=== PATIENT | female | born 1940 | race African-American/Black ===

== ENCOUNTER 2020-03-01 11:18 | Emergency (ER) | payer MEDICARE, BC, SELFPAY ==
[2020-03-01 11:20] VITALS: BP 148/87; PULSE 70; RESP 16; TEMP 36.3; O2SAT 100
--- NOTE | 2020-03-01 11:36 | ED.GENADULT ---
HPI - General Adult General Chief complaint: Back Pain/Injury Stated complaint: back pain Time Seen by Provider: 03/01/20 11:36 Source: patient and RN notes reviewed Mode of arrival: ambulatory Limitations: no limitations History of Present Illness HPI narrative: 79-year-old -[place] female presents with complaints of mid-right back pain for the past 2 weeks. Symptoms increased throughout the past 48 hours. Mima believes that she slept wrong otherwise unknown injuries. Ibuprofen 800mg last this morning at 09:30 without relief. Denies new injuries or falls. Denies radiating pain, numbness, or tingling. Denies fever or chills. No upper or lower extremity pain or weakness. Exacerbating factors consist of reaching outward or backwards with right hand. Denies chest pain. Denies nausea, vomiting, or abdominal pain. Denies problems with urinating or having a bowel movement, LBM this morning per patient and normal. No flank pain or hematuria or dysuria. LMP postmenopausal. Remains active. The patient reports she have not been diagnosed with COVID-19. The patient reports she is not waiting for the results of a COVID-19 lab test. Mima reports her last COVID-19 test in December 2019 was NEGATIVE. The patient reports she do not have weakness or fatigue. The patient reports she do not have a new or worsening cough or shortness of breath. The patient reports she do not have any rhinorrhea, congestion, sore throat, loss of taste, or diarrhea. Tolerating po intake well. Denies recent traveling. Denies concerns for COVID-19 or exposures been home with limited outdoor exposure except for essential household needs, work, and return home. At this time, patient is not suspected of having COVID-19. Some parts of this dictation were generated by voice recognition software and may contain typographical and/or grammatical inaccuracies. Related Data Home Medications Medication Instructions Recorded Confirmed ergocalciferol (vitamin D2) 50,000 unit PO WEEKLY 03/01/20 03/01/20 levothyroxine 125 mcg PO DAILY 03/01/20 03/01/20 nifedipine 60 mg PO DAILY 03/01/20 03/01/20 rosuvastatin 10 mg PO DAILY 03/01/20 03/01/20 Allergies Allergy/AdvReac Type Severity Reaction Status Date / Time codeine AdvReac Unknown HEADACHE Verified 03/01/20 13:39 Review of Systems Review of Systems: Narrative: CONSTITUTIONAL: Denies fever, chills, sweats. EYES: Denies visual changes, redness, discharge. ENT: Denies rhinorrhea, congestion, sore throat, otalgia. CARDIOVASCULAR: Denies chest pain, palpitations, edema. RESPIRATORY: Denies dyspnea, wheezing, cough. GASTROINTESTINAL: Denies abdominal pain, nausea, vomiting, diarrhea. GENITOURINARY: Denies dysuria, hematuria, abnormal discharge. SKIN: Denies rash or itching. MUSCULOSKELETAL: Complains of mid-right back pain. Denies joint pain or myalgia. NEUROLOGIC: Denies numbness or focal weakness. PSYCHIATRIC: Denies anxiety or depression. All systems reviewed & are unremarkable except as noted in HPI and below PMFSH Past Medical History Medical History (Updated 03/02/20 @ 00:00 by [facility]) Carpal tunnel syndrome Femur fracture, left surgery with lashay insertion at age 18 Hypercholesteremia Hypertension Postmenopausal Surgical History Surgical History (Updated 03/01/20 @ 15:16 by AYDEE Still) H/O partial thyroidectomy History of carpal tunnel surgery Bilateral History of shoulder surgery bilateral rotator cuff repair Hx of appendectomy Family History Family History (Updated 03/01/20 @ 11:49 by AYDEE Still) Father Cancer Mother , at age 81 Parkinson's disease Social History Social History (Updated 03/01/20 @ 11:49 by AYDEE Still) Smoking status: Never smoker Tobacco type: cigarettes Second hand tobacco smoke exposure: No Alcohol intake: current Alcohol use details: Beer once or twice a week
== END 2020-03-01 12:20 | disposition home or self-care (01) ==
PROVIDERS: Emergency Provider Nurse Practitioner Family
DX: M54.6 Pain in thoracic spine (principal); E78.00 Pure hypercholesterolemia, unspecified; I10 Essential (primary) hypertension
CPT/HCPCS: 99203; G0463

== ENCOUNTER 2020-03-20 11:07 | Emergency (ER) | payer MEDICARE, BC, SELFPAY ==
--- NOTE | ~2020-03-20 | XR_ITS ---
XR knee LT min 4V 03/20/2020 12:14 INDICATION: Left knee pain for 3 days PROCEDURE: 4 views left knee COMPARISON: No prior studies for comparison. FINDINGS: Fracture, dislocation or subluxation is not identified. Small joint effusion. Distal aspect of intramedullary lashay in the femur noted. The mild osteoarthritis of the knee. The soft tissues appe ar within normal limits. No foreign bodies are identified. IMPRESSION: 1: NO ACUTE BONE OR JOINT ABNORMALITY IDENTIFIED. Reviewed, dictated and finalized at location A. MAKER APPRENTICE
--- NOTE | ~2020-03-20 | XR_ITS ---
XR hip LT min 2V 03/20/2020 12:13 Indication: Left hip pain Procedure: 3 views left hip Comparison: No prior studies for comparison. Findings: There is an intramedullary lashay transfixing the femur. There is a healed midshaft fracture o f the femur. No acute fracture or traumatic malalignment. There is osteoarthritis of the left hip. No significant soft tissue abnormality. No foreign bodies. Impression: 1: No acute fracture. Reviewed, dictated and finalized at location A. ARD OPERATOR Impression: 1: No acute fracture.
[2020-03-20 11:12] VITALS: BP 177/84; PULSE 68; RESP 12; TEMP 36.3; O2SAT 100
--- NOTE | 2020-03-20 11:25 | ED.GENADULT ---
HPI - General Adult General Chief complaint: Back Pain/Injury Stated complaint: L THIGH/CALF PAIN Time Seen by Provider: 03/20/20 11:25 Source: patient Mode of arrival: ambulatory Limitations: no limitations History of Present Illness HPI narrative: 79-year-old female patient presents to the [facility] with complaints of left leg pain that started about a week ago. Patient states she was seen here couple weeks ago for some lower back pain and was given some muscle relaxants which she said did improve her back pain. Patient states she is now having some pain to the left hip and the left knee. Patient states she does have a lashay into the left femur. Patient denies any history of arthritis that she is aware of. Patient states that the pain is worse when she first wakes up in the morning and does get better as the day progresses. Patient states she has been taking some ibuprofen, using heat and ice yesterday as well as some muscle rub. Patient denies any numbness or tingling down the leg. Denies any recent injuries or falls to that left side that she is aware of. Patient states she did call her primary doctor and they did refill her muscle relaxants for about 1 week but states she has only taken 1 since the pain has started. Related Data Home Medications Medication Instructions Recorded Confirmed ergocalciferol (vitamin D2) 50,000 unit PO WEEKLY 03/01/20 03/20/20 levothyroxine 125 mcg PO DAILY 03/01/20 03/20/20 nifedipine 60 mg PO DAILY 03/01/20 03/20/20 rosuvastatin 10 mg PO DAILY 03/01/20 03/20/20 ascorbic acid (vitamin C) 500 mg PO DAILY 03/20/20 03/20/20 aspirin [Adult Aspirin EC Low 81 mg PO DAILY 03/20/20 03/20/20 Strength] cholecalciferol (vitamin D3) 25 mcg PO DAILY 03/20/20 03/20/20 [Vitamin D3] Allergies Allergy/AdvReac Type Severity Reaction Status Date / Time codeine AdvReac Unknown HEADACHE Verified 03/20/20 11:12 Review of Systems Review of Systems: Narrative: CONSTITUTIONAL: Denies fever, chills, or sweats. EYES: Denies visual changes, redness, or discharge. ENT: Denies rhinorrhea, congestion, sore throat, or otalgia. CARDIOVASCULAR: Denies chest pain, palpitations, or edema. RESPIRATORY: Denies cough or dyspnea. GASTROINTESTINAL: Denies abdominal pain, nausea, vomiting, or diarrhea. GENITOURINARY: Denies dysuria or hematuria. SKIN: Denies rash or itching. MUSCULOSKELETAL: Denies back pain, joint pain, or myalgia. NEUROLOGIC: Denies headache, numbness, or weakness. PSYCHIATRIC: Denies anxiety or depression. [facility] Past Medical History Medical History (Updated 03/20/20 @ 12:34 by AYDEE Fang) Carpal tunnel syndrome Femur fracture, left surgery with lashay insertion at age 18 Hypercholesteremia Hypertension Postmenopausal Surgical History Surgical History (Updated 03/01/20 @ 15:16 by AYDEE Still) H/O partial thyroidectomy History of carpal tunnel surgery Bilateral History of shoulder surgery bilateral rotator cuff repair Hx of appendectomy Family History Family History (Updated 03/01/20 @ 11:49 by AYDEE Still) Father Cancer Mother , at age 81 Parkinson's disease Social History Social History (Updated 03/01/20 @ 11:49 by AYDEE Still) Smoking status: Never smoker Tobacco type: cigarettes Second hand tobacco smoke exposure: No Alcohol intake: current Substance use: never Gender identity (if verbalized by the patient): Female Exam Narrative: Exam Narrative: GENERAL: Well-appearing, well-nourished, and in no acute distress. HEAD: Normocephalic, atraumatic. EYES: PERRLA and EOMI. ENT: Nares clear, no rhinorrhea or epistaxis. Mucous membranes moist. NECK: Supple. No lymphadenopathy CHEST: Clear to auscultation. No respiratory distress. HEART: Regular rate and rhythm. No murmur heard. Normal peripheral pulses. ABDOMEN: Soft, nontender, nondistended, normal active bowel sounds. EXTREMITIES: Suly
== END 2020-03-20 12:45 | disposition home or self-care (01) ==
PROVIDERS: Emergency Provider Nurse Practitioner Family
DX: M25.462 Effusion, left knee (principal); M16.12 Unilateral primary osteoarthritis, left hip; M17.12 Unilateral primary osteoarthritis, left knee; E78.00 Pure hypercholesterolemia, unspecified; I10 Essential (primary) hypertension; Z79.82 Long term (current) use of aspirin; Z90.89 Acquired absence of other organs
CPT/HCPCS: 73502; 73564; 99214; G0463

== ENCOUNTER 2020-05-11 13:00 | Outpatient (RCR) | payer MEDICARE, BC, SELFPAY ==
--- NOTE | 2020-04-13 15:02 | PTOPEVAL ---
PHYSICAL THERAPY EVALUATION AND PLAN OF CARE 04-13-2020 Thank you for referring Mima Omer to [facility].? She is scheduled to be seen for therapy? 2x/week for 4 weeks. Please review, sign, date and return this plan of care ANNIE. I agree with and certify that the following plan of care is medically necessary. Referring Physician Date Attending Provider: Santiago Garduno MD *PT Outpatient Evaluation Document 04/13/20 14:10 ANGEL (Rec: 04/13/20 15:02 ANGEL [id number]) Therapy Assessment Status Assessment Status Assessment Status Evaluation Outpatient Past Medical History Past Medical History Source of Past Medical History Patient Neurological History Hx Neurological Disorders No Significant History Cardiovascular History Hx Hypercholesterolemia Yes: meds Hx Hypertension Yes: meds Respiratory History Hx Respiratory Disorders No Significant History Gastrointestinal History Hx Appendectomy Yes Genitourinary History Hx Genitourinary Disorders No Significant History Musculoskeletal History Hx Fractures Yes: Lt femur lashay at 18 yrs old Hx Orthopedic Surgery Yes: Bilateral rotator cuff repair Hx Other Musculoskeletal Disorders Yes: bilateral carpal tunnel repair Hematological History Hx Hematological Disorders No Significant History Endocrine History Hx Endocrine Surgery Yes: Partial thyroidectomy Hx Hypothyroidism Yes: meds HEENT History Hx HEENT Disorders No Significant History Integumentary History Hx Skin Disorders No Significant History Reproductive History Hx Post Menopausal Yes Psychosocial History Hx Psychiatric Disorders No Significant History Pain History History of Any Previous or Ongoing No Significant History Instance of Pain Anesthesia History Hx Anesthesia Reactions No Significant History Evaluation Information Problem Diagnosis L knee OA Onset Feb 15, 2020 Subjective Information went to urgent care for back Query Text:As Reported By Patient/ pain, then started having more Family L knee pain; no trauma or injury to back or L knee; had injection in knee and pain did not change; saw back dr- going to have MRI next week; had one round of steroids/prednisone and did not help pain in back; Diagnostic Tests X-Rays For This Problem Yes: mild OA per report MRI For This Problem to have MRI of back next week Previous Treatments Pr
--- NOTE | 2020-05-06 11:33 | PCPTNOTE ---
pt called and canceled today's appt;
--- NOTE | 2020-05-11 13:39 | PTOPEVAL ---
PHYSICAL THERAPY DISCHARGE 05-11-2020 Refer to the clinical summary below for her status. The goals were partially achieved. Thank you for referring Mima Omer to [facility].? Please review, sign, date and return this discharge ANNIE. I agree with and certify that the following plan of care is medically necessary. Referring Physician Date Attending Provider: Santiago Garduno MD Document 05/11/20 13:05 ANGEL (Rec: 05/11/20 13:38 ANGEL [id number]) Assessment Status Discharge Subjective Information Mima reports: limping more Query Text:As Reported By Patient/ when walking, back hurting Family more, using cane sometimes, doing leg exercises at home, feels like leg is stronger; Pain Assessment Timing of Pain Assessment Timing of Pain Assessment Assessment Pain Scale Pain Scale Used Numeric (1 - 10) Self Report Pain Assessment Left Knee(s) Reported Pain Level 7 Pain Description Burning,Tightness Radicular Pain Location warm feeling going down leg; Pain Frequency Chronic,Continuous Other Pain Description back pain more- cold and damp weather Pain Score Pain Score 7: Self Report Interventions Used Interventions Used By Clinicians Exercise Other Alleviating Interventions kinesiotape over L knee medial and lateral patella- pt instruct on applicat Lower Extremity Range of Motion General Lower Extremity Range of Motion Gross Lower Extremity Range of Motion L LE: supine knee extension (- Comments 5') and sitting knee flexion 95', both with increase pain; hip IR 0', with hip and knee at 90', increase pain; supine hamstring stretch with SLR 40' Lower Extremity Muscle Strength Testing General Lower Extremity Strength Gross Lower Extremity Strength L LE: supine SLR x 20 reps; side lying hip abduction 10 reps-- increase pain in back and hip; Posture Posture Standing Position Additional Posture Comments decreased weight bearing on L LE/ weight shift to R; Palpation Assessment Palpation Palpation tenderness with light touch over L lateral hip, ITB and L knee medial joint line; visible edema over L knee, compared to R knee; Gait Assessment Gait Assessment Ambulation Assistive Devices None Ambulation Distance 300 Query Text:(Feet)
== END 2020-05-12 08:15 | disposition home or self-care (01) ==
LOC: ANHPT 13:00
PROVIDERS: Visit Provider Orthopaedic Surgery
DX: M17.12 Unilateral primary osteoarthritis, left knee (principal)
CPT/HCPCS: 97014; 97110; 97116; 97140; 97161; G0283

== ENCOUNTER 2022-05-28 10:35 | Emergency (ER) | payer MEDICARE, BC, SELFPAY ==
--- NOTE | ~2022-05-28 | XR_ITS ---
XR knee RT 3V DATE: 05/28/2022 11:16 INDICATION: Posterior right knee pain after climbing into a shoe the TECHNIQUE: 3 views COMPARISON: None FINDINGS: Very prominent enthesopathy of the patella at the quadriceps and particularly the patellar tendon insertions as well as prominent enthesopathy of the anterior tibial tuberosity at the patellar tendon insertion. Periarticular spurring of the patellofemoral and lateral compartments and moderate loss of height of medial compartment joint space, consistent with tricompartment osteoarthritis. Small suprapatellar knee joint effusion is suggested. No recent fracture, dislocation, periosteal reaction or bone destruction is detected. No radiopaque i ntra-articular loose body or chondrocalcinosis. IMPRESSION: Prominent enthesopathy at the quadriceps and patellar tendon insertion sites Mild knee joint effusion Tricompartment osteoarthritis Reviewed, dictated and finalized at location A. ACCOUNTING ANALYST IMPRESSION: Prominent enthesopathy at the quadriceps and patellar tendon insert ion sites Mild knee joint effusion Tricompartment osteoarthritis
--- NOTE | 2022-05-28 10:39 | ED.URI ---
HPI - URI/Sore Throat General Stated Complaint: rt knee pain Time Seen by Provider: 05/28/22 10:40 Source: patient and RN notes reviewed Related Data Home Medications Medication Instructions Recorded Confirmed levothyroxine 125 mcg tablet 125 mcg PO DAILY 03/01/20 07/27/21 nifedipine 60 mg tablet,extended 60 mg PO DAILY 03/01/20 07/27/21 release rosuvastatin 10 mg tablet 10 mg PO DAILY 03/01/20 07/27/21 ascorbic acid (vitamin C) 500 mg 500 mg PO DAILY 03/20/20 07/27/21 tablet aspirin 81 mg tablet,delayed 81 mg PO DAILY 03/20/20 07/27/21 release cholecalciferol (vitamin D3) 25 25 mcg PO DAILY 03/20/20 07/27/21 mcg (1,000 unit) tablet (Vitamin D3) Allergies Allergy/AdvReac Type Severity Reaction Status Date / Time codeine AdvReac Unknown HEADACHE Verified 07/27/21 13:28 Review of Systems Review of Systems: CONSTITUTIONAL: Denies fever, chills, or sweats. EYES: Denies visual changes, redness, or discharge. ENT: Denies rhinorrhea, congestion, sore throat, or otalgia. CARDIOVASCULAR: Denies chest pain, palpitations, or edema. RESPIRATORY: Denies cough or dyspnea. GASTROINTESTINAL: Denies abdominal pain, nausea, vomiting, or diarrhea. GENITOURINARY: Denies dysuria or hematuria. SKIN: Denies rash or itching. MUSCULOSKELETAL: Denies back pain, joint pain, or myalgia. NEUROLOGIC: Denies headache, numbness, or weakness. PSYCHIATRIC: Denies anxiety or depression. All other systems reviewed are negative, except as documented in HPI. [facility] Past Medical History Medical History Arthritis of left knee BMI 37.0-37.9, adult Carpal tunnel syndrome Hypercholesteremia Hypertension Postmenopausal Surgical History Surgical History Femur fracture, left surgery with lashay insertion at age 18 H/O hand surgery H/O partial thyroidectomy History of carpal tunnel surgery Bilateral History of shoulder surgery bilateral rotator cuff repair Hx of appendectomy Family History Family History Father Cancer Mother , at age 81 Parkinson's disease Social History Social History Smoking status: Never smoker Second hand tobacco smoke exposure: No Alcohol intake: current Alcohol use details: occasional Substance use: never Living arrangements: with family Occupation/Education: retired Gender identity (if verbalized by the patient): Female Comments At the time of my signature, I reviewed and agree with the nursing past medical, surgical, social, and family history. There is no relevant family history pertinent to the patient complaint. Exam Narrative: GENERAL: This is a well-nourished, well-developed patient, in no apparent distress. HEAD: normocephalic, atraumatic. EYES: PERRL. Sclera clear/white. Vision is grossly intact. EARS: External ears normal, auditory canals clear and without drainage, TMs normal without perforation. Hearing grossly intact. NOSE: External nose normal with no obvious nasal discharge, nares without redness, no rhinorrhea. THROAT: Mucous membranes moist, posterior pharynx clear. NECK: Neck supple, non-tender without lymphadenopathy, masses or thyromegaly. CARDIOVASCULAR: Regular rate and rhythm without murmurs, gallops, or rubs. RESPIRATORY: Clear to auscultation. Breath sounds equal bilaterally. No wheezes, rales, or rhonchi. GASTROINTESTINAL: Abdomen soft, non-tender, nondistended. Bowel sounds are active. No hepato-splenomegaly, or palpable masses. No guarding. SKIN: warm, intact with no suspicious lesions or rash, good texture and turgor. NEURO: awake, alert, and oriented to person, place and time. There were no obvious focal neurologic abnormalities. EXTREMITIES: No clubbing, cyanosis, or edema. No joint tenderness, effusion, or edema noted. No c
--- NOTE | 2022-05-28 10:41 | ED.LOWEXIN ---
HPI - Extremity Injury (Lower) General Chief Complaint: Extremity Injury, Lower Stated Complaint: rt knee pain Time Seen by Provider: 05/28/22 10:40 Source: patient and RN notes reviewed History of Present Illness HPI Narrative: Patient is an 81-year-old female who presents to urgent care with complaints of right knee pain. Patient states that she has chronic low back and left knee pain and which she sees a chiropractor and a spine doctor for. Patient states that she has been getting adjustments which have helping with the chronic back and left knee discomfort. States that she was climbing up in a truck last night to go to dinner and believes that she compensated and placed all of her weight on the right knee. Patient states that since then she has been having excruciating posterior knee pain on the right side that radiates down her calf. Patient did take a muscle relaxer without much relief. States that pain is increased with adduction and weight-bearing. No other acute complaints. Denies any fall or known injury. No acute distress noted. Patient aware of plan of care. Some parts of this dictation were generated by voice recognition software and may contain typographical and/or grammatical inaccuracies. Related Data Home Medications Medication Instructions Recorded Confirmed levothyroxine 125 mcg tablet 125 mcg PO DAILY 03/01/20 05/28/22 nifedipine 60 mg tablet,extended 60 mg PO DAILY 03/01/20 05/28/22 release rosuvastatin 10 mg tablet 10 mg PO DAILY 03/01/20 05/28/22 ascorbic acid (vitamin C) 500 mg 500 mg PO DAILY 03/20/20 05/28/22 tablet aspirin 81 mg tablet,delayed 81 mg PO DAILY 03/20/20 05/28/22 release cholecalciferol (vitamin D3) 25 25 mcg PO DAILY 03/20/20 05/28/22 mcg (1,000 unit) tablet (Vitamin D3) Allergies Allergy/AdvReac Type Severity Reaction Status Date / Time codeine AdvReac Unknown HEADACHE Verified 05/28/22 10:54 Review of Systems Review of Systems: CONSTITUTIONAL: Denies fever, chills, or sweats. EYES: Denies visual changes, redness, or discharge. ENT: Denies rhinorrhea, congestion, sore throat, or otalgia. CARDIOVASCULAR: Denies chest pain, palpitations, or edema. RESPIRATORY: Denies cough or dyspnea. GASTROINTESTINAL: Denies abdominal pain, nausea, vomiting, or diarrhea. GENITOURINARY: Denies dysuria or hematuria. SKIN: Denies rash or itching. MUSCULOSKELETAL: Reports of posterior right knee pain and swelling NEUROLOGIC: Denies headache, numbness, or weakness. All other systems reviewed are negative, except as documented in HPI. [facility] Past Medical History Medical History Arthritis of left knee BMI 37.0-37.9, adult Carpal tunnel syndrome Hypercholesteremia Hypertension Postmenopausal Surgical History Surgical History Femur fracture, left surgery with lashay insertion at age 18 H/O hand surgery H/O partial thyroidectomy History of carpal tunnel surgery Bilateral History of shoulder surgery bilateral rotator cuff repair Hx of appendectomy Family History Family History Father Cancer Mother , at age 81 Parkinson's disease Social History Social History Smoking status: Never smoker Second hand tobacco smoke exposure: No Alcohol intake: current Alcohol use details: occasional Substance use: never Living arrangements: with family Occupation/Education: retired Gender identity (if verbalized by the patient): Female Comments At the time of my signature, I reviewed and agree with the nursing past medical, surgical, social, and family history. There is no relevant family history pertinent to the patient complaint. Exam Narrative: GENERAL: This is a well-nourished, well-developed patient, in no apparent distress.
[2022-05-28 11:19] VITALS: BP 134/79; PULSE 99; RESP 16; TEMP 36.8; O2SAT 99
== END 2022-05-28 11:42 | disposition home or self-care (01) ==
PROVIDERS: Emergency Provider Nurse Practitioner Family
DX: M17.11 Unilateral primary osteoarthritis, right knee (principal); M25.461 Effusion, right knee; I10 Essential (primary) hypertension; Z79.82 Long term (current) use of aspirin
CPT/HCPCS: 73562; 99213; G0463

== ENCOUNTER 2024-07-07 11:42 | Inpatient (IN) | payer MEDICARE, BC, SELFPAY ==
[2024-07-07] VITALS (13 sets, daily range): BP systolic 98–165; BP diastolic 58–120; PULSE 62–137; RESP 16–20; TEMP 36.4–36.7; O2SAT 96–100; BMI 31.8; BMI 31.9
--- NOTE | ~2024-07-07 | MR_ITS ---
EXAMINATION: MR thoracic spine wo con, MR lumbar spine wo con DATE: 07/09/2024 12:30 INDICATION: Acute onset lower extremity weakness TECHNIQUE: 1. Magnetic resonance imaging (MRI) of the thoracic spine was performed without intravenous contrast. Sagittal localizer T1-weighted FSE of the cervicothoracic spine was obtained. Thoracic spine sequenc es included sagittal T2-weighted FSE, sagittal T1-weighted SE, Sagittal T2-weighted FS FSE, and axial T2-weighted FSE. 2. MRI of the lumbar spine was performed without intravenous contrast. Sequences included sagittal T2 -weighted FSE, sagittal T2-weighted FS FSE, sagittal T1-weighted FSE, and axial T2-weighted FSE. COMPARISON: Chest CT dated 07/07/2024 FINDINGS: THORACIC SPINE MRI: Minimal upper thoracic dextrocurvature. 2 mm anterolisthesis C7 on T1. Mild upper thoracic kyphosis. Vertebral body heights are normal. Mild fibrovascular degenerative endplate change anteriorly at the superior endplate of T12. Otherwise normal bone marrow signal throughout. There are bridging osteophy may at multiple levels consistent with diffuse idiopathic skeletal hyperostosis (DISH). Mild disc hei ght loss at T7-T8 and T11-T12. Disc bulge resulting in mild central canal stenosis at T11-T12. There is minimal disc bulging or very small disc protrusions at multiple additional levels on the more ceph alad thoracic spine with only minimal associated central canal stenosis. There is normal spinal cord signal throughout. The conus terminates at L1. There is multilevel thoracic facet osteoarthritis, sev ere at several of the upper thoracic spine, moderate at a few levels in the lower thoracic spine and otherwise mild. This contributes to neural foraminal stenosis most prominent on the left at T11-T12 t here is moderate severity, mild bilaterally at T2-T3, T3-T4, T9-T10 and on the right at T4-T5 and min imal to mild at a few additional levels. Paravertebral soft tissues are unremarkable. LUMBAR SPINE MRI: 1-2 mm anterolisthesis L3 on L4, 5 mm anterolisthesis L4 on L5. Vertebral body heights are normal. No rmal bone marrow signal throughout. Moderate disc height loss and annular fissure at L4-L5. Mild disc height loss at L3-L4 and L5-S1. Paravertebral soft tissues are unremarkable. The following disc leve ls are specifically discussed: T12-L1: Disc is minimally bulging. There is severe bilateral facet joint osteoarthritis. There is min imal left neural foraminal stenosis. There is no central canal stenosis. L1-L2: Disc is minimally bulging. There is severe bilateral facet joint osteoarthritis. There is bila teral neural foraminal stenosis. There is no central canal stenosis. L2-L3: Disc is mildly bulging. There is hypertrophy of the ligamentum flavum. There is severe bilater al facet joint osteoarthritis. There is mild bilateral neural foraminal stenosis. There is mild centr al canal stenosis. L3-L4: Disc is bulging. There is hypertrophy of the ligamentum flavum. There is severe bilateral face t joint osteoarthritis. There is bilateral neural foraminal stenosis. There is moderate central canal stenosis including narrowing of the left and right lateral recesses.. L4-L5: Disc is bulging with annular fissure and superimposed central disc extrusion with disc materia l extending up to 5 mm cephalad to the level of the inferior endplate of L4. There is hypertrophy of the ligamentum flavum. There is severe bilateral facet joint osteoarthritis. There is moderate bilate ral neural foraminal stenosis. There is severe central canal stenosis. L5-S1: Disc is mildly bulging, eccentric to the right. There is severe bilateral facet joint osteoart hritis. There is moderate bilateral neural foraminal stenosis. There is no central canal stenosis. IMPRESSION: 1. Mild thoracic spondylosis with no central canal stenosis and normal cord signal. 2. Moderate lumbar spondylosis with multilevel severe facet osteoarthritis and associated ligamentum flavum hypertrophy contributing to severe central canal stenosis at L4-L5. Reviewed, dictated and finalized at location B. IMPRESSION: 1. Mild thoracic spondylosis with no central canal stenosis and normal cord sig nal. 2. Moderate lumbar spondylosis with multilevel severe facet osteoarthritis and associated ligamentum flavum hypertrophy contributing to severe central canal s tenosis at L4-L5.
--- NOTE | ~2024-07-07 | XR_ITS ---
EXAMINATION: XR tibia fibula LT 2V DATE: 07/12/2024 12:32 INDICATION: Left lower leg pain and swelling. TECHNIQUE: 2 views of left tibia and fibula on 3 radiographs were obtained. COMPARISON: None. FINDINGS: Bone alignment is normal. No fracture. There is an intramedullary lashay in the femur. Left kn ee demonstrates moderate osteoarthritis of the lateral and patellofemoral compartments and mild osteo arthritis of medial compartment. There is mild ankle joint osteoarthritis. No knee joint effusion. IMPRESSION: 1. Polyarticular osteoarthritis. Reviewed, dictated and finalized at location A.
--- NOTE | ~2024-07-07 | MR_ITS ---
EXAMINATION: MR brain/brain stem wo con DATE: 07/09/2024 12:05 INDICATION: Acute lower extremity weakness. TECHNIQUE: Magnetic resonance imaging (MRI) of the brain and brainstem was performed without intraven ous contrast. COMPARISON: None. FINDINGS: There are scattered areas of nonspecific increased T2-weighted signal intensity in the cere bral white matter and latoya, which is within normal limits for the patient's age. There is no intracra nial hemorrhage, acute infarction, or abnormal intracranial mass lesion. The ventricles are normal in size. There are likely changes of ocular lens replacement surgeries. The paranasal sinuses are clear . The mastoid air cells are normal. At T1, there is inflammatory pseudopannus around the dens with se lior central canal stenosis and ventral and dorsal indentation of the spinal cord. There is increased T2-weighted signal intensity in the spinal cord on the left at C1, consistent with myelomalacia. IMPRESSION: 1. Normal aging brain. 2. 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 Reviewed, dictated and finalized at location A.
--- NOTE | ~2024-07-07 | XR_ITS ---
EXAMINATION: XR clavicle RT DATE: 07/12/2024 12:32 INDICATION: Right shoulder pain. TECHNIQUE: 2 views of right clavicle were obtained. COMPARISON: None. FINDINGS: Alignment is normal. No fracture. There is mild osteoarthritis of acromioclavicular joint a nd glenohumeral joint. IMPRESSION: 1. Mild polyarticular osteoarthritis. Reviewed, dictated and finalized at location A.
--- NOTE | ~2024-07-07 | CT_ITS ---
CTA chest PE protocol Ordering provider: Ruslan Coronado III DO History: 83 years Female with . sob . Comparison: None. Technique: CT angiogram chest was performed following timed intravenous injection of contrast. Thin s lice axial images and reformatted coronal images were obtained. Three dimensional reformatted images of the chest were also obtained using a [employer] workstation. . Automated exposure control and iterati ve reconstruction technique were employed. The dose-length product was 599.61 mGy-cm. 100 mL Omnipaqu e 350 was given IV. Findings: PULMONARY ARTERIES: No pulmonary embolus. VISUALIZED THORACIC INLET: Nodule in the right lower thyroid is noted. MEDIASTINUM: Aorta/coronary arteries: Mild atheromatous disease. Heart/other: The heart is not enlarged. Trace of pericardial effusion. Lymph nodes: No mediastinal or hilar adenopathy. Precarinal lymph node measuring 1.8 cm is noted. LUNGS: Minimal right pleural effusion with adjacent atelectasis. Dependent atelectasis seen in the left lung base. No pulmonary nodules or masses. No pneumothorax. VISUALIZED UPPER ABDOMEN: Sliding hiatus hernia. Otherwise, the visualized upper abdomen is normal. MUSCULOSKELETAL: Soft tissues: The superficial soft tissues are normal. Bones: Age appropriate degenerative changes of the spine. IMPRESSION: 1. No pulmonary embolism. 2. Nodule in the right lobe of the thyroid. Ultrasound evaluation advised. 3. Minimal right pleural effusion with adjacent atelectasis. 4. Trace of pericardial effusion. 5. Small sliding hiatus hernia Reviewed, dictated and finalized at location A.
--- NOTE | ~2024-07-07 | US_ITS ---
EXAMINATION: US thyroid DATE: 07/07/2024 18:28 INDICATION: Thyroid nodule TECHNIQUE: Multiple ultrasound images of the thyroid were obtained. COMPARISON: CTPA, same date. FINDINGS: The right thyroid lobe measures 4.9 x 2.8 x 2.8 cm. The left thyroid lobe is surgically absent. The isthmus measures 0.4 cm. There is normal echotexture and echogenicity throughout the remaining thyroi d gland. 3.3 cm solid, hypoechoic, smoothly marginated, taller than wide nodule with a single focal m acrocalcification (in prior CT) in the right thyroid lobe (TI-RADS 5). 1.5 cm solid, hypoechoic, wide r than tall isthmus nodule, with a subtle lobulation along its inferior margin and no calcification ( TI-RADS 4). Normal vascular flow is present. IMPRESSION: Highly suspicious 3.3 cm right thyroid nodule, recommend FNA. Moderately suspicious 1.5 cm thyroid isthmus nodule, recommend FNA. Reviewed, dictated and finalized at location K.
--- NOTE | ~2024-07-07 | XR_ITS ---
XR chest 2V Ordering provider: Yue Pagan History: 83 years Female with . rapid heart rate . Comparison: June 25, 2008 FINDINGS: MEDIASTINUM: The cardiac silhouette is not enlarged. LUNGS: No infiltrates, effusions or pneumothorax. OTHER: No free air under the diaphragm. Degenerative changes of the spine. IMPRESSION: No acute cardiopulmonary pathology. Reviewed, dictated and finalized at location A.
--- NOTE | ~2024-07-07 | XR_ITS ---
EXAMINATION: XR hip BI 2V w AP pelvis DATE: 07/12/2024 12:32 INDICATION: Hip pain and swelling. TECHNIQUE: An anteroposterior view of the pelvis and 2 views of each hip on a total of 7 radiographs were obtained. COMPARISON: Left hip radiographs 03/20/2020 FINDINGS: There is lumbar levocurvature and severe spondylosis. There is an old healed fracture of di aphysis of left femur with internal fixation with antegrade intramedullary lashay. There is mild osteoar thritis of the hips. There is moderate left knee osteoarthritis. IMPRESSION: 1. Mild osteoarthritis of the hips. Reviewed, dictated and finalized at location A.
--- NOTE | ~2024-07-07 | XR_ITS ---
EXAM: XR knee LT 3V DATE: 07/07/2024 17:47 HISTORY: knee pain . COMPARISON: 03/20/2020. FINDINGS: Decreased mineralization. No fracture or dislocation. No lytic or blastic lesion. Partiall y visualized femoral fixation hardware. Moderate tricompartmental osteoarthritis. Moderate volume kim nt fluid. Quadriceps and patellar enthesopathy. No erosion or periosteal change. Soft tissues within normal limits. IMPRESSION: . Field impression no acute osseous finding in the left knee. Moderate left knee joint effusion Reviewed, dictated and finalized at location K.
--- NOTE | ~2024-07-07 | XR_ITS ---
EXAMINATION: XR humerus LT DATE: 07/12/2024 12:32 INDICATION: Left humerus pain and swelling. TECHNIQUE: 2 views of left humerus were obtained. COMPARISON: None. FINDINGS: There is superior subluxation of humeral head with narrowing of the subacromial space, cons istent with rotator cuff tear. There are likely changes of distal clavicle resection. No fracture. Th ere is moderate osteoarthritis of glenohumeral joint. IMPRESSION: 1. Moderate osteoarthritis of glenohumeral joint. 2. Rotator cuff tear. Reviewed, dictated and finalized at location A.
--- NOTE | ~2024-07-07 | US_ITS ---
EXAMINATION: US venous doppler [facility] DATE: 07/08/2024 18:05 INDICATION: Bilateral lower limb pain and swelling. R/O DVT . TECHNIQUE: Grayscale images without and with compression and Doppler images of the bilateral lower ex tremity veins were obtained. COMPARISON: 09/04/2015 and 12/11/2011 FINDINGS: The right common femoral vein, profunda (deep) femoral vein, femoral vein, popliteal vein, peroneal v ein, posterior tibial veins, gastrocnemius vein, and greater saphenous vein are patent. The left posterior tibial vein is partially compressible with maintenance of flow. The left common fe moral vein, profunda (deep) femoral vein, femoral vein, popliteal vein, peroneal vein, gastrocnemius vein and greater saphenous vein are patent. 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 Otherwise patent bilateral lower extremity veins. Reviewed, dictated and finalized at location K. 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 Otherwise patent bilateral lo wer extremity veins.
--- NOTE | ~2024-07-07 | MR_ITS ---
EXAMINATION: MR cervical spine wo con DATE: 07/09/2024 12:12 INDICATION: Acute lower extremity weakness. TECHNIQUE: Magnetic resonance imaging (MRI) of the cervical spine was performed without intravenous c ontrast. COMPARISON: None FINDINGS: Alignment is normal. Vertebral body heights are normal. There is mildly decreased disc heig ht at C6-C7. 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 The following disc levels are specifically discussed: C2-C3: There is a central extrusion. There is no uncovertebral joint osteoarthritis. There is severe bilateral facet joint osteoarthritis. There is mild left neural foraminal stenosis. There is mild geni tral canal stenosis. C3-C4: The disc is bulging with superimposed central extrusion. There is mild right and moderate left uncovertebral joint osteoarthritis. There is severe bilateral facet joint osteoarthritis. There is m ild bilateral neural foraminal stenosis. There is mild central canal stenosis with ventral indentatio n of the spinal cord. C4-C5: The disc does not extend beyond the endplate margin. There is mild bilateral uncovertebral kim nt osteoarthritis. There is severe right and moderate left facet joint osteoarthritis. There is mild bilateral neural foraminal stenosis. There is no central canal stenosis. C5-C6: The disc is bulging. There is mild right and moderate left uncovertebral joint osteoarthritis. There is severe right and moderate left facet joint osteoarthritis. There is mild bilateral neural f oraminal stenosis. There is mild central canal stenosis. C6-C7: The disc is bulging. There is moderate bilateral uncovertebral joint osteoarthritis. There is moderate bilateral facet joint osteoarthritis. There is mild bilateral neural foraminal stenosis. The re is mild central canal stenosis. C7-T1: There is a central extrusion. There is mild bilateral uncovertebral joint osteoarthritis. Ther e is severe bilateral facet joint osteoarthritis. There is mild bilateral neural foraminal stenosis. There is mild central canal stenosis. IMPRESSION: 1. 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 Reviewed, dictated and finalized at location A. IMPRESSION: 1. 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
--- NOTE | ~2024-07-07 | XR_ITS ---
HISTORY: Lt leg pain COMPARISON: None TECHNIQUE: 2 views of the left femur were performed FINDINGS: Intramedullary lashay is noted. Degenerative disease within the left femoral acetabular joint space. No acute fracture is appreciated. Age-appropriate mineralization. IMPRESSION: Intramedullary lashay without acute fracture, as detailed above. Reviewed, dictated and finalized at location A.
--- NOTE | ~2024-07-07 | XR_ITS ---
EXAMINATION: XR chest 1V portable DATE: 07/08/2024 09:42 INDICATION: Pleural effusion. TECHNIQUE: A single frontal view of the chest was obtained. COMPARISON: Chest 2 views 07/07/2024, chest CT 07/07/2024 FINDINGS: There is no pneumonia, pleural effusion, or pneumothorax. The heart size is normal. IMPRESSION: 1. No acute cardiopulmonary disease. Reviewed, dictated and finalized at location A.
--- NOTE | 2024-07-07 11:45 | ECG_ITS ---
Test Date: 2024-07-07 11:50:32 Measurements Intervals [place] Rate: 136 P: 0 LA: 0 QRS: -49 QRSD: 65 T: -40 QT: 275 QTc: 415 Interpretive Statements ATRIAL FLUTTER/TACHYCARDIA WITH RAPID VENTRICULAR RESPONSE MARKED LEFT AXIS DEVIATION [QRS AXIS < -30] LOW QRS VOLTAGE IN PRECORDIAL LEADS [QRS DEFLECTION < 1.0 mV IN CHEST LEADS] POSSIBLE ANTERIOR MYOCARDIAL INFARCTION , PROBABLY OLD [30 ms Q WAVE IN V3/V4, OR R < 0.2 mV IN V4] No previous ECG available for comparison Electronically Signed On 07-08-2024 15:31:10 CDT by Yolanda Schaefer M.D.
--- NOTE | 2024-07-07 11:58 | ED.SOB ---
HPI - SOB/Dyspnea General Chief Complaint: Recheck/Abnormal Lab/Rx <Yue Pagan APRN - Last Filed: 07/07/24 12:01> Stated Complaint: from UC elevated HR <Yue Pagan APRN - Last Filed: 07/07/24 12:01> Time Seen by Provider: 07/07/24 11:55 <Yue Pagan APRN - Last Filed: 07/07/24 12:01> Focused HPI: Patient is an 83-year-old female who presents to the ER from urgent care. She endorses increased shortness of breath and was recently on antibiotic for pneumonia, so she went to urgent care earlier to see if she could get a refill on her antibiotics. When patient arrived at urgent care she began complaining of left leg swelling and tenderness. It was also found that patient's heart rate was in the 130s. Urgent care advised patient to come to the ER for further evaluation. Upon arrival to the ER patient endorses pain in her left knee and increased shortness of breath with exertion. She reports she is on a blood thinner due to a history of AFib. Patient denies any recent fevers, wheezing, abdominal pain, back pain. GENERAL: Well-appearing, well-nourished, and in no acute distress. HEAD: Normocephalic, atraumatic. CHEST: Clear to auscultation. ?No respiratory distress. HEART: Rapid, irregular heart rate.? NEURO: ?Alert and oriented x3. Patient screened in triage and initial orders placed.? ?Additional care and disposition to be based upon?diagnostic testing and treatment. <Yue Pagan APRN - Last Filed: 07/07/24 12:01> History of Present Illness HPI Narrative: agree with HPI above <Ruslan Coronado III, DO - Last Filed: 07/07/24 18:27> Related Data Home Medications: Home Medications ?Medication ?Instructions ?Recorded ?Confirmed ?Last Taken ?Type levothyroxine 125 mcg tablet 125 mcg PO DAILY 03/01/20 06/01/22 Unknown History nifedipine 60 mg tablet,extended 60 mg PO DAILY 03/01/20 06/01/22 Unknown History release rosuvastatin 10 mg tablet 10 mg PO DAILY 03/01/20 06/01/22 Unknown History aspirin 81 mg tablet,delayed 81 mg PO DAILY 03/20/20 06/01/22 Unknown History release cholecalciferol (vitamin D3) 25 25 mcg PO DAILY 03/20/20 06/01/22 Unknown History mcg (1,000 unit) tablet (Vitamin D3) calcium carbonate (Calcium 600) 600 mg PO DAILY 06/01/22 06/01/22 Unknown History <Yue Pagan APRN - Last Filed: 07/07/24 12:01> Allergies/Adverse Reactions: Allergies Allergy/AdvReac Type Severity Reaction Status Date / Time codeine AdvReac Unknown HEADACHE Verified 07/07/24 11:44 <Yue Pagan INTERNAL COMBUSTION ENGINE SUBASSEMBLER - Last Filed: 07/07/24 12:01> Review of Systems Review of Systems: All systems reviewed & are unremarkable except as noted in HPI and below <Ruslan Coronado III, DO - Last Filed: 07/07/24 18:27> [facility] Past Medical History Medical History: Medical History (Updated 07/07/24 @ 17:44 by Charito Olson APRN) Spinal stenosis Arthritis of left knee BMI 37.0-37.9, adult Hypercholesteremia Postmenopausal Carpal tunnel syndrome Hypertension <Yue Pagan INTERNAL COMBUSTION ENGINE SUBASSEMBLER - Last Filed: 07/07/24 12:01> Surgical History Surgical History: Surgical History H/O hand surgery H/O partial thyroidectomy Femur fracture, left surgery with lashay insertion at age 18 History of shoulder surgery bilateral rotator cuff repair Hx of appendectomy History of carpal tunnel surgery Bilateral <Yue Pagan INTERNAL COMBUSTION ENGINE SUBASSEMBLER - Last Filed: 07/07/24 12:01> Family History Family History: Family History Father Cancer Mother , at age 81 Parkinson's disease <Yue Pagan APRN - Last Filed: 07/07/24 12:01> Social History Social History: Social History Smoking status: Never smoker Second hand tobacco smoke exposure: No Alcohol intake: current Alcohol use details: occasional Substance use: never Living arrangements: with family Occupation/Education: retired Gender identity (if verbalized by the patient): Female <Yue VeraNadiya Ej, INTERNAL COMBUSTION ENGINE SUBASSEMBLER - Last Filed: 07/07/24 12:01> Exam Const: General: healthy appearing and no acute distress <Ruslan Grzegorz Coronado III, DO - Last Filed: 07/07/24 18:27> Nutritional Appearance: well nourished <Ruslan Grzegorz Coronado III, DO - Last Filed: 07/07/24 18:27> Orientation/consciousness: patient oriented x3 <Ruslan Grzegorz Coronado III, DO - Last Filed: 07/07/24 18:27> Limitations: no limitations <Ruslan Grzegorz Coronado III, DO - Last Filed: 07/07/24 18:27> HENMT: Head: normal to inspection <Ruslan Grzegorz Coronado III, DO - Last Filed: 07/07/24 18:27> Chest: Chest palpation & inspection: normal inspection of the chest <Ruslan Grzegorz Coronado III, DO - Last Filed: 07/07/24 18:27> Resp: Effort & Inspection: normal respiratory effort <Ruslan Grzegorz Coronado III, DO - Last Filed: 07/07/24 18:27> Auscultation: clear to auscultation bilaterally <Ruslan Grzegorz Coronado III, DO - Last Filed: 07/07/24 18:27> Cardio: Rate: tachycardic <Ruslan Grzegorz Coronado III, DO - Last Filed: 07/07/24 18:27> Rhythm: abnormal rhythm <Ruslan Grzegorz Coronado III, DO - Last Filed: 07/07/24 18:27> GI: GI Palp: Yes Soft to palpation and No Tenderness to palpation present (GI) <Ruslan Grzegorz Coronado III, DO - Last Filed: 07/07/24 18:27> Auscultation: normal bowel sounds <Ruslan Grzegorz Coronado III, DO - Last Filed: 07/07/24 18:27> Back/Spine/Pelvis: Back: no CVA tenderness <Ruslan Grzegorz Coronado III, DO - Last Filed: 07/07/24 18:27> Skin: General skin exam: normal color <Ruslan Grzegorz Coronado III, DO - Last Filed: 07/07/24 18:27> Rashes: no rashes <Ruslan Grzegorz Coronado III, DO - Last Filed: 07/07/24 18:27> Wounds: no wounds <Ruslan Grzegorz Coronado III, DO - Last Filed: 07/07/24 18:27> Neuro: General: patient oriented x3, moves all extremities, no focal motor deficits and CN's II-XI intact bilaterally <Ruslan Grzegorz Coronado III, DO - Last Filed: 07/07/24 18:27> Cranial nerves: Yes Nystagmus not present <Ruslan Grzegorz Coronado III, DO - Last Filed: 07/07/24 18:27> Speech: normal speech <Ruslan Grzegorz Coronado III, DO - Last Filed: 07/07/24 18:27> Extrem: Other: swelling to left knee no posterior calf pain <Ruslan Grzegorz Coronado III, DO - Last Filed: 07/07/24 18:27> Psych: Mental Status: mental status grossly normal <Ruslan Grzegorz Coronado III, DO - Last Filed: 07/07/24 18:27> Affect: normal affect <Ruslan Grzegorz Coronado III, DO - Last Filed: 07/07/24 18:27> Attitude: cooperative <Ruslan Grzegorz Coronado III, DO - Last Filed: 07/07/24 18:27> Course Vital Signs Vital signs: Vital Signs Temperature 97.6 F 07/07/24 11:44 Pulse Rate 137 H 07/07/24 11:44 Respiratory Rate 18 07/07/24 11:44 Blood Pressure 120/80 07/07/24 11:44 Pulse Oximetry 100 07/07/24 11:44 Oxygen Delivery Room Air 07/07/24 11:44 Temperature 97.6 F 07/07/24 11:44 Pulse Rate 80 07/07/24 17:57 Respiratory Rate 20 07/07/24 17:57 Blood Pressure 128/59 L 07/07/24 17:57 Pulse Oximetry 96 07/07/24 17:57 Oxygen Delivery Room Air 07/07/24 11:44 <Yue Pagan, INTERNAL COMBUSTION ENGINE SUBASSEMBLER - Last Filed: 07/07/24 12:01> Vital Signs Temperature 97.6 F 07/07/24 11:44 Pulse Rate 137 H 07/07/24 11:44 Respiratory Rate 18 07/07/24 11:44 Blood Pressure 120/80 07/07/24 11:44 Pulse Oximetry 100 07/07/24 11:44 Oxygen Delivery Room Air 07/07/24 11:44 Temperature 97.6 F 07/07/24 11:44 Pulse Rate 80 07/07/24 17:57 Respiratory Rate 20 07/07/24 17:57 Blood Pressure 128/59 L 07/07/24 17:57 Pulse Oximetry 96 07/07/24 17:57 Oxygen Delivery Room Air 07/07/24 11:44 <Ruslan Coronado III, DO - Last Filed: 07/07/24 18:27> MDM - SOB/Dyspnea MDM Narrative Medical decision making narrative: [facility] for [facility]B and cough. HR noted to be in 130's. Pt has hx of a fib and is on eliquis but admits to sometimes missing a dose. Pt denies CP. Pt also has some left knee pain that has been present for awhile and theodore injury. Pt in a fib with rvr rate 130's. will first try 500 ml bolus and get labs and cxr. cxr clear will get CTA to rule out PE, bnp elevated. fluids did not help much. cardizem 20 mg bolus and HR to 60's drip at 5 mg/min started. discussed with Charito Jiménez agrees to admit. <Ruslan Coronado III, DO - Last Filed: 07/07/24 18:27> Lab Data Result diagrams: 07/07/24 12:00 07/07/24 12:00 <Yue Pagan, INTERNAL COMBUSTION ENGINE SUBASSEMBLER - Last Filed: 07/07/24 12:01> Labs: Lab Results 07/07/24 Range/Units 12:00 WBC 6.6 (4.5-10.0) K/mm3 RBC 4.14 L (4.2-5.4) M/mm3 Hgb 12.3 (12.0-15.0) g/dL Hct 37.5 (37.0-47.0) % MCV 90.6 (80-100) fl MCH 29.7 (26-34) pg MCHC 32.8 (32-36) g/dl RDW 14.3 (11.5-14.5) % Plt Count 161 (150-375) k/mm3 MPV 10.3 (7.4-10.4) fl Immature Gran % (Auto) 0.3 (0-0.5) % Neut % (Auto) 57.8 (45.5-73.1) % Lymph % (Auto) 32.0 (18.3-44.2) % Bailey % (Auto) 8.8 H (2.6-8.5) % Eos % (Auto) 0.6 (0-4.4) % Baso % (Auto) 0.5 (0.2-1.2) % Lymph # (Auto) 2.12 (0.9-3.2) K/mm3 Bailey # (Auto) 0.6 (0.1-0.6) K/mm3 Eos # (Auto) 0.0 (0-0.3) K/mm3 Baso # (Auto) 0.0 (0.0-0.1) K/mm3 Abs Immat Gran (auto) 0.02 (0.00-0.031) K/mm3 Absolute Neuts (auto) 3.8 (1.3-6.7) K/mm3 Absolute Nucleated RBC 0.000 (0.0-0.012) K/mm3 Nucleated RBC % 0.0 (0.0-0.2) % PT 15.5 H (11.1-14.7) Seconds INR 1.2 APTT 28.7 (22.3-36.8) Seconds D-Dimer 1.58 H (<0.48) ug/mL Sodium 145 (137-145) mmol/L Potassium 3.8 (3.4-5.0) mmol/L Chloride 110 H (98-107) mmol/L Carbon Dioxide 23 (22-30) mmol/L Anion Gap 12 (4-12) mmol/L BUN 19 H (7-17) mg/dL Creatinine 0.94 (0.7-1.0) mg/dL Estim Creat Clear Calc 43 ml/min Estimated GFR 57 L (59 - ) Glucose 94 (65-110) mg/dL Calcium 8.4 (8.4-10.2) mg/dL Magnesium 2.1 (1.6-2.3) mg/dL Total Bilirubin 0.8 (0.2-1.3) mg/dL AST 27 (14-36) U/L ALT 18 (6-35) U/L Alkaline Phosphatase 54 (38-126) U/L Troponin I 0.012 (0.000-0.034) ng/mL NT-Pro-B Natriuret Pep 1320 H (19.9-100) pg/mL Total Protein 8.0 (6.3-8.2) g/dL Albumin 4.4 (3.5-5.1) g/dL <Yue Pagan, INTERNAL COMBUSTION ENGINE SUBASSEMBLER - Last Filed: 07/07/24 12:01> Lab Results 07/07/24 Range/Units 12:00 WBC 6.6 (4.5-10.0) K/mm3 RBC 4.14 L (4.2-5.4) M/mm3 Hgb 12.3 (12.0-15.0) g/dL Hct 37.5 (37.0-47.0) % MCV 90.6 (80-100) fl MCH 29.7 (26-34) pg MCHC 32.8 (32-36) g/dl RDW 14.3 (11.5-14.5) % Plt Count 161 (150-375) k/mm3 MPV 10.3 (7.4-10.4) fl Immature Gran % (Auto) 0.3 (0-0.5) % Neut % (Auto) 57.8 (45.5-73.1) % Lymph % (Auto) 32.0 (18.3-44.2) % Bailey % (Auto) 8.8 H (2.6-8.5) % Eos % (Auto) 0.6 (0-4.4) % Baso % (Auto) 0.5 (0.2-1.2) % Lymph # (Auto) 2.12 (0.9-3.2) K/mm3 Bailey # (Auto) 0.6 (0.1-0.6) K/mm3 Eos # (Auto) 0.0 (0-0.3) K/mm3 Baso # (Auto) 0.0 (0.0-0.1) K/mm3 Abs Immat Gran (auto) 0.02 (0.00-0.031) K/mm3 Absolute Neuts (auto) 3.8 (1.3-6.7) K/mm3 Absolute Nucleated RBC 0.000 (0.0-0.012) K/mm3 Nucleated RBC % 0.0 (0.0-0.2) % PT 15.5 H (11.1-14.7) Seconds INR 1.2 APTT 28.7 (22.3-36.8) Seconds D-Dimer 1.58 H (<0.48) ug/mL Sodium 145 (137-145) mmol/L Potassium 3.8 (3.4-5.0) mmol/L Chloride 110 H (98-107) mmol/L Carbon Dioxide 23 (22-30) mmol/L Anion Gap 12 (4-12) mmol/L BUN 19 H (7-17) mg/dL Creatinine 0.94 (0.7-1.0) mg/dL Estim Creat Clear Calc 43 ml/min Estimated GFR 57 L (59 - ) Glucose 94 (65-110) mg/dL Calcium 8.4 (8.4-10.2) mg/dL Magnesium 2.1 (1.6-2.3) mg/dL Total Bilirubin 0.8 (0.2-1.3) mg/dL AST 27 (14-36) U/L ALT 18 (6-35) U/L Alkaline Phosphatase 54 (38-126) U/L Troponin I 0.012 (0.000-0.034) ng/mL NT-Pro-B Natriuret Pep 1320 H (19.9-100) pg/mL Total Protein 8.0 (6.3-8.2) g/dL Albumin 4.4 (3.5-5.1) g/dL <Ruslan Coronado III, DO - Last Filed: 07/07/24 18:27> Critical Care Time Critical Care Time Critical Care Time: Yes <Ruslan Coronado III, DO - Last Filed: 07/07/24 18:27> Total Critical Care Time: 35 <Ruslan Coronado III, DO - Last Filed: 07/07/24 18:27> Discharge Plan Discharge Clinical Impression: Atrial fibrillation with rapid ventricular response <Yue Pagan APRN - Last Filed: 07/07/24 12:01> Patient Disposition: Still a Patient <Yue Pagan APRN - Last Filed: 07/07/24 12:01> Condition: Improved <Yue Pagan APRN - Last Filed: 07/07/24 12:01> Patient Language: [place] <Yue Pagan APRN - Last Filed: 07/07/24 12:01> Prescriptions: No Action aspirin [Adult Aspirin EC Low Strength] 81 mg Tablet,Delayed Release (Dr/Ec) 81 mg PO DAILY cholecalciferol (vitamin D3) [Vitamin D3] 25 mcg (1,000 unit) Tablet 25 mcg PO DAILY acetaminophen 325 mg tablet 650 mg PO Q4-6H PRN (Reason: pain) Qty: 90 0RF ibuprofen 800 mg tablet 800 mg PO TID PRN (Reason: pain) Qty: 30 0RF levothyroxine 125 mcg tablet 125 mcg PO DAILY nifedipine 60 mg tablet extended release 60 mg PO DAILY rosuvastatin 10 mg tablet 10 mg PO DAILY prednisone 20 mg tablet 20 mg PO DAILY Qty: 5 0RF tramadol 50 mg tablet 50 mg PO Q6H PRN (Reason: pain) Qty: 20 0RF naloxone [Narcan] 4 mg/actuation spray,non-aerosol 4 mg intranasal Q3M PRN (Reason: opioid overdose) Qty: 2 0RF Rx Instructions: spray 1 dose into ONE nostril; alternate nostrils w each dose until help arrives calcium carbonate [Calcium 600] 600 mg calcium (1,500 mg) tablet 600 mg PO DAILY <Yue Pagan APRN - Last Filed: 07/07/24 12:01> Follow-up/Referrals: PHYSICIAN NOT ON STAFF,NONSTAFF [Non-Staff] - <Yue Pagan APRN - Last Filed: 07/07/24 12:01>
[2024-07-07 12:06] LABS: Basophils Percent Auto 0.5 % (0.2-1.2); Eosinophils Percent Auto 0.6 % (0-4.4); Hematocrit 37.5 % (37.0-47.0); Hemoglobin 12.3 g/dL (12.0-15.0); Immature Granulocyte Absolute 0.02 K/mm3 (0.00-0.031); Immature Granulocyte Percent A 0.3 % (0-0.5); Lymphocytes Absolute Auto 2.12 K/mm3 (0.9-3.2); Mean Corpuscular HGB Conc 32.8 g/dl (32-36); Mean Corpuscular Hemoglobin 29.7 pg (26-34); Mean Corpuscular Volume 90.6 fl (80-100); Mean Platelet Volume 10.3 fl (7.4-10.4); Monocytes Absolute Auto 0.6 K/mm3 (0.1-0.6); Monocytes Percent Auto 8.8 % (2.6-8.5); Neutrophils Absolute Auto 3.8 K/mm3 (1.3-6.7); Neutrophils Percent Auto 57.8 % (45.5-73.1); Platelet Count Result 161 k/mm3 (150-375); Red Blood Count 4.14 M/mm3 (4.2-5.4); Red Cell Distribution Width 14.3 % (11.5-14.5); White Blood Count 6.6 K/mm3 (4.5-10.0)
[2024-07-07 12:18] LABS: Alanine Aminotransferase 18 U/L (6-35); Albumin Level 4.4 g/dL (3.5-5.1); Alkaline Phosphatase 54 U/L (38-126); Anion Gap 12 mmol/L (4-12); Aspartate Amino Transferase 27 U/L (14-36); Bilirubin,Total 0.8 mg/dL (0.2-1.3); Blood Urea Nitrogen 19 mg/dL (7-17); Calcium 8.4 mg/dL (8.4-10.2); Carbon Dioxide 23 mmol/L (22-30); Chloride 110 mmol/L (98-107); Estimated CRCL calculation 43 ml/min; Estimated Glomerular Filt Rate 57; Glucose 94 mg/dL (65-110); Magnesium 2.1 mg/dL (1.6-2.3); Potassium 3.8 mmol/L (3.4-5.0); Sodium 145 mmol/L (137-145)
[2024-07-07 12:20] LABS: INR 1.2; Partial Thromboplastin Time 28.7 Seconds (22.3-36.8); Prothrombin Time 15.5 Seconds (11.1-14.7)
[2024-07-07 12:30] LABS: NT Pro B Type Natriuretic Pept 1320 pg/mL (19.9-100); Troponin I 0.012 ng/mL (0.000-0.034)
[2024-07-07 12:47] LABS: D Dimer 1.58 ug/mL (<0.48)
--- OUTSIDE RECORDS SUMMARY | 2024-07-07 13:43 | XMS_ITS | Encounter Summary ---
Author Organization [facility] Healthcare Address [address] [place] [address] Care Team Providers Care Wire Brush Maker Name Role Phone Lianna Kirk MD Primary Care Provider [phone] Reason for Visit * Reason Comments [facility], and wants to see if she can get more medicine Leg Swelling Started yesterday, h rin to lift and swollen, worried about a blood clot Encounter Details Date Type Department Care Team (Late st Contact Info) Description 07/07/2024 10:45 AM CDT Office Visit [facility] at [address] [id number] Harvinder Marie NP [facility] [address] [place] [address] Tachycardia (Primary Dx); Pain and swelling of left lower leg Social History Tobacco Use Types Packs/Day Years Used Date Smoking Tobacco: Never Smokeless Tobacco: Never Alcohol Use Standard Drinks/Week Comments Yes 0 (1 standard drink = 0.6 oz pur e alcohol) OCASSIONALLY PHQ-2 Answer Date Recorded PHQ-2 Total Score (If total score is 3 or more points, staff should administer the PHQ-9) 0 10/30/2023 Personal Safety Answer Date Recorded Have you ever been in or are you currently in a harmful physical or emotional relationship or is someone making you feel afraid or unsafe? Denies 04/05/2023 Comments No Sex and Gender Information Value Date Recorded Sex Assigned at Not on file Legal Sex Female 3:47 AM RECREATION PROGRAM COORDINATOR Gender Identity Not on file Sexual Orientation Not on file documented as of this encounter Last Filed Vital Signs Vital Sign Reading Time Taken Comments Blood Pressure 120/83 07/07/2024 10:39 AM CDT Pulse 132 07/07/2024 10:57 AM CDT Temperature 36.8 C (98.2 F) 07/07/2024 10:39 AM CDT Respiratory Rate 18 07/07/2024 10:39 AM CDT Oxygen Saturation 98% 07/07/2024 10:57 AM CDT Inhaled Oxygen Concentration - - Weight 84.9 kg (187 lb 1.6 oz) 07/07/2024 10:39 AM CDT Height 154.9 cm (5' 0.98 ) 07/07/2024 10:39 AM C DT Body Mass Index 35.37 07/07/2024 10:39 AM CDT documented in this encounter Progress Notes * Harvinder Marie NP - 07/07/2024 10:45 AM CDT Images from the original note were not included. Subjective/Objective Patient ID: Mima Omer is a 83 y.o. female. This patient has verbally consented to recording this visit in order to utilize AI technology in generating this note. Chief Complaint Cough (Coughing a lot at night, and wants to see if she can get more medicine ) and Leg Swelling (Started yesterday, hard to lift and swollen, worried about a blood clot ) History of Present Illness The patient, with a history of AFib, presents with a persistent cough and new onset left leg swelling and pain. She was seen earlier this month for the cough and was prescribed antibiotics, which provided some relief. However, the cough persists, particularly at night, and she has been using cough drops throughout the day to manage it. Over the past two days, she has noticed significant swelling in her left leg, extending from the knee to the hip. She has been elevating the leg, which has helped somewhat with the swelling. She has a history of knee pain, previously evaluated by orthopedics, which was attributed to a back issue. She denies any previous history of blood clots. She also reports occasional shortness of breath and a history of pneumonia. She is currently on Eliquis and metoprolol for AFib. Review of Systems All other systems reviewed and are negative. Physical Exam Physical Exam Eyes: General: No visual field deficit. Cardiovascular: Rate and Rhythm: Regular rhythm. Tachycardia present. Comments: Left calf measuring 39 cm, right calf measuring 36.5 cm Pulmonary: Effort: Pulmonary effort is normal. Breath sounds: Normal breath sounds. Comments: Patient is able to talk in full and complete sentences without difficulty. Musculoskeletal: Right lower le+ Edema present. Left lower le+ Edema present. Neurological: Mental Status: She is alert and oriented to person, place, and time. Cranial Nerves: No facial asymmetry. Sensory: Sensation is intact. Motor: Motor function is intact. No weakness, abnormal muscle tone or pronator drift. Coordination: Coordination is intact. Romberg sign negative. Coordination normal. Gait: Gait is intact. Vitals: 07/07/24 1039 07/07/24 1057 BP: 120/83 Pulse: (!) 134 (!) 134 Resp: 18 Temp: 36.8 ??C (98.2 ??F) SpO2: 96% 98% Weight: 84.9 kg (187 lb 1.6 oz) Height: 154.9 cm (5' 0.98 ) No results found. Past Medical History: Diagnosis Date Atrial flutter (HCC) Cardiovascular disease Coronary artery disease HX OTHER MEDICAL Hypothyroidism HX OTHER MEDICAL Hyperlipidemia Hypertension Hypertension Mitral valve prolapse Sciatica Current Outpatient Medications: apixaban (ELIQUIS) 5 mg tablet, Take 1 tablet (5 mg total) by mouth 2 (two) times a day, Disp: 180 tablet, Rfl: 3 benzonatate (TESSALON) 200 mg capsule, Take 1 capsule (200 mg total) by mouth 3 (three) times a dayas needed for cough, Disp: 30 capsule, Rfl: 0 Bifidobacterium infantis (Align) 10.5 mg (10 million cell) tablet,chewable, Take 1 tablet/chew tab by mouth daily, Disp: 30 tablet, Rfl: 1 celecoxib (CeleBREX) 200 mg capsule, Take 1 capsule (200 mg total) by mouth 2 (two) times a day, Disp: 180 capsule, Rfl: 3 ergocalciferol (VITAMIN D) 50,000 unit capsule, TAKE 1 CAPSULE BY MOUTH ONE TIME PER WEEK, Disp: 12capsule, Rfl: 0 levothyroxine (SYNTHROID) 125 mcg tablet, TAKE 1 TABLET BY MOUTH EVERY DAY, Disp: 90 tablet, Rfl: 3 metoprolol tartrate (LOPRESSOR) 25 mg immediate release tablet, Take 0.5 tablets (12.5 mg total) bymouth 2 (two) times a day, Disp: 90 tablet, Rfl: 1 naphazoline-peg 300 0.012-0.2 % drops, , Disp: , Rfl: NIFEdipine (NIFEdipine CC) 60 mg 24 hr tablet, Take 1 tablet (60 mg total) by mouth daily, Disp: 90tablet, Rfl: 3 rosuvastatin (CRESTOR) 10 mg tablet, TAKE 1 TABLET BY MOUTH EVERY DAY, Disp: 90 tablet, Rfl: 3 calcium carbonate (CALCIUM 600 ORAL), Take by mouth daily. (Patient not taking: Reported on 04/11/2024), Disp: , Rfl: cyanocobalamin (Vitamin B-12) 100 mcg tablet, Take 1 tablet (100 mcg total) by mouth daily (Patientnot taking: Reported on 04/11/2024), Disp: , Rfl: glucosamine sulfate 1,000 mg capsule, Take by mouth (Patient not taking: Reported on 04/11/2024), Disp: , Rfl: HYDROcodone-acetaminophen (NORCO) 5-325 mg per tablet, 1/2 to 1 tab two times daily as needed (Patient not taking: Reported on 04/11/2024), Disp: 20 tablet, Rfl: 0 kcyypee-hyov-qwkwk-oreg-capryl 100 mg-150 mg- 50 mg-150 mg capsule, Take by mouth (Patient not taking: Reported on 04/11/2024), Disp: , Rfl: Allergies Allergen Reactions Codeine Headache Social History Tobacco Use Smoking status: Never Smokeless tobacco: Never Substance and Sexual Activity Drug use: Yes Types: Alcohol Comment: rarely Sexual activity: Never Partners: Male Comment: Alcohol Use: Not on file Past Surgical History: Procedure Laterality Date APPENDECTOMY CARPAL TUNNEL RELEASE IR FINE NEEDLE ASPIRATION W IMAGE GUIDANCE N/A 02/10/2014 LEG SURGERY bone removed, lashay in place at age 18 ROTATOR CUFF REPAIR Rotator cuff repair THYROID SURGERY Thyroid surgery Procedures Assessment/Plan 1. Tachycardia (Primary) 2. Pain and swelling of left lower leg Results Patient's Wells score is 7.5 which puts her at a high risk group for pulmonary embolism Wells score for DVT is 1, which puts her at a moderate risk group for DVT. Assessment & Plan Leg swelling and pain Acute left leg swelling and pain with increased calf size suggests possible DVT. - Refer to emergency room for DVT evaluation. Tachycardia Heart rate 130-135 bpm. Possible causes include infection or blood clot. On Eliquis and metoprolol for atrial fibrillation. Elevated heart rate could indicate pulmonary embolism. - Refer to emergency room Cough Persistent cough despite antibiotics, with history of frequent pneumonia. Requires evaluation to rule out pneumonia or other conditions. - Refer to emergency room for cough evaluation. - Patient to go to ED by private car, patient refusing EMS. Patient states she will go directly to [facility] ED Disposition Treatment plan including expectations, follow up, and return precautions discussed with patient/parent, verbalizes understanding. Medication dosage, use, and potential adverse reactions discussed with patient/parent. Advised to follow up with PCP if symptoms do not resolve as expected or sooner if condition worsens. Signs/symptoms warranting ER evaluation reviewed. Patient and/or guardian was given an opportunity to ask questions, questions answered. Harvinder Marie NP This office note has been partially dictated using [employer] software, and as a result portions of the record may have been created with this software. Occasional wrong-word or '[id number]' substitutions may have occurred due to the inherent limitations of voice recognition software. Read the chartcarefully and recognize, using context, where substitutions have occurred. Cosigned by Hong Rios MD at 07/07/2024 11:06 AM CDT documented in this encounter Plan of Treatment Not on file documented as of this encounter Visit Diagnoses Diagnosis Tachycardia- Primary Unspecified tachycardia Pain and swelling of left lower leg documented in this encounter Care Teams Wire Brush Maker Relationship Specialty Start Date End Date Lianna Kirk MD PCP - General Family Medicine 01/21/20 documented as of this encounter
--- OUTSIDE RECORDS SUMMARY | 2024-07-07 13:43 | XMS_ITS | Referral Summary ---
Author Organization [facility] Address [address] [place] [address] Care Team Providers Care Rubber And Pounder Name Role Phone Lianna Mar MD Primary Care Provider [phone] Encounters Date Type Department Care Team Description 07/07/2024 10:45 AM CDT Office Visit [facility] at [address] [phone] Harvinder Marie NP Tachycardia (Primary Dx); Pain and swelling of left lower leg 06/24/2024 Results Follow-Up [facility] at [address] [phone] Jacque Helton NP 06/24/2024 4:20 PM CDT Ancillary Procedure [facility] Imaging at [address] [phone] Acute cough 06/24/2024 3:45 PM CDT Office Visit [facility] at [address] [phone] Jacque Helton NP Acute cough (Primary Dx) 06/23/2024 Nurse Triage [facility] Primary Care at [address] [facility] [place] [phone] Lianna Mar MD 04/11/2024 10:00 AM DESK OPERATOR Office Visit [facility] Cardiology at [address] [place] [address] Aly Ricardo MD Chronic anticoagulation (Primary Dx); Obstructive sleep apnea (adult) (pediatric) ; Paroxysmal atrial flutter (HCC); Primary hypertension; Obesity (BMI 30.0-34.9) from Last 3 Months Allergies Active Allergy Reactions Criticality Noted Date Comments Codeine Headache Low Medications cyanocobalamin (Vitamin B-12) 100 mcg tabletIndications: Prevention of Vitamin B12 Deficiency Take 1 tablet (100 mcg total) by mouth daily Active naphazoline-peg 300 0.012-0.2 % drops Active calcium carbonate (CALCIUM 600 ORAL) Take by mouth daily. Active glucosamine sulfate 1,000 mg capsule Take by mouth Active qbrxfhj-eqdd-yskam -oreg-capryl 100 mg-150 mg- 50 mg-150 mg capsule Take by mouth Active Bifidobacterium infantis (Align) 10.5 mg (10 million cell) tablet,chewableInd ications:Acute pneumonia Take 1 tablet/chew tab by mouth daily 30 tablet 1 01/11/20 23 Active HYDROcodone-acetam inophen (NORCO) 5-325 mg per tabletIndications: Acute pain of right shoulder 1/2 to 1 tab two times daily as needed 20 tablet 04/05/20 23 Active Additional Information Patient not taking.Reported on 07/07/2024 celecoxib (CeleBREX) 200 mg capsuleIndications :Osteoarthritis Take 1 capsule (200 mg total) by mouth 2 (two) times a day 180 capsule 3 04/05/20 23 Active apixaban (ELIQUIS) 5 mg tabletIndications: Atrial flutter, unspecified type (HCC) Take 1 tablet (5 mg total) by mouth 2 (two) times a day 180 tablet 3 04/24/19 24 Active NIFEdipine (NIFEdipine CC) 60 mg 24 hr tabletIndications: Primary hypertension Take 1 tablet (60 mg total) by mouth daily 90 tablet 3 09/12/19 24 Active metoprolol tartrate (LOPRESSOR) 25 mg immediate release tabletIndications: Primary hypertension,Atria l flutter with rapid ventricular response (HCC) Take 0.5 tablets (12.5 mg total) by mouth 2 (two) times a day 90 tablet 1 09/12/19 24 025 Active rosuvastatin (CRESTOR) 10 mg tabletIndications: Mixed hyperlipidemia TAKE 1 TABLET BY MOUTH EVERY DAY 90 tablet 3 10/15/19 24 Active levothyroxine (SYNTHROID) 125 mcg tabletIndications: Postoperative hypothyroidism TAKE 1 TABLET BY MOUTH EVERY DAY 90 tablet 3 12/07/19 24 Active ergocalciferol (VITAMIN D) 50,000 unit capsule TAKE 1 CAPSULE BY MOUTH ONE TIME PER WEEK 12 capsule 04/01/20 24 Active benzonatate (TESSALON) 200 mg capsuleIndications :Acute cough Take 1 capsule (200 mg total) by mouth 3 (three) times a day as needed for cough 30 capsule 06/25/19 25 Active azithromycin (ZITHROMAX) 250 mg tabletIndications: Acute cough Take 2 tabs (500 mg) by mouth today, than 1 tab (250 mg) daily for 4 days. 6 tablet 06/25/19 25 025 Active Problems Problem Noted Date Diagnosed Date Edema 09/12/2023 Assessment & Plan (09/12/2023 1:43 PM CDT): Not new but has been worsening. Reports snacking on salty foods like chips. She is advised to decrease salt intake and keep legs raised Dizziness 09/12/2023 Assessment & Plan (09/12/2023 1:42 PM CDT): Pt says she had been of her meds for a while and had episode of dizziness anf disorientation. Says she has been compliant since. Will continue to monitor. Chronic anticoagulation 08/21/2023 Paroxysmal atrial flutter 04/24/2023 Assessment & Plan (09/12/2023 1:49 PM CDT): Pt is not compliant with meds. This is encouraged Assessment & Plan (04/24/2023 9:34 AM DESK OPERATOR): On last visit was sent fo Ed for tachycardia, diagnosed with atrial flutter cardiology appt pending. Currently on eliquis and toprol Samples of eliquis given Other thrombophilia 04/24/2023 Tachycardia 04/24/2023 Assessment & Plan (04/24/2023 9:29 AM DESK OPERATOR): New onset ekg consistent with atrial flutter. Will refer to ED for further care. Persistent cough 01/17/2023 Assessment & Plan (01/17/2023 1:14 PM CDT): Coughs through out the day but worse at night. Pt sleeps on [address] Usually responds to tessalon pearles but not with current symptoms. Pt has completed 2 courses of antibiotics Acute pneumonia 01/10/2023 Assessment & Plan (01/10/2023 12:56 PM CDT): Cxr Minimal patchy left basilar airspace opacities are nonspecific and may represent atelectasis versus aspiration or developing pneumonia in the appropriate clinical context. Pt hs improved but continues to have productive cough of dark sputum Pt on zithromax will add augmentin Acute bronchitis 01/03/2023 Assessment & Plan (01/03/2023 12:50 PM CDT): Subjective fever, cough SOB, productive cough. chills Debility 10/04/2022 Assessment & Plan (10/04/2022 4:44 PM CDT): Antalgic gait. Referral to PT to improve balance and gait and knee pain Acquired bilateral hand deformity 07/04/2022 Assessment & Plan (07/04/2022 11:36 AM CDT): Says she is unable to make a fist. Has numbness and tingling Cervical radiculopathy 07/04/2022 Assessment & Plan (07/04/2022 11:38 AM CDT): Has bilateral numbness and tingling and has been dropping stuff. Will check cervical xrays Left leg swelling 05/10/2021 Assessment & Plan (05/10/2021 2:59 PM DESK OPERATOR): Notes left calf tightness ongoing for weeks. Pt has metal in ipsilateral thigh. Will obtain US to rule out thrombus Abnormal sensation of leg 04/28/2021 Assessment & Plan (04/28/2021 12:30 PM DESK OPERATOR): Pt has lashay in her femor since age 18. Also fell approximately 4 months ago. And reports odd sensation starting in left leg. Will obtain xrays and labs Chronic pain of left knee 04/28/2021 Assessment & Plan (05/10/2021 2:57 PM DESK OPERATOR): Acute on chronic knee pain. 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 Pt agrees to injection as this has worked in the past Assessment & Plan (04/28/2021 12:31 PM DESK OPERATOR): On going since fall. Has had not radiographs. Swelling on exam will obtain xrays Illness 04/28/2021 Assessment & Plan (05/10/2021 2:21 PM DESK OPERATOR): Labs reviewed. All normal. CRP normal. Pt reassured as there are not specific symptoms. Says she has been feeling better. Continues to have tingling on left LE that sometimes travels up. Assessment & Plan (04/28/2021 2:00 PM DESK OPERATOR): Vague symptoms. Will obtain labs. Acute pain of right shoulder 04/13/2021 Assessment & Plan (04/24/2023 9:16 AM DESK OPERATOR): Under care of ortho Assessment & Plan (04/05/2023 12:37 PM DESK OPERATOR): 2 days ago was closing car door when she heard a pop in her right shoulder. Has been in significant pain since she has been unable to raise arm to eat. Assessment & Plan (04/13/2021 10:02 AM DESK OPERATOR): Since fall. Will obtain xrays for eval. Physical therapy Disorder of skin of trunk 02/10/2021 Sprain of knee and leg 02/10/2021 Upper arm joint pain, right 02/10/2021 Assessment & Plan (04/13/2021 9:58 AM DESK OPERATOR): Since fall. Pain and discomfort ongoing for months. Will obtain xrays . pain management--prescribed hydrocodone for severe pain Impaired fasting glucose 01/21/2020 Assessment & Plan (07/22/2020 3:37 PM CDT): Recheck hga1c Fatigue 12/03/2019 Assessment & Plan (12/03/2019 9:20 AM CDT): She has intermittent fatigue. Check CBC, CMP, TSH. Postoperative hypothyroidism 12/03/2019 Assessment & Plan (07/04/2022 11:32 AM CDT): Stable on current dose of synthroid Assessment & Plan (04/13/2021 9:56 AM DESK OPERATOR): Stable on current dose of synthroid Assessment & Plan (07/22/2020 3:39 PM CDT): Stable. Recheck tsh. Pt takes synthroid any time of the day Assessment & Plan (12/03/2019 9:19 AM CDT): Check TSH and free T4. Obstructive sleep apnea (adult) (pediatric) 08/2018 Assessment & Plan (01/18/2019 10:53 PM CDT): The patient had a prior sleep study that demonstrated mild RENE. She snores loudly. She will be scheduled for a home sleep study. Snoring 01/18/2019 Need for influenza vaccination 01/18/2019 Elevated glucose 12/10/2018 Assessment & Plan (12/10/2018 8:10 PM CDT): Check A1C. Weight loss encouraged. Numbness and tingling in both hands 03/13/2018 Assessment & Plan (07/04/2022 11:28 AM CDT): Imtermittent. Unable to make a fist Will refer to Oc.therapy Malaise and fatigue 03/13/2018 Assessment & Plan (12/10/2018 8:11 PM CDT): Check CBC and CMP. Assessment & Plan (09/15/2018 9:17 PM CDT): The patient reports a longstanding history of poor sleep. She sleeps only 2-4 hours per night at time. She notes increased fatigue recently. Assessment & Plan (03/13/2018 11:08 AM DESK OPERATOR): Check TSH, free T4, CBC, and CMP. Reassess at the return office visit. Dyspnea on exertion 05/01/2017 Assessment & Plan (01/17/2023 1:13 PM CDT): Continues to experience exertional dyspea. Will obtain CT. Assessment & Plan (12/03/2019 9:29 AM CDT): The patient presents with worsening dyspnea on exertion. She will be scheduled for a stress test. Her EKG revealed no acute changes. She will be scheduled for a treadmill stress test. Assessment & Plan (09/15/2018 9:15 PM CDT): She has a negative stress test in May. Gradually increase exercise to improve stamina. Assessment & Plan (05/01/2017 11:37 AM DESK OPERATOR): New complaint: Family history of premature coronary artery disease in son at the age of 3535 years old. EKG today and refer for thallium stress test. EKG NSR 61 with non-specific t wave abnormality, unchanged compared to 12/06/16. Medicare annual wellness visit, subsequent 12/06 Assessment & Plan (07/04/2022 11:33 AM CDT): Patient here for annual Medicare wellness visit and for review of complete medical problem list. All the elements of the plan were completed as outlined by CMS. A copy of the prevention plan was given to the patient. I reviewed Medicare Wellness Questionnaire (other physicians involved in care, depression screen, advanced directives), cognitive/memory, and functional assessment. I reviewed and updated the complete problem list, medication list, family history, and immunization records with the patient. I provided preventive counseling and early detection interventions to the patient through health maintenance update and summary of today's office visit. Assessment & Plan (04/13/2021 9:56 AM DESK OPERATOR): We reviewed the Medicare Health Risk Assessment in its entirety during the appointment. Specifically, we reviewed the doctors that the patient sees on a regular basis, tobacco & alcohol usage, advance directive information (including living will & power of facility manager histology status), end of life planning issues, functional ability for activities of daily living, presence of chronic pain that affects functional ability, exposure to relationship abuse, ongoing dental care, hearing & visual deficits, depression screening, fall risk screening (as well as evaluation for any injuries with reported falls), evaluation for cognitive impairment for any memory deficits along with functional deficits associated with memory loss, safety evaluation (including presence of smoke & carbon dioxide detectors, first aid kit, fire extinguisher, regular use of seat belt, regular use of sun screen, exposure to fall risks in home environment, use of safety features like stairs, rails & grab bars in home), ongoing diet & exercise habits (including the health quality of the diet & intensity of exercise), & any concerning changes in weight. Further, we evaluated any concerns of the patient regarding routine activities of daily living such as eating meals, bathing, dressing, using the toilet, & grooming as well as routine executive functions such as keeping house, managing finances, driving, shopping & preparing meals. We did discuss risk factors/conditions (if appropriate) for which additional interventions are recommended. Appropriate screening was discussed, including age-appropriate cancer screening along with bone-density testing. Vaccination status was evaluated & updated as needed, & specific health advice regarding usp management was provided. Patient Care Team: Lianna MAR (PCP) Cognitive impairment: None. Assessment & Plan (12/03/2019 9:23 AM CDT): A Medicare Annual Wellness Visit was completed today. The patient completed a depression screen, functional assessment screen, health risk assessment, and a list of other physicians. The complete problem list, medication list, history, immunizations, and health maintenance were reviewed and updated. Preventative counseling was provided. All of the elements of the examination were completed as outlined per CMS. The patient was educated regarding preventative screenings, immunizations, physical activity goals, and management of chronic health conditions. Assessment & Plan (12/06/2016 11:11 AM CDT): A medicare annual wellness visit was completed today. Th patient completed a depression screen, functional assessment screen, health risk assessment screen. All elements of this exam were completed as outlined by CMS. Please note that the documentation of this is split between paper documentation and this electronic record. Hypertension 12/06/2016 Assessment & Plan (09/12/2023 1:48 PM CDT): Uncontrolled. Pt says she does not take her meds Assessment & Plan (07/04/2022 11:34 AM CDT): Normotensive Assessment & Plan (04/13/2021 9:56 AM DESK OPERATOR): Well managed on current me regimen. Pt reports compliance Assessment & Plan (07/22/2020 3:37 PM CDT): Stable/ well controlled. Continue meds as is Assessment & Plan (12/03/2019 9:22 AM CDT): The patient's blood pressure is 118/68. She is consistently normotensive on the current medication regimen. Continue the current medication regimen and reassess at the next regular appointment. Assessment & Plan (01/18/2019 10:50 PM CDT): The patient is normotensive. She will continue her current medication regimen. Blood pressure will be evaluated at her next visit. Assessment & Plan (12/10/2018 8:09 PM CDT): Hypertension is improving with treatment. Continue current treatment regimen. Blood pressure will be reassessed at the next regular appointment. DASH eating plan reviewed in detail. Assessment & Plan (09/15/2018 9:16 PM CDT): Hypertension is improving with treatment. Continue current treatment regimen. Blood pressure will be reassessed at the next regular appointment. Assessment & Plan (05/01/2017 11:23 AM DESK OPERATOR): Stable: Continue current medications, monitor closely and treat as clinical course dictates. Reviewed clinical desk top, past labs, diagnostic tests and consultations from other providers. Reviewed past medical, surgical and hospitalization history. Patient verbalizes understanding of plan of care and follow up plan. Assessment & Plan (12/06/2016 11:56 AM CDT): Stable: Continue current medications, monitor closely and treat as clinical course dictates. Reviewed clinical desk top, past labs, diagnostic tests and consultations from other providers. Reviewed past medical, surgical and hospitalization history. Patient verbalizes understanding of plan of care and follow up plan. EKG NSR 61, unchanged compared to 10/29. Arthritis 12/09/2015 Low back pain 12/09/2015 Spinal stenosis of lumbar region 12/09/2015 Assessment & Plan (10/04/2022 4:24 PM CDT): stable Assessment & Plan (07/04/2022 11:27 AM CDT): Under care of ortho spine. Causing radicular pain. Will try gabapentin Lumbar radiculopathy 12/09/2015 Assessment & Plan (10/04/2022 4:41 PM CDT): No exacerbation at this dmitri Assessment & Plan (07/04/2022 11:29 AM CDT): Chronic, but seems to be worsening. Will try neurontin Sciatica 12/09/2015 Thyroid nodule 11/08/2015 Overview (07/21/2016): Thyroid nodule Assessment & Plan (12/03/2019 9:36 AM CDT): The patient's benign nodule is stable. Continue to monitor. She will have a follow up thyroid ultrasound later this month. Assessment & Plan (12/10/2018 8:05 PM CDT): The patient's ultrasound reveals and unchanged nodule. Pathology was benign. Assessment & Plan (05/01/2017 11:22 AM DESK OPERATOR): Patient did not follow through with thyroid ultrasound ordered in November. Assessment & Plan (12/06/2016 11:13 AM CDT): 2.9 cm nodule diagnosed in 2013. Negative biopsy. Continue yearly ultrasound for 5 years. November 2015 ultrasound showed slight increase in nodule size. Patient was asked to repeat ultrasound in 6 months and did not follow through. Will order ultrasound today. If increasing in size will refer to Endocrine. Prediabetes 11/08/2015 Overview (07/21/2016): Prediabetes Assessment & Plan (10/04/2022 5:04 PM CDT): Discussed healthy eating in depth Examples of foods reviewed Assessment & Plan (07/04/2022 11:33 AM CDT): Managed by diet. Will recheck Assessment & Plan (12/03/2019 9:23 AM CDT): Check A1C today. Assessment & Plan (12/06/2016 11:11 AM CDT): Stable: Continue diet and exercise. Hyperlipidemia 11/08/2015 Overview (07/21/2016): Hyperlipidemia, unspecified hyperlipidemia type Assessment & Plan (07/04/2022 11:30 AM CDT): Well managed on crestor Assessment & Plan (04/13/2021 9:54 AM DESK OPERATOR): Well controlled on statin Assessment & Plan (07/22/2020 3:38 PM CDT): Unclear if pt is taking crestor. Med refilled Assessment & Plan (12/03/2019 9:21 AM CDT): Check fasting lipid panel. Assessment & Plan (12/10/2018 8:10 PM CDT): DASH eating plan reviewed. Assessment & Plan (12/06/2016 11:11 AM CDT): Stable: Not on statin, encourage diet and exercise. Vitamin D deficiency 11/08/2015 Overview (07/21/2016): Vitamin D deficiency Assessment & Plan (10/04/2022 4:46 PM CDT): Vit D previously elevated will recheck levels. Assessment & Plan (07/22/2020 3:38 PM CDT): Well controlled. Pt will continue supplementation Assessment & Plan (12/03/2019 9:24 AM CDT): Check 25-OH vitamin D level and replete as needed. Assessment & Plan (12/10/2018 8:05 PM CDT): Continue supplementation. Assessment & Plan (09/15/2018 9:19 PM CDT): Continue supplementation. Assessment & Plan (03/13/2018 10:41 AM DESK OPERATOR): She is on vitamin D 50,000 international units weekly. Check 25-OH vitamin D. Assessment & Plan (05/01/2017 11:22 AM DESK OPERATOR): Stable: Patient is now taking 55599 units of vitamin-D monthly. Check vitamin-D level today. Neck pain 12/24/2014 Overview (07/20/2016): Neck pain Carpal tunnel syndrome 12/24/2014 Overview (07/20/2016): Carpal tunnel syndrome Postmenopausal status 03/03/2014 Resolved Problems Problem Noted Date Diagnosed Date Resolved Date Severe obesity (BMI 35.0-39. 9) with comorbidity 01/10/2023 04/11/2024 Assessment & Plan (10/30/2023 1:14 PM CDT): BMI Follow-up includes: nutrition counseling, exercise counseling, and education provided. Assessment & Plan (04/24/2023 8:58 AM DESK OPERATOR): BMI Follow-up includes: nutrition counseling, exercise counseling, and education provided. Assessment & Plan (04/05/2023 12:03 PM DESK OPERATOR): BMI Follow-up includes: nutrition counseling, exercise counseling, and education provided. Assessment & Plan (01/17/2023 12:38 PM CDT): BMI Follow-up includes: nutrition counseling, exercise counseling, and education provided. Assessment & Plan (01/10/2023 12:40 PM CDT): BMI Follow-up includes: nutrition counseling, exercise counseling, and education provided. Severe obesity (BMI 35.0-39. 9) with comorbidity 01/04/2023 01/10/2023 Assessment & Plan (01/04/2023 9:06 AM CDT): BMI Follow-up includes: nutrition counseling, exercise counseling, and education provided. Class 2 obesity due to exces s calories without serious comorbidity with body mass index (BMI) of 37.0 to 37.9 in adult 01/03/2023 Assessment & Plan (01/03/2023 12:36 PM CDT): BMI Follow-up includes: nutrition counseling, exercise counseling, and education provided. BMI 37.0-37.9, adult 10/04/2022 Assessment & Plan (10/04/2022 12:30 PM CDT): BMI Follow-up includes: nutrition counseling, exercise counseling, and education provided. Class 2 obesity without seri ous comorbidity with body mass index (BMI) of 37.0 to 37.9 in adult 07/04/2022 01/04/2023 Assessment & Plan (01/03/2023 1:36 PM CDT): BMI Follow-up includes: nutrition counseling, exercise counseling, and education provided. Assessment & Plan (07/04/2022 11:43 AM CDT): BMI Follow-up includes: education provided. Screening for colon cancer 12/06/2016 1 Overview (12/06/2016): 11/29/15 per Jimmie, normal, repeat in 10 years. Assessment & Plan (12/06/2016 11:09 AM CDT): 15/16 per Jimmie, normal, repeat in 10 years. Screening for osteoporosis 12/06/2016 1 Assessment & Plan (12/03/2019 9:23 AM CDT): The patient will be scheduled for a DEXA scan. Assessment & Plan (12/06/2016 11:11 AM CDT): Managed per microsoft access developer, Dr. Alvarez. Severe obesity (BMI 35.0-39. 9) with comorbidity 12/06/2016 04/11/2024 Assessment & Plan (09/12/2023 1:02 PM CDT): BMI Follow-up includes: nutrition counseling, exercise counseling, and education provided. Assessment & Plan (07/04/2022 11:15 AM CDT): BMI Follow-up includes: nutrition counseling, exercise counseling and education provided. Assessment & Plan (05/10/2021 2:09 PM DESK OPERATOR): BMI Follow-up includes: nutrition counseling, exercise counseling and education provided. Assessment & Plan (04/28/2021 12:02 PM DESK OPERATOR): BMI Follow-up includes: nutrition counseling, exercise counseling and education provided. Assessment & Plan (02/10/2021 11:51 AM CDT): BMI Follow-up includes: nutrition counseling, exercise counseling and education provided. Assessment & Plan (07/22/2020 3:05 PM CDT): BMI Follow-up includes: nutrition counseling, exercise counseling and education provided. Assessment & Plan (01/21/2020 1:18 PM CDT): BMI Follow-up includes: nutrition counseling, exercise counseling and education provided. Assessment & Plan (12/03/2019 9:19 AM CDT): Body mass index is 37.79 kg/m . BMI Follow-up includes: nutrition counseling, exercise counseling and education provided. Assessment & Plan (01/16/2019 2:33 PM CDT): BMI Follow-up includes: nutrition counseling, exercise counseling and education provided. Assessment & Plan (12/10/2018 10:50 AM CDT): BMI Follow-up includes: nutrition counseling, exercise counseling and education provided. Assessment & Plan (09/15/2018 9:12 PM CDT): BMI Follow-up includes: nutrition counseling, exercise counseling and education provided. Weight loss is encouraged. Assessment & Plan (03/13/2018 10:25 AM DESK OPERATOR): BMI Follow-up includes: nutrition counseling, exercise counseling and education provided. Assessment & Plan (05/01/2017 10:45 AM DESK OPERATOR): BMI Follow-up includes: nutrition counseling, exercise counseling and education provided. Assessment & Plan (12/06/2016 11:29 AM CDT): Reviewed BMI: appropriate education provided including, nutrition and exercise. Thyroid disorder 12/09/2015 04/13/2021 Immunizations Immunization Administration Dates Next Due Influenza, Quadrivalent, Hig h Dose, Preservative Free, Intrr 02/10/2021,12/07/2019 Influenza, Quadrivalent, Spl it, Preservative Free, Intradermal 04/06/2015 Influenza, Trivalent, High D ose, Split, Preservative Free, Intramuscular 01/17/2023,01/16/2019,03/13/2018 Influenza, Unspecified 01/14/2023,2022(Deferred: Patient Refused),01/14/2022,12/16/2015 Pfizer SARS-CoV-2 Monovalent Vaccination (12+ Yrs) PURPLE 04/27/2021,07/20/2020,06/29/2020 Pneumococcal Conjugate PCV 13 12/06/2016 Pneumococcal Polysaccharide PPV23 03/13/2018 Tdap 12/07/2019 ZOSTER Recombinant 01/17/2020 Social History Tobacco Use Types Packs/Day Years Used Date Smoking Tobacco: Never Smokeless Tobacco: Never Tobacco Cessation:Counseling Given: Not Answered Alcohol Use Standard Drinks/Week Comments Yes 0 [...] on file Legal Sex Female 3:47 AM DESK 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 Gender Identity Not on file Sexual Orientation Not on file Last Filed Vital Signs Vital Sign Reading [...] Mass Index 35.37 07/07/2024 10:39 AM CDT Plan of Treatment Not on file Procedures Procedure Name Priority Date/Time Associated Diagnosis Comments XR CHEST PA LATERAL 2 VIEWS Schedule ANNIE, Read ANNIE (Appt Today, Awaiting Results) 06/24/2024 4:32 PM CDT Acute cough DEXA AXIAL SKELETON BONE DENSITY 1 OR MORE SITES Schedule Routine, Read Routine (OP Routine) 07/14/2022 11:17 AM CDT Age-related osteoporosis without fracture from Last 3 Months or Most Recently Relevant to Health Maintenance Results * XR Chest Pa Lateral 2 Views (06/24/2024 4:32 PM CDT) Anatomical Region Laterality Modality Body, Chest N/A Digital Radiogra phy 06/24/2024 4:54 PM CDT Narrative 06/24/2024 4:55 PM CDT EXAM DESCRIPTION: XR CHEST PA LATERAL 2 VIEWS REASON FOR STUDY: cough Pt complains of cough x 3 weeks. No chest surgery. No asthma,cancer,copd. No smoking. Hx afib TECHNIQUE: There are 2 radiographic view(s) of the chest. COMPARISON: Prior exam 04/05/2023, 01/17/2023 and 01/03/2023 FINDINGS: LUNGS: Pulmonary vasculature is normal. No confluent infiltrate or effusion. HEART/MEDIASTINUM: Senescent change of the aorta. Otherwise, normal cardiomediastinal silhouette. LINES/TUBES: None. BONES: Moderate multilevel spondylosis thoracic spine. IMPRESSION: No acute findings or infiltrate. THIS IS AN ELECTRONICALLY VERIFIED FINAL REPORT 06/24/2024 4:55 PM - Electronically signed by Garry Huddleston M.D. MJ T: Report ID: [id number] Reading Location: [id number] Procedure Note Garry Huddleston MD - 06/24/2024 EXAM DESCRIPTION: XR CHEST PA LATERAL 2 VIEWS REASON FOR STUDY: cough Pt complains of cough x 3 weeks. No chest surgery. No asthma,cancer,copd.No smoking. Hx afib TECHNIQUE: There are 2 radiographic view(s) of the chest. COMPARISON: Prior exam 04/05/2023, 01/17/2023 and 01/03/2023 FINDINGS: LUNGS: Pulmonary vasculature is normal. No confluentinfiltrate or effusion. HEART/MEDIASTINUM: Senescent change of the aorta. Otherwise, normal cardiomediastinal silhouette. LINES/TUBES: None. BONES: Moderate multilevel spondylosis thoracic spine. IMPRESSION: No acute findings or infiltrate. THIS IS AN ELECTRONICALLY VERIFIED FINAL REPORT 06/24/2024 4:55 PM - Electronically signed by Garry Huddleston M.D. MJ T: Report ID: [id number] Reading Location: [place] [address] Jacque Helton NP IMG XR PROCEDURES Final Re sult * Dexa Axial Skeleton Bone Density 1 or 2 Site (07/14/2022 11:17 AM CDT) Anatomical Region Laterality Modality Body N/A Digital Radiogra phy 07/14/2022 11:2 1 AM CDT Impressions 07/14/2022 12:21 PM CDT 1. The bone mineral density of the lumbar spine is increased. There has been a statistically significant increase in bone mineral density since the baseline examination of 12/12/2019. 2. The bone mineral density of the right femoral neck is normal. 3. The bone mineral density of the right total hip is normal. There has been no significant change in bone mineral density since the baseline examination of 12/12/2019. 4. Overall, the above findings are normal by WHO criteria. 5. Calculation of fracture risk using the FRAX model is not appropriate in certain settings. It was not performed in this patient because the patient met the following condition(s): normal bone density. General comments regarding interpretation of bone density measurements: A) In children, premenopausal woman and males under age 50 not at increased risk for fractures only Z-scores, not T-scores are used to indicate risk. A Z-score above -2.0 is defined as within the expected range for age and Z-score at or less than -2.0 is below the expected range for age . A Z-score below the expected range for age in a patient with recent fractures and/or chronic corticosteroid treatment is consistent with a diagnosis of osteoporosis. B) In post menopausal women and males over 50, comparison of the measured bone mineral density with the average value in young normal subjects (the T-score ) has been found to be useful in assessing fracture risk. Fracture risk approximately doubles for each 1.0 standard deviation (SD) in individual's hip or spine bone mineral density is below the average value of young normal subjects. The World Health Organization (WHO) has defined T-scores of -1.0 to -2.5 as diagnostic of low bone mass (OSTEOPENIA), and T-scores of -2.5 or lower to be diagnostic of OSTEOPOROSIS, based on the site of lowest bone density. Note that there will be a change in reporting format and reference databases as patients move from the younger population (group A) to the older population (group B) The National Osteoporosis Foundation (www.nof.org) recommends adequate intake of calcium and vitamin D and regular weight-bearing exercise in all patients. They recommend pharmacologic treatment in postmenopausal women and men age 50 and older presenting with any of the followin) Osteoporosis, after appropriate evaluation to exclude secondary causes. 2) A hip or vertebral (clinical or radiographic) fracture, regardless of the bone density. 3) Low bone mass (Osteopenia) and one or more of: other prior fractures, secondary causes associated with high risk of fracture (such as glucocorticoid use or total immobilization), or computed high risk of fracture (10-yr probability of hip fracture >= 3% or a 10-yr probability of any major osteoporosis-related fracture >= 20% based on the [place].-adapted WHO algorithm), available at http://www.shef.ac.uk/FRAX). Dictated by: Ramila Maynard M.D. The radiology attending physician has personally reviewed this study, and had reviewed and/or edited this written report and agrees with it. Electronically signed by: Katie Mead M.D. Narrative 07/14/2022 12:21 PM CDT BONE DENSITOMETRY OF THE SPINE AND HIP DATE OF STUDY: 07/14/2022 HISTORY: 81-year-old postmenopausal woman with menopause at age 38, loss of height, arthritis. She is being treated with calcium and vitamin D. Evaluate bone mineral density. Additional risk factors for fracture: Alcohol use. FINDINGS (SPINE): The bone mineral density of L1-L4 was assessed by dual-energy x-ray absorptiometry. The average bone mineral density within this region is 1.305 gm/sq-cm. This is 4.4 standard deviations above the mean of the average bone mineral density for age- and gender-matched subjects (the Z-score). It is 2.3 standard deviations above the mean peak bone mineral density in young adults (the T-score). FINDINGS (FEMORAL NECK): The bone mineral density of the right femoral neck was assessed by dual-energy x-ray absorptiometry. The average bone mineral density within the femoral neck region is 0.862 gm/sq-cm. This is 1.2 standard deviations above the mean of the average bone mineral density for age- and gender-matched subjects (the Z-score). It is 0.1 standard deviations above the mean peak bone mineral density in young adults (the T-score). FINDINGS (TOTAL HIP): The bone mineral density of the right hip was assessed by dual-energy x-ray absorptiometry. The average bone mineral density within the total hip region is 1.074 gm/sq-cm. This is 1.8 standard deviations above the mean of the average bone mineral density for age- and gender-matched subjects (the Z-score). It is 1.1 standard deviations above the mean peak bone mineral density in young adults (the T-score). SUMMARY OF CURRENT RESULTS: Region BMD T-score Z-score AP Spine (L1-L4) 1.305 2.3 4.4 Femoral Neck (Right) 0.862 0.1 1.2 Total Hip (Right) 1.074 1.1 1.8 COMPARISON WITH PREVIOUS RESULTS Region Age BMD T-score BMD Change BMD Change Exam Date g/cm2 vs Baseline vs Previous AP Spine (L1-L4) 07/14/2022 81 1.305 2.3 0.022 (1.7%) 0.022 (1.7%) 12/12/2019 79 1.282 2.1 Total Hip(Right) 07/14/2022 81 1.074 1.1 -0.004 (-0.3%) -0.004 (-0.3%) 12/12/2019 79 1.078 1.1 *Denotes significance at 95% confidence level Procedure Note Katie Mead MD - 07/14/2022 BONE DENSITOMETRY OF THE SPINE AND HIP DATE OF STUDY: 07/14/2022 HISTORY: 81-year-old postmenopausal woman with menopause at age 38, loss of height, arthritis. She is being treated with calcium and vitamin D. Evaluate bone mineral density. Additional risk factors for fracture: Alcohol use. FINDINGS (SPINE): The bone mineral density of L1-L4 was assessed by dual-energy x-ray absorptiometry. The average bone mineral density within this region is 1.305 gm/sq-cm. This is 4.4 standard deviations above the mean of the average bone mineral density for age- and gender-matched subjects (the Z-score). It is 2.3 standard deviations above the mean peak bone mineral density in young adults (the T-score). FINDINGS (FEMORAL NECK): The bone mineral density of the right femoral neck was assessed by dual-energy x-ray absorptiometry. The average bone mineral density within the femoral neck region is 0.862 gm/sq-cm. This is 1.2 standard deviations above the mean of the average bone mineral density for age- and gender-matched subjects (the Z-score). It is 0.1 standard deviations above the mean peak bone mineral density in young adults (the T-score). FINDINGS (TOTAL HIP): The bone mineral density of the right hip was assessed by dual-energy x-ray absorptiometry. The average bone mineral density within the total hip region is 1.074 gm/sq-cm. This is 1.8 standard deviations above the mean of the average bone mineral density for age- and gender-matched subjects (the Z-score). It is 1.1 standard deviations above the mean peak bone mineral density in young adults (the T-score). SUMMARY OF CURRENT RESULTS: Region BMD T-score Z-score AP Spine (L1-L4) 1.305 2.3 4.4 Femoral Neck (Right) 0.862 0.1 1.2 Total Hip (Right) 1.074 1.1 1.8 COMPARISON WITH PREVIOUS RESULTS Region Age BMD T-score BMD Change BMD Change Exam Date g/cm2 vs Baseline vs Previous AP Spine (L1-L4) 07/14/2022 81 1.305 2.3 0.022 (1.7%) 0.022 (1.7%) 12/12/2019 79 1.282 2.1 Total Hip(Right) 07/14/2022 81 1.074 1.1 -0.004 (-0.3%) -0.004 (-0.3%) 12/12/2019 79 1.078 1.1 *Denotes significance at 95% confidence level IMPRESSION: 1. The bone mineral density of the lumbar spine is increased. There has been a statistically significant increase in bone mineral density since the baseline examination of 12/12/2019. 2. The bone mineral density of the right femoral neck is normal. 3. The bone mineral density of the right total hip is normal. There has been no significant change in bone mineral density since the baseline examination of 12/12/2019. 4. Overall, the above findings are normal by WHO criteria. 5. Calculation of fracture risk using the FRAX model is not appropriate in certain settings. It was not performed in this patient because the patient met the following condition(s): normal bone density. General comments regarding interpretation of bone density measurements: A) In children, premenopausal woman and males under age 50 not at increased risk for fractures only Z-scores, not T-scores are used to indicate risk. A Z-score above -2.0 is defined as within the expected range for age and Z-score at or less than -2.0 is below the expected range for age . A Z-score below the expected range for age in a patient with recent fractures and/or chronic corticosteroid treatment is consistent with a diagnosis of osteoporosis. B) In post menopausal women and males over 50, comparison of the measured bone mineral density with the average value in young normal subjects (the T-score ) has been found to be useful in assessing fracture risk. Fracture risk approximately doubles for each 1.0 standard deviation (SD) in individual's hip or spine bone mineral density is below the average value of young normal subjects. The World Health Organization (WHO) has defined T-scores of -1.0 to -2.5 as diagnostic of low bone mass (OSTEOPENIA), and T-scores of -2.5 or lower to be diagnostic of OSTEOPOROSIS, based on the site of lowest bone density. Note that there will be a change in reporting format and reference databases as patients move from the younger population (group A) to the older population (group B) The National Osteoporosis Foundation (www.nof.org) recommends adequate intake of calcium and vitamin D and regular weight-bearing exercise in all patients. They recommend pharmacologic treatment in postmenopausal women and men age 50 and older presenting with any of the followin) Osteoporosis, after appropriate evaluation to exclude secondary causes. 2) A hip or vertebral (clinical or radiographic) fracture, regardless of the bone density. 3) Low bone mass (Osteopenia) and one or more of: other prior fractures, secondary causes associated with high risk of fracture (such as glucocorticoid use or total immobilization), or computed high risk of fracture (10-yr probability of hip fracture >= 3% or a 10-yr probability of any major osteoporosis-related fracture >= 20% based on the [place].-adapted WHO algorithm), available at http://www.shef.ac.uk/FRAX). Dictated by: Ramila Maynard M.D. The radiology attending physician has personally reviewed this study, and had reviewed and/or edited this written report and agrees with it. Electronically signed by: Katie Mead M.D. Lianna Mar MD IMG DXA PROCEDURES Final Resu lt from Last 3 Months or Most Recently Relevant to Health Maintenance Insurance MEDICARE [facility] MEDICARE [facility] FEDERAL MEDICARE [facility] Care Teams Rubber And Pounder Relationship Specialty Start Date End Date Lianna Mar MD PCP - General Family Medicine 01/21/20
--- OUTSIDE RECORDS SUMMARY | 2024-07-07 13:43 | XMS_ITS | Encounter Summary ---
Author Organization [facility] Healthcare Address [address] [place] [id number] Care Team Providers Care Specimen Boss Name Role Phone Lianna Kirk MD Primary Care Provider [phone] Encounter Details Date Type Department Care Team (Late st Contact Info) Description 06/24/2024 Results Follow-Up 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 Pt verbalized understanding. documented in this encounter Plan of Treatment Not on file documented as of this encounter Visit Diagnoses Not on filedocumented in this encounter Care Teams Specimen Boss Relationship Specialty Start Date End Date Lianna Kirk MD PCP - General Family Medicine 01/21/20 documented as of this encounter
--- OUTSIDE RECORDS SUMMARY | 2024-07-07 13:43 | XMS_ITS | Clinical Summary ---
Author Organization [facility] Address [address] [place] [address] Phone Care Team Providers Care Settlement Processor Name Role Phone Lianna Kirk MD Primary Care Provider [phone] Social History Tobacco Use Types Packs/Day Years Used Date Smoking Tobacco: Never Assessed Comments Unknown Sex and Gender Information Value Date Recorded Sex Assigned at Not on file Legal Sex Female 1:33 PM CDT Gender Identity Not on file Sexual Orientation Not on file Plan of Treatment Health Maintenance Due Date Last Done Comments DEXA Bone Density 1940 Hepatitis C Virus (HCV) Screening 1940 Respiratory Syncytial Virus (RSV) Immunization (Adult) (1 - 1-dose 75+ series) 2016 Zoster Immunization (2 of 2) 03/13/2020 01/17/2020 Influenza Immunization (#1) 2023 100 07/2022, 01/14/2022, 02/10/2021, Additional history exists SARS-COV-2 Immunization ( season) 2023 04/27/2021, 07/20/2020, 06/29/2020 Pneumococcal Immunization (50+ years) Completed 03/13/2018, 12/06/2016 DTaP/Tdap/Td Immunization Discontinued 12/07/2019 TdaP Immunization Completed 12/07/2019 Hepatitis B Immunization Aged Out No longer eligible based on patient's age to complete this topic Meningococcal Immunization (ACWY) Aged Out No longer eligible based on patient's age to complete this topic Rotavirus Immunization Aged Out No lo nger eligible based on patient's age to complete this topic Insurance MEDICARE [facility] Care Teams Settlement Processor Relationship Specialty Start Date End Date Lianna Kirk MD [address] [facility] [address] [place] [address] PCP - General Family Medicine 01/31/23
--- OUTSIDE RECORDS SUMMARY | 2024-07-07 13:43 | XMS_ITS | Clinical Summary ---
Author Organization [facility] Address [address] [place] [address] Care Team Providers Care Pet Store Merchandiser Name Role Phone Lianna Kirk MD Primary Care Provider Allergies Active Allergy Reactions Criticality Noted Date Comments Codeine Headache Low Medications cyanocobalamin (Vitamin B-12) 100 mcg tabletIndications: Prevention of Vitamin B12 Deficiency Take 1 tablet (100 mcg total) by mouth daily Active naphazoline-peg 300 0.012-0.2 % drops Active calcium carbonate (CALCIUM 600 ORAL) Take by mouth daily. Active glucosamine sulfate 1,000 mg capsule Take by mouth Active jlxoglt-jxeg-wvplh -oreg-capryl 100 mg-150 mg- 50 mg-150 mg [...] encouraged Assessment & Plan (04/24/2023 9:34 AM DELIMBER OPERATOR): On last visit was sent fo Ed for tachycardia, diagnosed with atrial flutter cardiology appt pending. Currently on eliquis and toprol Samples of eliquis given Other thrombophilia 04/24/2023 Tachycardia 04/24/2023 Assessment & Plan (04/24/2023 9:29 AM DELIMBER OPERATOR): New onset ekg consistent with atrial [...] 05/10/2021 Assessment & Plan (05/10/2021 2:59 PM DELIMBER OPERATOR): Notes left calf tightness ongoing for weeks. Pt has metal in ipsilateral thigh. Will obtain US to rule out thrombus Abnormal sensation of leg 04/28/2021 Assessment & Plan (04/28/2021 12:30 PM DELIMBER OPERATOR): Pt has lashay in her femor since age 18. Also fell approximately 4 months ago. And reports odd sensation starting in left leg. Will obtain xrays and labs Chronic pain of left knee 04/28/2021 Assessment & Plan (05/10/2021 2:57 PM DELIMBER OPERATOR): Acute on chronic knee pain. 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 Pt agrees to injection as this has worked in the past Assessment & Plan (04/28/2021 12:31 PM DELIMBER OPERATOR): On going since fall. Has had not radiographs. Swelling on exam will obtain xrays Illness 04/28/2021 Assessment & Plan (05/10/2021 2:21 PM DELIMBER OPERATOR): Labs reviewed. All normal. CRP normal. Pt reassured as there are not specific symptoms. Says she has been feeling better. Continues to have tingling on left LE that sometimes travels up. Assessment & Plan (04/28/2021 2:00 PM DELIMBER OPERATOR): Vague symptoms. Will obtain labs. Acute pain of right shoulder 04/13/2021 Assessment & Plan (04/24/2023 9:16 AM DELIMBER OPERATOR): Under care of ortho Assessment & Plan (04/05/2023 12:37 PM DELIMBER OPERATOR): 2 days ago was closing car door when she heard a pop in her right shoulder. Has been in significant pain since she has been unable to raise arm to eat. Assessment & Plan (04/13/2021 10:02 AM DELIMBER OPERATOR): Since fall. Will obtain xrays for eval. Physical therapy Disorder of skin of trunk 02/10/2021 Sprain of knee and leg 02/10/2021 Upper arm joint pain, right 02/10/2021 Assessment & Plan (04/13/2021 9:58 AM DELIMBER OPERATOR): Since fall. Pain and discomfort ongoing [...] synthroid Assessment & Plan (04/13/2021 9:56 AM DELIMBER OPERATOR): Stable on current dose of synthroid [...] recently. Assessment & Plan (03/13/2018 11:08 AM DELIMBER OPERATOR): Check TSH, free T4, CBC, and [...] stamina. Assessment & Plan (05/01/2017 11:37 AM DELIMBER OPERATOR): New complaint: Family history of premature [...] the plan were completed as outlined by [facility]. A copy of the prevention plan was [...] visit. Assessment & Plan (04/13/2021 9:56 AM DELIMBER OPERATOR): We reviewed the Medicare Health Risk Assessment in its entirety during the appointment. Specifically, we reviewed the doctors that the patient sees on a regular basis, tobacco & alcohol usage, advance directive information (including living will & power of anesthesiology tech status), end of life planning issues, functional [...] as needed, & specific health advice regarding senior living management was provided. Patient Care Team: Lianna KIRK (PCP) Cognitive impairment: None. Assessment & Plan [...] Normotensive Assessment & Plan (04/13/2021 9:56 AM DELIMBER OPERATOR): Well managed on current me regimen. [...] appointment. Assessment & Plan (05/01/2017 11:23 AM DELIMBER OPERATOR): Stable: Continue current medications, monitor closely [...] benign. Assessment & Plan (05/01/2017 11:22 AM DELIMBER OPERATOR): Patient did not follow through with [...] crestor Assessment & Plan (04/13/2021 9:54 AM DELIMBER OPERATOR): Well controlled on statin Assessment & [...] supplementation. Assessment & Plan (03/13/2018 10:41 AM DELIMBER OPERATOR): She is on vitamin D 50,000 international units weekly. Check 25-OH vitamin D. Assessment & Plan (05/01/2017 11:22 AM DELIMBER OPERATOR): Stable: Patient is now taking 35658 units of vitamin-D monthly. Check vitamin-D level [...] provided. Assessment & Plan (04/24/2023 8:58 AM DELIMBER OPERATOR): BMI Follow-up includes: nutrition counseling, exercise counseling, and education provided. Assessment & Plan (04/05/2023 12:03 PM DELIMBER OPERATOR): BMI Follow-up includes: nutrition counseling, exercise [...] and education provided. BMI 37.0-37.9, adult 10/04/2022 023 Assessment & Plan (10/04/2022 12:30 PM CDT): [...] cancer 12/06/2016 1 Overview (12/06/2016): 11/29/15 per radha Samuel, repeat in 10 years. Assessment & Plan (12/06/2016 11:09 AM CDT): 11/28/16 per Jimmie, normal, repeat in 10 years. Screening for osteoporosis 12/06/2016 1 Assessment & Plan (12/03/2019 9:23 AM CDT): The patient will be scheduled for a DEXA scan. Assessment & Plan (12/06/2016 11:11 AM CDT): Managed per dormitory supervisor, Dr. Alvarez. Severe obesity (BMI 35.0-39. 9) with comorbidity 12/06/2016 04/11/2024 Assessment & Plan (09/12/2023 1:02 PM CDT): BMI Follow-up includes: nutrition counseling, exercise counseling, and education provided. Assessment & Plan (07/04/2022 11:15 AM CDT): BMI Follow-up includes: nutrition counseling, exercise counseling and education provided. Assessment & Plan (05/10/2021 2:09 PM DELIMBER OPERATOR): BMI Follow-up includes: nutrition counseling, exercise counseling and education provided. Assessment & Plan (04/28/2021 12:02 PM DELIMBER OPERATOR): BMI Follow-up includes: nutrition counseling, exercise [...] encouraged. Assessment & Plan (03/13/2018 10:25 AM DELIMBER OPERATOR): BMI Follow-up includes: nutrition counseling, exercise counseling and education provided. Assessment & Plan (05/01/2017 10:45 AM DELIMBER OPERATOR): BMI Follow-up includes: nutrition counseling, exercise counseling and education provided. Assessment & Plan (12/06/2016 11:29 AM CDT): Reviewed BMI: appropriate education provided including, nutrition and exercise. Thyroid disorder 12/09/2015 04/13/2021 Encounters Date Type Department Care Team Description 07/07/2024 10:45 AM CDT Office Visit [facility] Convenient Care at [address] [address] Harvinder Marie NP Tachycardia (Primary Dx); Pain and swelling of left lower leg 06/24/2024 4:20 PM CDT Ancillary Procedure [facility] Imaging at [address] [address] Acute cough 06/24/2024 3:45 PM CDT Office Visit [facility] Care at [address] [address] Jacque Helton NP Acute cough (Primary Dx) 06/24/2024 Results Follow-Up [facility] Care at [address] [address] Jacque Helton NP 06/23/2024 Nurse Triage [facility] Primary Care at [address] [facility] [place] [address] Lianna Kirk MD 04/11/2024 10:00 AM DELIMBER OPERATOR Office Visit [facility] Cardiology at [address] [place] [address] Aly Ricardo MD Chronic anticoagulation (Primary Dx); Obstructive sleep apnea (adult) (pediatric) ; Paroxysmal atrial flutter (HCC); Primary hypertension; Obesity (BMI 30.0-34.9) from Last 3 Months Immunizations Immunization Administration Dates Next Due Influenza, Quadrivalent, Hig h Dose, Preservative Free, Intrr 02/10/2021,12/07/2019 Influenza, Quadrivalent, Spl it, Preservative Free, Intradermal 04/06/2015 Influenza, Trivalent, High D ose, Split, Preservative Free, Intramuscular 01/17/2023,01/16/2019,03/13/2018 Influenza, Unspecified 01/14/2023,2022(Deferred: Patient Refused),01/14/2022,12/16/2015 Pfizer SARS-CoV-2 Monovalent Vaccination (12+ Yrs) PURPLE 04/27/2021,07/20/2020,06/29/2020 Pneumococcal Conjugate PCV 13 12/06/2016 Pneumococcal Polysaccharide PPV23 03/13/2018 Tdap 12/07/2019 ZOSTER Recombinant 01/17/2020 Surgical History Surgery Date Site/Laterality Comments ROTATOR CUFF REPAIR Rotator cuff repair THYROID SURGERY Thyroid surgery IR FINE NEEDLE ASPIRATION W IMAGE GUIDANCE 02/10/2014 N/A APPENDECTOMY LEG SURGERY bone removed, lashay in place at age 18 CARPAL TUNNEL RELEASE Medical History Medical History Date Comments Hx Other Medical Hypothyroidism Cardiovascular disease Coronary artery disease Hx Other Medical Hyperlipidemia Hypertension Hypertension Sciatica Mitral valve prolapse Atrial flutter (HCC) Family History Medical History Relation Name Comments Parkinsonism Mother Parkinson's dis ease; Atrial fibrillation Sister Heart attack Son Relation Name Status Comments Father Mother Sister Son Alive Social History Tobacco Use Types Packs/Day Years [...] on file Legal Sex Female 3:47 AM DELIMBER OPERATOR Gender Identity Not on file Sexual Orientation Not on file Obstetrics History Para Term AB IAB SAB Ectopic Multiple Livin g Live Births 3 2 2 1 1 2 2 Date Outcome GA Total Labor Labor/2nd/3rd Weight Sex Type Anes PTL Arlette A1 A5 Name Clin 1968 IAB D&C 1973 Term F Vag-S pont Living Complications:None 1977 Term M Vag-S pont N Living Complications:None Last Filed Vital Signs Vital Sign Reading [...] 07/07/2024 10:39 AM CDT Plan of Treatment Health Maintenance Due Date Last Done Comments Hepatitis B Screening 10/01/1958 Zoster Vaccine (2 of 2) 03/13/2020 01/17/2020 Covid-19 Vaccine (2023-2 5 season) 2023 04/27/2021, 07/20/2020, 06/29/2020 Influenza Vaccine (#1) 2023 , 01/14/2023, 01/14/2022, Additional history exists Osteoporosis Screening-Bone Density Scan 07/14/2024 07/14/2022, 12/12/2019, 12/07/2017 Depression Screening 10/29/2024 10/30/2023, 09/12/2023, 04/24/2023, Additional history exists Fall Risk Assessment 10/29/2024 10/30/2023, 09/12/2023, 04/24/2023, Additional history exists Well Visit 65+ 10/29/2024 10/30/2023, 08/15, 07/04/2022, Additional history exists DTaP/Tdap/Td Vaccine (2 - Td or Tdap) 12/06/2029 12/07/2019 Pneumococcal vaccine 65+ Completed 03/13/2018, 11/15 Procedures Procedure Name Priority Date/Time Associated Diagnosis [...] Garry Huddleston M.D. MJ T: Report ID: [id number] Reading Location: [id number] Procedure Note Garry Huddleston MD - 06/24/2024 [...] Garry Huddleston M.D. MJ T: Report ID: [id number] Reading Location: [place] [address] [place] Jacque Helton CAMPUS SUPERVISOR IMG XR PROCEDURES Final Re sult * [...] Electronically signed by: Katie Mead M.D. Lianna Kirk MD IM DXA PROCEDURES Final Resu lt from Last 3 Months or Most Recently Relevant to Health Maintenance Insurance [facility]ARE [facility] FED[facility]AL [facility]ARE [facility] FEDERAL Member Subscriber Plan / Payer (Ef fective 2017-Present) Name:Mima Omer Relation to Subscriber:Self Name:Mima Omer Payer ID:[id number] (NAIC) Group ID:[id number] Type:[facility] Address: [address] [place] [id number] Care Teams Pet Store Merchandiser Relationship Specialty Start Date End Date Lianna Kirk MD PCP - General Family Medicine 01/21/20
--- NOTE | 2024-07-07 15:25 | PC.NURSE ---
pt to CT. will start IV fluids when pt returns to floor
[2024-07-07] MEDS: SODIUM CHLORIDE 0.9% IV 500 ML 999 ML IV CONT (15:45)
--- OUTSIDE RECORDS SUMMARY | 2024-07-07 16:50 | XMS_ITS | Clinical Summary ---
Author Organization [facility] Address [address] [place] [address] Care Team Providers Care Plum Packer Name Role Phone Lianna Kirk MD Primary Care Provider [phone] Allergies Active Allergy Reactions Criticality Noted Date Comments Codeine Headache Low Medications cyanocobalamin (Vitamin B-12) 100 mcg tabletIndications: Prevention of Vitamin B12 Deficiency Take 1 tablet (100 mcg total) by mouth daily Active naphazoline-peg 300 0.012-0.2 % drops Active calcium carbonate (CALCIUM 600 ORAL) Take by mouth daily. Active glucosamine sulfate 1,000 mg capsule Take by mouth Active qswejfv-wtkx-iassk -oreg-capryl 100 mg-150 mg- 50 mg-150 mg [...] encouraged Assessment & Plan (04/24/2023 9:34 AM SOCIAL WORKER DELINQUENCY PREVENTION): On last visit was sent fo Ed for tachycardia, diagnosed with atrial flutter cardiology appt pending. Currently on eliquis and toprol Samples of eliquis given Other thrombophilia 04/24/2023 Tachycardia 04/24/2023 Assessment & Plan (04/24/2023 9:29 AM SOCIAL WORKER DELINQUENCY PREVENTION): New onset ekg consistent with atrial flutter. [...] 05/10/2021 Assessment & Plan (05/10/2021 2:59 PM SOCIAL WORKER DELINQUENCY PREVENTION): Notes left calf tightness ongoing for weeks. Pt has metal in ipsilateral thigh. Will obtain US to rule out thrombus Abnormal sensation of leg 04/28/2021 Assessment & Plan (04/28/2021 12:30 PM SOCIAL WORKER DELINQUENCY PREVENTION): Pt has lashay in her femor since age 18. Also fell approximately 4 months ago. And reports odd sensation starting in left leg. Will obtain xrays and labs Chronic pain of left knee 04/28/2021 Assessment & Plan (05/10/2021 2:57 PM SOCIAL WORKER DELINQUENCY PREVENTION): Acute on chronic knee pain. 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 Pt agrees to injection as this has worked in the past Assessment & Plan (04/28/2021 12:31 PM SOCIAL WORKER DELINQUENCY PREVENTION): On going since fall. Has had not radiographs. Swelling on exam will obtain xrays Illness 04/28/2021 Assessment & Plan (05/10/2021 2:21 PM SOCIAL WORKER DELINQUENCY PREVENTION): Labs reviewed. All normal. CRP normal. Pt reassured as there are not specific symptoms. Says she has been feeling better. Continues to have tingling on left LE that sometimes travels up. Assessment & Plan (04/28/2021 2:00 PM SOCIAL WORKER DELINQUENCY PREVENTION): Vague symptoms. Will obtain labs. Acute pain of right shoulder 04/13/2021 Assessment & Plan (04/24/2023 9:16 AM SOCIAL WORKER DELINQUENCY PREVENTION): Under care of ortho Assessment & Plan (04/05/2023 12:37 PM SOCIAL WORKER DELINQUENCY PREVENTION): 2 days ago was closing car door when she heard a pop in her right shoulder. Has been in significant pain since she has been unable to raise arm to eat. Assessment & Plan (04/13/2021 10:02 AM SOCIAL WORKER DELINQUENCY PREVENTION): Since fall. Will obtain xrays for eval. Physical therapy Disorder of skin of trunk 02/10/2021 Sprain of knee and leg 02/10/2021 Upper arm joint pain, right 02/10/2021 Assessment & Plan (04/13/2021 9:58 AM SOCIAL WORKER DELINQUENCY PREVENTION): Since fall. Pain and discomfort ongoing for [...] synthroid Assessment & Plan (04/13/2021 9:56 AM SOCIAL WORKER DELINQUENCY PREVENTION): Stable on current dose of synthroid Assessment [...] recently. Assessment & Plan (03/13/2018 11:08 AM SOCIAL WORKER DELINQUENCY PREVENTION): Check TSH, free T4, CBC, and CMP. [...] stamina. Assessment & Plan (05/01/2017 11:37 AM SOCIAL WORKER DELINQUENCY PREVENTION): New complaint: Family history of premature coronary [...] the plan were completed as outlined by [facility]. A copy of the prevention plan was [...] visit. Assessment & Plan (04/13/2021 9:56 AM SOCIAL WORKER DELINQUENCY PREVENTION): We reviewed the Medicare Health Risk Assessment in its entirety during the appointment. Specifically, we reviewed the doctors that the patient sees on a regular basis, tobacco & alcohol usage, advance directive information (including living will & power of admitted attorneys status), end of life planning issues, functional [...] as needed, & specific health advice regarding detention management was provided. Patient Care Team: Lianna [...] Normotensive Assessment & Plan (04/13/2021 9:56 AM SOCIAL WORKER DELINQUENCY PREVENTION): Well managed on current me regimen. Pt [...] appointment. Assessment & Plan (05/01/2017 11:23 AM SOCIAL WORKER DELINQUENCY PREVENTION): Stable: Continue current medications, monitor closely and [...] benign. Assessment & Plan (05/01/2017 11:22 AM SOCIAL WORKER DELINQUENCY PREVENTION): Patient did not follow through with thyroid [...] crestor Assessment & Plan (04/13/2021 9:54 AM SOCIAL WORKER DELINQUENCY PREVENTION): Well controlled on statin Assessment & Plan [...] supplementation. Assessment & Plan (03/13/2018 10:41 AM SOCIAL WORKER DELINQUENCY PREVENTION): She is on vitamin D 50,000 international units weekly. Check 25-OH vitamin D. Assessment & Plan (05/01/2017 11:22 AM SOCIAL WORKER DELINQUENCY PREVENTION): Stable: Patient is now taking 22911 units of vitamin-D monthly. Check vitamin-D level [...] provided. Assessment & Plan (04/24/2023 8:58 AM SOCIAL WORKER DELINQUENCY PREVENTION): BMI Follow-up includes: nutrition counseling, exercise counseling, and education provided. Assessment & Plan (04/05/2023 12:03 PM SOCIAL WORKER DELINQUENCY PREVENTION): BMI Follow-up includes: nutrition counseling, exercise counseling, [...] Plan (12/06/2016 11:11 AM CDT): Managed per baggage security checker, Dr. Alvarez. Severe obesity (BMI 35.0-39. 9) with comorbidity 12/06/2016 04/11/2024 Assessment & Plan (09/12/2023 1:02 PM CDT): BMI Follow-up includes: nutrition counseling, exercise counseling, and education provided. Assessment & Plan (07/04/2022 11:15 AM CDT): BMI Follow-up includes: nutrition counseling, exercise counseling and education provided. Assessment & Plan (05/10/2021 2:09 PM SOCIAL WORKER DELINQUENCY PREVENTION): BMI Follow-up includes: nutrition counseling, exercise counseling and education provided. Assessment & Plan (04/28/2021 12:02 PM SOCIAL WORKER DELINQUENCY PREVENTION): BMI Follow-up includes: nutrition counseling, exercise counseling [...] encouraged. Assessment & Plan (03/13/2018 10:25 AM SOCIAL WORKER DELINQUENCY PREVENTION): BMI Follow-up includes: nutrition counseling, exercise counseling and education provided. Assessment & Plan (05/01/2017 10:45 AM SOCIAL WORKER DELINQUENCY PREVENTION): BMI Follow-up includes: nutrition counseling, exercise counseling and education provided. Assessment & Plan (12/06/2016 11:29 AM CDT): Reviewed BMI: appropriate education provided including, nutrition and exercise. Thyroid disorder 12/09/2015 04/13/2021 Encounters Date Type Department Care Team Description 07/07/2024 10:45 AM CDT Office Visit [facility] Convenient Care at [address] [address] Harvinder Marie NP Tachycardia (Primary Dx); Pain and swelling of left lower leg 06/24/2024 4:20 PM CDT Ancillary Procedure [facility] Imaging at [address] [address] Acute cough 06/24/2024 3:45 PM CDT Office Visit [facility] Care at [address] [address] Jacque Helton NP Acute cough (Primary Dx) 06/24/2024 Results Follow-Up [facility] Care at [address] [address] Jacque Helton NP 06/23/2024 Nurse Triage [facility] Primary Care at [address] [facility] [place] [address] Lianna Kirk MD 04/11/2024 10:00 AM SOCIAL WORKER DELINQUENCY PREVENTION Office Visit [facility] Cardiology at [address] [place] [address] Aly Ricardo MD Chronic anticoagulation [...] on file Legal Sex Female 3:47 AM SOCIAL WORKER DELINQUENCY PREVENTION Gender Identity Not on file Sexual Orientation [...] Garry Huddleston M.D. MJ T: Report ID: [id number] Reading Location: [id number] Procedure Note Garry Huddleston MD - 06/24/2024 [...] Garry Huddleston M.D. MJ T: Report ID: [id number] Reading Location: [place] [address] [place] Jacque Helton SATELLITE PROJECT SITE MONITOR IMG XR PROCEDURES Final Re sult * [...] Recently Relevant to Health Maintenance Insurance [facility] FEDERAL MEDICARE [facility] FEDERAL [facility] Address: [address] [place] [phone] Care Teams Plum Packer Relationship Specialty Start Date End Date Lianna Kirk MD PCP - General Family Medicine 01/21/20
--- OUTSIDE RECORDS SUMMARY | 2024-07-07 16:50 | XMS_ITS | Encounter Summary ---
Author Organization [facility] Healthcare Address [address] [place] [address] Care Team Providers Care Gas Golf Cart Repairer Name Role Phone Lianna Kirk MD Primary Care Provider [phone] Encounter Details Date Type Department Care Team (Late st Contact Info) Description 06/24/2024 Results Follow-Up [facility] Convenient Care at [address] [address] Jacque Helton MOBILE BATTERY TECHNICIAN [address] [place] [address] [address] [place] [address] Social History Tobacco Use Types [...] on file Legal Sex Female 3:47 AM COMMUNICATION SIGNALS INTELLIGENCE Gender Identity Not on file Sexual Orientation [...] on filedocumented in this encounter Care Teams Gas Golf Cart Repairer Relationship Specialty Start Date End Date Lianna Kirk MD PCP - General Family Medicine 01/21/20 documented as of this encounter
--- OUTSIDE RECORDS SUMMARY | 2024-07-07 16:50 | XMS_ITS | Referral Summary ---
Author Organization [facility] Address [address] [place] [address] Care Team Providers Care Yield Clerk Name Role Phone Lianna Mar MD Primary Care Provider [phone] Encounters Date Type Department Care Team Description 07/07/2024 10:45 AM CDT Office Visit [facility] Con[facility]ient Care at [address] [id number] Harvinder Marie NP Tachycardia (Primary Dx); Pain and swelling of left lower leg 06/24/2024 Results Follow-Up [facility] at [address] [phone] Jacque Helton NP 06/24/2024 4:20 PM CDT Ancillary Procedure [facility] Imaging at [address] [phone] Acute cough 06/24/2024 3:45 PM CDT Office Visit [facility] Care at [address] [phone] Jacque Helton NP Acute cough (Primary Dx) 06/23/2024 Nurse Triage [facility] Primary Care at [address] [facility] [place] [address] Lianna Mar MD 04/11/2024 10:00 AM MOBILE DEVELOPMENT MANAGER Office Visit [facility] Cardiology at [address] [place] [address] Aly Ricardo MD Chronic anticoagulation [...] 1,000 mg capsule Take by mouth Active wbfiaog-kayo-zlfqd -oreg-capryl 100 mg-150 mg- 50 mg-150 mg [...] encouraged Assessment & Plan (04/24/2023 9:34 AM MOBILE DEVELOPMENT MANAGER): On last visit was sent fo Ed for tachycardia, diagnosed with atrial flutter cardiology appt pending. Currently on eliquis and toprol Samples of eliquis given Other thrombophilia 04/24/2023 Tachycardia 04/24/2023 Assessment & Plan (04/24/2023 9:29 AM MOBILE DEVELOPMENT MANAGER): New onset ekg consistent with atrial flutter. [...] 05/10/2021 Assessment & Plan (05/10/2021 2:59 PM MOBILE DEVELOPMENT MANAGER): Notes left calf tightness ongoing for weeks. Pt has metal in ipsilateral thigh. Will obtain US to rule out thrombus Abnormal sensation of leg 04/28/2021 Assessment & Plan (04/28/2021 12:30 PM MOBILE DEVELOPMENT MANAGER): Pt has lashay in her femor since age 18. Also fell approximately 4 months ago. And reports odd sensation starting in left leg. Will obtain xrays and labs Chronic pain of left knee 04/28/2021 Assessment & Plan (05/10/2021 2:57 PM MOBILE DEVELOPMENT MANAGER): Acute on chronic knee pain. 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 Pt agrees to injection as this has worked in the past Assessment & Plan (04/28/2021 12:31 PM MOBILE DEVELOPMENT MANAGER): On going since fall. Has had not radiographs. Swelling on exam will obtain xrays Illness 04/28/2021 Assessment & Plan (05/10/2021 2:21 PM MOBILE DEVELOPMENT MANAGER): Labs reviewed. All normal. CRP normal. Pt reassured as there are not specific symptoms. Says she has been feeling better. Continues to have tingling on left LE that sometimes travels up. Assessment & Plan (04/28/2021 2:00 PM MOBILE DEVELOPMENT MANAGER): Vague symptoms. Will obtain labs. Acute pain of right shoulder 04/13/2021 Assessment & Plan (04/24/2023 9:16 AM MOBILE DEVELOPMENT MANAGER): Under care of ortho Assessment & Plan (04/05/2023 12:37 PM MOBILE DEVELOPMENT MANAGER): 2 days ago was closing car door when she heard a pop in her right shoulder. Has been in significant pain since she has been unable to raise arm to eat. Assessment & Plan (04/13/2021 10:02 AM MOBILE DEVELOPMENT MANAGER): Since fall. Will obtain xrays for eval. Physical therapy Disorder of skin of trunk 02/10/2021 Sprain of knee and leg 02/10/2021 Upper arm joint pain, right 02/10/2021 Assessment & Plan (04/13/2021 9:58 AM MOBILE DEVELOPMENT MANAGER): Since fall. Pain and discomfort ongoing for [...] synthroid Assessment & Plan (04/13/2021 9:56 AM MOBILE DEVELOPMENT MANAGER): Stable on current dose of synthroid Assessment [...] recently. Assessment & Plan (03/13/2018 11:08 AM MOBILE DEVELOPMENT MANAGER): Check TSH, free T4, CBC, and CMP. [...] stamina. Assessment & Plan (05/01/2017 11:37 AM MOBILE DEVELOPMENT MANAGER): New complaint: Family history of premature coronary [...] visit. Assessment & Plan (04/13/2021 9:56 AM MOBILE DEVELOPMENT MANAGER): We reviewed the Medicare Health Risk Assessment in its entirety during the appointment. Specifically, we reviewed the doctors that the patient sees on a regular basis, tobacco & alcohol usage, advance directive information (including living will & power of insurance attorney status), end of life planning issues, functional [...] Normotensive Assessment & Plan (04/13/2021 9:56 AM MOBILE DEVELOPMENT MANAGER): Well managed on current me regimen. Pt [...] appointment. Assessment & Plan (05/01/2017 11:23 AM MOBILE DEVELOPMENT MANAGER): Stable: Continue current medications, monitor closely and [...] benign. Assessment & Plan (05/01/2017 11:22 AM MOBILE DEVELOPMENT MANAGER): Patient did not follow through with thyroid [...] crestor Assessment & Plan (04/13/2021 9:54 AM MOBILE DEVELOPMENT MANAGER): Well controlled on statin Assessment & Plan [...] supplementation. Assessment & Plan (03/13/2018 10:41 AM MOBILE DEVELOPMENT MANAGER): She is on vitamin D 50,000 international units weekly. Check 25-OH vitamin D. Assessment & Plan (05/01/2017 11:22 AM MOBILE DEVELOPMENT MANAGER): Stable: Patient is now taking 37509 units of vitamin-D monthly. Check vitamin-D level [...] provided. Assessment & Plan (04/24/2023 8:58 AM MOBILE DEVELOPMENT MANAGER): BMI Follow-up includes: nutrition counseling, exercise counseling, and education provided. Assessment & Plan (04/05/2023 12:03 PM MOBILE DEVELOPMENT MANAGER): BMI Follow-up includes: nutrition counseling, exercise counseling, [...] Plan (12/06/2016 11:11 AM CDT): Managed per smash piecer, Dr. Alvarez. Severe obesity (BMI 35.0-39. 9) with comorbidity 12/06/2016 04/11/2024 Assessment & Plan (09/12/2023 1:02 PM CDT): BMI Follow-up includes: nutrition counseling, exercise counseling, and education provided. Assessment & Plan (07/04/2022 11:15 AM CDT): BMI Follow-up includes: nutrition counseling, exercise counseling and education provided. Assessment & Plan (05/10/2021 2:09 PM MOBILE DEVELOPMENT MANAGER): BMI Follow-up includes: nutrition counseling, exercise counseling and education provided. Assessment & Plan (04/28/2021 12:02 PM MOBILE DEVELOPMENT MANAGER): BMI Follow-up includes: nutrition counseling, exercise counseling [...] encouraged. Assessment & Plan (03/13/2018 10:25 AM MOBILE DEVELOPMENT MANAGER): BMI Follow-up includes: nutrition counseling, exercise counseling and education provided. Assessment & Plan (05/01/2017 10:45 AM MOBILE DEVELOPMENT MANAGER): BMI Follow-up includes: nutrition counseling, exercise counseling [...] on file Legal Sex Female 3:47 AM MOBILE DEVELOPMENT MANAGER Gender Identity Not on file Sexual Orientation [...] Garry Huddleston M.D. MJ T: Report ID: [id number] Reading Location: [id number] Procedure Note Garry Huddleston MD - 06/24/2024 [...] Garry Huddleston M.D. MJ T: Report ID: [id number] Reading Location: [place] [address] Jacque Helton NP IMG XR PROCEDURES Final [...] Recently Relevant to Health Maintenance [facility]ICARE [facility] Care Teams Yield Clerk Relationship Specialty Start Date End Date Lianna Mar MD PCP - General Family Medicine 01/21/20
--- OUTSIDE RECORDS SUMMARY | 2024-07-07 16:50 | XMS_ITS | Clinical Summary ---
Author Organization [facility] Address [address] [place] [address] Phone Care Team Providers Care Counseling Specialist Name Role Phone Lianna Kirk MD Primary Care Provider [phone] Social History Tobacco Use Types Packs/Day Years [...] age to complete this topic Insurance [place] [id number] [facility] Care Teams Counseling Specialist Relationship Specialty Start Date End Date Lianna Kirk MD [address] [facility] [address] [place] [address] PCP - General Family Medicine 01/31/23
--- OUTSIDE RECORDS SUMMARY | 2024-07-07 16:50 | XMS_ITS | Encounter Summary ---
Author Organization [facility] Healthcare Address [address] [place] [address] Care Team Providers Care Chemical Tank Worker Name Role Phone Lianna Kirk MD Primary Care Provider [phone] Reason for Visit * Reason Comments [facility] and wants to see if she can get more medicine Leg Swelling Started yesterday, h rin to lift and swollen, worried about a blood clot Encounter Details Date Type Department Care Team (Late st Contact Info) Description 07/07/2024 10:45 AM CDT Office Visit [facility] Medical [facility] Convenient Care at [address] [phone] Harvinder Marie NP [facility] [address] [place] [address] Tachycardia (Primary Dx); Pain and [...] on file Legal Sex Female 3:47 AM MENTAL TESTER Gender Identity Not on file Sexual Orientation [...] on 04/11/2024), Disp: 20 tablet, Rfl: 0 muvspfq-cvde-jiluv-oreg-capryl 100 mg-150 mg- 50 mg-150 mg capsule, [...] Patient states she will go directly to [facility] ED Disposition Treatment plan including expectations, follow [...] office note has been partially dictated using [employer] software, and as a result portions of the record may have been created with this software. Occasional wrong-word or 'qdgnc-[id number]' substitutions may have occurred due to the [...] leg documented in this encounter Care Teams Chemical Tank Worker Relationship Specialty Start Date End Date Lianna Kirk MD PCP - General Family Medicine 01/21/20 documented as of this encounter
[2024-07-07] MEDS: dilTIAZem HCl INJ 25 MG/5 ML VIAL 20 MG IV PUSH (17:17)
--- NOTE | 2024-07-07 17:27 | PC.NURSE ---
pt to the restroom. IV flluids still infusing.
--- NOTE | 2024-07-07 17:29 | PM.IMHP ---
H&P: HPI History of Present Illness Date/Time: 07/07/24 17:29 Chief Complaint: Knee pain and shortness of breath Narrative: 83-year-old female patient states that she had increased knee pain and shortness of breath. She had been on oral antibiotics for pneumonia and went to Urgent Care to see if she get a refill. Urgent care center to the emergency room for a follow-up on a heart rate in the 130s. She also complains of left knee pain. Patient states that she has had lower extremity edema for the last few years. Patient does not think she has ever had a echocardiogram. She denies fevers chills cough. In the ED she has an elevated D-dimer at 1.58, BUN of 19, GFR of 57, BNP of 1320, CTA of the chest shows no pulmonary embolism, nodule in the right upper lobe of the thyroid. Minimal right pleural effusion, trace pericardial effusion and hiatal hernia. EKG shows atrial flutter with a rate of 136. Patient given diltiazem and a 1 L bolus in the ED. Review of Systems Review of Systems: 12 systems were reviewed and are negative except for as per HPI. [facility] Past Medical History Medical History (Updated 07/07/24 @ 17:44 by Charito Olson, PATTI) Spinal stenosis Arthritis of left knee BMI 37.0-37.9, adult Hypercholesteremia Postmenopausal Carpal tunnel syndrome Hypertension Surgical History Surgical History H/O hand surgery H/O partial thyroidectomy Femur fracture, left surgery with lashay insertion at age 18 History of shoulder surgery bilateral rotator cuff repair Hx of appendectomy History of carpal tunnel surgery Bilateral Family History Family History Father Cancer Mother , at age 81 Parkinson's disease Sibling Heart disease Son Heart disease Social History Social History Smoking status: Never smoker Second hand tobacco smoke exposure: No Alcohol intake: current Drinks per week: 1 Alcohol use details: occasional Substance use: never Substance use type: does not use Do You Feel Safe in your Home?: Yes Lack of Transportation: No Lack of Food: Never True Current Housing: I Have Housing Concerned About Future Housing: No Difficulty Paying Gas/Electric Bills: No Difficulty Paying for Meds: No Currently Unemployed: No Education: High School Diploma/GED Difficulty w/ Childcare or Family Care: No Living arrangements: with family Occupation/Education: retired Gender identity (if verbalized by the patient): Female Spiritual care concerns: No Meds Home Medications and Allergies Home Medications ?Medication ?Instructions ?Recorded ?Confirmed ?Type levothyroxine 125 mcg tablet 125 mcg PO DAILY 03/01/20 07/07/24 History nifedipine 60 mg tablet,extended 60 mg PO DAILY 03/01/20 07/07/24 History release rosuvastatin 10 mg tablet 10 mg PO DAILY 03/01/20 07/07/24 History acetaminophen 325 mg tablet 650 mg (2 x 325 mg) PO Q4-6H PRN 03/20/20 07/07/24 Rx pain #90 tabs apixaban 5 mg tablet (Eliquis) 5 mg PO BID 07/07/24 07/07/24 History celecoxib 200 mg capsule 200 mg PO BID 07/07/24 07/07/24 History ergocalciferol (vitamin D2) 1,250 50,000 unit PO WEEKLY 07/07/24 07/07/24 History mcg (50,000 unit) capsule metoprolol tartrate 25 mg tablet 12.5 mg PO BID 07/07/24 07/07/24 History Allergies Allergy/AdvReac Type Severity Reaction Status Date / Time codeine AdvReac Unknown HEADACHE Verified 07/07/24 22:18 Vital Signs Vital Signs - 24 hr 07/07/24 11:44 07/07/24 12:29 07/07/24 12:33 Temperature 97.6 F Pulse Rate 137 H 135 H Respiratory Rate 18 18 18 Blood Pressure 120/80 134/82 Pulse Oximetry 100 99 99 Oxygen Delivery Room Air 07/07/24 13:36 07/07/24 17:24 Temperature Pulse Rate 130 H 62 Respiratory Rate 18 16 Blood Pressure 109/78 165/120 H Pulse Oximetry 96 96 Oxygen Delivery Exam Narrative: General: well appearing, appears stated age. HEENT: normocephalic, atraumatic. Mucous membranes moist. EOMI, PERRLA, bilateral sclera anicteric, no conjunctival injection. Neck supple without JVD, lymphadenopathy, or bruit. Respiratory: clear to ascultation bilaterally. No rales/rhonic/wheezes. Cardiovascular: regular rate and rhythm, normal S1-S2 upon ascultation. No murmurs, rubs, or clicks. PMI is nondisplaced, capillary refill less than 3 second. Abdomen: Soft, round, no pulsatile masses, nondistended and nontender. No rebound, no guarding. No CVA tenderness, no hepatosplenomegaly. Bowel sounds present to all four quadrants. No high pitch or tinkling sounds, resonant to percussion. Extremities: No cyanosis, clubbing, . Pulses are palpable 2/2. Active ROM to all four extremities. 4+ pitting edema, Neuro: Alert and orientated x 4. PERRLA. Cranial nerves 2-12 intact without focal deficit. Skin: Warm, dry, and intact, without rash, erythema, or lesion. Psych: pleasant, cooperative, normal speech, normal affect, no hallucinations, no dysarthia H&P: Results Labs Labs: Short CBC 07/07/24 Range/Units 12:00 WBC 6.6 (4.5-10.0) K/mm3 Hgb 12.3 (12.0-15.0) g/dL Hct 37.5 (37.0-47.0) % Plt Count 161 (150-375) k/mm3 BMP 07/07/24 12:00 Sodium 145 Potassium 3.8 Chloride 110 H Carbon Dioxide 23 BUN 19 H Creatinine 0.94 Glucose 94 Calcium 8.4 Cardiac Enzymes 07/07/24 Range/Units 12:00 Troponin I 0.012 (0.000-0.034) ng/mL Liver Function 07/07/24 Range/Units 12:00 Total Bilirubin 0.8 (0.2-1.3) mg/dL AST 27 (14-36) U/L ALT 18 (6-35) U/L Alkaline Phosphatase 54 (38-126) U/L Albumin 4.4 (3.5-5.1) g/dL Assessment and Plan Assessment and plan (1) Atrial flutter: Code(s): I48.92 - Unspecified atrial flutter Status: Acute Assessment and Plan: Could be due to fluid overload Cardiology consulted Diltiazem given in ED Telemetry monitoring Echocardiogram in the morning (2) Pericardial effusion: Code(s): I31.39 - Other pericardial effusion (noninflammatory) Status: Acute Assessment and Plan: Small pleural effusion, small pericardial effusion, right knee effusion, and +4 pitting edema in lower extremities Echocardiogram ordered (3) Thyroid nodule: Code(s): E04.1 - Nontoxic single thyroid nodule Status: Acute Assessment and Plan: Seen on CT Ultrasound ordered pending (4) Arthritis of left knee: Code(s): M17.12 - Unilateral primary osteoarthritis, left knee Status: Chronic Assessment and Plan: Left knee x-ray with effusion no fracture noted Lidocaine patch and Tylenol (5) Hypothyroidism: Code(s): E03.9 - Hypothyroidism, unspecified Status: Acute Assessment and Plan: TSH with a.m. labs Restart Synthroid (6) Hypertension: Code(s): I10 - Essential (primary) hypertension Status: Acute Assessment and Plan: On admission 165/120 IV hydralazine p.r.n. Quality VTE Prophylaxis VTE prophylaxis: mechanical ordered Hospitalist MIPS Advance Care Plan I have confirmed that the patient's Advanced Care Plan is present, code status is documented, or surrogate decision maker is listed in patient medical record.: Yes Medication Reconciliation I have utilized all available resources to obtain, update and review the patients current medications (includes all prescriptions, OTC, herbals, cannabis, and nutritional supplements).: Yes
[2024-07-07] MEDS: dilTIAZem 100 MG/100 ML 100 MG/100 ML BAG IV CONT (17:52)
[2024-07-07] MEDS: LIDOCAINE 5% PATCH 1 PATCH TRANSDERM (19:10)
[2024-07-07] MEDS: ENOXAPARIN 40 MG/0.4 ML SYRINGE SUB-Q (19:10)
--- NOTE | 2024-07-07 21:15 | ADMGEN ---
This patient, Mima Omer, was admitted to IMU Room 210-01. Patient/family oriented to hospital policies and general routines including ID bracelet, bed and alarms, visiting hours, pain management, procedures, bathroom and other care routines, personal items, smoking policy, room service/diet, and visiting hours. Information on how to activate the Rapid Response Team has been discussed. Patient/Family are encouraged to report perceived risks to care and to ask questions if they do not understand what they are told or what they should do.
[2024-07-08] VITALS (25 sets, daily range): BP systolic 91–121; BP diastolic 57–89; PULSE 62–137; RESP 18–24; TEMP 36.4–36.9; O2SAT 95–100
--- NOTE | 2024-07-08 | ECHO_ITS ---
Patient Info Name: Mima Omer Age: 83 years : 1940 Gender: Female Ht: 64 in Wt: 185 lbs BSA: 1.98 m2 HR: 65 bpm BP: 113 / 68 mmHg Technical Quality: Good Exam Date: 07/08/2024 11:06 AM Exam Location: Echo Lab Patient Status: Outpatient Admit Date: 07/07/2024 Staff Ordering Physician: Charito Olson APRN Finish Off Operator: Bernadette Lynn RDCS Attending Provider: Ollie Valencia MD Referring Physician: Wesley VASQUEZ; Exam Type: CA echo doppler color flow Study Info Indications - Pericardial effusion Complete two-dimensional, color flow and Doppler transthoracic echocardiogram is performed. Summary 1. Left ventricular chamber dimension is normal. 2. Left ventricular systolic function is normal, estimated at 60-65%. 3. There is mildly increased left ventricular wall thickness. 4. Right ventricular systolic function is normal. 5. Left atrial chamber dimension is moderately enlarged. 6. Right atrial chamber dimension is moderately enlarged. 7. There is mild mitral valve regurgitation. 8. There is mild tricuspid valve regurgitation. 9. There is no pericardial effusion. Left Ventricle Left ventricular chamber dimension is normal. Left ventricular systolic function is normal, estimated at 60-65%. There is mildly increased left ventricular wall thickness. The left ventricular diastolic function is abnormal. Right Ventricle Right ventricular chamber dimension is normal. Right ventricular systolic function is normal. Left Atria Left atrial chamber dimension is moderately enlarged. Right Atria Right atrial chamber dimension is moderately enlarged. Atrial Septum Intact interatrial septum visualized by color flow imaging. Aortic Valve The aortic valve is not well visualized. There is no aortic valve regurgitation. Pulmonic Valve The pulmonic valve is not well visualized. Mitral Valve There is mild mitral valve regurgitation. Tricuspid Valve There is mild tricuspid valve regurgitation. Pericardium/Pleural There is no pericardial effusion. Inferior Vena Cava Normal inferior vena cava with >50% collapse upon inspiration consistent with normal right atrial pressure, 3 mmHg. Aorta The aortic root size at the sinus of Valsalva is normal. Left Ventricular Outflow Tract Name Value Normal LVOT 2D LVOT Diameter 1.6 cm LVOT Doppler LVOT Peak Gradient 2 mmHg LVOT Mean Gradient 1 mmHg LVOT VTI 14 cm LVOT VTI/AV VTI Ratio 0.6 LVOT Stroke Volume 28 ml LVOT CO 5.8 l/min LVOT CI 2.9 l/min/m2 Pulmonic Valve Name Value Normal PV Doppler PV Peak Gradient 2 mmHg Mitral Valve Name Value Normal MV Doppler MV Decel Freeborn 678 cm/s2 MV PHT 50 ms MV Area (PHT) 4.4 cm2 4.0-5.0 MV Diastolic Function MV E Peak Velocity 116 cm/s MV A Peak Velocity 4 cm/s MV E/A 28.2 MV Decel Time 172 ms MV Annular TDI MV E/e' (Septal) 20.7 <=8.0 MV E/e' (Lateral) 14.6 <=8.0 MV E/e' (Average) 17.7 Tricuspid Valve Name Value Normal TV Regurgitation Doppler TR Peak Velocity 240 cm/s TR Peak Gradient 23 mmHg Estimated PAP/RSVP RA Pressure 3 mmHg <=5 PA Systolic Pressure 26 mmHg <36 RV Systolic Pressure 26 mmHg <36 Aorta Name Value Normal Ascending Aorta Ao Root Diameter (MM) 2.9 cm Ao Root Diam Index (MM) 1.5 cm/m2 Aortic Valve Name Value Normal AV Doppler AV Peak Velocity 114 cm/s AV Peak Gradient 5 mmHg AV Mean Gradient 3 mmHg AV VTI 25 cm AV Area (Cont Eq VTI) 1.1 cm2 >=3.0 AV Area (Cont Eq Germain) 1.1 cm2 AV Regurgitation 2D LVOT Area 2.0 cm2 Ventricles Name Value Normal LV Dimensions 2D/MM IVS Diastolic Thickness (2D) 1.4 cm 0.6-1.0 LVID Diastole (2D) 3.3 cm 3.8-5.2 LVIW Diastolic Thickness (2D) 1.2 cm 0.6-0.9 LVID Systole (2D) 2.6 cm 2.2-3.5 LVOT Diameter 1.6 cm LV Mass (2D Cubed) 146.25 g 67.00-162.00 LV Mass Index (2D Cubed) 74 g/m2 43-95 Relative Wall Thickness (2D) 0.76 LV Fractional Shortening/Ejection Fraction 2D/MM LV Fractional Shortening (2D) 21 % 27-45 LV EF (2D Teicholz) 44 % 54-74 LV Diastolic Volume (4C MOD) 55 ml LV EF (4C MOD) 56 % LV Diastolic Volume (2C MOD) 51 ml LV EF (2C MOD) 66 % LV Diastolic Volume (BP MOD) 55 ml 46-106 LV Diastolic Volume Index (BP MOD) 28 ml/m2 29-61 LV Systolic Volume (BP MOD) 22 ml 14-42 LV Systolic Volume Index (BP MOD) 11 ml/m2 8-24 LV EF (BP MOD) 61 % 54-74 LV Diastolic Length (4C) 6.5 cm LV Systolic Length (4C) 5.7 cm LV Stroke Volume (4C MOD) 31 ml RV Dimensions 2D/MM RVID Diastole (2D) 3.5 cm 2.5-3.5 Atria Name Value Normal LA Dimensions LA Dimension (MM) 4.2 cm 2.7-3.8 LA Volume (4C A-L) 56 ml LA Volume (BP A-L) 59 ml RA Dimensions RA Area (4C) 18.9 cm2 <=18.0 Report Signatures
--- NOTE | 2024-07-08 01:26 | ECG_ITS ---
Test Date: 2024-07-08 01:51:07 Measurements Intervals [place] Rate: 66 P: 0 [place]: 0 QRS: -33 QRSD: 67 T: -62 QT: 304 QTc: 321 Interpretive Statements ATRIAL FLUTTER/TACHYCARDIA LOW QRS VOLTAGE IN PRECORDIAL LEADS [QRS DEFLECTION < 1.0 mV IN CHEST LEADS] INFERIOR MYOCARDIAL INFARCTION [40+ ms Q WAVE AND/OR ST/T ABNORMALITY IN II/aVF], OF INDETERMINATE AGE Compared to ECG 07/07/2024 11:50:32 RVR NO LONGER PRESENT Electronically Signed On 07-08-2024 16:08:57 CDT by Yolanda Schaefer M.D.
[2024-07-08] MEDS: dilTIAZem HCl INJ 25 MG/5 ML VIAL 10 MG IV PUSH (04:31)
[2024-07-08 05:00] LABS: Basophils Percent Auto 0.6 % (0.2-1.2); Eosinophils Absolute Auto 0.1 K/mm3 (0-0.3); Eosinophils Percent Auto 1.2 % (0-4.4); Hematocrit 33.2 % (37.0-47.0); Hemoglobin 10.8 g/dL (12.0-15.0); Immature Granulocyte Absolute 0.01 K/mm3 (0.00-0.031); Immature Granulocyte Percent A 0.2 % (0-0.5); Lymphocytes Absolute Auto 1.51 K/mm3 (0.9-3.2); Lymphocytes Percent Auto 31.4 % (18.3-44.2); Mean Corpuscular HGB Conc 32.5 g/dl (32-36); Mean Corpuscular Hemoglobin 29.8 pg (26-34); Mean Corpuscular Volume 91.5 fl (80-100); Mean Platelet Volume 10.6 fl (7.4-10.4); Monocytes Absolute Auto 0.5 K/mm3 (0.1-0.6); Monocytes Percent Auto 10.2 % (2.6-8.5); Neutrophils Absolute Auto 2.7 K/mm3 (1.3-6.7); Neutrophils Percent Auto 56.4 % (45.5-73.1); Platelet Count Result 142 k/mm3 (150-375); Red Blood Count 3.63 M/mm3 (4.2-5.4); Red Cell Distribution Width 14.5 % (11.5-14.5); White Blood Count 4.8 K/mm3 (4.5-10.0)
[2024-07-08 05:09] LABS: Anion Gap 9 mmol/L (4-12); Blood Urea Nitrogen 15 mg/dL (7-17); Carbon Dioxide 20 mmol/L (22-30); Chloride 113 mmol/L (98-107); Estimated CRCL calculation 52 ml/min; Estimated Glomerular Filt Rate > 60; Glucose 93 mg/dL (65-110); Potassium 3.6 mmol/L (3.4-5.0); Sodium 142 mmol/L (137-145)
[2024-07-08 05:39] LABS: Thyroid Stimulating Hormone 0.021 uIU/mL (0.465-4.680)
[2024-07-08] MEDS: dilTIAZem 100 MG/100 ML 100 MG/100 ML BAG IV CONT (05:53)
--- NOTE | 2024-07-08 08:31 | P.PNIM_ITS ---
Progress Note: A&P Assessment and Plan (1) Atrial flutter: Code(s): I48.92 - Unspecified atrial flutter Status: Acute Assessment and Plan: Could be due to fluid overload Cardiology consulted Diltiazem given in ED Telemetry monitoring Echocardiogram in the morning (2) Pericardial effusion: Code(s): I31.39 - Other pericardial effusion (noninflammatory) Status: Acute Assessment and Plan: Small pleural effusion, small pericardial effusion, right knee effusion, and +4 pitting edema in lower extremities Lasix 20mg IV x 1 Echocardiogram ordered (3) Thyroid nodule: Code(s): E04.1 - Nontoxic single thyroid nodule Status: Acute Assessment and Plan: Seen on CT Ultrasound ordered pending (4) Arthritis of left knee: Code(s): M17.12 - Unilateral primary osteoarthritis, left knee Status: Chronic Assessment and Plan: Left knee x-ray with effusion no fracture noted Lidocaine patch and Tylenol (5) Hypothyroidism: Code(s): E03.9 - Hypothyroidism, unspecified Status: Acute Assessment and Plan: TSH 0.021 Will repeat a TSH with a free T3 and total T4 Will decrease home dosage from 125 to 100 mcg. (6) Hypertension: Code(s): I10 - Essential (primary) hypertension Status: Acute Assessment and Plan: On admission 165/120 IV hydralazine p.r.n. (7) Left leg weakness: Code(s): R29.898 - Other symptoms and signs involving the musculoskeletal system Status: Acute Assessment and Plan: Acute issue Will rule out DVT Ordered MRI of the brain with spine. Subjective Date/time seen: 07/08/24 08:31 Interval history: Interval history: Patient is a 83-year-old female was recently visiting Urgent Care to refill her antibiotic for pneumonia. In urgent care patient heart rate in 130s and had evidence of left leg swelling and tenderness. Patient was brought to ED her CT of the chest shows no pulmonary embolism, shows nodule in the right upper lobe of the thyroid. Minimal right pleural effusion, trace pericardial effusion and hiatal hernia. Patient was given bolus fluid in the ED. TSH has been decreased. Will repeat a TSH with total T3 and T4. Will decrease home dosage from 125 to 100 mcg. Repeat a chest x-ray to follow up pleural effusion. Given Lasix 20 b.i.d. x 1.Pending ECHO. During the evaluation patient reports that she was not able to move her left leg for past 2 days his acute issue. Will order MRI of the brain and spine. Will order lower extremity ultrasound to rule out DVTs. Review of Systems Review of Systems: 12 systems were reviewed and are negativ e except for as per HPI. Exam Narrative: General: well appearing, appears stated age. HEENT: normocephalic, atraumatic. Mucous membranes moist. EOMI, PERRLA, bilateral sclera anicteric, no conjunctival injection. Neck supple without JVD, lymphadenopathy, or bruit. Respiratory: clear to ascultation bilaterally. No rales/rhonic/wheezes. Cardiovascular: regular rate and rhythm, normal S1-S2 upon ascultation. No murmurs, rubs, or clicks. PMI is nondisplaced, capillary refill less than 3 second. Abdomen: Soft, round, no pulsatile masses, nondistended and nontender. No rebound, no guarding. No CVA tenderness, no hepatosplenomegaly. Bowel sounds present to all four quadrants. No high pitch or tinkling sounds, resonant to percussion. Extremities: No cyanosis, clubbing, . Pulses are palpable 2/2. Active ROM to all four extremities. 4+ pitting edema, Neuro: Alert and orientated x 4. PERRLA. Cranial nerves 2-12 intact without focal deficit. Skin: Warm, dry, and intact, without rash, erythema, or lesion. Psych: pleasant, cooperative, normal speech, normal affect, no hallucinations, no dysarthia Objective Data Vital Signs Vital Signs: Vital Signs - 24 hr 07/07/24 11:44 07/07/24 12:29 07/07/24 12:33 Temperature 97.6 F Pulse Rate 137 H 135 H Respiratory Rate 18 18 18 Blood Pressure 120/80 134/82 Pulse Oximetry 100 99 99 Oxygen Delivery Room Air 07/07/24 13:36 07/07/24 17:24 07/07/24 17:52 Temperature Pulse Rate 130 H 62 84 Respiratory Rate 18 16 Blood Pressure 109/78 165/120 H 128/59 L Pulse Oximetry 96 96 Oxygen Delivery 07/07/24 17:57 07/07/24 19:12 07/07/24 20:41 Temperature Pulse Rate 80 83 Respiratory Rate 20 20 20 Blood Pressure 128/59 L 98/58 L 118/68 Pulse Oximetry 96 98 98 Oxygen Delivery 07/07/24 20:55 07/07/24 21:08 07/07/24 21:08 Temperature 98.0 F Pulse Rate 95 105 H 105 H Respiratory Rate 20 20 Blood Pressure 118/68 132/83 132/83 Pulse Oximetry 98 100 Oxygen Delivery 07/07/24 22:00 07/07/24 22:00 07/07/24 22:00 Temperature Pulse Rate 108 H 108 H Respiratory Rate 20 Blood Pressure 126/72 126/72 Pulse Oximetry 98 Oxygen Delivery Room Air 07/07/24 22:00 07/07/24 23:46 07/08/24 00:00 Temperature 98.1 F Pulse Rate 81 70 Respiratory Rate 20 Blood Pressure 112/65 Pulse Oximetry 98 Oxygen Delivery Room Air 07/08/24 00:00 07/08/24 00:00 07/08/24 02:00 Temperature Pulse Rate 70 114 H 67 Respiratory Rate Blood Pressure 112/65 121/73 Pulse Oximetry 95 Oxygen Delivery 07/08/24 02:00 07/08/24 02:00 07/08/24 02:10 Temperature Pulse Rate 67 67 67 Respiratory Rate Blood Pressure 121/73 121/73 Pulse Oximetry Oxygen Delivery 07/08/24 03:43 07/08/24 04:00 07/08/24 04:00 Temperature 98.4 F Pulse Rate 85 132 H Respiratory Rate 20 Blood Pressure 111/70 Pulse Oximetry 97 Oxygen Delivery Room Air 07/08/24 05:53 07/08/24 05:59 07/08/24 06:00 Temperature Pulse Rate 134 H 134 H 136 H Respiratory Rate Blood Pressure 113/68 113/68 Pulse Oximetry Oxygen Delivery 07/08/24 07:37 Temperature 97.9 F Pulse Rate 137 H Respiratory Rate 20 Blood Pressure 116/89 Pulse Oximetry 100 Oxygen Delivery Intake/Output Intake/Output: Intake & Output 07/05/24 07/06/24 07/07/24 07/08/24 23:59 23:59 23:59 23:59 Intake Total 520.6 220.8 Balance 520.6 220.8 Meds/Results Medications: Active Medications Generic Name Dose Route Start Last Admin Trade Name Freq PRN Reason Stop Dose Admin Acetaminophen 650 mg 07/07/24 17:37 Acetaminophen 325 Mg Tablet PO Q4H PRN Mild Pain (1-3) or Fever Docusate Sodium 100 mg 07/08/24 09:00 Docusate Sodium 100 Mg Capsule PO BID [facility] Enoxaparin Sodium 40 mg 07/08/24 09:00 Enoxaparin 40 Mg/0.4 Ml Syringe SUB-Q DAILY [facility] Hydralazine HCl 10 mg 07/07/24 17:46 Hydralazine Hcl 20 Mg/Ml Vial IV PUSH Q8H PRN Blood Pressure - High Diltiazem HCl 100 mg in 100 mls @ 5 mls/hr 07/08/24 05:50 07/08/24 05:53 Cardizem 100 Mg/100 Ml IV CONT 5 mg/hr .Q20H CECILIA 5 mls/hr Administration 5 MG/HR Lidocaine 1 patch 07/07/24 17:40 07/07/24 19:10 Lidocaine 5% Patch TRANSDERM 1 patch DAILY CECILIA Administration Perflutren Lipid Microsphere 0 ml 07/07/24 17:34 Perflutren Lipid Microspheres 1.5 Ml Vial Diluted To 10 Ml Total Volume IV PUSH 07/10/24 17:35 ONCE PRN adequate visualization Protocol Radiology Results: ITS Impressions Chest X-Ray 07/07/24 12:28 IMPRESSION: No acute cardiopulmonary pathology. Chest CTA 07/07/24 15:39 IMPRESSION: 1. No pulmonary embolism. 2. Nodule in the right lobe of the thyroid. Ultrasound evaluation advised. 3. Minimal right pleural effusion with adjacent atelectasis. 4. Trace of pericardial effusion. 5. Small sliding hiatus hernia Knee X-Ray 07/07/24 17:50 IMPRESSION: . Field impression no acute osseous finding in the left knee. Moderate left knee joint effusion Thyroid Ultrasound 07/07/24 20:01 IMPRESSION: Highly suspicious 3.3 cm right thyroid nodule, recommend FNA. Moderately suspicious 1.5 cm thyroid isthmus nodule, recommend FNA. Labs Labs: Laboratory Results - last 24 hr 07/07/24 07/08/24 12:00 04:33 WBC 6.6 4.8 RBC 4.14 L 3.63 L Hgb 12.3 10.8 L Hct 37.5 33.2 L MCV 90.6 91.5 MCH 29.7 29.8 MCHC 32.8 32.5 RDW 14.3 14.5 Plt Count 161 142 L MPV 10.3 10.6 H Immature Gran % (Auto) 0.3 0.2 Neut % (Auto) 57.8 56.4 Lymph % (Auto) 32.0 31.4 [place] % (Auto) 8.8 H 10.2 H Eos % (Auto) 0.6 1.2 Baso % (Auto) 0.5 0.6 Lymph # (Auto) 2.12 1.51 [place] # (Auto) 0.6 0.5 Eos # (Auto) 0.0 0.1 Baso # (Auto) 0.0 0.0 Abs Immat Gran (auto) 0.02 0.01 Absolute Neuts (auto) 3.8 2.7 Absolute Nucleated RBC 0.000 0.000 Nucleated RBC % 0.0 0.0 PT 15.5 H INR 1.2 APTT 28.7 D-Dimer 1.58 H Sodium 145 142 Potassium 3.8 3.6 Chloride 110 H 113 H Carbon Dioxide 23 20 L Anion Gap 12 9 BUN 19 H 15 Creatinine 0.94 0.76 Estim Creat Clear Calc 43 52 Estimated GFR 57 L > 60 Glucose 94 93 Calcium 8.4 8.0 L Magnesium 2.1 Total Bilirubin 0.8 AST 27 ALT 18 Alkaline Phosphatase 54 Troponin I 0.012 NT-Pro-B Natriuret Pep 1320 H Total Protein 8.0 Albumin 4.4 TSH 0.021 L Quality VTE Prophylaxis VTE prophylaxis: mechanical ordered Hospitalist MIPS Advance Care Plan I have confirmed that the patient's Advanced Care Plan is present, code status is documented, or surrogate decision maker is listed in patient medical record.: Yes Medication Reconciliation I have utilized all available resources to obtain, update and review the patients current medications (includes all prescriptions, OTC, herbals, cannabis, and nutritional supplements).: Yes
[2024-07-08] MEDS: LIDOCAINE 5% PATCH 1 PATCH TRANSDERM (08:52)
[2024-07-08] MEDS: DOCUSATE SODIUM 100 MG CAPSULE PO ×2 (08:53→18:08)
[2024-07-08] MEDS: ROSUVASTATIN 10 MG TABLET PO (09:53)
[2024-07-08] MEDS: METOPROLOL TARTRATE 12.5 MG TABLET PO ×2 (09:53→18:07)
[2024-07-08] MEDS: LEVOTHYROXINE SODIUM 100 MCG TABLET PO (09:53)
[2024-07-08] MEDS: APIXABAN 5 MG TABLET PO ×2 (09:53→20:44)
[2024-07-08] MEDS: FUROSEMIDE INJ 40 MG/4 ML VIAL 20 MG IV PUSH (10:02)
--- NOTE | 2024-07-08 11:49 | PM.CNCAR ---
Assessment and Plan Assessment and plan (1) Atrial flutter: Code(s): I48.92 - Unspecified atrial flutter Status: Acute Assessment and Plan: Chronic atrial flutter managed with rate control and anticoagulation strategy. Heart rate is currently controlled off diltiazem drip. Continue her current medical regimen without change. If she experiences recurrent RVR, would recommend increasing her metoprolol dose rather than adding another AV yelena agent. (2) Hypertension: Code(s): I10 - Essential (primary) hypertension Status: Acute Assessment and Plan: At goal (3) Hypercholesteremia: Code(s): E78.00 - Pure hypercholesterolemia, unspecified Status: Acute Assessment and Plan: Continue statin History of Present Illness History of Present Illness Consult date/time: 07/08/24 11:49 Reason For Visit: A Fib with RVR Narrative: Mima Omer is an 83-year-old female with hypertension, atrial flutter, spinal stenosis of lumbar region with radiculopathy. This is a patient who was sent here from urgent care because of tachycardia. She had gone to Urgent Care for ongoing cold symptoms and left knee and upper leg pain. In the emergency department, she was found to be in atrial flutter with rapid ventricular response. Cardiology was consulted for this reason. She was placed a diltiazem drip and her heart rates became well controlled - ultimately diltiazem was stopped because of some mild bradycardia. She does take metoprolol at home for rate control and is chronically anticoagulated with Eliquis. She denies feeling any palpitations, chest pain, shortness of breath. She still has pain in her left leg but no other active complaints. Review of Systems Review of Systems: All systems reviewed & are unremarkable except as noted in HPI and below [facility] Past Medical History Medical History Spinal stenosis Arthritis of left knee BMI 37.0-37.9, adult Hypercholesteremia Postmenopausal Carpal tunnel syndrome Hypertension Surgical History Surgical History H/O hand surgery H/O partial thyroidectomy Femur fracture, left surgery with lashay insertion at age 18 History of shoulder surgery bilateral rotator cuff repair Hx of appendectomy History of carpal tunnel surgery Bilateral Family History Family History Father Cancer Mother , at age 81 Parkinson's disease Sibling Heart disease Son Heart disease Social History Social History Smoking status: Never smoker Second hand tobacco smoke exposure: No Alcohol intake: current Drinks per week: 1 Alcohol use details: occasional Substance use: never Substance use type: does not use Do You Feel Safe in your Home?: Yes Lack of Transportation: No Lack of Food: Never True Current Housing: I Have Housing Concerned About Future Housing: No Difficulty Paying Gas/Electric Bills: No Difficulty Paying for Meds: No Currently Unemployed: No Education: High School Diploma/GED Difficulty w/ Childcare or Family Care: No Living arrangements: with family Occupation/Education: retired Gender identity (if verbalized by the patient): Female Spiritual care concerns: No Meds Home Medications and Allergies Home Medications ?Medication ?Instructions ?Recorded ?Confirmed ?Type levothyroxine 125 mcg tablet 125 mcg PO DAILY 03/01/20 07/07/24 History nifedipine 60 mg tablet,extended 60 mg PO DAILY 03/01/20 07/07/24 History release rosuvastatin 10 mg tablet 10 mg PO DAILY 03/01/20 07/07/24 History acetaminophen 325 mg tablet 650 mg (2 x 325 mg) PO Q4-6H PRN 03/20/20 07/07/24 Rx pain #90 tabs apixaban 5 mg tablet (Eliquis) 5 mg PO BID 07/07/24 07/07/24 History celecoxib 200 mg capsule 200 mg PO BID 07/07/24 07/07/24 History ergocalciferol (vitamin D2) 1,250 50,000 unit PO WEEKLY 07/07/24 07/07/24 History mcg (50,000 unit) capsule metoprolol tartrate 25 mg tablet 12.5 mg PO BID 07/07/24 07/07/24 History Allergies Allergy/AdvReac Type Severity Reaction Status Date / Time codeine AdvReac Unknown HEADACHE Verified 07/07/24 22:18 Vital Signs Vital Signs - 24 hr 07/07/24 12:29 07/07/24 12:33 07/07/24 13:36 Temperature Pulse Rate 135 H 130 H Respiratory Rate 18 18 18 Blood Pressure 134/82 109/78 Pulse Oximetry 99 99 96 Oxygen Delivery 07/07/24 17:24 07/07/24 17:52 07/07/24 17:57 Temperature Pulse Rate 62 84 80 Respiratory Rate 16 20 Blood Pressure 165/120 H 128/59 L 128/59 L Pulse Oximetry 96 96 Oxygen Delivery 07/07/24 19:12 07/07/24 20:41 07/07/24 20:55 Temperature Pulse Rate 83 95 Respiratory Rate 20 20 20 Blood Pressure 98/58 L 118/68 118/68 Pulse Oximetry 98 98 98 Oxygen Delivery 07/07/24 21:08 07/07/24 21:08 07/07/24 22:00 Temperature 36.7 C Pulse Rate 105 H 105 H 108 H Respiratory Rate 20 Blood Pressure 132/83 132/83 126/72 Pulse Oximetry 100 Oxygen Delivery 07/07/24 22:00 07/07/24 22:00 07/07/24 22:00 Temperature Pulse Rate 108 H 81 Respiratory Rate 20 Blood Pressure 126/72 Pulse Oximetry 98 Oxygen Delivery Room Air 07/07/24 23:46 07/08/24 00:00 07/08/24 00:00 Temperature 36.7 C Pulse Rate 70 70 Respiratory Rate 20 Blood Pressure 112/65 112/65 Pulse Oximetry 98 Oxygen Delivery Room Air 07/08/24 00:00 07/08/24 02:00 07/08/24 02:00 Temperature Pulse Rate 114 H 67 67 Respiratory Rate Blood Pressure 121/73 121/73 Pulse Oximetry 95 Oxygen Delivery 07/08/24 02:00 07/08/24 02:10 07/08/24 03:43 Temperature 36.9 C Pulse Rate 67 67 85 Respiratory Rate 20 Blood Pressure 121/73 111/70 Pulse Oximetry 97 Oxygen Delivery 07/08/24 04:00 07/08/24 04:00 07/08/24 05:53 Temperature Pulse Rate 132 H 134 H Respiratory Rate Blood Pressure 113/68 Pulse Oximetry Oxygen Delivery Room Air 07/08/24 05:59 07/08/24 06:00 07/08/24 07:37 Temperature 36.6 C Pulse Rate 134 H 136 H 137 H Respiratory Rate 20 Blood Pressure 113/68 116/89 Pulse Oximetry 100 Oxygen Delivery 07/08/24 09:53 07/08/24 10:00 07/08/24 10:10 Temperature 36.4 C Pulse Rate 118 H 71 75 Respiratory Rate 24 H 20 Blood Pressure 99/60 L 106/61 Pulse Oximetry 99 Oxygen Delivery 07/08/24 11:44 Temperature 36.5 C Pulse Rate 62 Respiratory Rate 20 Blood Pressure 91/57 L Pulse Oximetry 100 Oxygen Delivery Exam Const: General: comfortable, no acute distress, alert and awake Orientation/consciousness: patient oriented x3 HENMT: Head: normal to inspection Eyes: General: appearance normal, both eyes and all related structures Pupils: Equal, round and reactive pupils present Neck: Neck: normal visual inspection, supple and no JVD Carotids: normal carotid upstroke Resp: Effort & Inspection: normal respiratory effort Auscultation: clear to auscultation bilaterally Cardio: Rate: regular rate Rhythm: abnormal rhythm Heart sounds: S1 normal heart sound present, S2 normal heart sound present and no murmurs GI: Auscultation: normal bowel sounds Skin: General skin exam: normal color Neuro: General: patient oriented x3 Cranial nerves: Yes Equal, round and reactive pupils present Extrem: General: normal to inspection Psych: Appearance: grossly normal Mental Status: mental status grossly normal Results Labs and Meds 07/08/24 04:33 07/08/24 04:33 Lab results: Cardiac Enzymes 07/07/24 Range/Units 12:00 AST 27 (14-36) U/L Troponin I 0.012 (0.000-0.034) ng/mL Coagulation 07/07/24 Range/Units 12:00 PT 15.5 H (11.1-14.7) Seconds APTT 28.7 (22.3-36.8) Seconds CBC 07/07/24 07/08/24 Range/Units 12:00 04:33 WBC 6.6 4.8 (4.5-10.0) K/mm3 RBC 4.14 L 3.63 L (4.2-5.4) M/mm3 Hgb 12.3 10.8 L (12.0-15.0) g/dL Hct 37.5 33.2 L (37.0-47.0) % Plt Count 161 142 L (150-375) k/mm3 Lymph # (Auto) 2.12 1.51 (0.9-3.2) K/mm3 [place] # (Auto) 0.6 0.5 (0.1-0.6) K/mm3 Eos # (Auto) 0.0 0.1 (0-0.3) K/mm3 Baso # (Auto) 0.0 0.0 (0.0-0.1) K/mm3 Comprehensive Metabolic Panel 07/07/24 07/08/24 Range/Units 12:00 04:33 Sodium 145 142 (137-145) mmol/L Potassium 3.8 3.6 (3.4-5.0) mmol/L Chloride 110 H 113 H (98-107) mmol/L Carbon Dioxide 23 20 L (22-30) mmol/L BUN 19 H 15 (7-17) mg/dL Creatinine 0.94 0.76 (0.7-1.0) mg/dL Glucose 94 93 (65-110) mg/dL Calcium 8.4 8.0 L (8.4-10.2) mg/dL AST 27 (14-36) U/L ALT 18 (6-35) U/L Alkaline Phosphatase 54 (38-126) U/L Total Protein 8.0 (6.3-8.2) g/dL Albumin 4.4 (3.5-5.1) g/dL Intake and Output 07/07/24 07/08/24 07/08/24 23:59 07:59 15:59 Intake Total 520.6 220.8 240 Balance 520.6 220.8 240 Intake: IV 520.6 20.8 Sodium Chloride 0.9% IV 500 ml 500 @ 999 mls/hr IV CONT .Q31M STA Rx#:[id number] dilTIAZem 100 MG/100 ML 100 mg 20.6 20.8 In 100 ml @ 5 MG/HR 5 mls/hr IV CONT .Q20H STA Rx#:[id number] Oral 200 240 Other: # Unmeasured Voids 2 3 # Incontinent Voids 0 Patient Weight 07/08/24 23:59 Weight 84.5 kg
[2024-07-09] VITALS (18 sets, daily range): BP systolic 109–146; BP diastolic 52–97; PULSE 64–141; RESP 18–20; TEMP 36.5–36.9; O2SAT 99–100
[2024-07-09] MEDS: LEVOTHYROXINE SODIUM 100 MCG TABLET PO (05:33)
[2024-07-09] MEDS: METOPROLOL TARTRATE 12.5 MG TABLET PO (08:18)
[2024-07-09] MEDS: DOCUSATE SODIUM 100 MG CAPSULE PO ×2 (08:18→17:58)
[2024-07-09] MEDS: ROSUVASTATIN 10 MG TABLET PO (08:18)
[2024-07-09] MEDS: APIXABAN 5 MG TABLET PO ×2 (08:18→20:33)
[2024-07-09] MEDS: METOPROLOL TARTRATE INJ 5 MG/5 ML VIAL 2.5 MG IV PUSH (08:19)
--- NOTE | 2024-07-09 10:43 | PM.IMPN ---
Progress Note: A&P Assessment and Plan (1) Atrial flutter: Code(s): I48.92 - Unspecified atrial flutter Status: Acute Assessment and Plan: Could be due to fluid overload Cardiology consulted Diltiazem given in ED Telemetry monitoring Echocardiogram in the morning (2) Pericardial effusion: Code(s): I31.39 - Other pericardial effusion (noninflammatory) Status: Acute Assessment and Plan: Small pleural effusion, small pericardial effusion, right knee effusion, and +4 pitting edema in lower extremities Lasix 20mg IV x 1 Echocardiogram ordered (3) Thyroid nodule: Code(s): E04.1 - Nontoxic single thyroid nodule Status: Acute Assessment and Plan: Seen on CT Ultrasound ordered pending (4) Arthritis of left knee: Code(s): M17.12 - Unilateral primary osteoarthritis, left knee Status: Chronic Assessment and Plan: Left knee x-ray with effusion no fracture noted Lidocaine patch and Tylenol (5) Hypothyroidism: Code(s): E03.9 - Hypothyroidism, unspecified Status: Acute Assessment and Plan: TSH 0.021 Will repeat a TSH with a free T3 and total T4 Will decrease home dosage from 125 to 100 mcg. (6) Hypertension: Code(s): I10 - Essential (primary) hypertension Status: Acute Assessment and Plan: On admission 165/120 IV hydralazine p.r.n. (7) Left leg weakness: Code(s): R29.898 - Other symptoms and signs involving the musculoskeletal system Status: Acute Assessment and Plan: Acute issue Will rule out DVT Ordered MRI of the brain with spine. Subjective Date/time seen: 07/09/24 10:43 Interval history: Interval history: Patient is a 83-year-old female was recently visiting Urgent Care to refill her antibiotic for pneumonia. In urgent care patient heart rate in 130s and had evidence of left leg swelling and tenderness. Patient was brought to ED her CT of the chest shows no pulmonary embolism, shows nodule in the right upper lobe of the thyroid. Minimal right pleural effusion, trace pericardial effusion and hiatal hernia. Patient was given bolus fluid in the ED. TSH has been decreased. Will repeat a TSH with total T3 and T4. Will decrease home dosage from 125 to 100 mcg. Repeat a chest x-ray to follow up pleural effusion. Given Lasix 20 b.i.d. x 1.Pending ECHO. During the evaluation patient reports that she was not able to move her left leg for past 2 days his acute issue. Will order MRI of the brain and spine. Will order lower extremity ultrasound to rule out DVTs. 07/09:Patient morning had episodes of heart rate in 140s. The blood pressure is 120 over 80s. Given metoprolol 2.5 IV 1 time. Pending MRI due to acute onset of left leg weakness Review of Systems Review of Systems: 12 systems were reviewed and are negative except for as per HPI. Exam Narrative: General: well appearing, appears stated age. HEENT: normocephalic, atraumatic. Mucous membranes moist. EOMI, PERRLA, bilateral sclera anicteric, no conjunctival injection. Neck supple without JVD, lymphadenopathy, or bruit. Respiratory: clear to ascultation bilaterally. No rales/rhonic/wheezes. Cardiovascular: regular rate and rhythm, normal S1-S2 upon ascultation. No murmurs, rubs, or clicks. PMI is nondisplaced, capillary refill less than 3 second. Abdomen: Soft, round, no pulsatile masses, nondistended and nontender. No rebound, no guarding. No CVA tenderness, no hepatosplenomegaly. Bowel sounds present to all four quadrants. No high pitch or tinkling sounds, resonant to percussion. Extremities: No cyanosis, clubbing, . Pulses are palpable 2/2. Active ROM to all four extremities. 4+ pitting edema, Neuro: Alert and orientated x 4. PERRLA. Cranial nerves 2-12 intact without focal deficit. Skin: Warm, dry, and intact, without rash, erythema, or lesion. Psych: pleasant, cooperative, normal speech, normal affect, no hallucinations, no dysarthia Objective Data Vital Signs Vital Signs: Vital Signs - 24 hr 07/08/24 11:44 07/08/24 11:45 07/08/24 12:00 Temperature 97.7 F Pulse Rate 62 65 66 Respiratory Rate 20 Blood Pressure 91/57 L 91/57 L Pulse Oximetry 100 Oxygen Delivery 07/08/24 12:00 07/08/24 12:05 07/08/24 15:30 Temperature 97.6 F Pulse Rate 66 66 68 Respiratory Rate 20 18 Blood Pressure 118/68 116/72 Pulse Oximetry 100 Oxygen Delivery 07/08/24 16:00 07/08/24 18:00 07/08/24 18:07 Temperature Pulse Rate 65 120 H 100 Respiratory Rate Blood Pressure Pulse Oximetry Oxygen Delivery 07/08/24 20:00 07/08/24 20:00 07/08/24 20:16 Temperature 98.2 F Pulse Rate 89 69 Respiratory Rate 18 Blood Pressure 117/73 Pulse Oximetry 100 Oxygen Delivery Room Air 07/08/24 23:55 07/09/24 00:00 07/09/24 00:00 Temperature 97.7 F Pulse Rate 66 72 Respiratory Rate 18 Blood Pressure 111/68 Pulse Oximetry 100 Oxygen Delivery Room Air 07/09/24 03:55 07/09/24 04:00 07/09/24 04:28 Temperature 98.3 F Pulse Rate 79 88 Respiratory Rate 18 Blood Pressure 122/52 L Pulse Oximetry 99 Oxygen Delivery Room Air 07/09/24 05:24 07/09/24 07:52 07/09/24 08:18 Temperature 98.3 F Pulse Rate 80 140 H 140 H Respiratory Rate 18 Blood Pressure 137/94 H Pulse Oximetry 99 Oxygen Delivery 07/09/24 08:19 Temperature Pulse Rate 140 H Respiratory Rate Blood Pressure Pulse Oximetry Oxygen Delivery Intake/Output Intake/Output: Intake & Output 07/06/24 07/07/24 07/08/24 07/09/24 23:59 23:59 23:59 23:59 Intake Total 520.6 1270.2 550 Balance 520.6 1270.2 550 Meds/Results Medications: Active Medications Generic Name Dose Route Start Last Admin Trade Name Freq PRN Reason Stop Dose Admin Acetaminophen 650 mg 07/07/24 17:37 Acetaminophen 325 Mg Tablet PO Q4H PRN Mild Pain (1-3) or Fever Apixaban 5 mg 07/08/24 09:00 07/09/24 08:18 Apixaban 5 Mg Tablet PO 5 mg Q12HR CECILIA Administration Docusate Sodium 100 mg 07/08/24 09:00 07/09/24 08:18 Docusate Sodium 100 Mg Capsule PO 100 mg BID CECILIA Administration Hydralazine HCl 10 mg 07/07/24 17:46 Hydralazine Hcl 20 Mg/Ml Vial IV PUSH Q8H PRN Blood Pressure - High Levothyroxine Sodium 100 mcg 07/08/24 09:00 07/09/24 05:33 Levothyroxine Sodium 100 Mcg Tablet PO 100 mcg DAILY@0630 CECILIA Administration Lidocaine 1 patch 07/07/24 17:40 07/08/24 08:52 Lidocaine 5% Patch TRANSDERM 1 patch DAILY CECILIA Administration Metoprolol Tartrate 12.5 mg 07/08/24 09:00 07/09/24 08:18 Metoprolol Tartrate 12.5 Mg Tablet PO 12.5 mg BID CECILIA Administration Nifedipine 60 mg 07/08/24 09:00 Nifedipine 30 Mg Tab.Er.24 PO DAILY CECILIA Perflutren Lipid Microsphere 0 ml 07/07/24 17:34 Perflutren Lipid Microspheres 1.5 Ml Vial Diluted To 10 Ml Total Volume IV PUSH 07/10/24 17:35 ONCE PRN adequate visualization Protocol Rosuvastatin Calcium 10 mg 07/08/24 09:00 07/09/24 08:18 Rosuvastatin 10 Mg Tablet PO 10 mg DAILY CECILIA Administration Radiology Results: ITS Impressions Chest CTA 07/07/24 15:39 IMPRESSION: 1. No pulmonary embolism. 2. Nodule in the right lobe of the thyroid. Ultrasound evaluation advised. 3. Minimal right pleural effusion with adjacent atelectasis. 4. Trace of pericardial effusion. 5. Small sliding hiatus hernia Knee X-Ray 07/07/24 17:50 IMPRESSION: . Field impression no acute osseous finding in the left knee. Moderate left knee joint effusion Thyroid Ultrasound 07/07/24 20:01 IMPRESSION: Highly suspicious 3.3 cm right thyroid nodule, recommend FNA. Moderately suspicious 1.5 cm thyroid isthmus nodule, recommend FNA. Chest X-Ray 07/08/24 10:05 IMPRESSION: 1. No acute cardiopulmonary disease. 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 Otherwise patent bilateral lower extremity veins. Quality VTE Prophylaxis VTE prophylaxis: mechanical ordered Hospitalist [facility] Advance Care Plan I have confirmed that the patient's Advanced Care Plan is present, code status is documented, or surrogate decision maker is listed in patient medical record.: Yes Medication Reconciliation I have utilized all available resources to obtain, update and review the patients current medications (includes all prescriptions, OTC, herbals, cannabis, and nutritional supplements).: Yes
--- NOTE | 2024-07-09 11:03 | PM.PNCARD ---
Progress Note: A&P Assessment and Plan (1) Atrial flutter: Code(s): I48.92 - Unspecified atrial flutter Status: Acute Plan 1. Chronic atrial flutter with RVR 2. Hypertension 3. 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 RENE, not on CPAP PLAN: -Will increase her Metoprolol to 50mg BID. Continue Eliquis 5mg BID for stroke risk reduction for AFIB and her DVT. -TSH is low at 0.021. Management of hyperthyroidism per Hospitalist. Thyroid abnormality may be contributing to her RVR. 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 Continue Eliquis. Recommendations and plan discussed with Hospitalist. Subjective Date/time seen: 07/09/24 11:03 Interval history: Reason for visit: Atrial flutter with RVR HPI: Mima Omer is an 83-year-old female with hypertension, atrial flutter, spinal stenosis of lumbar region with radiculopathy. This is a patient who was sent here from urgent care because of tachycardia. She had gone to Urgent Care for ongoing cold symptoms and left knee and upper leg pain. In the emergency department, she was found to be in atrial flutter with rapid ventricular response. Cardiology was consulted for this reason. She was placed a diltiazem drip and her heart rates became well controlled - ultimately diltiazem was stopped because of some mild bradycardia. She does take metoprolol at home for rate control and is chronically anticoagulated with Eliquis. She denies feeling any palpitations, chest pain, shortness of breath. She still has pain in her left leg but no other active complaints. Date of service 07/09: Still has trouble moving her left leg -- MRI of the brain and spine have been ordered. In RVR this morning, which improved with Metoprolol 2.5mg IV. Review of Systems Cardiovascular: Cardiovascular: Reports as per HPI Exam Const: General: no acute distress HENMT: Mouth: Yes moist mucous membranes Eyes: General: appearance normal, both eyes and all related structures Sclera: sclerae normal Resp: Effort & Inspection: normal respiratory effort Cardio: Other: Rate controlled atrial flutter Neuro: Motor exam (neuro): Motor abnormalites present (Decreased range of motion of left leg ) Psych: Mental Status: mental status grossly normal Affect: normal affect Objective Data Vital Signs Vital Signs: Vital Signs - 24 hr 07/08/24 11:44 07/08/24 11:45 07/08/24 12:00 Temperature 36.5 C Pulse Rate 62 65 66 Respiratory Rate 20 Blood Pressure 91/57 L 91/57 L Pulse Oximetry 100 Oxygen Delivery 07/08/24 12:00 07/08/24 12:05 07/08/24 15:30 Temperature 36.4 C Pulse Rate 66 66 68 Respiratory Rate 20 18 Blood Pressure 118/68 116/72 Pulse Oximetry 100 Oxygen Delivery 07/08/24 16:00 07/08/24 18:00 07/08/24 18:07 Temperature Pulse Rate 65 120 H 100 Respiratory Rate Blood Pressure Pulse Oximetry Oxygen Delivery 07/08/24 20:00 07/08/24 20:00 07/08/24 20:16 Temperature 36.8 C Pulse Rate 89 69 Respiratory Rate 18 Blood Pressure 117/73 Pulse Oximetry 100 Oxygen Delivery Room Air 07/08/24 23:55 07/09/24 00:00 07/09/24 00:00 Temperature 36.5 C Pulse Rate 66 72 Respiratory Rate 18 Blood Pressure 111/68 Pulse Oximetry 100 Oxygen Delivery Room Air 07/09/24 03:55 07/09/24 04:00 07/09/24 04:28 Temperature 36.8 C Pulse Rate 79 88 Respiratory Rate 18 Blood Pressure 122/52 L Pulse Oximetry 99 Oxygen Delivery Room Air 07/09/24 05:24 07/09/24 07:52 07/09/24 08:18 Temperature 36.8 C Pulse Rate 80 140 H 140 H Respiratory Rate 18 Blood Pressure 137/94 H Pulse Oximetry 99 Oxygen Delivery 07/09/24 08:19 Temperature Pulse Rate 140 H Respiratory Rate Blood Pressure Pulse Oximetry Oxygen Delivery Intake/Output Intake/Output: Intake & Output 07/06/24 07/07/24 07/08/24 07/09/24 23:59 23:59 23:59 23:59 Intake Total 520.6 1270.2 790 Balance 520.6 1270.2 790 Meds/Results Medications: Active Medications Generic Name Dose Route Start Last Admin Trade Name Freq PRN Reason Stop Dose Admin Acetaminophen 650 mg 07/07/24 17:37 Acetaminophen 325 Mg Tablet PO Q4H PRN Mild Pain (1-3) or Fever Apixaban 5 mg 07/08/24 09:00 07/09/24 08:18 Apixaban 5 Mg Tablet PO 5 mg Q12HR CECILIA Administration Docusate Sodium 100 mg 07/08/24 09:00 07/09/24 08:18 Docusate Sodium 100 Mg Capsule PO 100 mg BID CECILIA Administration Hydralazine HCl 10 mg 07/07/24 17:46 Hydralazine Hcl 20 Mg/Ml Vial IV PUSH Q8H PRN Blood Pressure - High Levothyroxine Sodium 100 mcg 07/08/24 09:00 07/09/24 05:33 Levothyroxine Sodium 100 Mcg Tablet PO 100 mcg DAILY@0630 [facility] Administration Lidocaine 1 patch 07/07/24 17:40 07/08/24 08:52 Lidocaine 5% Patch TRANSDERM 1 patch DAILY CECILIA Administration Metoprolol Tartrate 37.5 mg 07/09/24 11:02 Metoprolol Tartrate 12.5 Mg Tablet PO 07/09/24 11:03 ONCE ONE Metoprolol Tartrate 50 mg 07/09/24 17:00 Metoprolol Tartrate 50 Mg Tab PO BID [facility] Nifedipine 60 mg 07/08/24 09:00 Nifedipine 30 Mg Tab.Er.24 PO DAILY [facility] Perflutren Lipid Microsphere 0 ml 07/07/24 17:34 Perflutren Lipid Microspheres 1.5 Ml Vial Diluted To 10 Ml Total Volume IV PUSH 07/10/24 17:35 ONCE PRN adequate visualization Protocol Rosuvastatin Calcium 10 mg 07/08/24 09:00 07/09/24 08:18 Rosuvastatin 10 Mg Tablet PO 10 mg DAILY CECILIA Administration Radiology Results: ITS Impressions Chest CTA 07/07/24 15:39 IMPRESSION: 1. No pulmonary embolism. 2. Nodule in the right lobe of the thyroid. Ultrasound evaluation advised. 3. Minimal right pleural effusion with adjacent atelectasis. 4. Trace of pericardial effusion. 5. Small sliding hiatus hernia Knee X-Ray 07/07/24 17:50 IMPRESSION: . Field impression no acute osseous finding in the left knee. Moderate left knee joint effusion Thyroid Ultrasound 07/07/24 20:01 IMPRESSION: Highly suspicious 3.3 cm right thyroid nodule, recommend FNA. Moderately suspicious 1.5 cm thyroid isthmus nodule, recommend FNA. Chest X-Ray 07/08/24 10:05 IMPRESSION: 1. No acute cardiopulmonary disease. 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 Otherwise patent bilateral lower extremity veins.
[2024-07-09 11:05] LABS: Hematocrit 37.5 % (37.0-47.0); Hemoglobin 12.1 g/dL (12.0-15.0); Mean Corpuscular HGB Conc 32.3 g/dl (32-36); Mean Corpuscular Hemoglobin 29.3 pg (26-34); Mean Corpuscular Volume 90.8 fl (80-100); Mean Platelet Volume 10.1 fl (7.4-10.4); Platelet Count Result 162 k/mm3 (150-375); Red Blood Count 4.13 M/mm3 (4.2-5.4); Red Cell Distribution Width 14.2 % (11.5-14.5); White Blood Count 6.3 K/mm3 (4.5-10.0)
[2024-07-09 11:20] LABS: Alanine Aminotransferase 17 U/L (6-35); Albumin Level 4.2 g/dL (3.5-5.1); Alkaline Phosphatase 52 U/L (38-126); Anion Gap 8 mmol/L (4-12); Aspartate Amino Transferase 25 U/L (14-36); Bilirubin,Total 0.7 mg/dL (0.2-1.3); Blood Urea Nitrogen 20 mg/dL (7-17); Calcium 8.3 mg/dL (8.4-10.2); Carbon Dioxide 22 mmol/L (22-30); Chloride 110 mmol/L (98-107); Estimated CRCL calculation 41 ml/min; Estimated Glomerular Filt Rate 53; Glucose 108 mg/dL (65-110); Potassium 3.9 mmol/L (3.4-5.0); Sodium 140 mmol/L (137-145)
[2024-07-09] MEDS: ACETAMINOPHEN 325 MG TABLET 650 MG PO (11:24)
[2024-07-09] MEDS: METOPROLOL TARTRATE 12.5 MG TABLET 37.5 MG PO (11:24)
[2024-07-09 11:27] LABS: NT Pro B Type Natriuretic Pept 1260 pg/mL (19.9-100)
[2024-07-09 11:51] LABS: Thyroid Stimulating Hormone Reflex 0.037 uIU/mL (0.465-4.68)
[2024-07-09] MEDS: LIDOCAINE 5% PATCH 1 PATCH TRANSDERM (13:47)
[2024-07-09 14:31] LABS: Free T4 Free Thyroxine Reflex 1.87 ng/dL (0.78-2.19)
[2024-07-09 16:28] LABS: Total Triiodothyronine (T3) 1.11 NG/ML (0.97-1.69)
[2024-07-09] MEDS: METOPROLOL TARTRATE 50 MG TAB PO (17:58)
[2024-07-10] VITALS (19 sets, daily range): BP systolic 121–144; BP diastolic 82–95; PULSE 64–135; RESP 18–20; TEMP 36.5–36.9; O2SAT 95–100
[2024-07-10] MEDS: LEVOTHYROXINE SODIUM 100 MCG TABLET PO (05:30)
--- NOTE | 2024-07-10 08:09 | PM.IMPN ---
Progress Note: A&P Assessment and Plan (1) Atrial flutter: Code(s): I48.92 - Unspecified atrial flutter Status: Acute Assessment and Plan: Could be due to fluid overload Decreased levothyroxine from 100-50 mcg Repeat TSH in 6 weeks Cardiology consulted Diltiazem given in ED Telemetry monitoring Echocardiogram in the morning (2) Pericardial effusion: Code(s): I31.39 - Other pericardial effusion (noninflammatory) Status: Acute Assessment and Plan: Small pleural effusion, small pericardial effusion, right knee effusion, and +4 pitting edema in lower extremities Lasix 20mg IV x 1 Echocardiogram shows left ventricle ejection fraction 60-60 versus (3) Thyroid nodule: Code(s): E04.1 - Nontoxic single thyroid nodule Status: Acute Assessment and Plan: Seen on CT Ultrasound shows a highly suspicious 3.3 cm right thyroid nodule and moderate discharge PC is 1 0.5 cm thyroid his thymus nodule. Will discuss with IR (4) Arthritis of left knee: Code(s): M17.12 - Unilateral primary osteoarthritis, left knee Status: Chronic Assessment and Plan: Left knee x-ray with effusion no fracture noted Lidocaine patch and Tylenol (5) Hypothyroidism: Code(s): E03.9 - Hypothyroidism, unspecified Status: Acute Assessment and Plan: TSH 0.021 Will repeat a TSH with a free T3 and total T4 Will decrease home dosage from 125 to 100 mcg. (6) Hypertension: Code(s): I10 - Essential (primary) hypertension Status: Acute Assessment and Plan: On admission 165/120 IV hydralazine p.r.n. (7) Left leg weakness: Code(s): R29.898 - Other symptoms and signs involving the musculoskeletal system Status: Acute Assessment and Plan: Acute issue No evidence of DVT Reviewed MRI of the brain with spine. Neurosurgery consulted Subjective Date/time seen: 07/10/24 08:09 Interval history: HPI: Mima Omer is an 83-year-old female with hypertension, atrial flutter, spinal stenosis of lumbar region with radiculopathy. This is a patient who was sent here from urgent care because of tachycardia. She had gone to Urgent Care for ongoing cold symptoms and left knee and upper leg pain. In the emergency department, she was found to be in atrial flutter with rapid ventricular response. Cardiology was consulted for this reason. She was placed a diltiazem drip and her heart rates became well controlled - ultimately diltiazem was stopped because of some mild bradycardia. She does take metoprolol at home for rate control and is chronically anticoagulated with Eliquis. She denies feeling any palpitations, chest pain, shortness of breath. She still has pain in her left leg but no other active complaints. 07/10: Consult neurosurgery. Reviewed MRI. Reduced her levothyroxine dose from 100-50mcg due to increased heart rate but unfortunately she needs higher dosage of levothyroxine due to PMHx of thyroid cancer. Patient wants to follow up as OP in regards to the suspicious thyroid nodule. I will make sure to talk to her son and follow-up as an outpatient in regards to thyroid nodule. Review of Systems Review of Systems: 12 systems were reviewed and are negative except for as per HPI. Exam Narrative: General: well appearing, appears stated age. HEENT: normocephalic, atraumatic. Mucous membranes moist. EOMI, PERRLA, bilateral sclera anicteric, no conjunctival injection. Neck supple without JVD, lymphadenopathy, or bruit. Respiratory: clear to ascultation bilaterally. No rales/rhonic/wheezes. Cardiovascular: regular rate and rhythm, normal S1-S2 upon ascultation. No murmurs, rubs, or clicks. PMI is nondisplaced, capillary refill less than 3 second. Abdomen: Soft, round, no pulsatile masses, nondistended and nontender. No rebound, no guarding. No CVA tenderness, no hepatosplenomegaly. Bowel sounds present to all four quadrants. No high pitch or tinkling sounds, resonant to percussion. Extremities: No cyanosis, clubbing, . Pulses are palpable 2/2. Active ROM to all four extremities. 4+ pitting edema, Neuro: Alert and orientated x 4. PERRLA. Cranial nerves 2-12 intact without focal deficit. Skin: Warm, dry, and intact, without rash, erythema, or lesion. Psych: pleasant, cooperative, normal speech, normal affect, no hallucinations, no dysarthia Objective Data Vital Signs Vital Signs: Vital Signs - 24 hr 07/09/24 08:18 07/09/24 08:19 07/09/24 10:00 Temperature Pulse Rate 140 H 140 H 136 H Respiratory Rate Blood Pressure Pulse Oximetry Oxygen Delivery 07/09/24 11:19 07/09/24 11:24 07/09/24 14:00 Temperature 97.7 F Pulse Rate 79 135 H 107 H Respiratory Rate 20 Blood Pressure 109/77 Pulse Oximetry 100 Oxygen Delivery 07/09/24 16:00 07/09/24 16:00 07/09/24 17:58 Temperature 98.0 F Pulse Rate 133 H 109 H 134 H Respiratory Rate 18 Blood Pressure 146/97 H Pulse Oximetry 99 Oxygen Delivery 07/09/24 18:00 07/09/24 20:00 07/09/24 20:00 Temperature Pulse Rate 133 H 129 H Respiratory Rate Blood Pressure Pulse Oximetry Oxygen Delivery Room Air 07/09/24 20:11 07/09/24 22:00 07/10/24 00:00 Temperature 98.4 F 98.4 F Pulse Rate 118 H 64 65 Respiratory Rate 20 20 Blood Pressure 131/97 H 138/91 H Pulse Oximetry 100 99 Oxygen Delivery 07/10/24 00:00 07/10/24 00:00 07/10/24 02:00 Temperature Pulse Rate 64 86 Respiratory Rate Blood Pressure Pulse Oximetry Oxygen Delivery Room Air 07/10/24 03:37 07/10/24 03:40 07/10/24 04:00 Temperature 97.7 F Pulse Rate 98 80 Respiratory Rate 20 Blood Pressure 121/90 Pulse Oximetry 98 Oxygen Delivery Room Air 07/10/24 06:00 07/10/24 08:00 Temperature 98.1 F Pulse Rate 116 H 135 H Respiratory Rate 20 Blood Pressure 136/95 H Pulse Oximetry 98 Oxygen Delivery Intake/Output Intake/Output: Intake & Output 07/07/24 07/08/24 07/09/24 07/10/24 23:59 23:59 23:59 23:59 Intake Total 520.6 1270.2 1570 400 Balance 520.6 1270.2 1570 400 Meds/Results Medications: Active Medications Generic Name Dose Route Start Last Admin Trade Name Freq PRN Reason Stop Dose Admin Acetaminophen 650 mg 07/07/24 17:37 07/09/24 11:24 Acetaminophen 325 Mg Tablet PO 650 mg Q4H PRN Administration Mild Pain (1-3) or Fever Apixaban 5 mg 07/08/24 09:00 07/09/24 20:33 Apixaban 5 Mg Tablet PO 5 mg Q12HR CECILIA Administration Docusate Sodium 100 mg 07/08/24 09:00 07/09/24 17:58 Docusate Sodium 100 Mg Capsule PO 100 mg BID [facility] Administration Hydralazine HCl 10 mg 07/07/24 17:46 Hydralazine Hcl 20 Mg/Ml Vial IV PUSH Q8H PRN Blood Pressure - High Levothyroxine Sodium 50 mcg 07/11/24 06:30 Levothyroxine Sodium 50 Mcg Tablet PO DAILY@0630 [facility] Lidocaine 1 patch 07/07/24 17:40 07/09/24 13:47 Lidocaine 5% Patch TRANSDERM 1 patch DAILY [facility] Administration Metoprolol Tartrate 50 mg 07/09/24 17:00 07/09/24 17:58 Metoprolol Tartrate 50 Mg Tab PO 50 mg BID [facility] Administration Metoprolol Tartrate 2.5 mg 07/10/24 08:08 Metoprolol Tartrate Inj 5 Mg/5 Ml Vial IV PUSH 07/10/24 08:09 ONCE ONE Nifedipine 60 mg 07/08/24 09:00 Nifedipine 30 Mg Tab.Er.24 PO DAILY [facility] Perflutren Lipid Microsphere 0 ml 07/07/24 17:34 Perflutren Lipid Microspheres 1.5 Ml Vial Diluted To 10 Ml Total Volume IV PUSH 07/10/24 17:35 ONCE PRN adequate visualization Protocol Rosuvastatin Calcium 10 mg 07/08/24 09:00 07/09/24 08:18 Rosuvastatin 10 Mg Tablet PO 10 mg DAILY CECILIA Administration Radiology Results: ITS Impressions Chest CTA 07/07/24 15:39 IMPRESSION: 1. No pulmonary embolism. 2. Nodule in the right lobe of the thyroid. Ultrasound evaluation advised. 3. Minimal right pleural effusion with adjacent atelectasis. 4. Trace of pericardial effusion. 5. Small sliding hiatus hernia Knee X-Ray 07/07/24 17:50 IMPRESSION: . Field impression no acute osseous finding in the left knee. Moderate left knee joint effusion Thyroid Ultrasound 07/07/24 20:01 IMPRESSION: Highly suspicious 3.3 cm right thyroid nodule, recommend FNA. Moderately suspicious 1.5 cm thyroid isthmus nodule, recommend FNA. Chest X-Ray 07/08/24 10:05 IMPRESSION: 1. No acute cardiopulmonary disease. 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 Otherwise patent bilateral lower extremity veins. Brain MRI 07/09/24 12:07 IMPRESSION: 1. Normal aging brain. 2. 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 Cervical Spine MRI 07/09/24 12:36 IMPRESSION: 1. 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 Lumbar Spine MRI 07/09/24 12:53 IMPRESSION: 1. Mild thoracic spondylosis with no central canal stenosis and normal cord signal. 2. Moderate lumbar spondylosis with multilevel severe facet osteoarthritis and associated ligamentum flavum hypertrophy contributing to severe central canal stenosis at L4-L5. Thoracic Spine MRI 07/09/24 12:53 IMPRESSION: 1. Mild thoracic spondylosis with no central canal stenosis and normal cord signal. 2. Moderate lumbar spondylosis with multilevel severe facet osteoarthritis and associated ligamentum flavum hypertrophy contributing to severe central canal stenosis at L4-L5. Labs Labs: Laboratory Results - last 24 hr 07/09/24 10:52 WBC 6.3 RBC 4.13 L Hgb 12.1 Hct 37.5 MCV 90.8 MCH 29.3 MCHC 32.3 RDW 14.2 Plt Count 162 MPV 10.1 Sodium 140 Potassium 3.9 Chloride 110 H Carbon Dioxide 22 Anion Gap 8 BUN 20 H Creatinine 1.00 Estim Creat Clear Calc 41 Estimated GFR 53 L Glucose 108 Calcium 8.3 L Total Bilirubin 0.7 AST 25 ALT 17 Alkaline Phosphatase 52 NT-Pro-B Natriuret Pep 1260 H Total Protein 8.0 Albumin 4.2 TSH (Reflex) 0.037 L Free T4 1.87 Total T3 1.11 Quality VTE Prophylaxis VTE prophylaxis: mechanical ordered Hospitalist [facility] Advance Care Plan I have confirmed that the patient's Advanced Care Plan is present, code status is documented, or surrogate decision maker is listed in patient medical record.: Yes Medication Reconciliation I have utilized all available resources to obtain, update and review the patients current medications (includes all prescriptions, OTC, herbals, cannabis, and nutritional supplements).: Yes
[2024-07-10] MEDS: METOPROLOL TARTRATE 50 MG TAB PO ×2 (08:18→16:39)
[2024-07-10] MEDS: LIDOCAINE 5% PATCH 1 PATCH TRANSDERM (08:18)
[2024-07-10] MEDS: APIXABAN 5 MG TABLET PO ×2 (08:19→20:48)
[2024-07-10] MEDS: DOCUSATE SODIUM 100 MG CAPSULE PO ×2 (08:19→16:39)
[2024-07-10] MEDS: METOPROLOL TARTRATE INJ 5 MG/5 ML VIAL 2.5 MG IV PUSH (08:19)
[2024-07-10] MEDS: ROSUVASTATIN 10 MG TABLET PO (08:19)
[2024-07-10] MEDS: ACETAMINOPHEN 325 MG TABLET 650 MG PO (16:39)
--- NOTE | 2024-07-10 16:45 | P.CONNS_ITS ---
Assessment and Plan Assessment and plan (1) Spondylolisthesis, lumbar region: Code(s): M43.16 - Spondylolisthesis, lumbar region Status: Acute (2) Lumbar stenosis: Code(s): M48.061 - Spinal stenosis, lumbar region without neurogenic claudication Status: Acute (3) Rheumatoid pannus of cervical spine: Code(s): M06.38 - Rheumatoid nodule, vertebrae Status: Acute Plan Ms. Omer is an 83-year-old female with a several year history of claudicatory numbness in the legs who presents with several days of pain in the left lateral thigh and sense of heaviness in the leg. She has been admitted for atrial flutter, pericardial effusion, and severe pitting edema in the lower extremities. Her leg symptoms have somewhat improved with diuresis. While she does have some proximal weakness in the leg, I suspect this is partially due to the lower extremity edema as this does also seem more significant in her left leg. I am encouraged that her symptoms are somewhat improving. I reviewed the findings on her MRI cervical and lumbar spine which shows a pannus at C1-2 causing moderate to severe central stenosis and a grade 1 spondylolisthesis of L4 on L5 with severe central stenosis. Regarding the cervical spine, she does not seem obviously symptomatic from this. I do think that she needs close monitoring in case she develops symptoms of cervical myelopathy. Regarding the lumbar spine, I would recommend attempting some conservative treatments first before recommending a surgery to her lower back. I would recommend both inpatient and outpatient physical therapy. If she is otherwise able to tolerate steroids, I would recommend initiating some steroids which could be in the form of Decadron or a Medrol Dosepak to see if this will give her some additional relief from her pain. I will arrange for follow-up with myself in clinic. She expressed understanding and is also very much in agreement attempting conservative treatments 1st. She is not enthusiastic about the idea of any surgery to her spine. Consult date: 07/10/24 HPI: Mima Omer is a 83 year old female with history of hypertension, hyperlipidemia, atrial flutter on Eliquis who was admitted to the hospital 3 days ago with tachycardia. She had gone to urgent care for some ongoing cold symptoms as well as left leg pain, and she was noted to be tachycardic into the 130s for which they sent her to the emergency room. She was found as well to have a pleural effusion and pericardial effusion along with 4+ pitting edema in the lower extremities on admission as well as a suspicious 3.3 cm thyroid nodule. she has been followed by Cardiology, and some adjustments to her medications have been made to help with her presenting symptoms. I was consulted today for concern for left leg pain and weakness. The patient has a several year history of claudicatory numbness in the legs. She had previously seen an orthopedic surgeon for this who ordered an MRI, but no follow-up was scheduled, so she has been receiving treatment through a chiropractor and home exercise which has been helpful for her. 3-4 days ago, she developed new pain in the left leg from the knee to the hip without any obvious inciting event. She has some numbness in this area and also feels that her leg is heavy. She denies any back or buttock pain or right-sided symptoms. She has had trouble lifting her left leg because of the pain and heavy sensation, but she reports improved movement with gradual resolution of the extreme swelling that she had in her legs on admission. She has been able to walk short distances but has not worked with physical therapy since admission. 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 She otherwise denies any upper extremity pain, weakness, or paresthesias. She ambulates independently and denies issues with balance, tripping, or falling. She does have some urinary frequency but attributes this to increased fluid intake over the last couple months due to an ongoing upper respiratory infection. She denies incontinence. Review of Systems 2 Review of Systems: All systems reviewed & are unremarkable except as noted in HPI and below PMFSH Past Medical History Medical History Spinal stenosis Arthritis of left knee BMI 37.0-37.9, adult Hypercholesteremia Postmenopausal Carpal tunnel syndrome Hypertension Surgical History Surgical History H/O hand surgery H/O partial thyroidectomy Femur fracture, left surgery with lashay insertion at age 18 History of shoulder surgery bilateral rotator cuff repair Hx of appendectomy History of carpal tunnel surgery Bilateral Family History Family History Father Cancer Mother , at age 81 Parkinson's disease Sibling Heart disease Son Heart disease Social History Social History Smoking status: Never smoker Second hand tobacco smoke exposure: No Alcohol intake: current Drinks per week: 1 Alcohol use details: occasional Substance use: never Substance use type: does not use Do You Feel Safe in your Home?: Yes Lack of Transportation: No Lack of Food: Never True Current Housing: I Have Housing Concerned About Future Housing: No Difficulty Paying Gas/Electric Bills: No Difficulty Paying for Meds: No Currently Unemployed: No Education: High School Diploma/GED Difficulty w/ Childcare or Family Care: No Living arrangements: with family Occupation/Education: retired Gender identity (if verbalized by the patient): Female Spiritual care concerns: No Meds Home Medications and Allergies Home Medications ?Medication ?Instructions ?Recorded ?Confirmed ?Type levothyroxine 125 mcg tablet 125 mcg PO DAILY 03/01/20 07/07/24 History nifedipine 60 mg tablet,extended 60 mg PO DAILY 03/01/20 07/07/24 History release rosuvastatin 10 mg tablet 10 mg PO DAILY 03/01/20 07/07/24 History acetaminophen 325 mg tablet 650 mg (2 x 325 mg) PO Q4-6H PRN 03/20/20 07/07/24 Rx pain #90 tabs apixaban 5 mg tablet (Eliquis) 5 mg PO BID 07/07/24 07/07/24 History celecoxib 200 mg capsule 200 mg PO BID 07/07/24 07/07/24 History ergocalciferol (vitamin D2) 1,250 50,000 unit PO WEEKLY 07/07/24 07/07/24 History mcg (50,000 unit) capsule metoprolol tartrate 25 mg tablet 12.5 mg PO BID 07/07/24 07/07/24 History Allergies Allergy/AdvReac Type Severity Reaction Status Date / Time codeine AdvReac Unknown HEADACHE Verified 07/07/24 22:18 Vital Signs Vital Signs - 24 hr 07/09/24 17:58 07/09/24 18:00 07/09/24 20:00 Temperature Pulse Rate 134 H 133 H Respiratory Rate Blood Pressure Pulse Oximetry Oxygen Delivery Room Air 07/09/24 20:00 07/09/24 20:11 07/09/24 22:00 Temperature 98.4 F Pulse Rate 129 H 118 H 64 Respiratory Rate 20 Blood Pressure 131/97 H Pulse Oximetry 100 Oxygen Delivery 07/10/24 00:00 07/10/24 00:00 07/10/24 00:00 Temperature 98.4 F Pulse Rate 65 64 Respiratory Rate 20 Blood Pressure 138/91 H Pulse Oximetry 99 Oxygen Delivery Room Air 07/10/24 02:00 07/10/24 03:37 07/10/24 03:40 Temperature 97.7 F Pulse Rate 86 98 Respiratory Rate 20 Blood Pressure 121/90 Pulse Oximetry 98 Oxygen Delivery Room Air 07/10/24 04:00 07/10/24 06:00 07/10/24 08:00 Temperature 98.1 F Pulse Rate 80 116 H 135 H Respiratory Rate 20 Blood Pressure 136/95 H Pulse Oximetry 98 Oxygen Delivery 07/10/24 08:00 07/10/24 08:18 07/10/24 08:19 Temperature Pulse Rate 134 H 127 H 127 H Respiratory Rate Blood Pressure Pulse Oximetry Oxygen Delivery 07/10/24 10:00 07/10/24 11:43 07/10/24 12:00 Temperature 98.3 F Pulse Rate 67 67 66 Respiratory Rate 18 Blood Pressure 131/82 Pulse Oximetry 100 Oxygen Delivery 07/10/24 14:00 07/10/24 16:00 07/10/24 16:39 Temperature 98.2 F Pulse Rate 68 68 113 H Respiratory Rate 20 Blood Pressure 144/91 H Pulse Oximetry 100 Oxygen Delivery Exam 2 Narrative: Left > right lower extremity edema, 2+ pitting in left, 1+ in right LLE 4/5 HF, 4/5 KE, 5/5 DF/PF Sensation intact to light touch Unless otherwise stated above, the patient's physical exam is as follows: General: -Well developed and well nourished. No a cute distress. Cooperative with exam. Mental status: -Awake and oriented to person, place, an d time. Integumentary: -No obvious skin lesions or masses Motor: -Muscle tone normal without spasticity o f flaccidity. No atrophy. No fasciculations. -No pronator drift -Right upper extremity: deltoid 5/5, bic eps 5/5, triceps 5/5, wrist extensors 5/5, wrist flexors 5/5, intrinsics 5/5 -Left upper extremity: deltoid 5/5, miguel ps 5/5, triceps 5/5, wrist extensors 5/5, wrist flexors 5/5, intrinsics 5/5 -Right lower extremity: iliopsoas 5/5, q uadriceps 5/5, hamstrings 5/5, tibialis anterior 5/5, gastroc-soleus 5/5, EHL 5/5 -Left lower extremity: iliopsoas 5/5, qu adriceps 5/5, hamstrings 5/5, tibialis anterior 5/5, gastroc-soleus 5/5, EHL 5/5 Sensory: -Intact to light touch throughout -Normal proprioception throughout Reflexes: -1-2+ DTR's throughout -No Lou's, clonus, or Babinski bilat erally Musculoskeletal: -Lumbar spine: no tenderness to palpatio n, no pain, and normal lumbosacral spine movements -[id number] test negative -Hip: normal range of motion, no crepitu s bilaterally. No pain reproduced on ANGEL or FAIR testing bilaterally -Knee: no instability, subluxation or la xity, and no crepitus bilaterally Results Labs 07/09/24 10:52 07/09/24 10:52 Imaging My impression: I personally reviewed the MRI cervical spine which shows a large pannus at C1- 2 causing left lateral recess stenosis and moderate to severe central stenosis I personally viewed the MRI lumbar spine which shows a grade 1 anterolisthesis of L4 on L5 with severe central and lateral recess stenosis as well as significant facet arthropathy.
[2024-07-11] VITALS (14 sets, daily range): BP systolic 115–143; BP diastolic 69–93; PULSE 64–137; RESP 16–18; TEMP 36.5–37; O2SAT 96–100
[2024-07-11] MEDS: LEVOTHYROXINE SODIUM 50 MCG TABLET PO (06:25)
[2024-07-11] MEDS: METOPROLOL TARTRATE 50 MG TAB PO ×2 (08:26→18:21)
[2024-07-11] MEDS: DOCUSATE SODIUM 100 MG CAPSULE PO ×2 (08:26→18:21)
[2024-07-11] MEDS: APIXABAN 5 MG TABLET PO ×2 (08:26→20:37)
[2024-07-11] MEDS: LIDOCAINE 5% PATCH 1 PATCH TRANSDERM (08:27)
[2024-07-11] MEDS: ROSUVASTATIN 10 MG TABLET PO (08:27)
--- NOTE | 2024-07-11 17:23 | P.PNIM_ITS ---
Progress Note: A&P Assessment and Plan (1) Atrial flutter: Code(s): I48.92 - Unspecified atrial flutter Status: Acute Assessment and Plan: Could be due to fluid overload Decreased levothyroxine from 100-50 mcg Repeat TSH in 6 weeks Cardiology consulted Diltiazem given in ED Telemetry monitoring Echocardiogram in the morning (2) Pericardial effusion: Code(s): I31.39 - Other pericardial effusion (noninflammatory) Status: Acute Assessment and Plan: Small pleural effusion, small pericardial effusion, right knee effusion, and +4 pitting edema in lower extremities Lasix 20mg IV x 1 Echocardiogram shows left ventricle ejection fraction 60-60 versus (3) Thyroid nodule: Code(s): E04.1 - Nontoxic single thyroid nodule Status: Acute Assessment and Plan: Seen on CT Ultrasound shows a highly suspicious 3.3 cm right thyroid nodule and moderate discharge PC is 1 0.5 cm thyroid his thymus nodule. Will discuss with IR (4) Arthritis of left knee: Code(s): M17.12 - Unilateral primary osteoarthritis, left knee Status: Chronic Assessment and Plan: Left knee x-ray with effusion no fracture noted Lidocaine patch and Tylenol (5) Hypothyroidism: Code(s): E03.9 - Hypothyroidism, unspecified Status: Acute Assessment and Plan: TSH 0.021 Will repeat a TSH with a free T3 and total T4 Will decrease home dosage from 125 to 100 mcg. (6) Hypertension: Code(s): I10 - Essential (primary) hypertension Status: Acute Assessment and Plan: On admission 165/120 IV hydralazine p.r.n. (7) Left leg weakness: Code(s): R29.898 - Other symptoms and signs involving the musculoskeletal system Status: Acute Assessment and Plan: Acute issue No evidence of DVT Reviewed MRI of the brain with spine. Neurosurgery consulted (8) Deep vein thrombosis of left lower extremity: Code(s): I82.402 - Acute embolism and thrombosis of unspecified deep veins of left lower extremity Status: Acute Assessment and Plan: Reported as chronic DVT. Converted Eliquis 5 mg p.o. q.d. to b.i.d. Patient is taking Eliquis for past 6 months due to AFib For unknown reason she was taking Eliquis 5 mg p.o. q.d. for past 5 weeks. Subjective Date/time seen: 07/11/24 17:23 Interval history: Patient heart rate still in 130s. Discussed with Cardiology. Patient levoth yroxine dose has been decreased from 100-50 mcg. Also patient needs higher dose of levothyroxine to suppress her possible thyroid cancer. Patient has a chronic DVT on her left leg. Patient initially during the admission came with home dose of apixaban 5 mg p.o. q.d. for unknown reason she has been decreased dose to p.o. q.d. for past 5 weeks. Currently patient will continue apixaban 5 mg p.o. b.i.d.. Review of Systems Review of Systems: 12 systems were reviewed and are negativ e except for as per HPI. Exam Narrative: General: well appearing, appears stated age. HEENT: normocephalic, atraumatic. Mucous membranes moist. EOMI, PERRLA, bilateral sclera anicteric, no conjunctival injection. Neck supple without JVD, lymphadenopathy, or bruit. Respiratory: clear to ascultation bilaterally. No rales/rhonic/wheezes. Cardiovascular: regular rate and rhythm, normal S1-S2 upon ascultation. No murmurs, rubs, or clicks. PMI is nondisplaced, capillary refill less than 3 second. Abdomen: Soft, round, no pulsatile masses, nondistended and nontender. No rebound, no guarding. No CVA tenderness, no hepatosplenomegaly. Bowel sounds present to all four quadrants. No high pitch or tinkling sounds, resonant to percussion. Extremities: No cyanosis, clubbing, . Pulses are palpable 2/2. Active ROM to all four extremities. 4+ pitting edema, Neuro: Alert and orientated x 4. PERRLA. Cranial nerves 2-12 intact without focal deficit. Skin: Warm, dry, and intact, without rash, erythema, or lesion. Psych: pleasant, cooperative, normal speech, normal affect, no hallucinations, no dysarthia Objective Data Vital Signs Vital Signs: Vital Signs - 24 hr 07/10/24 18:00 07/10/24 19:55 07/10/24 19:56 Temperature 98.2 F Pulse Rate 127 H 65 Respiratory Rate 18 Blood Pressure 140/83 Pulse Oximetry 95 Oxygen Delivery Room Air Fraction of Inspired Oxygen 07/10/24 20:00 07/10/24 20:46 07/10/24 21:51 Temperature Pulse Rate 67 71 Respiratory Rate Blood Pressure Pulse Oximetry 96 Oxygen Delivery Room Air Fraction of Inspired Oxygen 21 07/10/24 23:39 07/11/24 00:00 07/11/24 00:02 Temperature 98.6 F Pulse Rate 65 77 Respiratory Rate 18 Blood Pressure 130/76 Pulse Oximetry 99 Oxygen Delivery Room Air Fraction of Inspired Oxygen 07/11/24 03:37 07/11/24 03:57 07/11/24 04:00 Temperature 98.6 F Pulse Rate 92 67 Respiratory Rate 18 Blood Pressure 123/69 Pulse Oximetry 98 Oxygen Delivery Room Air Fraction of Inspired Oxygen 07/11/24 08:00 07/11/24 08:00 07/11/24 08:00 Temperature 98.3 F Pulse Rate 137 H 136 H Respiratory Rate 18 Blood Pressure 129/83 Pulse Oximetry 100 Oxygen Delivery Room Air Fraction of Inspired Oxygen 07/11/24 10:00 07/11/24 12:00 07/11/24 12:00 Temperature 97.8 F Pulse Rate 68 68 Respiratory Rate 16 Blood Pressure 143/93 H Pulse Oximetry 100 Oxygen Delivery Room Air Fraction of Inspired Oxygen 07/11/24 12:00 07/11/24 13:55 07/11/24 14:00 Temperature Pulse Rate 68 67 Respiratory Rate Blood Pressure Pulse Oximetry Oxygen Delivery Room Air Fraction of Inspired Oxygen 07/11/24 16:00 07/11/24 16:00 Temperature Pulse Rate 68 Respiratory Rate Blood Pressure Pulse Oximetry Oxygen Delivery Room Air Fraction of Inspired Oxygen Intake/Output Intake/Output: Intake & Output 07/08/24 07/09/24 07/10/24 07/11/24 23:59 23:59 23:59 23:59 Intake Total 1270.2 1570 1520 790 Balance 1270.2 1570 1520 790 Meds/Results Medications: Active Medications Generic Name Dose Route Start Last Admin Trade Name Freq PRN Reason Stop Dose Admin Acetaminophen 650 mg 07/07/24 17:37 07/10/24 16:39 Acetaminophen 325 Mg Tablet PO 650 mg Q4H PRN Administration Mild Pain (1-3) or Fever Apixaban 5 mg 07/08/24 09:00 07/11/24 08:26 Apixaban 5 Mg Tablet PO 5 mg Q12HR CECILIA Administration Docusate Sodium 100 mg 07/08/24 09:00 07/11/24 08:26 Docusate Sodium 100 Mg Capsule PO 100 mg BID CECILIA Administration Hydralazine HCl 10 mg 07/07/24 17:46 Hydralazine Hcl 20 Mg/Ml Vial IV PUSH Q8H PRN Blood Pressure - High Levothyroxine Sodium 50 mcg 07/11/24 06:30 07/11/24 06:25 Levothyroxine Sodium 50 Mcg Tablet PO 50 mcg DAILY@0630 CECILIA Administration Lidocaine 1 patch 07/07/24 17:40 07/11/24 08:27 Lidocaine 5% Patch TRANSDERM 1 patch DAILY CECILIA Administration Metoprolol Tartrate 50 mg 07/09/24 17:00 07/11/24 08:26 Metoprolol Tartrate 50 Mg Tab PO 50 mg BID CECILIA Administration Nifedipine 60 mg 07/08/24 09:00 Nifedipine 30 Mg Tab.Er.24 PO DAILY [facility] Rosuvastatin Calcium 10 mg 07/08/24 09:00 07/11/24 08:27 Rosuvastatin 10 Mg Tablet PO 10 mg DAILY CECILIA Administration Radiology Results: ITS Impressions Chest CTA 07/07/24 15:39 IMPRESSION: 1. No pulmonary embolism. 2. Nodule in the right lobe of the thyroid. Ultrasound evaluation advised. 3. Minimal right pleural effusion with adjacent atelectasis. 4. Trace of pericardial effusion. 5. Small sliding hiatus hernia Knee X-Ray 07/07/24 17:50 IMPRESSION: . Field impression no acute osseous finding in the left knee. Moderate left knee joint effusion Thyroid Ultrasound 07/07/24 20:01 IMPRESSION: Highly suspicious 3.3 cm right thyroid nodule, recommend FNA. Moderately suspicious 1.5 cm thyroid isthmus nodule, recommend FNA. Chest X-Ray 07/08/24 10:05 IMPRESSION: 1. No acute cardiopulmonary disease. 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 Otherwise patent bilateral lower extremity veins. Brain MRI 07/09/24 12:07 IMPRESSION: 1. Normal aging brain. 2. 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 Cervical Spine MRI 07/09/24 12:36 IMPRESSION: 1. 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 Lumbar Spine MRI 07/09/24 12:53 IMPRESSION: 1. Mild thoracic spondylosis with no central canal stenosis and normal cord signal. 2. Moderate lumbar spondylosis with multilevel severe facet osteoarthritis and associated ligamentum flavum hypertrophy contributing to severe central canal stenosis at L4-L5. Thoracic Spine MRI 07/09/24 12:53 IMPRESSION: 1. Mild thoracic spondylosis with no central canal stenosis and normal cord signal. 2. Moderate lumbar spondylosis with multilevel severe facet osteoarthritis and associated ligamentum flavum hypertrophy contributing to severe central canal stenosis at L4-L5. Quality VTE Prophylaxis VTE prophylaxis: mechanical ordered Hospitalist MIPS Advance Care Plan I have confirmed that the patient's Advanced Care Plan is present, code status is documented, or surrogate decision maker is listed in patient medical record.: Yes Medication Reconciliation I have utilized all available resources to obtain, update and review the patients current medications (includes all prescriptions, OTC, herbals, cannabis, and nutritional supplements).: Yes
[2024-07-12] VITALS (16 sets, daily range): BP systolic 104–137; BP diastolic 56–81; PULSE 64–132; RESP 15–18; TEMP 36.4–36.8; O2SAT 93–100
[2024-07-12] MEDS: ACETAMINOPHEN 325 MG TABLET 650 MG PO ×3 (01:47→19:49)
[2024-07-12 04:25] LABS: Hematocrit 34.3 % (37.0-47.0); Mean Corpuscular HGB Conc 32.1 g/dl (32-36); Mean Corpuscular Hemoglobin 29.3 pg (26-34); Mean Corpuscular Volume 91.2 fl (80-100); Mean Platelet Volume 10.5 fl (7.4-10.4); Platelet Count Result 151 k/mm3 (150-375); Red Blood Count 3.76 M/mm3 (4.2-5.4); Red Cell Distribution Width 14.1 % (11.5-14.5); White Blood Count 6.9 K/mm3 (4.5-10.0)
[2024-07-12 04:37] LABS: Alanine Aminotransferase 15 U/L (6-35); Albumin Level 3.8 g/dL (3.5-5.1); Alkaline Phosphatase 53 U/L (38-126); Anion Gap 11 mmol/L (4-12); Aspartate Amino Transferase 24 U/L (14-36); Bilirubin,Total 0.5 mg/dL (0.2-1.3); Blood Urea Nitrogen 19 mg/dL (7-17); Carbon Dioxide 21 mmol/L (22-30); Chloride 110 mmol/L (98-107); Estimated CRCL calculation 43 ml/min; Estimated Glomerular Filt Rate 56; Glucose 93 mg/dL (65-110); Potassium 3.8 mmol/L (3.4-5.0); Sodium 142 mmol/L (137-145)
[2024-07-12] MEDS: traMADol HCL (*CRX) 25 MG TABLET PO (04:39)
[2024-07-12] MEDS: LEVOTHYROXINE SODIUM 50 MCG TABLET PO (04:39)
[2024-07-12] MEDS: DOCUSATE SODIUM 100 MG CAPSULE PO ×2 (08:17→16:43)
[2024-07-12] MEDS: ROSUVASTATIN 10 MG TABLET PO (08:17)
[2024-07-12] MEDS: APIXABAN 5 MG TABLET PO ×2 (08:17→19:49)
[2024-07-12] MEDS: LIDOCAINE 5% PATCH 1 PATCH TRANSDERM (08:17)
[2024-07-12] MEDS: METOPROLOL TARTRATE 50 MG TAB PO ×2 (08:17→16:43)
[2024-07-12] MEDS: KETOROLAC 30 MG/ML VIAL (*BKC) IV PUSH (13:03)
--- NOTE | 2024-07-12 13:15 | PM.PNCARD ---
Progress Note: A&P Assessment and Plan (1) Atrial flutter: Code(s): I48.92 - Unspecified atrial flutter Status: Acute Plan 1. Chronic atrial flutter with RVR: She has variable rates of conduction. She will go 2:1, 3:1 and 4:1 with obviously different ventricular rates accordingly. Continue metoprolol and anticoagulation 2. Hypertension 3. 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 RENE, not on CPAP 6. Hyperthyroidism: Suspicious thyroid nodules are noted by diverted ultrasound. Further workup per hospitalist PLAN: -continue metoprolol. Continue Eliquis 5mg BID for stroke risk reduction for AFIB and her DVT. -TSH is low at 0.021. Management of hyperthyroidism per Hospitalist. Thyroid abnormality may be contributing to her RVR. She does have suspicious nodules and FNA is recommended -Chronic appearing left posterior tibial vein DVT. Continue Eliquis. Subjective Date/time seen: 07/12/24 13:15 Interval history: Reason for visit: Atrial flutter with RVR HPI: Mima Omer is an 83-year-old female with hypertension, atrial flutter, spinal stenosis of lumbar region with radiculopathy. This is a patient who was sent here from urgent care because of tachycardia. She had gone to Urgent Care for ongoing cold symptoms and left knee and upper leg pain. In the emergency department, she was found to be in atrial flutter with rapid ventricular response. Cardiology was consulted for this reason. She was placed a diltiazem drip and her heart rates became well controlled - ultimately diltiazem was stopped because of some mild bradycardia. She does take metoprolol at home for rate control and is chronically anticoagulated with Eliquis. She denies feeling any palpitations, chest pain, shortness of breath. She still has pain in her left leg but no other active complaints. Date of service 07/09: Still has trouble moving her left leg -- MRI of the brain and spine have been ordered. In RVR this morning, which improved with Metoprolol 2.5mg IV. Date of service 07/12/2024: She feels okay denies any chest pain or shortness breath. Has low-dose swelling. She has variable rates of conduction with her atrial flutter but in general today has been in 4:1 conduction with heart rate in the 60s 70s. Review of Systems Review of Systems: All systems reviewed & are unremarkable except as noted in HPI and below ENT: Reports Normal hearing present Cardiovascular: Cardiovascular: Reports leg edema Respiratory: Respiratory: Denies hemoptysis Musculoskeletal: Musculoskeletal: Denies joint swelling Integumentary/Breasts: Skin/Breast: Denies dry skin Psychiatric: Psychiatric: Denies anxiety Endocrine: Endocrine: Denies change in body appearance Hematologic/Lymphatic: Hematologic/Lymphatic: Denies easy bleeding Exam Const: General: comfortable, no acute distress, alert and awake Orientation/consciousness: patient oriented x3 HENMT: Head: normal to inspection Mouth: Yes moist mucous membranes Eyes: General: appearance normal, both eyes and all related structures Sclera: sclerae normal Pupils: Equal, round and reactive pupils present Neck: Neck: normal visual inspection, supple and no JVD Carotids: normal carotid upstroke Resp: Effort & Inspection: normal respiratory effort Auscultation: clear to auscultation bilaterally Cardio: Rate: regular rate Rhythm: abnormal rhythm Heart sounds: S1 normal heart sound present, S2 normal heart sound present and no murmurs Other: Rate controlled atrial flutter GI: Auscultation: normal bowel sounds Skin: General skin exam: normal color Neuro: General: patient oriented x3 Cranial nerves: Yes Equal, round and reactive pupils present Motor exam (neuro): Motor abnormalites present (Decreased range of motion of left leg ) Extrem: General: normal to inspection Psych: Appearance: grossly normal Mental Status: mental status grossly normal Affect: normal affect Objective Data Vital Signs Vital Signs: Vital Signs - 24 hr 07/11/24 13:55 07/11/24 14:00 07/11/24 16:00 Temperature Pulse Rate 67 Respiratory Rate Blood Pressure Pulse Oximetry Oxygen Delivery Room Air Room Air 07/11/24 16:00 07/11/24 16:00 07/11/24 18:00 Temperature 36.5 C Pulse Rate 68 68 86 Respiratory Rate 18 Blood Pressure 115/84 Pulse Oximetry 96 Oxygen Delivery 07/11/24 20:00 07/11/24 20:00 07/11/24 20:45 Temperature 36.8 C Pulse Rate 69 119 H Respiratory Rate 18 Blood Pressure 139/78 Pulse Oximetry 100 Oxygen Delivery Room Air 07/11/24 21:47 07/11/24 23:33 07/12/24 00:00 Temperature 36.8 C Pulse Rate 64 67 Respiratory Rate 18 Blood Pressure 139/71 Pulse Oximetry 100 Oxygen Delivery Room Air 07/12/24 00:00 07/12/24 02:00 07/12/24 03:40 Temperature 36.8 C Pulse Rate 127 H 110 H 103 H Respiratory Rate 18 Blood Pressure 136/65 Pulse Oximetry 93 Oxygen Delivery 07/12/24 04:00 07/12/24 04:00 07/12/24 05:46 Temperature Pulse Rate 130 H 127 H Respiratory Rate Blood Pressure Pulse Oximetry Oxygen Delivery Room Air 07/12/24 07:39 07/12/24 08:00 07/12/24 08:00 Temperature 36.4 C Pulse Rate 132 H 132 H Respiratory Rate 18 Blood Pressure 137/79 Pulse Oximetry 100 Oxygen Delivery Room Air 07/12/24 10:00 07/12/24 11:46 Temperature 36.5 C Pulse Rate 65 68 Respiratory Rate 18 Blood Pressure 133/81 Pulse Oximetry 100 Oxygen Delivery Intake/Output Intake/Output: Intake & Output 07/09/24 07/10/24 07/11/24 07/12/24 23:59 23:59 23:59 23:59 Intake Total 1570 1520 2030 965 Output Total 300 1300 Balance 1570 1520 1730 -335 Meds/Results Medications: Active Medications Generic Name Dose Route Start Last Admin Trade Name Freq PRN Reason Stop Dose Admin Acetaminophen 650 mg 07/07/24 17:37 07/12/24 09:18 Acetaminophen 325 Mg Tablet PO 650 mg Q4H PRN Administration Mild Pain (1-3) or Fever Apixaban 5 mg 07/08/24 09:00 07/12/24 08:17 Apixaban 5 Mg Tablet PO 5 mg Q12HR CECILIA Administration Docusate Sodium 100 mg 07/08/24 09:00 07/12/24 08:17 Docusate Sodium 100 Mg Capsule PO 100 mg BID CECILIA Administration Hydralazine HCl 10 mg 07/07/24 17:46 Hydralazine Hcl 20 Mg/Ml Vial IV PUSH Q8H PRN Blood Pressure - High Levothyroxine Sodium 50 mcg 07/11/24 06:30 07/12/24 04:39 Levothyroxine Sodium 50 Mcg Tablet PO 50 mcg DAILY@0630 CECILIA Administration Lidocaine 1 patch 07/07/24 17:40 07/12/24 08:17 Lidocaine 5% Patch TRANSDERM 1 patch DAILY CECILIA Administration Metoprolol Tartrate 50 mg 07/09/24 17:00 07/12/24 08:17 Metoprolol Tartrate 50 Mg Tab PO 50 mg BID CECILIA Administration Nifedipine 60 mg 07/08/24 09:00 Nifedipine 30 Mg Tab.Er.24 PO DAILY CECILIA Rosuvastatin Calcium 10 mg 07/08/24 09:00 07/12/24 08:17 Rosuvastatin 10 Mg Tablet PO 10 mg DAILY CECILIA Administration Radiology Results: ITS Impressions Chest CTA 07/07/24 15:39 IMPRESSION: 1. No pulmonary embolism. 2. Nodule in the right lobe of the thyroid. Ultrasound evaluation advised. 3. Minimal right pleural effusion with adjacent atelectasis. 4. Trace of pericardial effusion. 5. Small sliding hiatus hernia Knee X-Ray 07/07/24 17:50 IMPRESSION: . Field impression no acute osseous finding in the left knee. Moderate left knee joint effusion Thyroid Ultrasound 07/07/24 20:01 IMPRESSION: Highly suspicious 3.3 cm right thyroid nodule, recommend FNA. Moderately suspicious 1.5 cm thyroid isthmus nodule, recommend FNA. Chest X-Ray 07/08/24 10:05 IMPRESSION: 1. No acute cardiopulmonary disease. 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 Otherwise patent bilateral lower extremity veins. Brain MRI 07/09/24 12:07 IMPRESSION: 1. Normal aging brain. 2. 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 Cervical Spine MRI 07/09/24 12:36 IMPRESSION: 1. 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 Lumbar Spine MRI 07/09/24 12:53 IMPRESSION: 1. Mild thoracic spondylosis with no central canal stenosis and normal cord signal. 2. Moderate lumbar spondylosis with multilevel severe facet osteoarthritis and associated ligamentum flavum hypertrophy contributing to severe central canal stenosis at L4-L5. Thoracic Spine MRI 07/09/24 12:53 IMPRESSION: 1. Mild thoracic spondylosis with no central canal stenosis and normal cord signal. 2. Moderate lumbar spondylosis with multilevel severe facet osteoarthritis and associated ligamentum flavum hypertrophy contributing to severe central canal stenosis at L4-L5. Clavicle X-Ray 07/12/24 12:51 IMPRESSION: 1. Mild polyarticular osteoarthritis. Humerus X-Ray 07/12/24 12:52 IMPRESSION: 1. Moderate osteoarthritis of glenohumeral joint. 2. Rotator cuff tear. Hip/Pelvis X-Ray 07/12/24 12:53 IMPRESSION: 1. Mild osteoarthritis of the hips. Tibia/Fibula X-Ray 07/12/24 12:54 IMPRESSION: 1. Polyarticular osteoarthritis. Labs Labs: Laboratory Results - last 24 hr 07/12/24 04:01 WBC 6.9 RBC 3.76 L Hgb 11.0 L Hct 34.3 L MCV 91.2 MCH 29.3 MCHC 32.1 RDW 14.1 Plt Count 151 MPV 10.5 H Sodium 142 Potassium 3.8 Chloride 110 H Carbon Dioxide 21 L Anion Gap 11 BUN 19 H Creatinine 0.96 Estim Creat Clear Calc 43 Estimated GFR 56 L Glucose 93 Calcium 8.0 L Total Bilirubin 0.5 AST 24 ALT 15 Alkaline Phosphatase 53 Total Protein 7.0 Albumin 3.8
--- NOTE | 2024-07-12 16:13 | PM.IMPN ---
Progress Note: A&P Assessment and Plan (1) Atrial flutter: Code(s): I48.92 - Unspecified atrial flutter Status: Acute Assessment and Plan: Could be due to fluid overload Decreased levothyroxine from 100-50 mcg Repeat TSH in 6 weeks Cardiology consulted Diltiazem given in ED Telemetry monitoring Echocardiogram in the morning (2) Pericardial effusion: Code(s): I31.39 - Other pericardial effusion (noninflammatory) Status: Acute Assessment and Plan: Small pleural effusion, small pericardial effusion, right knee effusion, and +4 pitting edema in lower extremities Lasix 20mg IV x 1 Echocardiogram shows left ventricle ejection fraction 60-60 versus (3) Thyroid nodule: Code(s): E04.1 - Nontoxic single thyroid nodule Status: Acute Assessment and Plan: Seen on CT Ultrasound shows a highly suspicious 3.3 cm right thyroid nodule and moderate discharge PC is 1 0.5 cm thyroid his thymus nodule. Will discuss with IR (4) Arthritis of left knee: Code(s): M17.12 - Unilateral primary osteoarthritis, left knee Status: Chronic Assessment and Plan: Left knee x-ray with effusion no fracture noted Lidocaine patch and Tylenol (5) Hypothyroidism: Code(s): E03.9 - Hypothyroidism, unspecified Status: Acute Assessment and Plan: TSH 0.021 Will repeat a TSH with a free T3 and total T4 Will decrease home dosage from 125 to 100 mcg. (6) Hypertension: Code(s): I10 - Essential (primary) hypertension Status: Acute Assessment and Plan: On admission 165/120 IV hydralazine p.r.n. (7) Left leg weakness: Code(s): R29.898 - Other symptoms and signs involving the musculoskeletal system Status: Acute Assessment and Plan: Acute issue Chronic DVT on left. Reviewed MRI of the brain with spine. Neurosurgery consulted (8) Deep vein thrombosis of left lower extremity: Code(s): I82.402 - Acute embolism and thrombosis of unspecified deep veins of left lower extremity Status: Acute Assessment and Plan: Reported as chronic DVT. Converted Eliquis 5 mg p.o. q.d. to b.i.d. Patient is taking Eliquis for past 6 months due to AFib For unknown reason she was taking Eliquis 5 mg p.o. q.d. for past 5 weeks. Subjective Date/time seen: 07/12/24 16:13 Interval history: Continues to have left leg pain and increased heart rate. Discussed with Cardiology who reports patient has chronic flutter with RVR so she will go 2:1, 3:1 and 4:1 with obviously different ventricular rates accordingly. As discussed patient will follow up as OP for thyroid nodule. Her Thyroid dose needs to adjusted as OP. Patient needs higher dose due to her previous hx of possible thyroid cancer. Patient has partial thyroidectomy in her 20's and doesn't remember the reason. Review of Systems Review of Systems: 12 systems were reviewed and are negative except for as per HPI. Exam Narrative: General: well appearing, appears stated age. HEENT: normocephalic, atraumatic. Mucous membranes moist. EOMI, PERRLA, bilateral sclera anicteric, no conjunctival injection. Neck supple without JVD, lymphadenopathy, or bruit. Respiratory: clear to ascultation bilaterally. No rales/rhonic/wheezes. Cardiovascular: regular rate and rhythm, normal S1-S2 upon ascultation. No murmurs, rubs, or clicks. PMI is nondisplaced, capillary refill less than 3 second. Abdomen: Soft, round, no pulsatile masses, nondistended and nontender. No rebound, no guarding. No CVA tenderness, no hepatosplenomegaly. Bowel sounds present to all four quadrants. No high pitch or tinkling sounds, resonant to percussion. Extremities: No cyanosis, clubbing, . Pulses are palpable 2/2. Active ROM to all four extremities. 4+ pitting edema, Neuro: Alert and orientated x 4. PERRLA. Cranial nerves 2-12 intact without focal deficit. Skin: Warm, dry, and intact, without rash, erythema, or lesion. Psych: pleasant, cooperative, normal speech, normal affect, no hallucinations, no dysarthia Objective Data Vital Signs Vital Signs: Vital Signs - 24 hr 07/11/24 18:00 07/11/24 20:00 07/11/24 20:00 Temperature Pulse Rate 86 69 Respiratory Rate Blood Pressure Pulse Oximetry Oxygen Delivery Room Air 07/11/24 20:45 07/11/24 21:47 07/11/24 23:33 Temperature 98.2 F 98.3 F Pulse Rate 119 H 64 67 Respiratory Rate 18 18 Blood Pressure 139/78 139/71 Pulse Oximetry 100 100 Oxygen Delivery 07/12/24 00:00 07/12/24 00:00 07/12/24 02:00 Temperature Pulse Rate 127 H 110 H Respiratory Rate Blood Pressure Pulse Oximetry Oxygen Delivery Room Air 07/12/24 03:40 07/12/24 04:00 07/12/24 04:00 Temperature 98.3 F Pulse Rate 103 H 130 H Respiratory Rate 18 Blood Pressure 136/65 Pulse Oximetry 93 Oxygen Delivery Room Air 07/12/24 05:46 07/12/24 07:39 07/12/24 08:00 Temperature 97.6 F Pulse Rate 127 H 132 H Respiratory Rate 18 Blood Pressure 137/79 Pulse Oximetry 100 Oxygen Delivery Room Air 07/12/24 08:00 07/12/24 10:00 07/12/24 11:46 Temperature 97.7 F Pulse Rate 132 H 65 68 Respiratory Rate 18 Blood Pressure 133/81 Pulse Oximetry 100 Oxygen Delivery 07/12/24 12:00 07/12/24 12:00 07/12/24 14:00 Temperature Pulse Rate 65 127 H Respiratory Rate Blood Pressure Pulse Oximetry Oxygen Delivery Room Air Intake/Output Intake/Output: Intake & Output 07/09/24 07/10/24 07/11/24 07/12/24 23:59 23:59 23:59 23:59 Intake Total 1570 1520 2030 965 Output Total 300 1300 Balance 1570 1520 1730 -335 Meds/Results Medications: Active Medications Generic Name Dose Route Start Last Admin Trade Name Freq PRN Reason Stop Dose Admin Acetaminophen 650 mg 07/07/24 17:37 07/12/24 09:18 Acetaminophen 325 Mg Tablet PO 650 mg Q4H PRN Administration Mild Pain (1-3) or Fever Apixaban 5 mg 07/08/24 09:00 07/12/24 08:17 Apixaban 5 Mg Tablet PO 5 mg Q12HR CECILIA Administration Docusate Sodium 100 mg 07/08/24 09:00 07/12/24 08:17 Docusate Sodium 100 Mg Capsule PO 100 mg BID CECILIA Administration Hydralazine HCl 10 mg 07/07/24 17:46 Hydralazine Hcl 20 Mg/Ml Vial IV PUSH Q8H PRN Blood Pressure - High Levothyroxine Sodium 50 mcg 07/11/24 06:30 07/12/24 04:39 Levothyroxine Sodium 50 Mcg Tablet PO 50 mcg DAILY@0630 CECILIA Administration Lidocaine 1 patch 07/07/24 17:40 07/12/24 08:17 Lidocaine 5% Patch TRANSDERM 1 patch DAILY CECILIA Administration Metoprolol Tartrate 50 mg 07/09/24 17:00 07/12/24 08:17 Metoprolol Tartrate 50 Mg Tab PO 50 mg BID CECILIA Administration Nifedipine 60 mg 07/08/24 09:00 Nifedipine 30 Mg Tab.Er.24 PO DAILY CECILIA Rosuvastatin Calcium 10 mg 07/08/24 09:00 07/12/24 08:17 Rosuvastatin 10 Mg Tablet PO 10 mg DAILY CECILIA Administration Radiology Results: ITS Impressions Chest CTA 07/07/24 15:39 IMPRESSION: 1. No pulmonary embolism. 2. Nodule in the right lobe of the thyroid. Ultrasound evaluation advised. 3. Minimal right pleural effusion with adjacent atelectasis. 4. Trace of pericardial effusion. 5. Small sliding hiatus hernia Knee X-Ray 07/07/24 17:50 IMPRESSION: . Field impression no acute osseous finding in the left knee. Moderate left knee joint effusion Thyroid Ultrasound 07/07/24 20:01 IMPRESSION: Highly suspicious 3.3 cm right thyroid nodule, recommend FNA. Moderately suspicious 1.5 cm thyroid isthmus nodule, recommend FNA. Chest X-Ray 07/08/24 10:05 IMPRESSION: 1. No acute cardiopulmonary disease. 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 Otherwise patent bilateral lower extremity veins. Brain MRI 07/09/24 12:07 IMPRESSION: 1. Normal aging brain. 2. 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 Cervical Spine MRI 07/09/24 12:36 IMPRESSION: 1. 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 Lumbar Spine MRI 07/09/24 12:53 IMPRESSION: 1. Mild thoracic spondylosis with no central canal stenosis and normal cord signal. 2. Moderate lumbar spondylosis with multilevel severe facet osteoarthritis and associated ligamentum flavum hypertrophy contributing to severe central canal stenosis at L4-L5. Thoracic Spine MRI 07/09/24 12:53 IMPRESSION: 1. Mild thoracic spondylosis with no central canal stenosis and normal cord signal. 2. Moderate lumbar spondylosis with multilevel severe facet osteoarthritis and associated ligamentum flavum hypertrophy contributing to severe central canal stenosis at L4-L5. Clavicle X-Ray 07/12/24 12:51 IMPRESSION: 1. Mild polyarticular osteoarthritis. Humerus X-Ray 07/12/24 12:52 IMPRESSION: 1. Moderate osteoarthritis of glenohumeral joint. 2. Rotator cuff tear. Hip/Pelvis X-Ray 07/12/24 12:53 IMPRESSION: 1. Mild osteoarthritis of the hips. Tibia/Fibula X-Ray 07/12/24 12:54 IMPRESSION: 1. Polyarticular osteoarthritis. Labs Labs: Laboratory Results - last 24 hr 07/12/24 04:01 WBC 6.9 RBC 3.76 L Hgb 11.0 L Hct 34.3 L MCV 91.2 MCH 29.3 MCHC 32.1 RDW 14.1 Plt Count 151 MPV 10.5 H Sodium 142 Potassium 3.8 Chloride 110 H Carbon Dioxide 21 L Anion Gap 11 BUN 19 H Creatinine 0.96 Estim Creat Clear Calc 43 Estimated GFR 56 L Glucose 93 Calcium 8.0 L Total Bilirubin 0.5 AST 24 ALT 15 Alkaline Phosphatase 53 Total Protein 7.0 Albumin 3.8 Quality VTE Prophylaxis VTE prophylaxis: mechanical ordered Hospitalist [facility] Advance Care Plan I have confirmed that the patient's Advanced Care Plan is present, code status is documented, or surrogate decision maker is listed in patient medical record.: Yes Medication Reconciliation I have utilized all available resources to obtain, update and review the patients current medications (includes all prescriptions, OTC, herbals, cannabis, and nutritional supplements).: Yes
[2024-07-13] VITALS (8 sets, daily range): BP systolic 114–141; BP diastolic 74–88; PULSE 65–137; RESP 14–18; TEMP 36.4–36.9; O2SAT 100
[2024-07-13] MEDS: ACETAMINOPHEN 325 MG TABLET 650 MG PO (03:18)
[2024-07-13] MEDS: LEVOTHYROXINE SODIUM 50 MCG TABLET PO (05:39)
[2024-07-13 08:34] LABS: Hematocrit 34.7 % (37.0-47.0); Mean Corpuscular HGB Conc 31.7 g/dl (32-36); Mean Corpuscular Hemoglobin 29.3 pg (26-34); Mean Corpuscular Volume 92.5 fl (80-100); Mean Platelet Volume 10.5 fl (7.4-10.4); Platelet Count Result 147 k/mm3 (150-375); Red Blood Count 3.75 M/mm3 (4.2-5.4); Red Cell Distribution Width 14.5 % (11.5-14.5); White Blood Count 6.8 K/mm3 (4.5-10.0)
[2024-07-13 08:45] LABS: Alanine Aminotransferase 16 U/L (6-35); Albumin Level 3.9 g/dL (3.5-5.1); Alkaline Phosphatase 51 U/L (38-126); Anion Gap 8 mmol/L (4-12); Aspartate Amino Transferase 28 U/L (14-36); Bilirubin,Total 0.6 mg/dL (0.2-1.3); Blood Urea Nitrogen 23 mg/dL (7-17); Calcium 8.2 mg/dL (8.4-10.2); Carbon Dioxide 24 mmol/L (22-30); Chloride 108 mmol/L (98-107); Estimated CRCL calculation 38 ml/min; Estimated Glomerular Filt Rate 49; Glucose 127 mg/dL (65-110); Potassium 4.3 mmol/L (3.4-5.0); Sodium 140 mmol/L (137-145)
[2024-07-13] MEDS: LIDOCAINE 5% PATCH 1 PATCH TRANSDERM (09:12)
[2024-07-13] MEDS: METOPROLOL TARTRATE 50 MG TAB PO (09:12)
[2024-07-13] MEDS: DOCUSATE SODIUM 100 MG CAPSULE PO (09:12)
[2024-07-13] MEDS: APIXABAN 5 MG TABLET PO (09:12)
[2024-07-13] MEDS: ROSUVASTATIN 10 MG TABLET PO (09:12)
--- NOTE | 2024-07-13 09:51 | PM.PNCARD ---
Progress Note: A&P Assessment and Plan (1) Atrial flutter: Code(s): I48.92 - Unspecified atrial flutter Status: Acute Plan 1. Chronic atrial flutter with RVR: She has variable rates of conduction. She will go 2:1, 3:1 and 4:1 with obviously different ventricular rates accordingly. Continue metoprolol and anticoagulation 2. Hypertension 3. 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 RENE, not on CPAP 6. Hyperthyroidism: Suspicious thyroid nodules are noted by diverted ultrasound. Further workup per hospitalist PLAN: -continue metoprolol. Continue Eliquis 5mg BID for stroke risk reduction for atrial flutter and her DVT. May need an attempt at cardioversion depending on heart rate control -TSH is low at 0.021. Management of hyperthyroidism per Hospitalist. Thyroid abnormality may be contributing to her RVR. She does have suspicious nodules and FNA is recommended -Chronic appearing left posterior tibial vein DVT. Continue Eliquis. Subjective Date/time seen: 07/13/24 09:51 Interval history: Reason for visit: Atrial flutter with RVR HPI: Mima Omer is an 83-year-old female with hypertension, atrial flutter, spinal stenosis of lumbar region with radiculopathy. This is a patient who was sent here from urgent care because of tachycardia. She had gone to Urgent Care for ongoing cold symptoms and left knee and upper leg pain. In the emergency department, she was found to be in atrial flutter with rapid ventricular response. Cardiology was consulted for this reason. She was placed a diltiazem drip and her heart rates became well controlled - ultimately diltiazem was stopped because of some mild bradycardia. She does take metoprolol at home for rate control and is chronically anticoagulated with Eliquis. She denies feeling any palpitations, chest pain, shortness of breath. She still has pain in her left leg but no other active complaints. Date of service 07/09: Still has trouble moving her left leg -- MRI of the brain and spine have been ordered. In RVR this morning, which improved with Metoprolol 2.5mg IV. Date of service 07/12/2024: She feels okay denies any chest pain or shortness breath. Has low-dose swelling. She has variable rates of conduction with her atrial flutter but in general today has been in 4:1 conduction with heart rate in the 60s 70s. Date of service 07/13/2024: Still in atrial flutter with variable conduction. No chest pain or shortness breath failure. No swelling Review of Systems Review of Systems: All systems reviewed & are unremarkable except as noted in HPI and below ENT: Reports Normal hearing present Cardiovascular: Cardiovascular: Reports as per HPI and Reports leg edema Respiratory: Respiratory: Denies hemoptysis Musculoskeletal: Musculoskeletal: Denies joint swelling Integumentary/Breasts: Skin/Breast: Denies dry skin Neurologic: Reports Normal hearing present Psychiatric: Psychiatric: Denies anxiety Endocrine: Endocrine: Denies change in body appearance Hematologic/Lymphatic: Hematologic/Lymphatic: Denies easy bleeding Exam Const: General: comfortable, no acute distress, alert and awake Orientation/consciousness: patient oriented x3 HENMT: Head: normal to inspection Mouth: Yes moist mucous membranes Eyes: General: appearance normal, both eyes and all related structures Sclera: sclerae normal Pupils: Equal, round and reactive pupils present Neck: Neck: normal visual inspection, supple and no JVD Carotids: normal carotid upstroke Resp: Effort & Inspection: normal respiratory effort Auscultation: clear to auscultation bilaterally Cardio: Rate: regular rate Rhythm: abnormal rhythm Heart sounds: S1 normal heart sound present, S2 normal heart sound present and no murmurs Other: Rate controlled atrial flutter GI: Auscultation: normal bowel sounds Skin: General skin exam: normal color Neuro: General: patient oriented x3 Cranial nerves: Yes Equal, round and reactive pupils present and Yes Normal hearing present Motor exam (neuro): Motor abnormalites present (Decreased range of motion of left leg ) Extrem: General: normal to inspection Psych: Appearance: grossly normal Mental Status: mental status grossly normal Affect: normal affect Objective Data Vital Signs Vital Signs: Vital Signs - 24 hr 07/12/24 10:00 07/12/24 11:46 07/12/24 12:00 Temperature 36.5 C Pulse Rate 65 68 Respiratory Rate 18 Blood Pressure 133/81 Pulse Oximetry 100 Oxygen Delivery Room Air 07/12/24 12:00 07/12/24 14:00 07/12/24 16:00 Temperature 36.5 C Pulse Rate 65 127 H 66 Respiratory Rate 18 Blood Pressure 127/73 Pulse Oximetry 100 Oxygen Delivery 07/12/24 16:00 07/12/24 16:00 07/12/24 18:00 Temperature Pulse Rate 66 66 Respiratory Rate Blood Pressure Pulse Oximetry Oxygen Delivery Room Air 07/12/24 20:00 07/12/24 20:00 07/12/24 20:00 Temperature 36.4 C Pulse Rate 64 64 Respiratory Rate 15 Blood Pressure 127/77 Pulse Oximetry 100 Oxygen Delivery Room Air 07/12/24 22:00 07/12/24 23:59 07/13/24 00:00 Temperature 36.8 C Pulse Rate 66 68 Respiratory Rate 18 Blood Pressure 104/56 L Pulse Oximetry 99 Oxygen Delivery Room Air 07/13/24 00:00 07/13/24 01:51 07/13/24 03:13 Temperature Pulse Rate 67 67 Respiratory Rate Blood Pressure Pulse Oximetry Oxygen Delivery Room Air 07/13/24 04:00 07/13/24 04:00 07/13/24 06:00 Temperature 36.5 C Pulse Rate 106 H 73 66 Respiratory Rate 16 Blood Pressure 114/74 Pulse Oximetry 100 Oxygen Delivery 07/13/24 08:00 Temperature 36.4 C L Pulse Rate 92 Respiratory Rate 18 Blood Pressure 141/88 H Pulse Oximetry 100 Oxygen Delivery Intake/Output Intake/Output: Intake & Output 07/10/24 07/11/24 07/12/24 07/13/24 23:59 23:59 23:59 23:59 Intake Total 1520 2030 1365 880 Output Total 300 1650 550 Balance 1520 1730 -285 330 Meds/Results Medications: Active Medications Generic Name Dose Route Start Last Admin Trade Name Freq PRN Reason Stop Dose Admin Acetaminophen 650 mg 07/07/24 17:37 07/13/24 03:18 Acetaminophen 325 Mg Tablet PO 650 mg Q4H PRN Administration Mild Pain (1-3) or Fever Apixaban 5 mg 07/08/24 09:00 07/13/24 09:12 Apixaban 5 Mg Tablet PO 5 mg Q12HR CECILIA Administration Docusate Sodium 100 mg 07/08/24 09:00 07/13/24 09:12 Docusate Sodium 100 Mg Capsule PO 100 mg BID CECILIA Administration Hydralazine HCl 10 mg 07/07/24 17:46 Hydralazine Hcl 20 Mg/Ml Vial IV PUSH Q8H PRN Blood Pressure - High Levothyroxine Sodium 50 mcg 07/11/24 06:30 07/13/24 05:39 Levothyroxine Sodium 50 Mcg Tablet PO 50 mcg DAILY@0630 CECILIA Administration Lidocaine 1 patch 07/07/24 17:40 07/13/24 09:12 Lidocaine 5% Patch TRANSDERM 1 patch DAILY CECILIA Administration Metoprolol Tartrate 50 mg 07/09/24 17:00 07/13/24 09:12 Metoprolol Tartrate 50 Mg Tab PO 50 mg BID CECILIA Administration Nifedipine 60 mg 07/08/24 09:00 Nifedipine 30 Mg Tab.Er.24 PO DAILY CECILIA Rosuvastatin Calcium 10 mg 07/08/24 09:00 07/13/24 09:12 Rosuvastatin 10 Mg Tablet PO 10 mg DAILY CECILIA Administration Radiology Results: ITS Impressions Chest CTA 07/07/24 15:39 IMPRESSION: 1. No pulmonary embolism. 2. Nodule in the right lobe of the thyroid. Ultrasound evaluation advised. 3. Minimal right pleural effusion with adjacent atelectasis. 4. Trace of pericardial effusion. 5. Small sliding hiatus hernia Knee X-Ray 07/07/24 17:50 IMPRESSION: . Field impression no acute osseous finding in the left knee. Moderate left knee joint effusion Thyroid Ultrasound 07/07/24 20:01 IMPRESSION: Highly suspicious 3.3 cm right thyroid nodule, recommend FNA. Moderately suspicious 1.5 cm thyroid isthmus nodule, recommend FNA. Chest X-Ray 07/08/24 10:05 IMPRESSION: 1. No acute cardiopulmonary disease. 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 Otherwise patent bilateral lower extremity veins. Brain MRI 07/09/24 12:07 IMPRESSION: 1. Normal aging brain. 2. 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 Cervical Spine MRI 07/09/24 12:36 IMPRESSION: 1. 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 Lumbar Spine MRI 07/09/24 12:53 IMPRESSION: 1. Mild thoracic spondylosis with no central canal stenosis and normal cord signal. 2. Moderate lumbar spondylosis with multilevel severe facet osteoarthritis and associated ligamentum flavum hypertrophy contributing to severe central canal stenosis at L4-L5. Thoracic Spine MRI 07/09/24 12:53 IMPRESSION: 1. Mild thoracic spondylosis with no central canal stenosis and normal cord signal. 2. Moderate lumbar spondylosis with multilevel severe facet osteoarthritis and associated ligamentum flavum hypertrophy contributing to severe central canal stenosis at L4-L5. Clavicle X-Ray 07/12/24 12:51 IMPRESSION: 1. Mild polyarticular osteoarthritis. Humerus X-Ray 07/12/24 12:52 IMPRESSION: 1. Moderate osteoarthritis of glenohumeral joint. 2. Rotator cuff tear. Hip/Pelvis X-Ray 07/12/24 12:53 IMPRESSION: 1. Mild osteoarthritis of the hips. Tibia/Fibula X-Ray 07/12/24 12:54 IMPRESSION: 1. Polyarticular osteoarthritis. Femur X-Ray 07/13/24 08:21 IMPRESSION: Intramedullary lashay without acute fracture, as detailed above. Labs Labs: Laboratory Results - last 24 hr 07/13/24 08:20 WBC 6.8 RBC 3.75 L Hgb 11.0 L Hct 34.7 L MCV 92.5 MCH 29.3 MCHC 31.7 L RDW 14.5 Plt Count 147 L MPV 10.5 H Sodium 140 Potassium 4.3 Chloride 108 H Carbon Dioxide 24 Anion Gap 8 BUN 23 H Creatinine 1.07 H Estim Creat Clear Calc 38 Estimated GFR 49 L Glucose 127 H Calcium 8.2 L Total Bilirubin 0.6 AST 28 ALT 16 Alkaline Phosphatase 51 Total Protein 7.0 Albumin 3.9
--- NOTE | 2024-07-13 13:45 | P.DS_ITS ---
DS: Admitting Diagnosis Discharge Date 07/13/2024 Admitting Diagnosis Knee pain and shortness of breath DS: Discharge Diagnosis Discharge Diagnosis (1) Atrial flutter: Code(s): I48.92 - Unspecified atrial flutter Status: Acute Assessment and Plan: Echocardiogram shows 60-65% She has variable rates of conduction. She will go 2:1, 3:1 and 4:1 with obviously different ventricular rates accordingly. Decreased levothyroxine from 100-50 mcg Repeat TSH in 6 weeks Patient has a suspicious thyroid nodule on ultrasound of thyroid Patient had a partial thyroidectomy at the age of 21 Patient possibly need increase in levothyroxine dosage The emphasized on the importance of FNA Patient wants to follow-up on the suspicion nodule on thyroid as outpatient Cardiology consulted Diltiazem given in ED Telemetry monitoring (2) Pericardial effusion: Code(s): I31.39 - Other pericardial effusion (noninflammatory) Status: Acute Assessment and Plan: Small pleural effusion, small pericardial effusion, right knee effusion, and +4 pitting edema in lower extremities Lasix 20mg IV x 1 Echocardiogram shows left ventricle ejection fraction 60-65% (3) Thyroid nodule: Code(s): E04.1 - Nontoxic single thyroid nodule Status: Acute Assessment and Plan: Seen on CT Ultrasound shows a highly suspicious 3.3 cm right thyroid nodule and moderate discharge PC is 1 0.5 cm thyroid his thymus nodule. Patient wants to follow as outpatient (4) Arthritis of left knee: Code(s): M17.12 - Unilateral primary osteoarthritis, left knee Status: Chronic Assessment and Plan: Left knee x-ray with effusion no fracture noted Lidocaine patch and Tylenol (5) Hypothyroidism: Code(s): E03.9 - Hypothyroidism, unspecified Status: Acute Assessment and Plan: TSH 0.021 Will repeat a TSH with a free T3 and total T4 Will decrease home dosage from 125 to 50 mcg. As mentioned above patient needs a higher dosage due to suspicious for residual thyroid cancer Patient had a partial thyroidectomy at the age of 21 (6) Hypertension: Code(s): I10 - Essential (primary) hypertension Status: Acute Assessment and Plan: On admission 165/120 IV hydralazine p.r.n. (7) Left leg weakness: Code(s): R29.898 - Other symptoms and signs involving the musculoskeletal system Status: Acute Assessment and Plan: Chronic DVT on left. Reviewed MRI of the brain with spine. Neurosurgery consulted (8) Deep vein thrombosis of left lower extremity: Code(s): I82.402 - Acute embolism and thrombosis of unspecified deep veins of left lower extremity Status: Acute Assessment and Plan: Reported as chronic DVT. Converted Eliquis 5 mg p.o. q.d. to b.i.d. Patient is taking Eliquis for past 6 months due to AFib For unknown reason she was taking Eliquis 5 mg p.o. q.d. for past 5 weeks. DS: Summary Hospital Course Hospital Course: 83-year-old female with hypertension, atrial flutter, spinal stenosis of lumbar region with radiculopathy. This is a patient who was sent here from urgent care because of tachycardia. She had gone to Urgent Care for ongoing cold symptoms and left knee and upper leg pain. In the emergency department, she was found to be in atrial flutter with rapid ventricular response. She was placed a diltiazem drip and her heart rates became well controlled - ultimately diltiazem was stopped because of some mild bradycardia. She does take metoprolol at home for rate control and is chronically anticoagulated with Eliquis. Cardiology was consulted due to an increased heart rate. Reported patient chronically atrial flutter with RVR she has variable rate a conduction. She will go to his 2 1, res to 1 and a forced 1 with obviously different ventricular rates accordingly. Cardiology recommended decrease in the levothyroxine dosage. Patient takes levothyroxine 125 mcg p.o. q.d. Patient reports of having partial thyroidectomy at the age of 21. We believe possibly due to thyroid cancer. During the hospitalization ultrasound of the thyroid shows a suspicious nodule. Patient wants to follow-up as an outpatient in regards to thyroid nodule. We decreased her home dosage of from 125 mcg to 50 mcg p.o. q.d. as per cardiology request. We believe patient needs a higher dosage because of thyroid cancer. I emphasized the importance of following up with printed circuit boards laminator and adjust the thyroid dosage and as well as getting FNA. I called the son but unfortunately he did not pick the phone and there is no voicemail option was available. In regards to left leg pain ultrasound of the left leg shows chronic DVT. Patient reports she was taking anticoagulation possibly for 6 months but recently she was not taking Eliquis 2 times a day. States she was taking only 1 time a day. I emphasized the importance of taking anticoagulants consistently and without missing any dosage. Patient also has spinal stenosis for which neuro surgery was consulted. Patient is to follow up with Neurosurgery as an outpatient. All the imaging of the left leg is negative. Patient had a remote history of fracture and had hardware placement. Patient is discharged with the following instructions: Patient need close follow-up with PCP, neurosurgery,Cardiology, Hematology/Oncology, Endocrinology. Patient has a suspicious nodule on her thyroid which needs biopsy. I decreased the dosage of Levothyroxine to 50mcg due to increase Heart rate but might increased dose to possible history of Thyroid cancer. I strongly recommend to visit Endocrinology for your thyroid problem/suspicious cancer in ultrasound and for adjustment in thyroid dosage During the hospitalization patient has evidence of chronic DVT on her left leg. Advised to take Eliquis 2 times a day not once a day. Patient also need to see to follow up on DVT work up. Patient needs to follow up with neurosurgery for canal stenosis. Please continue PT/OT Status at Discharge Cognitive/behavioral status at discharge: Stable Time Spent with Patient Time attestation: Total time spent providing and/or coordinating discharge services: 45 minutes Exam Narrative: General: well appearing, appears stated age. HEENT: normocephalic, atraumatic. Mucous membranes moist. EOMI, PERRLA, bilateral sclera anicteric, no conjunctival injection. Neck supple without JVD, lymphadenopathy, or bruit. Respiratory: clear to ascultation bilaterally. No rales/rhonic/wheezes. Cardiovascular: regular rate and rhythm, normal S1-S2 upon ascultation. No murm urs, rubs, or clicks. PMI is nondisplaced, capillary refill less than 3 second. Abdomen: Soft, round, no pulsatile masses, nondistended and nontender. No rebound, no guarding. No CVA tenderness, no hepatosplenomegaly. Bowel sounds present to all four quadrants. No high pitch or tinkling sounds, resonant to percussion. Extremities: No cyanosis, clubbing, . Pulses are palpable 2/2. Active ROM to all four extremities. 4+ pitting edema, Neuro: Alert and orientated x 4. PERRLA. Cranial nerves 2-12 intact without focal deficit. Skin: Warm, dry, and intact, without rash, erythema, or lesion. Psych: pleasant, cooperative, normal speech, normal affect, no hallucinations, no dysarthia DS: Data Data Completed and Pending Labs on day of discharge: Labs from last 24 hours 07/13/24 08:20 WBC 6.8 RBC 3.75 L Hgb 11.0 L Hct 34.7 L MCV 92.5 MCH 29.3 MCHC 31.7 L RDW 14.5 Plt Count 147 L MPV 10.5 H Sodium 140 Potassium 4.3 Chloride 108 H Carbon Dioxide 24 Anion Gap 8 BUN 23 H Creatinine 1.07 H Estim Creat Clear Calc 38 Estimated GFR 49 L Glucose 127 H Calcium 8.2 L Total Bilirubin 0.6 AST 28 ALT 16 Alkaline Phosphatase 51 Total Protein 7.0 Albumin 3.9 Discharge Plan Discharge Attending physician on discharge: Ollie Valencia Consulting providers: Aly Ricardo; Becca Valera Discharging Clinician: Ollie Valencia Anticipated Discharge Date/Time: 07/13/24 13:31 Patient Disposition: Home Health Service Activity: as tolerated Diet: heart healthy Discharge Instructions: Per Care Coordination: [facility] [employer] has been contacted to see you for physical and occupational therapy [phone], they are not open on the weekend, but we will follow up with them on Sunday to make arrangements. If they are unable to see you we will arrange another [employer] company. They will call you regarding your first visit. Patient need close follow-up with PCP, neurosurgery,Cardiology, Hematology/Oncology, Endocrinology. Patient has a suspicious nodule on her thyroid which needs biopsy. I decreased the dosage of Levothyroxine to 50mcg due to increase Heart rate but might increased dose to possible history of Thyroid cancer. I strongly recommend to visit Endocrinology for your thyroid problem/suspicious cancer in ultrasound and for adjustment in thyroid dosage During the hospitalization patient has evidence of chronic DVT on her left leg. Advised to take Eliquis 2 times a day not once a day. Patient also need to see to follow up on DVT work up. Patient needs to follow up with neurosurgery for canal stenosis. Please continue PT/OT Patient Instructions: Antibiotic Form, Enoxaparin (By injection), Apixaban (By mouth), Heart Failure (GEN) Patient Language: Puerto Rican Stand Alone Forms: General Discharge Information Follow-up/Referrals: Marshall Puckett MD [Physician] - (DVT work up and anticoagulation continuation) Aly Ricardo MD [Physician] - Discharge Medications: New levothyroxine [Synthroid] 50 mcg Tablet 50 mcg PO DAILY@0630 Qty: 30 0RF Continued acetaminophen 325 mg tablet 650 mg PO Q4-6H PRN (Reason: pain) Qty: 90 0RF nifedipine 60 mg tablet extended release 60 mg PO DAILY rosuvastatin 10 mg tablet 10 mg PO DAILY Eliquis 5 mg tablet 5 mg PO BID celecoxib 200 mg capsule 200 mg PO BID ergocalciferol (vitamin D2) 1,250 mcg (50,000 unit) capsule 50,000 unit PO WEEKLY Discontinued levothyroxine 125 mcg tablet 125 mcg PO DAILY metoprolol tartrate 25 mg tablet 12.5 mg PO BID Date of admission: 07/08/24 15:40 Primary Care Provider: PHYSICIAN NOT ON STAFF,NONSTAFF Admitting Provider: Ollie Valencia Attending physician on admission: Ollie Valencia Condition: Stable
== END 2024-07-13 14:52 | disposition home health service (06) | DRG 309 ==
LOC: ANHED 17:27 → ANHIMU 18:41
PROVIDERS: Nurse Practitioner Gerontology; Registered Nurse; Admitting Provider General Practice; Emergency Provider Emergency Medicine; Visit Provider General Practice
DX: I48.92 Unspecified atrial flutter (principal); I82.542 Chronic embolism and thrombosis of left tibial vein; E04.1 Nontoxic single thyroid nodule; E03.9 Hypothyroidism, unspecified; E78.00 Pure hypercholesterolemia, unspecified; G47.33 Obstructive sleep apnea (adult) (pediatric); I10 Essential (primary) hypertension; M48.061 Spinal stenosis, lumbar region without neurogenic claudication; M54.16 Radiculopathy, lumbar region; M06.38 Rheumatoid nodule, vertebrae; M43.16 Spondylolisthesis, lumbar region; M17.12 Unilateral primary osteoarthritis, left knee; Z79.01 Long term (current) use of anticoagulants; Z90.89 Acquired absence of other organs; Z90.49 Acquired absence of other specified parts of digestive tract
CPT/HCPCS: 36415; 70551; 71045; 71046; 71275; 72141; 72146; 72148; 73000; 73060; 73521; 73552; 73562; 73590; 76536; 80048; 80053; 83735; 83880; 84439; 84443; 84480; 84484; 85025; 85027; 85380; 85610; 85730; 93005; 93306; 93970; 96366; 96372; 96374; 96375; 96376; 97110; 97161; 97165; 99285; A9270; G0378; J1650; J1885; J1940; J7040; Q9967

== ENCOUNTER 2024-07-18 19:25 | Emergency (ER) | payer MEDICARE, BC, SELFPAY ==
--- NOTE | ~2024-07-18 | CT_ITS ---
EXAMINATION: CTA chest PE protocol DATE: 07/18/2024 21:32 CDT INDICATION: Tachycardia and shortness of breath TECHNIQUE: Computed tomographic angiography (CTA) of the chest was performed with 100 mL Omnipaque-35 0 intravenous contrast. The dose-length product was 748.88 mGy-cm. Maximum intensity projection 3D-re constructions of the aorta and other arteries were constructed by the technologist on a separate work station. COMPARISON: 07/07/2024 FINDINGS/OBSERVATIONS: PULMONARY ARTERIES: No filling defect is identified within the main or proximal pulmonary artery. The main pulmonary artery is not enlarged. THORACIC AORTA: No aneurysmal dilatation or dissection is present. The great vessels are intact LUNGS: Trace bibasilar atelectasis. MEDIASTINUM: No morphologically suspicious or pathologically enlarged lymph nodes are identified with in the mediastinum or bilateral axilla. Asymmetry of the thyroid gland, unchanged from MRI performed 07/09/2024 BONES OF THE CHEST: No acute fracture. No significant degenerative disease. No lytic or blastic lesions. HEART: The heart is of normal size, without pericardial effusion. IMPRESSION: No pulmonary embolus. No thoracic aortic dissection. Trace bibasilar atelectasis. Reviewed, dictated and finalized at location A.
--- NOTE | ~2024-07-18 | US_ITS ---
EXAMINATION: US venous doppler [facility] DATE: 07/18/2024 22:11 INDICATION: Previous history of left-sided posterior tibial vein thrombosis (on 07/08/2024) TECHNIQUE: Grayscale ultrasound images without and with compression and Doppler ultrasound images of the left lower extremity veins were obtained. COMPARISON: 07/08/2024 FINDINGS: The visualized portions of left common femoral vein, profunda (deep) femoral vein, femoral vein, popl iteal vein, peroneal veins, posterior tibial veins, and greater saphenous vein outflow are patent. IMPRESSION: 1. No deep venous thrombosis. Reviewed, dictated and finalized at location A.
--- OUTSIDE RECORDS SUMMARY | 2024-07-18 19:28 | XMS_ITS | Encounter Summary ---
Author Organization [facility] Healthcare Address [address] [place] [address] Care Team Providers Care Flat Ironer Name Role Phone Lianna Kirk MD Primary Care Provider Encounter Details Date Type Department Care Team (Late st Contact Info) Description 07/15/[address] 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 Gender Identity Not on file Sexual Orientation Not on file documented as of this encounter Plan of Treatment Not on file documented as of this encounter Procedures Procedure Name Priority Date/Time Associated Diagnosis Comments CARDIOLOGY DOCUMENT SCAN Routine 07/13/2024 3:03 PM CDT CARDIOLOGY DOCUMENT SCAN Routine 07/12/2024 3:01 PM CDT CARDIOLOGY DOCUMENT SCAN Routine 07/09/2024 2:58 PM CDT documented in this encounter Results * Cardiology Document Scan (07/13/2024 3:03 PM CDT) Anatomical Region Laterality Modality Other us Aly Ricardo MD [facility] CARDIAC SERVICES PROCE DURES Final Result * Cardiology Document Scan (07/12/2024 3:01 PM CDT) Anatomical Region Laterality Modality Other us Aly Ricardo MD CV CARDIAC SERVICES PROCE DURES Final Result * Cardiology Document Scan (07/09/2024 2:58 PM CDT) Anatomical Region Laterality Modality Other us Yolanda Schaefer MD [facility] PRO CEDURES Final Result documented in this encounter Visit Diagnoses Not on filedocumented in this encounter Care Teams Flat Ironer Relationship Specialty Start Date End Date Lianna Kirk MD PCP - General Family Medicine 01/21/20 documented as of this encounter
--- OUTSIDE RECORDS SUMMARY | 2024-07-18 19:28 | XMS_ITS | Clinical Summary ---
Author Organization [facility] Address [address] [place] [address] Phone Care Team Providers Care Recruiting Scheduler Name Role Phone Lianna Kirk MD Primary Care Provider [phone] Social History Tobacco Use Types Packs/Day Years [...] age to complete this topic Insurance MEDICARE [facility] Care Teams Recruiting Scheduler Relationship Specialty Start Date End Date Lianna Kirk MD [address] [facility] [address] [place] [address] PCP - General Family Medicine 01/31/23
--- OUTSIDE RECORDS SUMMARY | 2024-07-18 19:28 | XMS_ITS | Encounter Summary ---
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
--- OUTSIDE RECORDS SUMMARY | 2024-07-18 19:28 | XMS_ITS | Referral Summary ---
Author Organization [facility] Address [address] [place] [address] Care Team Providers Care Visual Journalist Name Role Phone Lianna Mar MD Primary Care Provider [phone] Encounters Date Type Department Care Team Description 07/15/2024 Orders Only [facility] Medical [facility] Cardiology [address] [address] [address] [place] [address] Yolanda Schaefer MD 07/09/2024 Telephone [facility] Medical Group Primary Care at [address] [place] [address] Lianna Mar MD Appointment 07/07/2024 10:45 AM CDT Office Visit [facility] Convenient Care at [address] [address] Harvinder Marie NP Tachycardia (Primary Dx); Pain and swelling of left lower leg 06/24/2024 Results Follow-Up [facility] Con[facility]ient Care at [address] [address] Jacque Helton NP 06/24/2024 4:20 PM CDT Ancillary Procedure [facility] Imaging at [address] [address] Acute cough 06/24/2024 3:45 PM CDT Office Visit [facility] Convenient Care at [address] [address] Jacque Helton NP Acute cough (Primary Dx) 06/23/2024 Nurse Triage [facility] Medical [facility] Primary Care at [address] [place] [address] Lianna Mar MD from Last 3 Months Allergies Active Allergy Reactions Criticality Noted Date Comments Codeine Headache Low Medications cyanocobalamin (Vitamin B-12) 100 mcg tabletIndications: Prevention of Vitamin B12 Deficiency Take 1 tablet (100 mcg total) by mouth daily Active naphazoline-peg 300 0.012-0.2 % drops Active calcium carbonate (CALCIUM 600 ORAL) Take by mouth daily. Active glucosamine sulfate 1,000 mg capsule Take by mouth Active jzzenza-cfhi-algot -oreg-capryl 100 mg-150 mg- 50 mg-150 mg [...] encouraged Assessment & Plan (04/24/2023 9:34 AM LEAF CONDITIONER): On last visit was sent fo Ed for tachycardia, diagnosed with atrial flutter cardiology appt pending. Currently on eliquis and toprol Samples of eliquis given Other thrombophilia 04/24/2023 Tachycardia 04/24/2023 Assessment & Plan (04/24/2023 9:29 AM LEAF CONDITIONER): New onset ekg consistent with atrial flutter. [...] 05/10/2021 Assessment & Plan (05/10/2021 2:59 PM LEAF CONDITIONER): Notes left calf tightness ongoing for weeks. Pt has metal in ipsilateral thigh. Will obtain US to rule out thrombus Abnormal sensation of leg 04/28/2021 Assessment & Plan (04/28/2021 12:30 PM LEAF CONDITIONER): Pt has lashay in her femor since age 18. Also fell approximately 4 months ago. And reports odd sensation starting in left leg. Will obtain xrays and labs Chronic pain of left knee 04/28/2021 Assessment & Plan (05/10/2021 2:57 PM LEAF CONDITIONER): Acute on chronic knee pain. 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 Pt agrees to injection as this has worked in the past Assessment & Plan (04/28/2021 12:31 PM LEAF CONDITIONER): On going since fall. Has had not radiographs. Swelling on exam will obtain xrays Illness 04/28/2021 Assessment & Plan (05/10/2021 2:21 PM LEAF CONDITIONER): Labs reviewed. All normal. CRP normal. Pt reassured as there are not specific symptoms. Says she has been feeling better. Continues to have tingling on left LE that sometimes travels up. Assessment & Plan (04/28/2021 2:00 PM LEAF CONDITIONER): Vague symptoms. Will obtain labs. Acute pain of right shoulder 04/13/2021 Assessment & Plan (04/24/2023 9:16 AM LEAF CONDITIONER): Under care of ortho Assessment & Plan (04/05/2023 12:37 PM LEAF CONDITIONER): 2 days ago was closing car door when she heard a pop in her right shoulder. Has been in significant pain since she has been unable to raise arm to eat. Assessment & Plan (04/13/2021 10:02 AM LEAF CONDITIONER): Since fall. Will obtain xrays for eval. Physical therapy Disorder of skin of trunk 02/10/2021 Sprain of knee and leg 02/10/2021 Upper arm joint pain, right 02/10/2021 Assessment & Plan (04/13/2021 9:58 AM LEAF CONDITIONER): Since fall. Pain and discomfort ongoing for [...] synthroid Assessment & Plan (04/13/2021 9:56 AM LEAF CONDITIONER): Stable on current dose of synthroid Assessment [...] recently. Assessment & Plan (03/13/2018 11:08 AM LEAF CONDITIONER): Check TSH, free T4, CBC, and CMP. [...] stamina. Assessment & Plan (05/01/2017 11:37 AM LEAF CONDITIONER): New complaint: Family history of premature coronary [...] visit. Assessment & Plan (04/13/2021 9:56 AM LEAF CONDITIONER): We reviewed the Medicare Health Risk Assessment in its entirety during the appointment. Specifically, we reviewed the doctors that the patient sees on a regular basis, tobacco & alcohol usage, advance directive information (including living will & power of civil attorney status), end of life planning issues, [...] as needed, & specific health advice regarding halfway management was provided. Patient Care Team: Lianna [...] Normotensive Assessment & Plan (04/13/2021 9:56 AM LEAF CONDITIONER): Well managed on current me regimen. Pt [...] appointment. Assessment & Plan (05/01/2017 11:23 AM LEAF CONDITIONER): Stable: Continue current medications, monitor closely and [...] benign. Assessment & Plan (05/01/2017 11:22 AM LEAF CONDITIONER): Patient did not follow through with thyroid [...] crestor Assessment & Plan (04/13/2021 9:54 AM LEAF CONDITIONER): Well controlled on statin Assessment & Plan [...] supplementation. Assessment & Plan (03/13/2018 10:41 AM LEAF CONDITIONER): She is on vitamin D 50,000 international units weekly. Check 25-OH vitamin D. Assessment & Plan (05/01/2017 11:22 AM LEAF CONDITIONER): Stable: Patient is now taking 09914 units of vitamin-D monthly. Check vitamin-D level [...] provided. Assessment & Plan (04/24/2023 8:58 AM LEAF CONDITIONER): BMI Follow-up includes: nutrition counseling, exercise counseling, and education provided. Assessment & Plan (04/05/2023 12:03 PM LEAF CONDITIONER): BMI Follow-up includes: nutrition counseling, exercise counseling, [...] for colon cancer 12/06/2016 1 Overview (12/06/2016): 15/16 per Jimmie, normal, repeat in 10 years. Assessment & Plan (12/06/2016 11:09 AM CDT): 815/16 per Jimmie, normal, repeat in 10 years. Screening for osteoporosis 12/06/2016 1 Assessment & Plan (12/03/2019 9:23 AM CDT): The patient will be scheduled for a DEXA scan. Assessment & Plan (12/06/2016 11:11 AM CDT): Managed per director of compensation, Dr. Alvarez. Severe obesity (BMI 35.0-39. 9) with comorbidity 12/06/2016 04/11/2024 Assessment & Plan (09/12/2023 1:02 PM CDT): BMI Follow-up includes: nutrition counseling, exercise counseling, and education provided. Assessment & Plan (07/04/2022 11:15 AM CDT): BMI Follow-up includes: nutrition counseling, exercise counseling and education provided. Assessment & Plan (05/10/2021 2:09 PM LEAF CONDITIONER): BMI Follow-up includes: nutrition counseling, exercise counseling and education provided. Assessment & Plan (04/28/2021 12:02 PM LEAF CONDITIONER): BMI Follow-up includes: nutrition counseling, exercise counseling [...] encouraged. Assessment & Plan (03/13/2018 10:25 AM LEAF CONDITIONER): BMI Follow-up includes: nutrition counseling, exercise counseling and education provided. Assessment & Plan (05/01/2017 10:45 AM LEAF CONDITIONER): BMI Follow-up includes: nutrition counseling, exercise counseling [...] on file Legal Sex Female 3:47 AM LEAF CONDITIONER Gender Identity Not on file Sexual Orientation [...] DOCUMENT SCAN Routine 07/09/2024 2:58 PM CDT XR CHEST PA LATERAL 2 VIEWS Schedule ANNIE, Read ANNIE (Appt Today, Awaiting Results) 06/24/2024 4:32 PM CDT Acute cough DEXA AXIAL SKELETON BONE DENSITY 1 OR MORE SITES Schedule Routine, Read Routine (OP Routine) 07/14/2022 11:17 AM CDT Age-related osteoporosis without fracture from Last 3 Months or Most Recently Relevant to Health Maintenance Results * Cardiology Document Scan (07/13/2024 3:03 PM CDT) Anatomical Region Laterality Modality Other Aly Ricardo MD CV CARDIAC SERVICES PROCE DURES Final Result * Cardiology Document Scan (07/12/2024 3:01 PM CDT) Anatomical Region Laterality Modality Other Aly Ricardo MD CV CARDIAC SERVICES PROCE DURES Final Result * Cardiology Document Scan (07/09/2024 2:58 PM CDT) Anatomical Region Laterality Modality Other us Yolanda Schaefer MD CV CARDIAC SERVICES PRO CEDURES Final Result * XR Chest Pa Lateral 2 Views [...] Garry Huddleston M.D. MJ T: Report ID: [id number] Reading Location: [id number] Procedure Note Garry Huddleston MD - 06/24/2024 [...] Garry Huddleston M.D. MJ T: Report ID: [id number] Reading Location: [id number] Jacque Helton NP IMG XR PROCEDURES Final [...] Recently Relevant to Health Maintenance [place] [address] [employer] [facility] MEDICARE [facility] [employer] MEDICARE [facility] [employer] Care Teams Visual Journalist Relationship Specialty Start Date End Date Lianna Mar MD PCP - General Family Medicine 01/21/20
--- OUTSIDE RECORDS SUMMARY | 2024-07-18 19:28 | XMS_ITS | Clinical Summary ---
Author Organization [facility] Address [address] [place] [address] Care Team Providers Care Crewman Main Battle Tank Name Role Phone Lianna Kirk MD Primary Care Provider [phone] Allergies Active Allergy Reactions Criticality Noted Date Comments Codeine Headache Low Medications cyanocobalamin (Vitamin B-12) 100 mcg tabletIndications: Prevention of Vitamin B12 Deficiency Take 1 tablet (100 mcg total) by mouth daily Active naphazoline-peg 300 0.012-0.2 % drops Active calcium carbonate (CALCIUM 600 ORAL) Take by mouth daily. Active glucosamine sulfate 1,000 mg capsule Take by mouth Active lvesjko-wess-yyuil -oreg-capryl 100 mg-150 mg- 50 mg-150 mg [...] encouraged Assessment & Plan (04/24/2023 9:34 AM STREETSWEEPER OPERATOR): On last visit was sent fo Ed for tachycardia, diagnosed with atrial flutter cardiology appt pending. Currently on eliquis and toprol Samples of eliquis given Other thrombophilia 04/24/2023 Tachycardia 04/24/2023 Assessment & Plan (04/24/2023 9:29 AM STREETSWEEPER OPERATOR): New onset ekg consistent with atrial [...] 05/10/2021 Assessment & Plan (05/10/2021 2:59 PM STREETSWEEPER OPERATOR): Notes left calf tightness ongoing for weeks. Pt has metal in ipsilateral thigh. Will obtain US to rule out thrombus Abnormal sensation of leg 04/28/2021 Assessment & Plan (04/28/2021 12:30 PM STREETSWEEPER OPERATOR): Pt has lashay in her femor since age 18. Also fell approximately 4 months ago. And reports odd sensation starting in left leg. Will obtain xrays and labs Chronic pain of left knee 04/28/2021 Assessment & Plan (05/10/2021 2:57 PM STREETSWEEPER OPERATOR): Acute on chronic knee pain. 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 Pt agrees to injection as this has worked in the past Assessment & Plan (04/28/2021 12:31 PM STREETSWEEPER OPERATOR): On going since fall. Has had not radiographs. Swelling on exam will obtain xrays Illness 04/28/2021 Assessment & Plan (05/10/2021 2:21 PM STREETSWEEPER OPERATOR): Labs reviewed. All normal. CRP normal. Pt reassured as there are not specific symptoms. Says she has been feeling better. Continues to have tingling on left LE that sometimes travels up. Assessment & Plan (04/28/2021 2:00 PM STREETSWEEPER OPERATOR): Vague symptoms. Will obtain labs. Acute pain of right shoulder 04/13/2021 Assessment & Plan (04/24/2023 9:16 AM STREETSWEEPER OPERATOR): Under care of ortho Assessment & Plan (04/05/2023 12:37 PM STREETSWEEPER OPERATOR): 2 days ago was closing car door when she heard a pop in her right shoulder. Has been in significant pain since she has been unable to raise arm to eat. Assessment & Plan (04/13/2021 10:02 AM STREETSWEEPER OPERATOR): Since fall. Will obtain xrays for eval. Physical therapy Disorder of skin of trunk 02/10/2021 Sprain of knee and leg 02/10/2021 Upper arm joint pain, right 02/10/2021 Assessment & Plan (04/13/2021 9:58 AM STREETSWEEPER OPERATOR): Since fall. Pain and discomfort ongoing [...] synthroid Assessment & Plan (04/13/2021 9:56 AM STREETSWEEPER OPERATOR): Stable on current dose of synthroid [...] recently. Assessment & Plan (03/13/2018 11:08 AM STREETSWEEPER OPERATOR): Check TSH, free T4, CBC, and [...] stamina. Assessment & Plan (05/01/2017 11:37 AM STREETSWEEPER OPERATOR): New complaint: Family history of premature [...] the plan were completed as outlined by [facility]. A copy of the prevention plan [...] visit. Assessment & Plan (04/13/2021 9:56 AM STREETSWEEPER OPERATOR): We reviewed the Medicare Health Risk Assessment in its entirety during the appointment. Specifically, we reviewed the doctors that the patient sees on a regular basis, tobacco & alcohol usage, advance directive information (including living will & power of meeting coordinator status), end of life planning issues, functional [...] as needed, & specific health advice regarding vermin exterminator management was provided. Patient Care Team: Lianna [...] Normotensive Assessment & Plan (04/13/2021 9:56 AM STREETSWEEPER OPERATOR): Well managed on current me regimen. [...] appointment. Assessment & Plan (05/01/2017 11:23 AM STREETSWEEPER OPERATOR): Stable: Continue current medications, monitor closely [...] benign. Assessment & Plan (05/01/2017 11:22 AM STREETSWEEPER OPERATOR): Patient did not follow through with [...] crestor Assessment & Plan (04/13/2021 9:54 AM STREETSWEEPER OPERATOR): Well controlled on statin Assessment & [...] supplementation. Assessment & Plan (03/13/2018 10:41 AM STREETSWEEPER OPERATOR): She is on vitamin D 50,000 international units weekly. Check 25-OH vitamin D. Assessment & Plan (05/01/2017 11:22 AM STREETSWEEPER OPERATOR): Stable: Patient is now taking 27512 units of vitamin-D monthly. Check vitamin-D level [...] provided. Assessment & Plan (04/24/2023 8:58 AM STREETSWEEPER OPERATOR): BMI Follow-up includes: nutrition counseling, exercise counseling, and education provided. Assessment & Plan (04/05/2023 12:03 PM STREETSWEEPER OPERATOR): BMI Follow-up includes: nutrition counseling, exercise [...] Plan (12/06/2016 11:11 AM CDT): Managed per ob gyn physician assistant, Dr. Alvarez. Severe obesity (BMI 35.0-39. 9) with comorbidity 12/06/2016 04/11/2024 Assessment & Plan (09/12/2023 1:02 PM CDT): BMI Follow-up includes: nutrition counseling, exercise counseling, and education provided. Assessment & Plan (07/04/2022 11:15 AM CDT): BMI Follow-up includes: nutrition counseling, exercise counseling and education provided. Assessment & Plan (05/10/2021 2:09 PM STREETSWEEPER OPERATOR): BMI Follow-up includes: nutrition counseling, exercise counseling and education provided. Assessment & Plan (04/28/2021 12:02 PM STREETSWEEPER OPERATOR): BMI Follow-up includes: nutrition counseling, exercise [...] encouraged. Assessment & Plan (03/13/2018 10:25 AM STREETSWEEPER OPERATOR): BMI Follow-up includes: nutrition counseling, exercise counseling and education provided. Assessment & Plan (05/01/2017 10:45 AM STREETSWEEPER OPERATOR): BMI Follow-up includes: nutrition counseling, exercise counseling and education provided. Assessment & Plan (12/06/2016 11:29 AM CDT): Reviewed BMI: appropriate education provided including, nutrition and exercise. Thyroid disorder 12/09/2015 04/13/2021 Encounters Date Type Department Care Team Description 07/15/2024 Orders Only [facility] Cardiology [address] [place] [id number] Yolanda Schaefer MD 07/09/2024 Telephone [facility] Primary Care at [address] [place] [phone] Lianna Kirk MD Appointment 07/07/2024 10:45 AM CDT Office Visit [facility] Convenient Care at [address] [phone] Harvinder Marie NP Tachycardia (Primary Dx); Pain and swelling of left lower leg 06/24/2024 4:20 PM CDT Ancillary Procedure [facility] Imaging at [address] [phone] Acute cough 06/24/2024 3:45 PM CDT Office Visit [facility] Convenient Care at [address] [phone] Jacque Helton NP Acute cough (Primary Dx) 06/24/2024 Results Follow-Up [facility] Convenient Care at [address] [address] Jacque Helton NP 06/23/2024 Nurse Triage [facility] Primary Care at [address] [place] [phone] Lianna Kirk MD from Last 3 Months Immunizations Immunization Administration [...] on file Legal Sex Female 3:47 AM STREETSWEEPER OPERATOR Gender Identity Not on file Sexual [...] (2023-2 5 season) 2023 04/27/2021, 07/20/2020, 06/29/2020 Osteoporosis Screening-Bone Density Scan 07/14/2024 07/14/2022, 12/12/2019, 12/07/2017 Depression Screening 10/29/2024 10/30/2023, 09/12/2023, 04/24/2023, Additional history exists Fall Risk Assessment 10/29/2024 10/30/2023, 09/12/2023, 04/24/2023, Additional history exists Well Visit 65+ 10/29/2024 10/30/2023, 08/15, 07/04/2022, Additional history exists Influenza Vaccine (Season Ended) 2024 01/17/2023, 01/14/2023, 01/14/2022, Additional history exists DTaP/Tdap/Td Vaccine (2 - [...] PM CDT) Anatomical Region Laterality Modality Other Yolanda Schaefer MD [facility] PRO [...] 4:55 PM - Electronically signed by Garry LEA T: Report ID: [id number] Reading Location: [id number] Procedure Note Garry Huddleston MD - 06/24/2024 [...] 4:55 PM - Electronically signed by Garry LEA T: Report ID: [id number] Reading Location: [id number] Jacque Helton SUPPLIER QUALITY ENGINEERING MANAGER IMG XR PROCEDURES Final Re sult * [...] WHO algorithm), available at [email or web address]). Dictated by: Ramilabernard Maynard M.D. The radiology attending physician has personally reviewed this study, and had reviewed and/or edited this written report and agrees with it. Electronically signed by: Katie Mead M.D. Lianna Kirk MD IMG DXA PROCEDURES Final Resu lt from Last 3 Months or Most Recently Relevant to Health Maintenance Insurance MEDICARE [employer] OOS MEDICARE [facility] FEDERAL MEDICARE [facility] FED[employer]AL Care Teams Crewman Main Battle Tank Relationship Specialty Start Date End Date Lianna Kirk MD PCP - General Family Medicine 01/21/20
--- OUTSIDE RECORDS SUMMARY | 2024-07-18 19:28 | XMS_ITS | Encounter Summary ---
Author Organization [facility] Healthcare Address [address] [place] [address] Care Team Providers Care Skills Trainer Name Role Phone Lianna Kirk MD Primary Care Provider [phone] Reason for Visit * Reason Onset Date Comments Appointment 07/09/2024 Encounter Details Date Type Department Care Team ([facility] st Contact Info) Description 07/09/2024 Telephone [facility] Medical Group Primary Care at [address] [address] Lianna Kirk MD [address] [place] [address] Appointment Social History Tobacco Use Types Packs/Day Years [...] on file Legal Sex Female 3:47 AM DIAL BUFFER Gender Identity Not on file Sexual Orientation Not on file documented as of this encounter Miscellaneous Notes * Telephone Encounter - Noris Jimenez - 07/18/2024 11:10 AM CDT Call Back Caller???s Concern: Patient calling back. Warm transferred to back line Does message need to be routed? No Reason for Warm Transfer: Patient returning call from practice Practice Accepted the Warm Transfer? Yes Additional Comments If YES above, and no barriers. * Telephone Encounter - Enriqueta Cabrales MA - 07/09/2024 1:18 PM CDT Lmovm for pt to call the office back. Pt has an appt with New PCP on 08.04.24, if pt is available tocome in next week please transfer to Enriqueta or Melly. documented in this encounter Plan of Treatment Not on file documented as of this encounter Visit Diagnoses Not on filedocumented in this encounter Care Teams Skills Trainer Relationship Specialty Start Date End Date Lianna Kirk MD PCP - General Family Medicine 01/21/20 documented as of this encounter
[2024-07-18 19:31] VITALS: BP 149/98; PULSE 134; RESP 16; TEMP 36.4; O2SAT 100
[2024-07-18 19:44] VITALS: PULSE 133; RESP 21; O2SAT 96
--- OUTSIDE RECORDS SUMMARY | 2024-07-18 19:55 | XMS_ITS | Encounter Summary ---
Author Organization [facility] Healthcare Address [address] [place] [address] Care Team Providers Care Material Handling Crew Supervisor Name Role Phone Lianna Kirk MD Primary Care Provider [phone] Reason for Visit * Reason Onset Date Comments Appointment 07/09/2024 Encounter Details Date Type Department Care Team ([facility] st Contact Info) Description 07/09/2024 Telephone [facility] Medical Group Primary Care at [address] [address] Lianna Kirk MD [address] [place] [address] Appointment Social History Tobacco Use Types [...] on file Legal Sex Female 3:47 AM SYNCHRONIZER Gender Identity Not on file Sexual Orientation [...] on filedocumented in this encounter Care Teams Material Handling Crew Supervisor Relationship Specialty Start Date End Date Lianna Kirk MD PCP - General Family Medicine 01/21/20 documented as of this encounter
--- OUTSIDE RECORDS SUMMARY | 2024-07-18 19:55 | XMS_ITS | Referral Summary ---
Author Organization [facility] Address [address] [place] [address] Care Team Providers Care Baker Paint Name Role Phone Lianna Mar MD Primary Care Provider [phone] Encounters Date Type Department Care Team Description 07/15/2024 Orders Only [facility] Medical [facility] Cardiology [address] [address] [address] [place] [address] Yolanda Schaefer MD 07/09/2024 Telephone [facility] Medical Group Primary Care at [address] [place] [address] Lianna Mar MD Appointment 07/07/2024 10:45 AM CDT Office Visit [facility] Medical Group Convenient Care at [address] [phone] Harvinder Marie NP Tachycardia (Primary Dx); Pain and swelling of left lower leg 06/24/2024 Results Follow-Up [facility] Medical Group Convenient Care at [address] [address] Jacque Helton NP 06/24/2024 4:20 PM CDT Ancillary Procedure [facility] Imaging at [address] [address] Acute cough 06/24/2024 3:45 PM CDT Office Visit [facility] Medical Group Convenient Care at [address] [address] Jacque Helton NP Acute cough (Primary Dx) 06/23/2024 Nurse Triage [facility] Medical Group Primary Care at [address] [place] [address] [...] 1,000 mg capsule Take by mouth Active iwutnot-qjrz-tnvhq -oreg-capryl 100 mg-150 mg- 50 mg-150 mg [...] encouraged Assessment & Plan (04/24/2023 9:34 AM HEALTH AND SAFETY TRAINER): On last visit was sent fo Ed for tachycardia, diagnosed with atrial flutter cardiology appt pending. 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 [...] 05/10/2021 Assessment & Plan (05/10/2021 2:59 PM HEALTH AND SAFETY TRAINER): Notes left calf tightness ongoing for weeks. Pt has metal in ipsilateral thigh. Will obtain US to rule out thrombus Abnormal sensation of leg 04/28/2021 Assessment & Plan (04/28/2021 12:30 PM HEALTH AND SAFETY TRAINER): Pt has lashay in her femor since age 18. Also fell approximately 4 months ago. And reports odd sensation starting in left leg. Will obtain xrays and labs Chronic pain of left knee 04/28/2021 Assessment & Plan (05/10/2021 2:57 PM HEALTH AND SAFETY TRAINER): Acute on chronic knee pain. 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 Pt agrees to injection as this has worked in the past Assessment & Plan (04/28/2021 12:31 PM HEALTH AND SAFETY TRAINER): On going since fall. Has had not radiographs. Swelling on exam will obtain xrays Illness 04/28/2021 Assessment & Plan (05/10/2021 2:21 PM HEALTH AND SAFETY TRAINER): Labs reviewed. All normal. CRP normal. Pt reassured as there are not specific symptoms. Says she has been feeling better. Continues to have tingling on left LE that sometimes travels up. Assessment & Plan (04/28/2021 2:00 PM HEALTH AND SAFETY TRAINER): Vague symptoms. Will obtain labs. Acute pain of right shoulder 04/13/2021 Assessment & Plan (04/24/2023 9:16 AM HEALTH AND SAFETY TRAINER): Under care of ortho Assessment & Plan (04/05/2023 12:37 PM HEALTH AND SAFETY TRAINER): 2 days ago was closing car door when she heard a pop in her right shoulder. Has been in significant pain since she has been unable to raise arm to eat. Assessment & Plan (04/13/2021 10:02 AM HEALTH AND SAFETY TRAINER): Since fall. Will obtain xrays for eval. Physical therapy Disorder of skin of trunk 02/10/2021 Sprain of knee and leg 02/10/2021 Upper arm joint pain, right 02/10/2021 Assessment & Plan (04/13/2021 9:58 AM HEALTH AND SAFETY TRAINER): Since fall. Pain and discomfort ongoing for [...] synthroid Assessment & Plan (04/13/2021 9:56 AM HEALTH AND SAFETY TRAINER): Stable on current dose of synthroid Assessment [...] recently. Assessment & Plan (03/13/2018 11:08 AM HEALTH AND SAFETY TRAINER): Check TSH, free T4, CBC, and CMP. [...] stamina. Assessment & Plan (05/01/2017 11:37 AM HEALTH AND SAFETY TRAINER): New complaint: Family history of premature coronary [...] visit. Assessment & Plan (04/13/2021 9:56 AM HEALTH AND SAFETY TRAINER): We reviewed the Medicare Health Risk Assessment in its entirety during the appointment. Specifically, we reviewed the doctors that the patient sees on a regular basis, tobacco & alcohol usage, advance directive information (including living will & power of state's attorney status), end of life planning issues, [...] as needed, & specific health advice regarding residential management was provided. Patient Care Team: Lianna [...] Normotensive Assessment & Plan (04/13/2021 9:56 AM HEALTH AND SAFETY TRAINER): Well managed on current me regimen. Pt [...] appointment. Assessment & Plan (05/01/2017 11:23 AM HEALTH AND SAFETY TRAINER): Stable: Continue current medications, monitor closely and [...] benign. Assessment & Plan (05/01/2017 11:22 AM HEALTH AND SAFETY TRAINER): Patient did not follow through with thyroid [...] crestor Assessment & Plan (04/13/2021 9:54 AM HEALTH AND SAFETY TRAINER): Well controlled on statin Assessment & Plan [...] supplementation. Assessment & Plan (03/13/2018 10:41 AM HEALTH AND SAFETY TRAINER): She is on vitamin D 50,000 international units weekly. Check 25-OH vitamin D. Assessment & Plan (05/01/2017 11:22 AM HEALTH AND SAFETY TRAINER): Stable: Patient is now taking 35478 units of vitamin-D monthly. Check vitamin-D level [...] provided. Assessment & Plan (04/24/2023 8:58 AM HEALTH AND SAFETY TRAINER): BMI Follow-up includes: nutrition counseling, exercise counseling, and education provided. Assessment & Plan (04/05/2023 12:03 PM HEALTH AND SAFETY TRAINER): BMI Follow-up includes: nutrition counseling, exercise counseling, [...] Plan (12/06/2016 11:11 AM CDT): Managed per bereavement coordinator, Dr. Alvarez. Severe obesity (BMI 35.0-39. 9) with comorbidity 12/06/2016 04/11/2024 Assessment & Plan (09/12/2023 1:02 PM CDT): BMI Follow-up includes: nutrition counseling, exercise counseling, and education provided. Assessment & Plan (07/04/2022 11:15 AM CDT): BMI Follow-up includes: nutrition counseling, exercise counseling and education provided. Assessment & Plan (05/10/2021 2:09 PM HEALTH AND SAFETY TRAINER): BMI Follow-up includes: nutrition counseling, exercise counseling and education provided. Assessment & Plan (04/28/2021 12:02 PM HEALTH AND SAFETY TRAINER): BMI Follow-up includes: nutrition counseling, exercise counseling [...] encouraged. Assessment & Plan (03/13/2018 10:25 AM HEALTH AND SAFETY TRAINER): BMI Follow-up includes: nutrition counseling, exercise counseling and education provided. Assessment & Plan (05/01/2017 10:45 AM HEALTH AND SAFETY TRAINER): BMI Follow-up includes: nutrition counseling, exercise counseling [...] on file Legal Sex Female 3:47 AM HEALTH AND SAFETY TRAINER Gender Identity Not on file Sexual Orientation [...] Garry Huddleston M.D. MJ T: Report ID: [id number] Reading Location: [id number] Procedure Note Garry Huddleston MD - 06/24/2024 [...] Garry Huddleston M.D. MJ T: Report ID: [id number] Reading Location: [id number] Jacque Helton NP IMG XR PROCEDURES Final [...] Recently Relevant to Health Maintenance Insurance MEDICARE [employer] [facility] MEDICARE [facility] FEDERAL MEDICARE [facility] FEDERAL Care Teams Baker Paint Relationship Specialty Start Date End Date Lianna Mar MD PCP - General Family Medicine 01/21/20
--- OUTSIDE RECORDS SUMMARY | 2024-07-18 19:55 | XMS_ITS | Clinical Summary ---
Author Organization [facility] Address [address] [place] [address] Phone Care Team Providers Care Electronic Publishing Specialist Name Role Phone Lianna Kirk MD Primary Care Provider [phone] Social History Tobacco Use Types Packs/Day Years [...] age to complete this topic Insurance MEDICARE [facility] Care Teams Electronic Publishing Specialist Relationship Specialty Start Date End Date Lianna Kirk MD [address] [facility] [address] [place] [address] PCP - General Family Medicine 01/31/23
--- OUTSIDE RECORDS SUMMARY | 2024-07-18 19:55 | XMS_ITS | Encounter Summary ---
Author Organization [facility] Healthcare Address [address] [place] [address] Care Team Providers Care Mathematics Instructor Name Role Phone Lianna Kirk MD Primary Care Provider [phone] Encounter Details Date Type Department Care Team (Late st Contact Info) Description 06/24/2024 Results Follow-Up [facility] Medical Group Convenient Care at [address] [address] Jacque Helton POWER PLANT SUPERINTENDENT [address] [place] [address] [address] [place] [address] Social History Tobacco Use Types [...] on file Legal Sex Female 3:47 AM FOOT PRESS OPERATOR Gender Identity Not on file Sexual [...] on filedocumented in this encounter Care Teams Mathematics Instructor Relationship Specialty Start Date End Date Lianna Kirk MD PCP - General Family Medicine 01/21/20 documented as of this encounter
--- OUTSIDE RECORDS SUMMARY | 2024-07-18 19:55 | XMS_ITS | Clinical Summary ---
Author Organization [facility] Address [address] [place] [address] Care Team Providers Care Tinsmith Apprentice Name Role Phone Lianna Kirk MD Primary Care Provider [phone] Allergies Active Allergy Reactions Criticality Noted Date Comments Codeine Headache Low Medications cyanocobalamin (Vitamin B-12) 100 mcg tabletIndications: Prevention of Vitamin B12 Deficiency Take 1 tablet (100 mcg total) by mouth daily Active naphazoline-peg 300 0.012-0.2 % drops Active calcium carbonate (CALCIUM 600 ORAL) Take by mouth daily. Active glucosamine sulfate 1,000 mg capsule Take by mouth Active wpccwut-zflv-kcyng -oreg-capryl 100 mg-150 mg- 50 mg-150 mg [...] encouraged Assessment & Plan (04/24/2023 9:34 AM WASTE W[employer] TREATMENT [employer]ANT OPERATOR): On last visit was sent fo Ed for tachycardia, diagnosed with atrial flutter cardiology appt pending. Currently on eliquis and toprol Samples of eliquis given Other thrombophilia 04/24/2023 Tachycardia 04/24/2023 Assessment & Plan (04/24/2023 9:29 AM WASTE W[employer] TREATMENT PLANT OPERATOR): New onset ekg consistent with atrial [...] 05/10/2021 Assessment & Plan (05/10/2021 2:59 PM WASTE W[employer] TREATMENT PLANT OPERATOR): Notes left calf tightness ongoing for weeks. Pt has metal in ipsilateral thigh. Will obtain US to rule out thrombus Abnormal sensation of leg 04/28/2021 Assessment & Plan (04/28/2021 12:30 PM W[employer]E W[employer] T[employer]ATMENT PLANT OPERATOR): Pt has lashay in her femor since age 18. Also fell approximately 4 months ago. And reports odd sensation starting in left leg. Will obtain xrays and labs Chronic pain of left knee 04/28/2021 Assessment & Plan (05/10/2021 2:57 PM W[employer] W[employer] T[employer]AT[employer] PLANT OPERATOR): Acute on chronic knee pain. 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 Pt agrees to injection as this has worked in the past Assessment & Plan (04/28/2021 12:31 PM WASTE W[employer] TREATMENT PLANT OPERATOR): On going since fall. Has had not radiographs. Swelling on exam will obtain xrays Illness 04/28/2021 Assessment & Plan (05/10/2021 2:21 PM WASTE W[employer] TREATMENT PLANT OPERATOR): Labs reviewed. All normal. CRP normal. Pt reassured as there are not specific symptoms. Says she has been feeling better. Continues to have tingling on left LE that sometimes travels up. Assessment & Plan (04/28/2021 2:00 PM W[employer]E W[employer] TREATMENT PLANT OPERATOR): Vague symptoms. Will obtain labs. Acute pain of right shoulder 04/13/2021 Assessment & Plan (04/24/2023 9:16 AM W[employer]E WATER TREATMENT PLANT OPERATOR): Under care of ortho Assessment & Plan (04/05/2023 12:37 PM WASTE WATER TREATMENT PLANT OPERATOR): 2 days ago was closing car door when she heard a pop in her right shoulder. Has been in significant pain since she has been unable to raise arm to eat. Assessment & Plan (04/13/2021 10:02 AM WASTE W[employer] TREATMENT PLANT OPERATOR): Since fall. Will obtain xrays for eval. Physical therapy Disorder of skin of trunk 02/10/2021 Sprain of knee and leg 02/10/2021 Upper arm joint pain, right 02/10/2021 Assessment & Plan (04/13/2021 9:58 AM W[employer]E W[employer] TREATMENT PLANT OPERATOR): Since fall. Pain and discomfort ongoing [...] synthroid Assessment & Plan (04/13/2021 9:56 AM WASTE WATER TREATMENT PLANT OPERATOR): Stable on current dose of synthroid [...] recently. Assessment & Plan (03/13/2018 11:08 AM W[employer]E W[employer] TREATMENT PLANT OPERATOR): Check TSH, free T4, CBC, and [...] stamina. Assessment & Plan (05/01/2017 11:37 AM WASTE W[employer] TREATMENT PLANT OPERATOR): New complaint: Family history of premature [...] visit. Assessment & Plan (04/13/2021 9:56 AM WASTE WATER TREATMENT PLANT OPERATOR): We reviewed the Medicare Health Risk Assessment in its entirety during the appointment. 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 Patient Care Team: [...] Normotensive Assessment & Plan (04/13/2021 9:56 AM W[employer] W[employer] T[employer]ATMENT [employer]ANT OPERATOR): Well managed on current me regimen. [...] appointment. Assessment & Plan (05/01/2017 11:23 AM WASTE W[employer] TREATMENT PLANT OPERATOR): Stable: Continue current medications, monitor closely [...] benign. Assessment & Plan (05/01/2017 11:22 AM WASTE W[employer] TREATMENT PLANT OPERATOR): Patient did not follow through with [...] crestor Assessment & Plan (04/13/2021 9:54 AM W[employer]E W[employer] TREATMENT PLANT OPERATOR): Well controlled on statin Assessment & [...] supplementation. Assessment & Plan (03/13/2018 10:41 AM WASTE WATER TREATMENT PLANT OPERATOR): She is on vitamin D 50,000 international units weekly. Check 25-OH vitamin D. Assessment & Plan (05/01/2017 11:22 AM WASTE WATER TREATMENT PLANT OPERATOR): Stable: Patient is now taking 50800 units of vitamin-D monthly. Check vitamin-D level [...] provided. Assessment & Plan (04/24/2023 8:58 AM WASTE W[employer] TREATMENT PLANT OPERATOR): BMI Follow-up includes: nutrition counseling, exercise counseling, and education provided. Assessment & Plan (04/05/2023 12:03 PM WASTE W[employer] TREATMENT PLANT OPERATOR): BMI Follow-up includes: nutrition counseling, exercise [...] Plan (12/06/2016 11:11 AM CDT): Managed per mental health coordinator, Dr. Alvarez. Severe obesity (BMI 35.0-39. 9) with comorbidity 12/06/2016 04/11/2024 Assessment & Plan (09/12/2023 1:02 PM CDT): BMI Follow-up includes: nutrition counseling, exercise counseling, and education provided. Assessment & Plan (07/04/2022 11:15 AM CDT): BMI Follow-up includes: nutrition counseling, exercise counseling and education provided. Assessment & Plan (05/10/2021 2:09 PM WASTE WATER TREATMENT PLANT OPERATOR): BMI Follow-up includes: nutrition counseling, exercise counseling and education provided. Assessment & Plan (04/28/2021 12:02 PM WASTE WATER TREATMENT PLANT OPERATOR): BMI Follow-up includes: nutrition counseling, exercise [...] encouraged. Assessment & Plan (03/13/2018 10:25 AM WASTE WATER TREATMENT PLANT OPERATOR): BMI Follow-up includes: nutrition counseling, exercise counseling and education provided. Assessment & Plan (05/01/2017 10:45 AM WASTE WATER TREATMENT PLANT OPERATOR): BMI Follow-up includes: nutrition counseling, exercise counseling and education provided. Assessment & Plan (12/06/2016 11:29 AM CDT): Reviewed BMI: appropriate education provided including, nutrition and exercise. Thyroid disorder 12/09/2015 04/13/2021 Encounters Date Type Department Care Team Description 07/15/2024 Orders Only [facility] Cardiology [address] [place] [phone] Yolanda Schaefer MD 07/09/2024 Telephone [facility] Primary Care at [address] [place] [phone] Lianna iKrk MD Appointment 07/07/2024 10:45 AM CDT Office Visit [facility] at [address] [phone] Harvinder Marie NP Tachycardia (Primary Dx); Pain and swelling of left lower leg 06/24/2024 4:20 PM CDT Ancillary Procedure [facility] Imaging at [address] [phone] Acute cough 06/24/2024 3:45 PM CDT Office Visit [facility] at [address] [phone] Jacque Helton NP Acute cough (Primary Dx) 06/24/2024 Results Follow-Up [facility] at [address] [phone] Jacque Helton NP 06/23/2024 Nurse Triage [facility] Primary Care at [address] [place] [phone] Lianna Kirk MD from Last 3 Months [...] on file Legal Sex Female 3:47 AM WASTE W[employer] T[employer]ATMENT [employer] OPERATOR Gender Identity Not on file Sexual [...] signed by Garry LEA T: Report ID: [id number] Reading Location: [id number] Procedure Note Garry Huddleston MD - 06/24/2024 [...] signed by Garry LEA T: Report ID: [id number] Reading Location: [id number] Jacque Helton CAMP NURSE IMG XR PROCEDURES Final Re sult * [...] Recently Relevant to Health Maintenance Insurance MEDICARE [employer] [facility] MEDICARE [facility] MEDICARE [facility] Care Teams Tinsmith Apprentice Relationship Specialty Start Date End Date Lianna Kirk MD PCP - General Family Medicine 01/21/20
--- OUTSIDE RECORDS SUMMARY | 2024-07-18 19:55 | XMS_ITS | Encounter Summary ---
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
--- NOTE | 2024-07-18 20:07 | ECG_ITS ---
Test Date: 2024-07-18 20:24:11 Measurements Intervals [place] Rate: 130 P: 0 LA: 0 QRS: -39 QRSD: 65 T: 262 QT: 387 QTc: 570 Interpretive Statements ATRIAL FLUTTER/TACHYCARDIA WITH RAPID VENTRICULAR RESPONSE LOW QRS VOLTAGE IN PRECORDIAL LEADS CONSIDER ANTERIOR INFARCT, AGE INDETERMINATE INFERIOR INFARCT, AGE INDETERMINATE BORDERLINE ST-T WAVE ABNORMALITY- HIGH LATERAL LEADS BASELINE ARTIFACT- I, II, III, AVR, AVL, AVF, V1-V3 ABNORMAL ECG Compared to ECG 07/08/2024 01:51:07 HEART RATE HAS INCREASED Electronically Signed On 07-18-2024 20:26:21 CDT by Siddharth Mueller D.O.
--- NOTE | 2024-07-18 20:09 | ED.EXTPRO ---
HPI - Extremity Problem General Chief complaint: Extremity Problem,Nontraumatic Stated complaint: left leg bruised looking, poss blood clot Time Seen by Provider: 07/18/24 19:46 Source: patient Mode of arrival: ambulatory Limitations: no limitations History of Present Illness HPI Narrative: Patient presents with complaint of left leg bruising and discomfort. Patient recently hospitalized for new onset atrial fibrillation and discharged on 07/14/2024. 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 She does recall that at that time was initially hard for her to even lift the leg requiring her to have to use her hands to do so. She reports feeling chronically short of breath and states that she had been dealing with a cold for the past 4-5 weeks prior to coming in but never really got this looked into given there was concern for for AFib of blood clot while hospitalized. Patient notes that during hospitalization her thyroid medication was changed. She does acknowledge that she has been taking this incorrectly until about 8 months ago as she previously did not realize he had to take it 1st thing in the morning on its own. She has been compliant since though including with the recent dose change. She took it this morning as well as taking her nifedipine dose this morning. She took her morning Eliquis dose but has not yet taken this evening's dose. The pain in her leg started approximately 48 hours ago and appears bruised. She also notes persistently having an elevated heart rate and that her casino cage manager is helping to manage this, it is Dr. Ricardo. Related Data Home Medications ?Medication ?Instructions ?Recorded ?Confirmed ?Last Taken ?Type nifedipine 60 mg tablet,extended 60 mg PO DAILY 03/01/20 07/07/24 Unknown History release rosuvastatin 10 mg tablet 10 mg PO DAILY 03/01/20 07/07/24 Unknown History apixaban 5 mg tablet (Eliquis) 5 mg PO BID 07/07/24 07/07/24 07/06/24 History celecoxib 200 mg capsule 200 mg PO BID 07/07/24 07/07/24 Unknown History ergocalciferol (vitamin D2) 1,250 50,000 unit PO WEEKLY 07/07/24 07/07/24 07/02/24 History mcg (50,000 unit) capsule Allergies Allergy/AdvReac Type Severity Reaction Status Date / Time codeine AdvReac Unknown HEADACHE Verified 07/18/24 19:26 [facility] Past Medical History Medical History 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 Hypothyroidism Atrial fibrillation Spinal stenosis Arthritis of left knee BMI 37.0-37.9, adult Hypercholesteremia Postmenopausal Carpal tunnel syndrome Hypertension Surgical History Surgical History H/O hand surgery H/O partial thyroidectomy Femur fracture, left surgery with lashay insertion at age 18 History of shoulder surgery bilateral rotator cuff repair Hx of appendectomy History of carpal tunnel surgery Bilateral Family History Family History Father Cancer Mother , at age 81 Parkinson's disease Sibling Heart disease Son Heart disease Social History Social History Smoking status: Never smoker Second hand tobacco smoke exposure: No Alcohol intake: current Drinks per week: 1 Alcohol use details: occasional Substance use: never Substance use type: does not use Do You Feel Safe in your Home?: Yes Lack of Transportation: No Lack of Food: Never True Current Housing: I Have Housing Concerned About Future Housing: No Difficulty Paying Gas/Electric Bills: No Difficulty Paying for Meds: No Currently Unemployed: No Education: High School Diploma/GED Difficulty w/ Childcare or Family Care: No Living arrangements: with family Occupation/Education: retired Gender identity (if verbalized by the patient): Female Spiritual care concerns: No Exam Narrative: GENERAL: Well-appearing, well-nourished, and in no acute distress. HEAD: Normocephalic, atraumatic. EYES: Non injected, non icteric ENT: Nares clear, no rhinorrhea or epistaxis. NECK: Supple. CHEST: Speaking in full sentences. No respiratory distress. HEART: IRRegular rate and rhythm, fast . ABDOMEN: Obese but Soft, nondistended. EXTREMITIES: Left leg swelling > right. Able to demonstrate flexion of the left leg at the hip without using hands to assist. No tenderness to compression/palpation. Compartments in left thigh and left calf are soft, not taut. Bends at left knee (full ROM not performed) and demonstrates left ankle dorsiflexion plantar flexion. SKIN: Warm, dry. Hyperpigmentation on face, not erythematous. Ecchmosis along left thigh, particularly anteriomedial. NEURO: No focal deficits. Alert and oriented x3. PSYCH: Normal mood and affect. Course Vital Signs Vital signs: Vital Signs Temperature 97.6 F 07/18/24 19:31 Pulse Rate 134 H 07/18/24 19:31 Respiratory Rate 16 07/18/24 19:31 Blood Pressure 149/98 H 07/18/24 19:31 Pulse Oximetry 100 07/18/24 19:31 Oxygen Delivery Room Air 07/18/24 19:31 Temperature 97.6 F 07/18/24 19:31 Pulse Rate 86 07/19/24 00:51 Respiratory Rate 23 H 07/19/24 00:51 Blood Pressure 114/88 07/19/24 00:51 Pulse Oximetry 100 07/19/24 00:51 Oxygen Delivery Room Air 07/18/24 19:31 MDM - Extremity (Nontraumatic) MDM Narrative Medical decision making narrative: Patient presents with left leg bruising and discomfort. Recently diagnosed with a DVT in this leg during recent hospitalization at which time she was also diagnosed with new onset atrial fibrillation. She had some medications that were changed as result of hospitalization and she reports that she has been compliant with these changes including a dose change of her levothyroxine, discontinued the metoprolol and taking nifedipine instead, and taking Eliquis b.i.d. In the emergency department she is afebrile with vital signs notable for elevated heart rate/tachycardic and hypertensive with blood pressure 149/98. Given the elevated heart rate, I initially ordered a TSH however then canceled the order given that this is a just been drawn within the past week and levothyroxine dose had been changed during recent hospitalization as a result. EKG does show that patient has atrial flutter/tachycardia with rapid ventricular response at a rate of 130 beats per minute. Given that she is on calcium channel fabiana, will give 0.25 milligrams/kilogram of diltiazem i.e. 20 mg push for attempted rate control. When this is administered patient immediately rate controls with heart rate in the 60s and 70s. Blood pressure was acceptable at 100/74 with a mean arterial pressure of 84 mm Hg. Patient states she feels no different in regards to her shortness of breath. She has a normocytic anemia, while technically 1.1 g drop from prior although has had hemoglobin of 10.something before. Troponin technically within normal limits. ProBNP is slightly elevated, though not to a degree to suggest acute heart failure based on the reference range of the assay for patient's age. Creatinine is stable from previous. Patient is mildly hypocalcemic, corrects to even slightly lower, at 8.0 in the setting of albumin level. Will supplement. CPK mildly elevated but not to a degree to suggest rhabdomyolysis. Compartments in the leg are normal/soft/easily compressible, not taut. Bibasilar atelectasis on imaging but no evidence of mayra infection, pulmonary edema, and no PE or aortic dissection. No DVT seen on imaging now. Patient appears to be rate controlled and holding steady with this although at times up to the 110s. Initial plan was to give 30mg PO short acting with holding parameters. However, patient's BP then with two readings SBP <110mmHg and, after awaiting that to rebound, she had afib with RVR again due to the delay. Will give another 20mg IV push. This is only done because I believe there was a delay in administering the PO medicine that would have kept her better rate controlled. Patient is reassessed at approximately 12:25 a.m.. She is feeling much better. We discussed her workup. She would like to be discharged and this is reasonable. She notes that she has not always been good about taking her medications but she has really been trying lately and we discussed that this is evident based on the fact that she knows how to take her thyroid medication correctly now, she has been appropriately taking her Eliquis as this seems to have helped with her blood clot, etc. Discharged home in stable condition advised follow-up with primary care physician and casino cage manager. She is advised not to take NSAIDs given that she is on Eliquis for any pain and fevers but is prescribed acetaminophen. Differential Diagnosis Differential diagnosis: Likely superficial thrombophlebitis, lower extremity edema, deep vein thrombosis of lower extremity and other (Pulmonary embolism, acute viral syndrome, pneumonia; afib (w/ rvr)) Medical Records Attestation: I reviewed the patient's medical records. Medical records narrative: Patient's discharge instructions from recent hospitalization are reviewed which show they were to follow up with Dr. Puckett as well as casino cage manager Dr. Ricardo. Medications that were new her levothyroxine seen 50 mcg. She was also discussed to continue the following: Received a statin, redness, acetaminophen, celecoxib, apixaban, vitamin D2. Levothyroxine 125 mcg had been discontinued as was metoprolol tartrate 12.5mg BID. US 07/08/24 IMPRESSION: Chronic appearing left posterior tibial vein DVT. Otherwise patent bilateral lower extremity veins. Lab Data Attestation: I reviewed the patient's lab results. 07/18/24 20:25 07/18/24 20:25 Labs: Lab Results 07/18/24 Range/Units 20:25 WBC 6.9 (4.5-10.0) K/mm3 RBC 3.41 L (4.2-5.4) M/mm3 Hgb 9.9 L (12.0-15.0) g/dL Hct 31.2 L (37.0-47.0) % MCV 91.5 (80-100) fl MCH 29.0 (26-34) pg MCHC 31.7 L (32-36) g/dl RDW 14.1 (11.5-14.5) % Plt Count 219 (150-375) k/mm3 MPV 9.7 (7.4-10.4) fl Immature Gran % (Auto) 0.3 (0-0.5) % Neut % (Auto) 63.0 (45.5-73.1) % Lymph % (Auto) 26.0 (18.3-44.2) % [place] % (Auto) 9.1 H (2.6-8.5) % Eos % (Auto) 1.2 (0-4.4) % Baso % (Auto) 0.4 (0.2-1.2) % Lymph # (Auto) 1.80 (0.9-3.2) K/mm3 [place] # (Auto) 0.6 (0.1-0.6) K/mm3 Eos # (Auto) 0.1 (0-0.3) K/mm3 Baso # (Auto) 0.0 (0.0-0.1) K/mm3 Abs Immat Gran (auto) 0.02 (0.00-0.031) K/mm3 Absolute Neuts (auto) 4.4 (1.3-6.7) K/mm3 Absolute Nucleated RBC 0.000 (0.0-0.012) K/mm3 Nucleated RBC % 0.0 (0.0-0.2) % PT 15.6 H (11.1-14.7) Seconds INR 1.2 APTT 28.4 (22.3-36.8) Seconds Sodium 141 (137-145) mmol/L Potassium 4.1 (3.4-5.0) mmol/L Chloride 110 H (98-107) mmol/L Carbon Dioxide 22 (22-30) mmol/L Anion Gap 9 (4-12) mmol/L BUN 17 (7-17) mg/dL Creatinine 1.02 H (0.7-1.0) mg/dL Estim Creat Clear Calc 39 ml/min Estimated GFR 52 L (59 - ) Glucose 94 (65-110) mg/dL Calcium 8.1 L (8.4-10.2) mg/dL Magnesium 1.9 (1.6-2.3) mg/dL Total Bilirubin 0.7 (0.2-1.3) mg/dL AST 32 (14-36) U/L ALT 19 (6-35) U/L Alkaline Phosphatase 59 (38-126) U/L Total Creatine Kinase 258 H (30-135) U/L Troponin I 0.018 (0.000-0.034) ng/mL NT-Pro-B Natriuret Pep 972 H (19.9-100) pg/mL Total Protein 7.0 (6.3-8.2) g/dL Albumin 4.1 (3.5-5.1) g/dL Influenza A (RT-PCR) Negative (Negative) Influenza B (RT-PCR) Negative (Negative) RSV (RT-PCR) Negative (Negative) SARS-CoV-2 RNA (RT-PCR) Negative (Negative) Imaging Data Radiologist's impression: Impressions Chest CTA 07/18/24 21:32 IMPRESSION: No pulmonary embolus. No thoracic aortic dissection. Trace bibasilar atelectasis. Venous Doppler Study 07/18/24 22:27 IMPRESSION: 1. No deep venous thrombosis. ECG Data EKG #1: Attestation EKG: I personally reviewed and interpreted this ECG as follows: ECG completion date: 07/18/24 ECG completion time: 20:24 Interpretation: Atrial flutter/tachycardia with rapid ventricular response at a rate of 130 beats per minute. QRS 65. QT/QTC 385/464. Wound amplitude QRS complexes possibly due to body habitus. Baseline wander limits full interpretation however there do not appear to be mayra elevations or depressions or T-wave inversions. EKG #2: Attestation EKG: I personally reviewed and interpreted this ECG as follows: ECG completion date: 07/18/24 ECG completion time: 21:01 Prior ECG tracings: available for review (07/08/24 01:51) Interpretation: Atrial flutter at a rate of 66 beats per minute. QRS 69. QT/QTC 388/401. Low QRS voltage axilla 2. There are T-wave inversion in inferior precordial leads 2 3 and AVF. Also T-wave inversions in V4 V5 and V6. T waves were inverted in inferior leads in EKG 07/08/24 01:51 and T waves were flat versus inverted in lateral precordial leads. Discharge Plan Discharge Clinical Impression: Normocytic anemia, Atrial fibrillation with RVR, Hypocalcemia, Acute pain of left lower extremity, Superficial bruising of thigh Patient Disposition: Home, Self-Care Condition: Stable Instructions: Antibiotic Form, A-fib (Atrial Fibrillation) (ED), Hypocalcemia (ED), Anemia (ED), Leg Pain (ED), Ecchymosis (ED) Additional Instructions: As we discussed, it is important you take your medications as prescribed and this includes your blood pressure/rate controlling medication for afib, your blood thinner (Eliquis), and taking your Synthroid/levothyroxine early in the morning before other meds are taken or food is eaten. Keep your upcoming appointment with your primary care physician on Sunday. Also follow-up with your casino cage manager. For pain, it is safe to take maximum 4000 mg per day of acetaminophen/Tylenol. You are to continue to avoid taking NSAIDs while on Elliquis. The blood clot is starting to dissolve in your leg in you may notice that you continue to have bruising because you are on the blood thinner. Return to the emergency department with any new or worsening symptoms. Patient Language: Ghanaian Prescriptions: New acetaminophen 500 mg capsule 1,000 mg PO Q6H PRN (Reason: pain) Qty: 30 0RF No Action acetaminophen 325 mg tablet 650 mg PO Q4-6H PRN (Reason: pain) Qty: 90 0RF nifedipine 60 mg tablet extended release 60 mg PO DAILY rosuvastatin 10 mg tablet 10 mg PO DAILY Eliquis 5 mg tablet 5 mg PO BID celecoxib 200 mg capsule 200 mg PO BID ergocalciferol (vitamin D2) 1,250 mcg (50,000 unit) capsule 50,000 unit PO WEEKLY levothyroxine [Synthroid] 50 mcg Tablet 50 mcg PO DAILY@0630 Qty: 30 0RF Follow-up/Referrals: Aly Ricardo MD [Physician] - (cardiology) UNKNOWN,DOCTOR [Primary Care Provider] - Time of Disposition: 00:26
[2024-07-18 20:28] VITALS: BP 124/79; PULSE 130; RESP 20; O2SAT 100
[2024-07-18 20:32] LABS: Basophils Percent Auto 0.4 % (0.2-1.2); Eosinophils Absolute Auto 0.1 K/mm3 (0-0.3); Eosinophils Percent Auto 1.2 % (0-4.4); Hematocrit 31.2 % (37.0-47.0); Hemoglobin 9.9 g/dL (12.0-15.0); Immature Granulocyte Absolute 0.02 K/mm3 (0.00-0.031); Immature Granulocyte Percent A 0.3 % (0-0.5); Mean Corpuscular HGB Conc 31.7 g/dl (32-36); Mean Corpuscular Volume 91.5 fl (80-100); Mean Platelet Volume 9.7 fl (7.4-10.4); Monocytes Absolute Auto 0.6 K/mm3 (0.1-0.6); Monocytes Percent Auto 9.1 % (2.6-8.5); Neutrophils Absolute Auto 4.4 K/mm3 (1.3-6.7); Platelet Count Result 219 k/mm3 (150-375); Red Blood Count 3.41 M/mm3 (4.2-5.4); Red Cell Distribution Width 14.1 % (11.5-14.5); White Blood Count 6.9 K/mm3 (4.5-10.0)
[2024-07-18 20:40] LABS: Alanine Aminotransferase 19 U/L (6-35); Albumin Level 4.1 g/dL (3.5-5.1); Alkaline Phosphatase 59 U/L (38-126); Anion Gap 9 mmol/L (4-12); Aspartate Amino Transferase 32 U/L (14-36); Bilirubin,Total 0.7 mg/dL (0.2-1.3); Blood Urea Nitrogen 17 mg/dL (7-17); Calcium 8.1 mg/dL (8.4-10.2); Carbon Dioxide 22 mmol/L (22-30); Chloride 110 mmol/L (98-107); Creatine Kinase 258 U/L (30-135); Estimated CRCL calculation 39 ml/min; Estimated Glomerular Filt Rate 52; Glucose 94 mg/dL (65-110); Magnesium 1.9 mg/dL (1.6-2.3); Potassium 4.1 mmol/L (3.4-5.0); Sodium 141 mmol/L (137-145)
[2024-07-18] MEDS: HYDROcodone/acetaminophen (*CRX) 5-325 MG TABLET 1 TAB PO (20:43)
[2024-07-18] MEDS: dilTIAZem HCl INJ 25 MG/5 ML VIAL 20 MG IV PUSH ×2 (20:45→23:43)
[2024-07-18 20:48] LABS: INR 1.2; Prothrombin Time 15.6 Seconds (11.1-14.7)
[2024-07-18 20:49] LABS: Partial Thromboplastin Time 28.4 Seconds (22.3-36.8)
--- NOTE | 2024-07-18 20:51 | ECG_ITS ---
Test Date: 2024-07-18 21:01:43 Measurements Intervals [place]imson Rate: 66 P: 0 PA: 0 QRS: -16 QRSD: 69 T: 261 QT: 388 QTc: 407 Interpretive Statements ATRIAL FLUTTER/TACHYCARDIA LOW QRS VOLTAGE IN PRECORDIAL LEADS CONSIDER ANTERIOR INFARCT, AGE INDETERMINATE INFERIOR INFARCT, AGE INDETERMINATE T WAVE ABNORMALITY IN LATERAL LEADS- CONSIDER ISCHEMIA BASELINE ARTIFACT- I, II, AVR, AVL ABNORMAL ECG Compared to ECG 07/18/2024 20:24:11 HEART RATE HAS DECREASED T WAVE ABNORMALITY NOW PRESENT POSSIBLE ISCHEMIA NOW PRESENT Electronically Signed On 07-19-2024 07:09:55 CDT by Siddharth Mueller D.O.
[2024-07-18 20:52] LABS: NT Pro B Type Natriuretic Pept 972 pg/mL (19.9-100); Troponin I 0.018 ng/mL (0.000-0.034)
[2024-07-18 20:56] VITALS: BP 100/74; PULSE 67; RESP 14; O2SAT 100
[2024-07-18 21:06] LABS: Influenza A QL RT-PCR Negative (Negative); Influenza B QL RT-PCR Negative (Negative); RSV RNA, RT-PCR Negative (Negative); SARS-CoV-2 RNA PCR Negative (Negative)
[2024-07-18] MEDS: CALCIUM CARBONATE (TUMS) 500 MG (200 MG ELEMENTAL) PO (22:34)
[2024-07-18 22:35] VITALS: BP 114/68; PULSE 96; RESP 16; O2SAT 97
[2024-07-18 23:41] VITALS: BP 114/98; PULSE 128; RESP 16; O2SAT 100
[2024-07-19 00:17] VITALS: BP 110/70; PULSE 79; RESP 15; O2SAT 98
[2024-07-19 00:50] VITALS: BP 114/88; PULSE 86; RESP 23; O2SAT 100
[2024-07-19 00:51] VITALS: BP 114/88; PULSE 86; RESP 23; O2SAT 100
== END 2024-07-19 01:00 | disposition home or self-care (01) ==
PROVIDERS: Emergency Provider Student in an Organized Health Care Education/Training Program
DX: S70.12XA Contusion of left thigh, initial encounter (principal); D64.9 Anemia, unspecified; E83.51 Hypocalcemia; I82.502 Chronic embolism and thrombosis of unspecified deep veins of left lower extremity; E03.9 Hypothyroidism, unspecified; I48.91 Unspecified atrial fibrillation; I10 Essential (primary) hypertension; Z20.822 Contact with and (suspected) exposure to COVID-19; X58.XXXA Exposure to other specified factors, initial encounter
CPT/HCPCS: 36415; 71275; 80053; 82550; 83735; 83880; 84484; 85025; 85610; 85730; 87637; 93005; 93971; 96374; 99284; A9270; Q9967

== ENCOUNTER 2024-07-28 13:59 | Outpatient (CLI) | payer MEDICARE, BC, SELFPAY ==
--- OUTSIDE RECORDS SUMMARY | 2024-07-28 15:42 | XMS_ITS | Encounter Summary ---
Author Organization [facility] Healthcare Address [address] [place] [address] Care Team Providers Care Ethologist Name Role Phone Darius Lopez DO Primary Care Provider + Encounter Details Date Type Department Care Team (Late st Contact Info) Description 07/28/[address] [facility] Cardiology [address] [place] [address] Melly Charlton, PRAMOD [address] [place] [address] Social History Tobacco Use Types Packs/Day Years Used Date Smoking Tobacco: Never Smokeless Tobacco: Never Alcohol Use Standard Drinks/Week Comments Yes 0 (1 standard drink = 0.6 oz pur e alcohol) OCASSIONALLY PHQ-2 Answer Date Recorded PHQ-2 Total Score (If total score is 3 or more points, staff should administer the PHQ-9) 0 07/21/2024 Personal Safety Answer Date Recorded Have you ever been in or are you currently in a harmful physical or emotional relationship or is someone making you feel afraid or unsafe? Denies 07/21/2024 Comments No Sex and Gender Information Value Date Recorded Sex Assigned at Not on file Legal Sex Female 3:47 AM [employer] Gender Identity Not on file Sexual Orientation Not on file documented as of this encounter Miscellaneous Notes * Telephone Encounter - Saadia Spencer RN - 07/28/2024 3:12 PM CDT Pt has known afib, this information is not new and pt was seen today in office. * Telephone Encounter - Marbella Carpio - 07/28/2024 2:46 PM CDT Mari rohit from [email or web address] with a serious EKG report: AFIB first time 108 BPM [phone] it will be uploaded to the website as well as faxed to the office documented in this encounter Plan of Treatment Not on file documented as of this encounter Visit Diagnoses Not on filedocumented in this encounter Care Teams Ethologist Relationship Specialty Start Date End Date Darius Lopez DO [address] [facility] [address] [place] [address] PCP - General Family Medicine 07/21/24 documented as of this encounter
--- OUTSIDE RECORDS SUMMARY | 2024-07-28 15:42 | XMS_ITS | Clinical Summary ---
Author Organization [facility] Address [address] [place] [address] Phone Care Team Providers Care Cosmetic Chemist Name Role Phone Lianna Kirk MD Primary Care Provider [phone] Social History Tobacco Use Types Packs/Day Years [...] age to complete this topic Insurance MEDICARE [facility] Care Teams Cosmetic Chemist Relationship Specialty Start Date End Date Lianna Kirk MD [address] [facility] [address] [place] [address] PCP - General Family Medicine 01/31/23
--- OUTSIDE RECORDS SUMMARY | 2024-07-28 15:42 | XMS_ITS | Referral Summary ---
Author Organization [facility] Address [address] [place] [address] Care Team Providers Care Telephone Sales Representative Name Role Phone Darius Lopez DO Primary Care Provider + Encounters Date Type Department Care Team Description 07/28/2024 Orders Only [facility] Medical [facility] Cardiology [address] [place] [address] [place] [address] [phone] Nidia Keenan MD 07/28/2024 Telephone [facility] Cardiology [address] [place] [address] [place] [address] [phone] Melly Charlton NP 07/28/2024 10:30 AM CDT Ancillary Procedure [facility] Cardiology [address] [place] [address] [place] [address] [phone] Atrial flutter with rapid ventricular response (HCC) 07/28/2024 Telephone [facility] Medical [facility] Primary Care at [address] [place] [phone] Darius Lopez DO Referral Request 07/28/2024 1:00 PM CDT Office Visit [facility] Medical [facility] Cardiology [address] [place] [address] [place] [address] [phone] Melly Charlton NP Hematuria, unspecified type (Primary Dx); Primary hypertension; Atrial flutter with rapid ventricular response (HCC) 07/23/2024 [facility] [address] [address] Sommer Matthew MA 07/23/2024 [facility] [address] [address] Sommer Matthew MA 07/22/2024 Results Follow-Up [facility] Primary Care at [address] [place] [address] Darius Lopez DO 07/21/2024 6:54 PM CDT - 07/22/2024 12:28 AM CDT Emergency [facility] Emergency Department [address] [place] [address] Chronic tachycardia (Primary Dx) Discharge Disposition: Discharge to home or self care 07/21/2024 2:00 PM CDT Office Visit [facility] Primary Care at [place] [address] [phone] Darius Lopez, Encounter to establish care with new doctor (Primary Dx); Annual visit for general adult medical examination with abnormal findings; Atrial flutter with rapid ventricular response (HCC); Primary hypertension; Thyroid nodule; Prediabetes; Tachycardia; Acquired hypothyroidism; Mixed hyperlipidemia; Vitamin D deficiency; Chronic anticoagulation; Spinal stenosis of lumbar region with neurogenic claudication; Lumbar radiculopathy; History of DVT in adulthood; Postmenopausal; BMI 31.0-31.9,adult 07/15/2024 Orders Only [facility] Medical [facility] Cardiology [address] [facility] [address] [place] [address] Yolanda Schaefer MD 07/09/2024 Telephone [facility] Primary Care at [place] [address] [phone] Lianna Mar MD Appointment 07/07/2024 10:45 AM CDT Office Visit [facility] at [address] [phone] Harvinder Marie NP Tachycardia (Primary Dx); Pain and swelling of left lower leg 06/24/2024 Results Follow-Up [facility] at [address] [phone] Jacque Helton NP 06/24/2024 4:20 PM CDT Ancillary Procedure [facility] Imaging at [address] [phone] Acute cough 06/24/2024 3:45 PM CDT Office Visit [facility] at [address] [phone] Jacque Helton NP Acute cough (Primary Dx) 06/23/2024 Nurse Triage [facility] Primary Care at [address] [facility] [phone] Lianna Mar MD from Last 3 Months Allergies Active Allergy Reactions Criticality Noted Date Comments Codeine Headache Low Medications cyanocobalamin (Vitamin B-12) 100 mcg tabletIndications :Prevention of Vitamin B12 Deficiency Take 1 tablet (100 mcg total) by mouth daily Active naphazoline-peg 300 0.012-0.2 % drops Active calcium carbonate (CALCIUM 600 ORAL) Take by mouth daily Active glucosamine sulfate 1,000 mg capsule Take by mouth Active ljunzhm-jlgo-huag i-tynt-cwxdzw 100 mg-150 mg- 50 mg-150 mg capsule Take by mouth Active Bifidobacterium infantis (Align) 10.5 mg (10 million cell) tablet,chewableIn dications:Acute pneumonia Take 1 tablet/chew tab by mouth daily 30 tablet 1 023 Active celecoxib (CeleBREX) 200 mg capsuleIndication s:Osteoarthritis Take 1 capsule (200 mg total) by mouth 2 (two) times a day 180 capsule 3 023 Active levothyroxine (SYNTHROID) 125 mcg tabletIndications :Postoperative hypothyroidism TAKE 1 TABLET BY MOUTH EVERY DAY 90 tablet 3 024 Active ergocalciferol (VITAMIN D) 50,000 unit capsule TAKE 1 CAPSULE BY MOUTH ONE TIME PER WEEK 12 capsule 024 Active benzonatate (TESSALON) 200 mg capsuleIndication s:Acute cough Take 1 capsule (200 mg total) by mouth 3 (three) times a day as needed for cough 30 capsule 025 Active apixaban (ELIQUIS) 5 mg tabletIndications :Atrial flutter with rapid ventricular response (HCC) Take 1 tablet (5 mg total) by mouth 2 (two) times a day 180 tablet 3 025 Active NIFEdipine (NIFEdipine CC) 60 mg 24 hr tabletIndications :Primary hypertension Take 1 tablet (60 mg total) by mouth daily 90 tablet 3 025 Active metoprolol tartrate (LOPRESSOR) 25 mg immediate release tabletIndications :Primary hypertension,Atri al flutter with rapid ventricular response (HCC) Take 0.5 tablets (12.5 mg total) by mouth 2 (two) times a day 90 tablet 1 025 2024 Active rosuvastatin (CRESTOR) 10 mg tabletIndications :Mixed hyperlipidemia Take 1 tablet (10 mg total) by mouth daily 90 tablet 3 025 Active blood pressure test kit-large kit 1 kit daily Take BP 1 hour after taking metoprolol at same time each day. 1 kit 025 Active HYDROcodone-aceta minophen (NORCO) 5-325 mg per tabletIndications :Acute pain of right shoulder 1/2 to 1 tab two times daily as needed 20 tablet 023 2024 Discontinued apixaban (ELIQUIS) 5 mg tabletIndications :Atrial flutter, unspecified type (HCC) Take 1 tablet (5 mg total) by mouth 2 (two) times a day 180 tablet 3 024 2024 Discontinued(R eorder) NIFEdipine (NIFEdipine CC) 60 mg 24 hr tabletIndications :Primary hypertension Take 1 tablet (60 mg total) by mouth daily 90 tablet 3 024 2024 Discontinued(R eorder) metoprolol tartrate (LOPRESSOR) 25 mg immediate release tabletIndications :Primary hypertension,Atri al flutter with rapid ventricular response (HCC) Take 0.5 tablets (12.5 mg total) by mouth 2 (two) times a day 90 tablet 1 024 2024 Discontinued(R eorder) rosuvastatin (CRESTOR) 10 mg tabletIndications :Mixed hyperlipidemia TAKE 1 TABLET BY MOUTH EVERY DAY 90 tablet 3 024 2024 Discontinued(R eorder) azithromycin (ZITHROMAX) 250 mg tabletIndications :Acute cough Take 2 tabs (500 mg) by mouth today, than 1 tab (250 mg) daily for 4 days. 6 tablet 025 2024 Active Problems Problem Noted Date Diagnosed Date Severe obesity 07/21/2024 Encounter to establish care with new doctor 10/2024 Assessment & Plan (07/21/2024 5:47 PM CDT): New patient encounter. Relevant available labs, studies, and charts reviewed. No critical concerns identified on initial review. Annual visit for general carmenza lt medical examination with abnormal findings 07/21/2024 Assessment & Plan (07/21/2024 5:47 PM CDT): General Health Maintenance Medication adherence crucial for condition management. Uses cane occasionally. - Encourage medication adherence. - Advise cane use for stability as needed. Follow-up Immediate care for tachycardia advised, follow-up needed post-ED visit. Endocrinology referral necessary. - Follow up with PCP after ED visit. - Complete endocrinology referral. History of DVT in adulthood 07/21/2024 Assessment & Plan (07/21/2024 5:47 PM CDT): Recent leg blood clot managed with Eliquis, with symptom improvement. Continuous anticoagulation necessary. - Refill Eliquis for continuous anticoagulation. Edema 09/12/2023 Assessment & Plan (09/12/2023 1:43 [...] Will continue to monitor. Chronic anticoagulation 08/21/2023 Assessment & Plan (07/21/2024 5:47 PM CDT): Chronic condition. No acute concerns. - Continue current prescribed therapy of Eliquis. - Monitor clinically. Atrial flutter with rapid ventricular response 0 04/24/2023 Assessment & Plan (07/21/2024 5:47 PM CDT): Persistent tachycardia with unclear etiology, possibly related to thyroid dysfunction or cardiac issues. History of fluctuating heart rates, previously on metoprolol, now on nifedipine and Eliquis. Immediate ED evaluation recommended due to coagulation risk. - Immediate ED evaluation for tachycardia management. - Restart metoprolol 12.5 mg BID, monitor BP post-dose. - Order home BP cuff. Orders: apixaban (ELIQUIS) 5 mg tablet; Take 1 tablet (5 mg total) by mouth 2 (two) times a day Comprehensive metabolic panel; Future CBC with auto differential; Future metoprolol tartrate (LOPRESSOR) 25 mg immediate release tablet; Take 0.5 tablets (12.5 mg total) by mouth 2 (two) times a day Assessment & Plan (09/12/2023 1:49 PM CDT): Pt is not compliant with meds. This is encouraged Assessment & Plan (04/24/2023 9:34 AM FLEXIBLE BABYSITTER): On last visit was sent fo Ed for tachycardia, diagnosed with atrial flutter cardiology appt pending. Currently on eliquis and toprol Samples of eliquis given Other thrombophilia 04/24/2023 Tachycardia 04/24/2023 Assessment & Plan (07/21/2024 5:47 PM CDT): Persistent tachycardia with unclear etiology, possibly related to thyroid dysfunction or cardiac issues. History of fluctuating heart rates, previously on metoprolol, now on nifedipine and Eliquis. Immediate ED evaluation recommended due to coagulation risk. - Immediate ED evaluation for tachycardia management. - Restart metoprolol 12.5 mg BID, monitor BP post-dose. - Order home BP cuff. Assessment & Plan (04/24/2023 9:29 AM FLEXIBLE BABYSITTER): New onset ekg consistent with atrial flutter. Will refer to ED for further care. Persistent cough 01/17/2023 Assessment & Plan (01/17/2023 1:14 PM CDT): Coughs through out the day but worse at night. Pt sleeps on [address] Usually responds to tessalon pearles but not with current symptoms. Pt has completed 2 courses of antibiotics BMI 31.0-31.9,adult 10/04/2022 Assessment & Plan (07/21/2024 5:47 PM CDT): BMI Follow-up includes: nutrition counseling, exercise counseling, and education provided. Assessment & Plan (10/04/2022 12:30 PM CDT): BMI Follow-up includes: nutrition counseling, exercise counseling, and education provided. Debility 10/04/2022 Assessment & Plan (10/04/2022 4:44 PM CDT): Antalgic gait. Referral to PT to improve balance and gait and knee pain Acquired bilateral hand deformity 07/04/2022 Assessment & Plan (07/04/2022 11:36 AM CDT): Says she is unable to make a fist. Has numbness and tingling Left leg swelling 05/10/2021 Assessment & Plan (05/10/2021 2:59 PM FLEXIBLE BABYSITTER): Notes left calf tightness ongoing for weeks. Pt has metal in ipsilateral thigh. Will obtain US to rule out thrombus Chronic pain of left knee 04/28/2021 Assessment & Plan (05/10/2021 2:57 PM FLEXIBLE BABYSITTER): Acute on chronic knee pain. 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 Pt agrees to injection as this has worked in the past Assessment & Plan (04/28/2021 12:31 PM FLEXIBLE BABYSITTER): On going since fall. Has had not radiographs. Swelling on exam will obtain xrays Disorder of skin of trunk 02/10/2021 Fatigue 12/03/2019 Assessment & Plan (12/03/2019 9:20 AM CDT): She has intermittent fatigue. Check CBC, CMP, TSH. Acquired hypothyroidism 12/03/2019 Assessment & Plan (07/21/2024 5:47 PM CDT): Chronic condition. No acute concerns. We will follow up labs and advise accordingly. - Continue current prescribed therapy of Synthroid. - Monitor clinically. Orders: Comprehensive metabolic panel; Future TSH; Future T4, free; Future T3, free; Future Ambulatory referral to Endocrinology; Future Assessment & Plan (07/04/2022 11:32 AM CDT): Stable on current dose of synthroid Assessment & Plan (04/13/2021 9:56 AM FLEXIBLE BABYSITTER): Stable on current dose of synthroid Assessment [...] recently. Assessment & Plan (03/13/2018 11:08 AM FLEXIBLE BABYSITTER): Check TSH, free T4, CBC, and CMP. Reassess at the return office visit. Medicare annual wellness visit, subsequent 12/06 Assessment [...] visit. Assessment & Plan (04/13/2021 9:56 AM FLEXIBLE BABYSITTER): We reviewed the Medicare Health Risk Assessment in its entirety during the appointment. 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 Patient Care Team: Lianna [...] electronic record. Hypertension 12/06/2016 Assessment & Plan (07/21/2024 5:47 PM CDT): Chronic condition. No acute concerns. We will follow up labs and advise accordingly. - Restart Metoprolol. - Monitor clinically. Orders: NIFEdipine (NIFEdipine CC) 60 mg 24 hr tablet; Take 1 tablet (60 mg total) by mouth daily metoprolol tartrate (LOPRESSOR) 25 mg immediate release tablet; Take 0.5 tablets (12.5 mg total) by mouth 2 (two) times a day Assessment & Plan (09/12/2023 1:48 PM CDT): Uncontrolled. Pt says she does not take her meds Assessment & Plan (07/04/2022 11:34 AM CDT): Normotensive Assessment & Plan (04/13/2021 9:56 AM FLEXIBLE BABYSITTER): Well managed on current me regimen. Pt [...] appointment. Assessment & Plan (05/01/2017 11:23 AM FLEXIBLE BABYSITTER): Stable: Continue current medications, monitor closely and [...] of lumbar region 12/09/2015 Assessment & Plan (07/21/2024 5:47 PM CDT): Chronic back pain with leg numbness, improved with sitting. Managed with exercises. - Continue prescribed exercises. Assessment & Plan (10/04/2022 4:24 PM CDT): stable Assessment & Plan (07/04/2022 11:27 AM CDT): Under care of ortho spine. Causing radicular pain. Will try gabapentin Lumbar radiculopathy 12/09/2015 Assessment & Plan (07/21/2024 5:47 PM CDT): Chronic back pain with leg numbness, improved with sitting. Managed with exercises. - Continue prescribed exercises. Assessment & Plan (10/04/2022 4:41 PM CDT): No exacerbation at this dmitri Assessment & Plan (07/04/2022 11:29 AM CDT): Chronic, but seems to be worsening. Will try neurontin Sciatica 12/09/2015 Thyroid nodule 11/08/2015 Overview (07/21/2016): Thyroid nodule Assessment & Plan (07/21/2024 5:47 PM CDT): 3 cm right thyroid nodule previously benign, new suspicious nodule identified. Information Analyst referral needed. - Refer to rnp for thyroid nodule evaluation. Orders: Ambulatory referral to Endocrinology; Future Assessment & Plan (12/03/2019 9:36 AM CDT): The patient's benign nodule is stable. Continue to monitor. She will have a follow up thyroid ultrasound later this month. Assessment & Plan (12/10/2018 8:05 PM CDT): The patient's ultrasound reveals and unchanged nodule. Pathology was benign. Assessment & Plan (05/01/2017 11:22 AM FLEXIBLE BABYSITTER): Patient did not follow through with thyroid [...] 11/08/2015 Overview (07/21/2016): Prediabetes Assessment & Plan (07/21/2024 5:47 PM CDT): Chronic condition. No acute concerns. We will follow up labs and advise accordingly. - Monitor clinically. Orders: Hemoglobin A1c; Future Assessment & Plan (10/04/2022 5:04 PM CDT): Discussed healthy eating in depth Examples of foods reviewed Assessment & Plan (07/04/2022 11:33 AM CDT): Managed by diet. Will recheck Assessment & Plan (12/03/2019 9:23 AM CDT): Check A1C today. Assessment & Plan (12/06/2016 11:11 AM CDT): Stable: Continue diet and exercise. Hyperlipidemia 11/08/2015 Overview (07/21/2016): Hyperlipidemia, unspecified hyperlipidemia type Assessment & Plan (07/21/2024 5:47 PM CDT): Chronic condition. No acute concerns. We will follow up labs and advise accordingly. - Continue current prescribed therapy of crestor. - Monitor clinically. Orders: Lipid panel; Future rosuvastatin (CRESTOR) 10 mg tablet; Take 1 tablet (10 mg total) by mouth daily Assessment & Plan (07/04/2022 11:30 AM CDT): Well managed on crestor Assessment & Plan (04/13/2021 9:54 AM FLEXIBLE BABYSITTER): Well controlled on statin Assessment & Plan [...] (07/21/2016): Vitamin D deficiency Assessment & Plan (07/21/2024 5:47 PM CDT): Chronic condition. No acute concerns. Lab ordered and will be followed up. - Continue current regimen of Vitamin D supplementation. - Monitor clinically. Orders: Vitamin D 25 hydroxy; Future Assessment & Plan (10/04/2022 4:46 PM CDT): [...] supplementation. Assessment & Plan (03/13/2018 10:41 AM FLEXIBLE BABYSITTER): She is on vitamin D 50,000 international units weekly. Check 25-OH vitamin D. Assessment & Plan (05/01/2017 11:22 AM FLEXIBLE BABYSITTER): Stable: Patient is now taking 28556 units of vitamin-D monthly. Check vitamin-D level [...] provided. Assessment & Plan (04/24/2023 8:58 AM FLEXIBLE BABYSITTER): BMI Follow-up includes: nutrition counseling, exercise counseling, and education provided. Assessment & Plan (04/05/2023 12:03 PM FLEXIBLE BABYSITTER): BMI Follow-up includes: nutrition counseling, exercise counseling, and education provided. Assessment & Plan (01/17/2023 12:38 PM CDT): BMI Follow-up includes: nutrition counseling, exercise counseling, and education provided. Assessment & Plan (01/10/2023 12:40 PM CDT): BMI Follow-up includes: nutrition counseling, exercise counseling, and education provided. Acute pneumonia 01/10/2023 07/21/2024 Assessment & Plan (01/10/2023 12:56 PM CDT): Cxr Minimal patchy left basilar airspace opacities are nonspecific and may represent atelectasis versus aspiration or developing pneumonia in the appropriate clinical context. Pt hs improved but continues to have productive cough of dark sputum Pt on zithromax will add augmentin Severe obesity (BMI 35.0-39. 9) with comorbidity [...] nutrition counseling, exercise counseling, and education provided. Acute bronchitis 01/03/2023 07/21/2024 Assessment & Plan (01/03/2023 12:50 PM CDT): Subjective fever, cough SOB, productive cough. chills Class 2 obesity without seri ous comorbidity with body mass index (BMI) of 37.0 to 37.9 in adult 07/04/2022 01/04/2023 Assessment & Plan (01/03/2023 1:36 PM CDT): BMI Follow-up includes: nutrition counseling, exercise counseling, and education provided. Assessment & Plan (07/04/2022 11:43 AM CDT): BMI Follow-up includes: education provided. Cervical radiculopathy 07/04/202207/21 Assessment & Plan (07/04/2022 11:38 AM CDT): Has bilateral numbness and tingling and has been dropping stuff. Will check cervical xrays Abnormal sensation of leg 04/28/2021 Assessment & Plan (04/28/2021 12:30 PM FLEXIBLE BABYSITTER): Pt has lashay in her femor since age 18. Also fell approximately 4 months ago. And reports odd sensation starting in left leg. Will obtain xrays and labs Illness 04/28/2021 07/21/2024 Assessment & Plan (05/10/2021 2:21 PM FLEXIBLE BABYSITTER): Labs reviewed. All normal. CRP normal. Pt reassured as there are not specific symptoms. Says she has been feeling better. Continues to have tingling on left LE that sometimes travels up. Assessment & Plan (04/28/2021 2:00 PM FLEXIBLE BABYSITTER): Vague symptoms. Will obtain labs. Acute pain of right shoulder 04/13/2021 07/21/2024 Assessment & Plan (04/24/2023 9:16 AM FLEXIBLE BABYSITTER): Under care of ortho Assessment & Plan (04/05/2023 12:37 PM FLEXIBLE BABYSITTER): 2 days ago was closing car door when she heard a pop in her right shoulder. Has been in significant pain since she has been unable to raise arm to eat. Assessment & Plan (04/13/2021 10:02 AM FLEXIBLE BABYSITTER): Since fall. Will obtain xrays for eval. Physical therapy Sprain of knee and leg 02/10/202107/21 Upper arm joint pain, right 02/10/2021 07/21/2024 Assessment & Plan (04/13/2021 9:58 AM FLEXIBLE BABYSITTER): Since fall. Pain and discomfort ongoing for months. Will obtain xrays . pain management--prescribed hydrocodone for severe pain Impaired fasting glucose 01/21/202010/2024 Assessment & Plan (07/22/2020 3:37 PM CDT): Recheck hga1c Dyspnea on exertion 05/01/2017 07/22/19 25 Assessment & Plan (01/17/2023 1:13 PM CDT): [...] stamina. Assessment & Plan (05/01/2017 11:37 AM FLEXIBLE BABYSITTER): New complaint: Family history of premature coronary artery disease in son at the age of 3535 years old. EKG today and refer for thallium stress test. EKG NSR 61 with non-specific t wave abnormality, unchanged compared to 12/06/16. Screening for colon cancer 12/06/2016 1 Overview (12/06/2016): 11/29/15 per Jimmie, normal, repeat in 10 years. Assessment & Plan (12/06/2016 11:09 AM CDT): 11/28/ per Jimmie, normal, repeat in 10 years. Screening for osteoporosis 12/06/2016 1 Assessment & Plan (12/03/2019 9:23 AM CDT): The patient will be scheduled for a DEXA scan. Assessment & Plan (12/06/2016 11:11 AM CDT): Managed per endoscopic technician, Dr. Alvarez. Severe obesity (BMI 35.0-39. 9) with comorbidity 12/06/2016 04/11/2024 Assessment & Plan (09/12/2023 1:02 PM CDT): BMI Follow-up includes: nutrition counseling, exercise counseling, and education provided. Assessment & Plan (07/04/2022 11:15 AM CDT): BMI Follow-up includes: nutrition counseling, exercise counseling and education provided. Assessment & Plan (05/10/2021 2:09 PM FLEXIBLE BABYSITTER): BMI Follow-up includes: nutrition counseling, exercise counseling and education provided. Assessment & Plan (04/28/2021 12:02 PM FLEXIBLE BABYSITTER): BMI Follow-up includes: nutrition counseling, exercise counseling [...] encouraged. Assessment & Plan (03/13/2018 10:25 AM FLEXIBLE BABYSITTER): BMI Follow-up includes: nutrition counseling, exercise counseling and education provided. Assessment & Plan (05/01/2017 10:45 AM FLEXIBLE BABYSITTER): BMI Follow-up includes: nutrition counseling, exercise counseling [...] on file Legal Sex Female 3:47 AM FLEXIBLE BABYSITTER Gender Identity Not on file Sexual Orientation Not on file Last Filed Vital Signs Vital Sign Reading Time Taken Comments Blood Pressure 138/78 07/28/2024 1:01 PM CDT Pulse 128 07/28/2024 1:01 PM CDT Temperature 36.2 C (97.2 F) 07/21/2024 3:38 PM CDT Respiratory Rate 20 07/22/2024 12:00 AM CDT Oxygen Saturation 99% 07/28/2024 1:01 PM CDT Inhaled Oxygen Concentration - - Weight 85.3 kg (188 lb) 07/28/2024 1:01 PM CDT Height 154.9 cm (5' 1 ) 07/28/2024 1:01 PM CDT Body Mass Index 35.52 07/28/2024 1:01 PM CDT Plan of Treatment Not on file Procedures Procedure Name Priority Date/Time Associated Diagnosis Comments ED CRITICAL CARE Routine 07/22/2024 12:28 AM CDT ECG 12-LEAD STAT 07/21/2024 11:[address] CHEST PE W CONTRAST ED 07/21/2024 10:29 PM CDT D-DIMER, QUANTITATIVE STAT 07/21/2024 9:23 PM CDT THYROID FUNCTION CASCADE Timed 07/21/2024 5:37 PM CDT TROPONIN T HIGH-SENSITIVITY 2-HOUR Timed 07/21/2024 5:37 PM CDT XR CHEST PA LATERAL 2 VIEWS ED 07/21/2024 4:32 PM CDT PRO B-TYPE NATRIURETIC PEPTIDE STAT 07/21/2024 3:43 PM CDT EGFR STAT 07/21/2024 3:43 PM CDT DIFFERENTIAL AUTO STAT 07/21/2024 3:4 3 PM CDT TROPONIN T HIGH-SENSITIVITY SERIES (BASELINE, 2HR, 4HR, 6HR) STAT 07/21/2024 3:43 PM CDT COMPREHENSIVE METABOLIC PANEL STAT 07/21/2024 3:43 PM CDT CBC WITH AUTO DIFFERENTIAL STAT 07/21/2024 3:43 PM CDT T3, FREE Routine 07/21/2024 3:22 PM CDT Acquired hypothyroidism T4, FREE Routine 07/21/2024 3:22 PM CDT Acquired hypothyroidism TSH Routine 07/21/2024 3:22 PM CDT Acquired hypothyroidism CBC WITH AUTO DIFFERENTIAL Routine 07/21/2024 3:22 PM CDT Atrial flutter with rapid ventricular response (HCC) COMPREHENSIVE METABOLIC PANEL Routine 07/21/2024 3:22 PM CDT Atrial flutter with rapid ventricular response (HCC) Acquired hypothyroidism LIPID PANEL Routine 07/21/2024 3:22 PM CDT Mixed hyperlipidemia HEMOGLOBIN A1C Routine 07/21/2024 3:22 PM CDT Prediabetes VITAMIN D 25 HYDROXY Routine 07/21/2024 3:22 PM CDT Vitamin D deficiency CARDIOLOGY DOCUMENT SCAN Routine 07/13/2024 3:03 PM CDT CARDIOLOGY DOCUMENT SCAN Routine 07/12/2024 3:01 PM CDT CARDIOLOGY DOCUMENT SCAN Routine 07/09/2024 2:58 PM CDT ECG 12-LEAD Routine 07/08/2024 3:28 PM CDT XR CHEST PA LATERAL 2 VIEWS Schedule ANNIE, Read ANNIE (Appt Today, Awaiting Results) 06/24/2024 4:32 PM CDT Acute cough DEXA AXIAL SKELETON BONE DENSITY 1 OR MORE SITES Schedule Routine, Read Routine (OP Routine) 07/14/2022 11:17 AM CDT Age-related osteoporosis without fracture from Last 3 Months or Most Recently Relevant to Health Maintenance Results * Critical Care (07/22/2024 12:28 AM CDT) Narrative Veronika Waters NP - 07/22/2024 12:28 AM CDT Veronika Waters NP 07/22/2024 1:45 AM Critical Care Performed by: Veronika Waters NP Authorized by: Veronika Waters NP Critical care provider statement: As reflected in the history, physical exam, orders, notes, and/or MDM, I was personally present while the patient was critically ill and provided critical care services for 35 minutes, excluding time involved in separately billable procedures. Critical care was necessary to treat or prevent imminent or life-threatening deterioration of the following condition(s): tachy/kristina arrhythmic event Critical care was time spent by me providing the following: continuous telemetry, continuous pulse oximetry and interpretation of bedside monitors, imaging, and arterial/venous lab draws initiation of rate controlling agent I provided emergent necessary critical care medicine services to this patient. I ordered and reviewed test results and/or imaging studies. I spent time discussing the management of this critically ill patient with consultants and the medical staff. I spent time discussing the management and therapeutic options for this critically ill patient with the patient themselves or with the appropriate designated surrogate decision-maker. I spent time documenting in the medical record. Veronika Waters NP IN CLINIC/BEDSIDE ORDERABLES Fin al Result * ECG 12-LEAD (07/21/2024 11:18 PM CDT) Narrative CONS SCIMAGE - 07/21/2024 11:18 PM CDT Elier Sood MD 07/21/2024 11:18 PM ECG 12 lead Date/Time: 07/21/2024 11:18 PM Performed by: Elier Sood MD Authorized by: Elier Sood MD Rate: ECG rate assessment comment: 137, sinus tachycardia, left axis, normal intervals, nsstc Procedure Note Elier Sood MD - 07/21/2024 11:18 PM CDT Procedure ECG 12 lead Date/Time: 07/21/2024 11:18 PM Performed by: Elier Sood MD Authorized by: Elier Sood MD Rate: ECG rate assessment comment: 137, sinus tachycardia, left axis, normalintervals, nsstc Elier Sood MD 07/21/24 2318 us Elier Sood MD ECG ORDERABLES Final Result CONS SCIMAGE * CT Chest PE (CTA) W Contrast (07/21/2024 10:29 PM CDT) Anatomical Region Laterality Modality Body N/A Computed Tomogra phy 07/22/2024 8:10 AM CDT Impressions 07/22/2024 8:37 AM CDT No pulmonary embolus. No acute finding in the chest. Preliminary results were given by the tele-radiologist senior vice president and chief information officer Dr. Jama Dictated by: Parviz Sandoval MD PHD The radiology attending physician has personally reviewed this study, and had reviewed and/or edited this written report and agrees with it. Electronically signed by: Reyes Garcia M.D. Narrative 07/22/2024 8:37 AM CDT EXAMINATION: CT CHEST PE (CTA) W CONTRAST HISTORY: Atrial flutter presenting with tachycardia TECHNIQUE: Computed tomographic images were acquired using a chest angiographic protocol optimized for pulmonary embolism. Contrast enhanced transaxial images were obtained following the intravenous administration of 100 ml of nonionic contrast. Multiplanar reformatted images and three-dimensional images were obtained on the 3-D workstation and sent to the PACS archival system. COMPARISON: 04/05/2023 FINDINGS: Lungs demonstrate mild bilateral dependent atelectasis with no suspicious pulmonary nodule, pleural effusion, or pneumothorax. Patent central airways. No pulmonary embolus. Mild cardiomegaly with biatrial enlargement. Calcified coronary atherosclerosis. 3.1 cm right thyroid lobe nodule which was previously biopsied to be benign. No significant change of a 1.0 cm subcarinal lymph node (4/127). Nondistended thoracic esophagus. Small hiatal hernia. Partially imaged upper abdomen demonstrates colonic diverticulosis with no acute or suspicious finding. Degenerative changes of the spine. Diffuse idiopathic skeletal hyperostosis. Procedure Note Reyes Garcia MD - 07/22/2024 EXAMINATION: CT CHEST PE (CTA) W CONTRAST HISTORY: Atrial flutter presenting with tachycardia TECHNIQUE: Computed tomographic images were acquired using a chest angiographic protocol optimized for pulmonary embolism. Contrast enhanced transaxial images were obtained following the intravenous administration of 100 ml of nonionic contrast. Multiplanar reformatted images and three-dimensional images were obtained on the 3-D workstation and sent to the PACS archival system. COMPARISON: 04/05/2023 FINDINGS: Lungs demonstrate mild bilateral dependent atelectasis with no suspicious pulmonary nodule, pleural effusion, or pneumothorax. Patent central airways. No pulmonary embolus. Mild cardiomegaly with biatrial enlargement. Calcified coronary atherosclerosis. 3.1 cm right thyroid lobe nodule which was previously biopsied to be benign. No significant change of a 1.0 cm subcarinal lymph node (4/127). Nondistended thoracic esophagus. Small hiatal hernia. Partially imaged upper abdomen demonstrates colonic diverticulosis with no acute or suspicious finding. Degenerative changes of the spine. Diffuse idiopathic skeletal hyperostosis. IMPRESSION: No pulmonary embolus. No acute finding in the chest. Preliminary results were given by the tele-radiologist senior vice president and chief information officer Dr. Jama Dictated by: Parviz Sandoval MD PHD The radiology attending physician has personally reviewed this study, and had reviewed and/or edited this written report and agrees with it. Electronically signed by: Reyes Garcia M.D. [facility] CT PROCEDURES Final Result * (ABNORMAL) D-dimer, quantitative (07/21/2024 9:23 PM CDT) D-Dimer 1,929(H) <=499 ng/mL FEU Comment: Interpretive data FDA approved the D-dimer, in conjunction with a low or moderate pretest probability score, to exclude venous thromboembolic events (VTE) (PE and DVT) in outpatients when the D-dimer result is < 500 ng/ml FEU. Evidence supports using an age-adjusted D-dimer cut-off for outpatients older than 50 (age x 10) to improve specificity without sacrificing sensitivity. Example: age 68, VTE cut-off 680 ng/ml FEU. References; Jonas HT et al. Brit Med J. 2013;346:f2492. Krystle et al. Annals Int Med. 2015;163:701-11. Current interpretive data was last revised on 2019. Blood 07/21/2024 9:23 PM CDT 07/21/2024 9:25 PM CDT Veronika Waters NP LAB BLOOD ORDERABLES Final Resul t Performing Organization Address [facility] Co de Phone Number YUMIKO MONTEZCH [address] [facility] [place] [address] * Troponin T high-sensitivity 2-hour (07/21/2024 5:37 PM CDT) Trop T hs 12 <=14 ng/L Comment: Interpretive Data For further hscTnT resources including the diagnostic algorithm and an aid in interpretation, copy and paste this link: https://nrl.testcatalog.org/show/hsTrop Current Interpretive Data last revised 2020. Trop T hs delta 0 ng/L [facility] Trop T hs interp Insignificant [facility] Blood 07/21/2024 5:37 PM CDT 07/21/2024 5:46 PM CDT Elier Sood MD LAB BLOOD ORDERABLES Edited R esult - Final Performing Organization Address [facility] Co de Phone Number YUMIKO MONTEZCH [address] [facility] [place] [address] * Thyroid Function [place] (07/21/2024 5:37 PM CDT) TSH 1.29 0.30 - 4.20 mcIUnit/mL Blood 07/21/2024 5:37 PM CDT 07/21/2024 5:46 PM CDT Elier Sood MD LAB BLOOD ORDERABLES Final Re sult Performing Organization Address [facility] Co de Phone Number YUMIKO BJCH [address] [facility] [place] [address] * XR Chest PA Lateral 2 Views (07/21/2024 4:32 PM CDT) Anatomical Region Laterality Modality Body, Chest N/A Computed Radiogr aphy 07/21/2024 4:38 PM CDT Impressions 07/21/2024 4:38 PM CDT The cardiomediastinal silhouette is within normal limits. There are calcifications of the aortic arch. Mild left basilar atelectasis. No focal airspace consolidation, pleural effusion, or pneumothorax. No suspicious osseous findings. Electronically signed by: Christiana Mccann M.D. Narrative 07/21/2024 4:38 PM CDT EXAMINATION: 2 view chest radiograph HISTORY: Chest pain COMPARISON: 06/24/2024 Procedure Note Christiana Mccann MD - 07/21/2024 EXAMINATION: 2 view chest radiograph HISTORY: Chest pain COMPARISON: 06/24/2024 IMPRESSION: The cardiomediastinal silhouette is within normal limits. There are calcifications of the aortic arch. Mild left basilar atelectasis. No focal airspace consolidation, pleural effusion, or pneumothorax. No suspicious osseous findings. Electronically signed by: Christiana Mccann M.D. us Elier Sood MD IMG XR PROCEDURES Final Resul t * Troponin T high-sensitivity series (baseline, 2hr, 4hr, 6hr) (07/21/2024 3:43 PM CDT) Trop T hs 12 <=14 ng/L Comment: Interpretive Data For further hscTnT resources including the diagnostic algorithm and an aid in interpretation, copy and paste this link: https://nrl.testcatalog.org/show/hsTrop Current Interpretive Data last revised 2020. Blood 07/21/2024 3:43 PM CDT 07/21/2024 3:45 PM CDT us Elier Sood MD LAB BLOOD ORDERABLES Final Re sult [facility] [address] [facility] [place] [address] * eGFR (07/21/2024 3:43 PM CDT) eGFR 69 >=60 mL/min/1. 73 m2 Comment: Interpretive Data Reference Interval Normal >/= 90 mL/min/1.73m2 Mildly decreased* 60 - 89 mL/min/1.73m2 Mildly to moderately decreased 45 - 59 mL/min/1.73m2 Moderately to severely decreased 30 - 44 mL/min/1.73m2 Severely decreased 15 - 29 mL/min/1.73m2 Kidney Failure < 15 mL/min/1.73m2 *Relative to young adult level Estimated glomerular filtration rate is determined by the 2020 CKD-EPI equation recommended by the National Kidney Foundation (A Unifying Approach to GFR Estimation: Recommendations of the NKF-ASK Task Force on Reassessing the Inclusion of Race in Diagnosing Kidney Disease, JASN 2020). The CKD-EPI equation should not be used for patients with unstable renal function and has not been validated in children and those over 70. Current interpretive data was last reviewed 2021. Blood 07/21/2024 3:43 PM CDT 07/21/2024 3:45 PM CDT us Elier Sood MD LAB BLOOD ORDERABLES Final Re sult YUMIKO SIMPSON [address] [facility]. [place] [address] * Differential, auto (07/21/2024 3:43 PM CDT) Neutrophil abs 5.34 1.50 - 6.50 K/cumm Imm gran abs 0.03 0.00 - 0.10 K/cumm [facility] Lymphocyte abs 2.72 0.80 - 3.30 K/cumm [facility] Monocyte abs 0.64 0.20 - 0.80 K/cumm [facility] Eosinophil abs 0.13 0.00 - 0.50 K/cumm [facility] Basophil abs 0.04 0.00 - 0.10 K/cumm [facility] Neutrophil pct 60.0 % [facility] Comment: Interpretive Data Percent cell count reference ranges are not reported, since discordance with absolute values may lead to misinterpretation of CBC data. Current Interpretive Data was last revised on 2017. Imm gran pct 0.3 % [facility] Comment: Interpretive Data Percent cell count reference ranges are not reported, since discordance with absolute values may lead to misinterpretation of CBC data. Current Interpretive Data was last revised on 2017. Lymphocyte pct 30.6 % [facility] Comment: Interpretive Data Percent cell count reference ranges are not reported, since discordance with absolute values may lead to misinterpretation of CBC data. Current Interpretive Data was last revised on 2017. Monocyte pct 7.2 % YUMIKO WATKINS Comment: Interpretive Data Percent cell count reference ranges are not reported, since discordance with absolute values may lead to misinterpretation of CBC data. Current Interpretive Data was last revised on 2017. Eosinophil pct 1.5 % YUMIKO WATKINS Comment: Interpretive Data Percent cell count reference ranges are not reported, since discordance with absolute values may lead to misinterpretation of CBC data. Current Interpretive Data was last revised on 2017. Basophil pct 0.4 % YUMIKO WATKINS Comment: Interpretive Data Percent cell count reference ranges are not reported, since discordance with absolute values may lead to misinterpretation of CBC data. Current Interpretive Data was last revised on 2017. Blood 07/21/2024 3:43 PM CDT 07/21/2024 3:45 PM CDT us Elier Sood MD LAB BLOOD ORDERABLES Final Re sult [facility] [place] [address] [facility]. [employer] [place] [employer] [place] [address] * (ABNORMAL) Pro B-type natriuretic peptide (07/21/2024 3:43 PM CDT) NT-proBNP 976(H) <=450 pg/mL Comment: Interpretive Comments: A. Dyspnea in Acute Care Setting All Ages: < 300 pg/ml, acute heart failure unlikely. < 50 yrs: 300 - 450 pg/ml, further investigation warranted. > 450 pg/ml, acute heart failure likely. 50 - 74 yrs: 300 - 900 pg/ml, further investigation warranted. > 900 pg/ml, acute heart failure likely . > or = 75 yrs: 450 - 1800 pg/ml, further investigation warranted. > 1800 pg/ml, acute heart failure likely. B. Non-acute Setting < 75 yrs < 125 pg/ml, rules out heart failure. > or = 125 pg/ml, further investigation warranted. > or = 75 yrs < 450 pg/ml, rules out heart failure. > or = 450 pg/ml, further investigation warranted. - Knowledge of each individual patient's NT-proBNP range may be more useful than using similar cut-points for every patient. Please note that marked elevations in NT-proBNP levels may be observed in state other than Left Ventricular Congestive Failure, including: acute coronary syndromes, right heart strain/failure (including pulmonary embolism and cor pulmonale), critical illness, renal failure, as well as advanced age. - References: 1. Jacob RENTERIA et.al. Eur Heart J. 2006:27:330-337. 2. Chapis RW, Kole TINOCO. J. AM Nando Cardiol: Cardiovasc Imag. 2009;2: 216- 225. Interpretive Data Last Revised Date: 2017. Blood 07/21/2024 3:43 PM CDT 07/21/2024 3:45 PM CDT Elier Sood MD LAB BLOOD ORDERABLES Final Re sult [facility] [address] [facility]. Department [place] [address] * (ABNORMAL) CBC with auto differential (07/21/2024 3:43 PM CDT) Pathologist [facility] WBC 8.90 3.80 - 9.90 K/cumm Hgb 10.9(L) 11.9 - 15.5 g/dL YUMIKO SIMPSON Hct 33.8(L) 35.6 - 45.5 % YUMIKO WATKINS Plt 317 150 - 400 K/cumm [facility] [place] MPV 9.8 9.1 - 12.3 fL [facility] RBC 3.73(L) 3.90 - 5.20 M/cumm [facility] MCV 90.6 81.3 - 96.4 fL [facility] MCH 29.2 27.1 - 33.3 pg [facility] MCHC 32.2(L) 32.3 - 35.7 g/dL [facility] RDW CV 14.6 11.1 - 14.9 % [facility] RDW SD 47.8 35.7 - 48.1 fL [facility] NRBC abs 0.00 0.00 - 0.01 K/cumm [facility] Blood Venous blood specimen / Unknown 07/21/2024 3:43 PM CDT 07/21/2024 3:45 PM CDT Elier Sood MD LAB BLOOD ORDERABLES Final Re sult [facility] [address] [facility]. Department [place] [address] * (ABNORMAL) Comprehensive metabolic panel (07/21/2024 3:43 PM CDT) Sodium 141 135 - 145 mmol/L Potassium, pl 4.2 3.3 - 4.9 mmol/L [facility] Chloride 108 97 - 110 mmol/L [facility] CO2 17(L) 22 - 32 mmol/L [facility] Anion gap 16(H) 2 - 15 mmol/L [facility] BUN 13 6 - 25 mg/dL [facility] Creatinine 0.84 0.60 - 1.10 mg/dL [facility] Glucose 97 70 - 199 mg/dL [facility] Comment: Interpretive Data Fasting glucose >/= 126 mg/dl is diagnostic for diabetes. Fasting is defined as no caloric intake for at least 8 hours. Fasting glucose between 100 mg/dl to 125 mg/dl is diagnostic of prediabetes. In a patient with classic symptoms of hyperglycemia or hyperglycemic crisis, a random glucose >/= 200 mg/dl is diagnostic for diabetes. In the absence of unequivocal hyperglycemia, results should be confirmed by repeat testing. The classification and Diagnosis of Diabetes Diabetes Care 2021; 46: S19-S40. Current interpretive data was last revised 2022. Calcium 8.3(L) 8.5 - 10.3 mg/dL [facility] Bilirubin, total 0.6 0.1 - 1.2 mg/dL [facility] Protein, pl 7.6 6.5 - 8.5 g/dL [facility] Albumin 4.0 3.5 - 5.0 g/dL [facility] Alk phos 60 40 - 130 Units/L [facility] ALT 17 7 - 45 Units/L [facility] AST 30 10 - 45 Units/L [facility] Blood 07/21/2024 3:43 PM CDT 07/21/2024 3:45 PM CDT Elier Sood MD LAB BLOOD ORDERABLES Final Re sult YUMIKO SIMPSON [address] [facility] Department [place] [address] * (ABNORMAL) CBC with auto differential (07/21/2024 3:22 PM CDT) Pathologist [facility] WBC 8.4 3.8 - 10.8 Thousand/u L [facility] RBC, POC 3.79(L) 3.80 - 5.10 Million/uL [facility] Hgb 11.0(L) 11.7 - 15.5 g/dL [facility] Hct 34.7(L) 35.0 - 45.0 % [facility] MCV 91.6 80.0 - 100.0 fL [facility] MCH 29.0 27.0 - 33.0 pg [facility] MCHC 31.7(L) 32.0 - 36.0 g/dL [facility] Comment: For adults, a slight decrease in the calculated MCHC value (in the range of 30 to 32 g/dL) is most likely not clinically significant; however, it should be interpreted with caution in correlation with other red cell parameters and the patient's clinical condition. Rdw 13.7 11.0 - 15.0 % [facility] Platelets 301 140 - 400 Thousand/u L [facility] MPV 10.1 7.5 - 12.5 fL [facility] Neutrophils, abs 5,242 1,500 - 7,800 cells/uL [facility] Lymphocytes, abs 2,461 850 - 3,900 cells/uL [facility] Monocyte abs 580 200 - 950 cells/uL [facility] Eosinophils, abs 101 15 - 500 cells/uL [facility] Basophils, abs 17 0 - 200 cells/uL [facility] Neutrophils 62.4 % [facility] Lymphocyte pct 29.3 % [facility] Monocytes 6.9 % [facility] Eosinophils 1.2 % [facility] Basophils 0.2 % [facility] Blood 07/21/2024 3:22 PM CDT 07/21/2024 10:26 PM CDT us Darius Loepz DO LAB BLOOD ORDERABLES Fin al Result [facility] [address] [place] [address] * Vitamin D 25 hydroxy (07/21/2024 3:22 PM CDT) Vitamin D 25-OH 98 30 - 100 ng/mL [facility] Comment: Vitamin D Status 25-OH Vitamin D: Deficiency: <20 ng/mL Insufficiency: 20 - 29 ng/mL Optimal: > or = 30 ng/mL For 25-OH Vitamin D testing on patients on D2-supplementation and patients for whom quantitation of D2 and D3 fractions is required, the QuestAssureD(TM) 25-OH VIT D, (D2,D3), LC/MS/MS is recommended: order code 93065 (patients >2yrs). See Note 1 Note 1 For additional information, please refer to http://education.[employer]faq/PAS329 (This link is being provided for informational/ educational purposes only.) Blood 07/21/2024 3:22 PM CDT 07/21/2024 10:26 PM CDT Darius Lopez LAB BLOOD ORDERABLES Fin al Result Performing Organization Address [facility]/ZIP Co de Phone Number QUEST [facility] [address] [place] [address] * (ABNORMAL) T3, free (07/21/2024 3:22 PM CDT) Free T3 2.1(L) 2.3 - 4.2 pg/mL [facility] Blood 07/21/2024 3:22 PM CDT 07/21/2024 10:26 PM CDT Daruis Lopez LAB BLOOD ORDERABLES Fin al Result Performing Organization Address [facility] de Phone Number QUEST [facility] [address] [place] [address] * TSH (07/21/2024 3:22 PM CDT) TSH 1.52 0.40 - 4.50 mIU/L [facility] Blood 07/21/2024 3:22 PM CDT 07/21/2024 10:26 PM CDT Darius Lopez LAB BLOOD ORDERABLES Fin al Result Performing Organization Address City/[facility]/ZIP Co de Phone Number QUEST [facility] [address] [place] [address] * T4, free (07/21/2024 3:22 PM CDT) Free T4 1.1 0.8 - 1.8 ng/dL [facility] Blood 07/21/2024 3:22 PM CDT 07/21/2024 10:26 PM CDT us Darius Lopez DO LAB BLOOD ORDERABLES Fin al Result Performing Organization Address [facility] de Phone Number [facility] [address] [place] [address] * (ABNORMAL) Hemoglobin A1c (07/21/2024 3:22 PM CDT) Hgb A1C 5.8(H) <5.7 % of total Hgb [facility] eleazar Garcia Comment: For someone without known diabetes, a hemoglobin A1c value between 5.7% and 6.4% is consistent with prediabetes and should be confirmed with a follow-up test. For someone with known diabetes, a value <7% indicates that their diabetes is well controlled. A1c targets should be individualized based on duration of diabetes, age, comorbid conditions, and other considerations. This assay result is consistent with an increased risk of diabetes. Currently, no consensus exists regarding use of hemoglobin A1c for diagnosis of diabetes for children. Blood 07/21/2024 3:22 PM CDT 07/21/2024 10:26 PM CDT Darius Lopez DO LAB BLOOD ORDERABLES Fin al Result Performing Organization Address [facility] de Phone Number [facility] [address] [place] [address] * Lipid panel (07/21/2024 3:22 PM CDT) Cholesterol 145 <200 mg/dL [facility] HDL 53 > OR = 50 mg/dL [facility] Triglycerides 90 <150 mg/dL [facility] LDL 75 mg/dL (calc) [facility] Comment: Reference range: <100 Desirable range <100 mg/dL for primary prevention; <70 mg/dL for patients with CHD or diabetic patients with > or = 2 CHD risk factors. LDL-C is now calculated using the Lissy calculation, which is a validated novel method providing better accuracy than the Friedewald equation in the estimation of LDL-C. Rip PARSON et al. JOSE M. 2013;310(19): 6636-9021 (http://education.[employer]faq/QAM887) Chol/HDL ratio 2.7 <5.0 (calc) [facility] Non-HDL, (LDL+VLDL) 92 <130 mg/dL (calc) [facility] Comment: For patients with diabetes plus 1 major ASCVD risk factor, treating to a non-HDL-C goal of <100 mg/dL (LDL-C of <70 mg/dL) is considered a therapeutic option. Blood 07/21/2024 3:22 PM CDT 07/21/2024 10:26 PM CDT us Darius Lopez DO LAB BLOOD ORDERABLES Fin al Result [facility] [address] [place] [address] * (ABNORMAL) Comprehensive metabolic panel (07/21/2024 3:22 PM CDT) Glucose 88 65 - 99 mg/dL [facility] Comment: Fasting reference interval BUN 14 7 - 25 mg/dL [facility] Creatinine 0.97(H) 0.60 - 0.95 mg/dL [facility] eGFR 58(L) > OR = 60 mL/min/1.7 3m2 [facility] BUN/creat ratio 14 6 - 22 (calc) [facility] Sodium 142 135 - 146 mmol/L [facility] Potassium, pl 4.0 3.5 - 5.3 mmol/L [facility] Chloride 109 98 - 110 mmol/L [facility] CO2 20 20 - 32 mmol/L [facility] Calcium 8.3(L) 8.6 - 10.4 mg/dL [facility] Protein, sr 7.4 6.1 - 8.1 g/dL [facility] Albumin 4.3 3.6 - 5.1 g/dL [facility] GLOBULIN 3.1 1.9 - 3.7 g/dL (calc) [facility] Alb/glob ratio 1.4 1.0 - 2.5 (calc) [facility] Bilirubin, total 0.8 0.2 - 1.2 mg/dL [facility] Alk phos 52 37 - 153 U/L [facility] AST 21 10 - 35 U/L [facility] ALT (SGPT) 12 6 - 29 U/L [facility] Blood 07/21/2024 3:22 PM CDT 07/21/2024 10:26 PM CDT Darius Lopez DO LAB BLOOD ORDERABLES Fin al Result [facility] [address] [place] [address] * Cardiology Document Scan (07/13/2024 3:03 PM [...] CARDIAC SERVICES PRO CEDURES Final Result * ECG 12 lead (07/08/2024 3:28 PM CDT) Historical Provider ECG ORDERABLES Edited Re sult - Final * XR Chest Pa Lateral 2 Views (06/24/2024 4:32 PM CDT) Anatomical Region Laterality Modality Body, Chest N/A Digital Radiogra phy 06/24/2024 4:5 4 PM CDT Narrative 06/24/2024 4:55 PM CDT [...] signed by Garry LEA T: Report ID: [id number] Reading Location: [id number] Procedure Note Garry Huddleston MD - 06/24/2024 [...] signed by Garry LEA T: Report ID: [id number] Reading Location: [id number] Jacque Helton SURVEY RESEARCH ANALYST IMG XR PROCEDURES Final Re sult * [...] it. Electronically signed by: Katie Mead M.D. us Lianna Mar MD IMG DXA PROCEDURES Final Resu lt from Last 3 Months or Most Recently Relevant to Health Maintenance Insurance MEDICARE [employer] OOS MEDICARE [facility] FEDERAL MEDICARE [facility] FEDERAL Care Teams Telephone Sales Representative Relationship Specialty Start Date End Date Darius Lopez DO [address] [place] [address] PCP - General Family Medicine 07/21/24
--- OUTSIDE RECORDS SUMMARY | 2024-07-28 15:42 | XMS_ITS | Encounter Summary ---
Author Organization [facility] Healthcare Address [address] [place] [address] Care Team Providers Care Supervisory It Specialist Name Role Phone Darius Lopez DO Primary Care Provider + Reason for Visit * Cardiology (Routine) - Closed Specialty Diagnoses / Procedures Referred By Samantha t Referred To Contact Diagnoses Atrial flutter with rapid ventricular response (HCC) Procedures MCT Mobile Cardiac Telemetry Event Monitor Melly Charlton NP [address] [facility] [address] [address] Phone: tel: fax: [facility] Medical [facility] Cardiology [address] [place] [phone] Phone: tel: fax: Referral ID Status Reason Start Date Expiration Date Visits Re quested Visits Authorized [id number] Closed 07/28/2024 08/27/2025 1 1 Encounter Details Date Type Department Care Team (Latest Contact Info) Description 07/28/2024 10:30 AM CDT Ancillary Procedure [facility] Medical [facility] Cardiology [address] [place] [address] [address] Atrial flutter with rapid ventricular response (HCC) Social History Tobacco Use Types Packs/Day Years [...] on file 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 Gender Identity Not on file Sexual Orientation Not on file documented as of this encounter Plan of Treatment Pending Results Name Type Priority Associated Diagnoses Date /Time MCT Mobile Cardiac Telemetry Event Monitor Cardiac Services Routine Atrial flutter with rapid ventricular response (HCC) 07/28/2024 1:55 PM CDT documented as of this encounter Visit Diagnoses Diagnosis Atrial flutter with rapid ventricular response (HCC) documented in this encounter Care Teams Supervisory It Specialist Relationship Specialty Start Date End Date Darius Lopez DO [address] [facility] [address] [place] [address] PCP - General Family Medicine 07/21/24 documented as of this encounter
--- OUTSIDE RECORDS SUMMARY | 2024-07-28 15:42 | XMS_ITS | Encounter Summary ---
Author Organization [facility] Healthcare Address [address] [place] [address] Care Team Providers Care Mangle Press Catcher Name Role Phone Darius Lopez DO Primary Care Provider + Reason for Visit * Reason Onset Date Comments Referral Request 07/28/2024 Encounter Details Date Type Department Care Team (Late st Contact Info) Description 07/28/2024 Telephone [facility] Medical Group Primary Care at [address] [address] Darius Lopez DO [address] [place] [address] [address] [place] [address] Referral Request Social History Tobacco Use Types Packs/Day Years [...] on file 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 Is there someone else she can get in earlier with? Does message need to be routed? Yes-Action Needed documented in this encounter Plan of Treatment Not on file documented as of this encounter Visit Diagnoses Not on filedocumented in this encounter Care Teams Mangle Press Catcher Relationship Specialty Start Date End Date Darius Lopez DO [address] [facility] [address] [place] [address] PCP - General Family Medicine 07/21/24 documented as of this encounter
--- OUTSIDE RECORDS SUMMARY | 2024-07-28 15:42 | XMS_ITS | Encounter Summary ---
Author Organization [facility] Healthcare Address [address] [place] [address] Care Team Providers Care Nuclear Engineer Name Role Phone Erasmobeverly Dariuscaron Gaitan Primary Care Provider + Reason for Referral * Cardiology (Routine) - Closed Specialty Diagnoses / Procedures Referred By Contaranza t Referred To Contact Procedures ECG 12 lead Nidia Keenan MD [address] [place] [address] Phone: tel: Referral ID Status Reason Start Date Expiration Date Visits Re quested Visits Authorized [id number] Closed 07/28/2024 08/27/2025 1 1 Encounter Details Date Type Department Care Team ([facility] st Contact Info) Description 07/28/2024 Orders Only [facility] Medical Group Cardiology [address] [place] [address] Nidia Keenan MD [address] [place] [address] Social History Tobacco Use Types Packs/Day Years [...] on file 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 Gender Identity Not on file Sexual Orientation Not on file documented as of this encounter Plan of Treatment Not on file documented as of this encounter Procedures Procedure Name Priority Date/Time Associated Diagnosis Comments ECG 12-LEAD Routine 07/08/2024 3:28 PM CDT documented in this encounter Results * ECG 12 lead (07/08/2024 3:28 PM CDT) us Historical Provider ECG ORDERABLES Edited Re sult - Final documented in this encounter Visit Diagnoses Not on filedocumented in this encounter Care Teams Nuclear Engineer Relationship Specialty Start Date End Date Darius Lopez DO [address] [facility] [address] [place] [address] PCP - General Family Medicine 07/21/24 documented as of this encounter
--- OUTSIDE RECORDS SUMMARY | 2024-07-28 15:42 | XMS_ITS | Encounter Summary ---
Author Organization [facility] Healthcare Address [address] [place] [address] Care Team Providers Care Rough Rice Grader Name Role Phone Darius Lopez DO Primary Care Provider + Reason for Referral * Cardiology (Routine) - Closed Specialty Diagnoses / Procedures Referred By Samantha t Referred To Contact Diagnoses Atrial flutter with rapid ventricular response (HCC) Procedures MCT Mobile Cardiac Telemetry Event Monitor Melly Charlton NP [address] [place] [address] Phone: tel: fax: [facility] Medical Group Cardiology [address] [place] [phone] Phone: tel: fax: Referral ID Status Reason Start Date Expiration Date Visits Re quested Visits Authorized [id number] Closed 07/28/2024 08/27/2025 1 1 Reason for Visit * Reason Comments Hospital Follow Up Atrial Flutter Encounter Details Date Type Department Care Team (Late st Contact Info) Description 07/28/2024 1:00 PM CDT Office Visit [facility] Medical Group Cardiology [address] [place] [address] [address] Melly Charlton NP [address] [facility] [address] [address] Hematuria, unspecified type (Primary Dx); Primary hypertension; [...] on file 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 Gender Identity Not on file Sexual Orientation Not on file documented as of this encounter Last Filed Vital Signs Vital Sign Reading Time Taken Comments Blood Pressure 138/78 07/28/2024 1:01 PM CDT Pulse 128 07/28/2024 1:01 PM CDT Temperature - - Respiratory Rate - - Oxygen Saturation 99% 07/28/2024 1:01 PM CDT Inhaled Oxygen Concentration - - Weight 85.3 kg (188 lb) 07/28/2024 1:01 PM CDT Height 154.9 cm (5' 1 ) 07/28/2024 1:01 PM CDT Body Mass Index 35.52 07/28/2024 1:01 PM CDT documented in this encounter Patient Instructions * Patient Instructions* Melly Charlton NP - 07/28/2024 1:00 PM CDT Follow a low salt diet, with a goal of less than 2,000mg of sodium per day (pay attention to your portion sizes). One of the diets that fits this pattern is the DASH (Dietary Approaches to Stop Hypertension) eating plan. Increase metoprolol to 25mg twice daily documented in this encounter Plan of Treatment Pending Results Name Type Priority Associated Diagnoses Date /Time MCT Mobile Cardiac Telemetry Event Monitor Cardiac Services Routine Atrial flutter with rapid ventricular response (HCC) 07/28/2024 1:55 PM CDT Scheduled Orders Name Type Priority Associated Diagnoses Orde r Schedule MCT Mobile Cardiac Telemetry Event Monitor Cardiac Services Routine Atrial flutter with rapid ventricular response (HCC) Expected: 07/28/2024, Expires: 07/28/2025 Urinalysis reflex to microscopic and culture Urine, clean voided Microbiology Routine Hematuria, unspecified type Expected: 07/31/2024, Expires: 07/28/2025 documented as of this encounter Visit Diagnoses Diagnosis Hematuria, unspecified type- Primary Primary hypertension Unspecified essential hypertension Atrial flutter with rapid ventricular response (HCC) documented in this encounter Care Teams Rough Rice Grader Relationship Specialty Start Date End Date Darius Lopez DO [address] [facility] [address] [place] [address] PCP - General Family Medicine 07/21/24 documented as of this encounter
--- OUTSIDE RECORDS SUMMARY | 2024-07-28 15:42 | XMS_ITS | Encounter Summary ---
Author Organization [facility] Healthcare Address [address] [place] [address] Care Team Providers Care Social And Human Services Assistant Name Role Phone Lianna Kirk MD Primary Care Provider [phone] Darius Lopez DO Primary Care Provider + Sommer Matthew MA Unavailable [phone] Encounter Details Date Type Department Care Team (Late st Contact Info) Description 06/24/2024 Results Follow-Up [facility] Medical Group [facility] at [place] [address] [place] [address] [place] [address] [place] [address] [address] [place] [address] Social History Tobacco Use Types [...] on file 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
--- OUTSIDE RECORDS SUMMARY | 2024-07-28 15:42 | XMS_ITS | Clinical Summary ---
Author Organization [facility] Address [address] [place] [address] Care Team Providers Care Plate Maker Name Role Phone Darius Lopez Primary Care Provider + Allergies Active Allergy Reactions Criticality Noted Date Comments Codeine Headache Low Medications cyanocobalamin (Vitamin B-12) 100 mcg tabletIndications :Prevention of Vitamin B12 Deficiency Take 1 tablet (100 mcg total) by mouth daily Active naphazoline-peg 300 0.012-0.2 % drops Active calcium carbonate (CALCIUM 600 ORAL) Take by mouth daily Active glucosamine sulfate 1,000 mg capsule Take by mouth Active snjhslf-xash-wcjx l-wqpi-onakgg 100 mg-150 mg- 50 mg-150 mg capsule [...] encouraged Assessment & Plan (04/24/2023 9:34 AM DIRECTOR COMMUNITY HEALTH NURSING): On last visit was sent fo Ed [...] cuff. Assessment & Plan (04/24/2023 9:29 AM DIRECTOR COMMUNITY HEALTH NURSING): New onset ekg consistent with atrial flutter. [...] 05/10/2021 Assessment & Plan (05/10/2021 2:59 PM DIRECTOR COMMUNITY HEALTH NURSING): Notes left calf tightness ongoing for weeks. Pt has metal in ipsilateral thigh. Will obtain US to rule out thrombus Chronic pain of left knee 04/28/2021 Assessment & Plan (05/10/2021 2:57 PM DIRECTOR COMMUNITY HEALTH NURSING): Acute on chronic knee pain. 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 Pt agrees to injection as this has worked in the past Assessment & Plan (04/28/2021 12:31 PM DIRECTOR COMMUNITY HEALTH NURSING): On going since fall. Has had not [...] synthroid Assessment & Plan (04/13/2021 9:56 AM DIRECTOR COMMUNITY HEALTH NURSING): Stable on current dose of synthroid Assessment [...] recently. Assessment & Plan (03/13/2018 11:08 AM DIRECTOR COMMUNITY HEALTH NURSING): Check TSH, free T4, CBC, and CMP. [...] visit. Assessment & Plan (04/13/2021 9:56 AM DIRECTOR COMMUNITY HEALTH NURSING): We reviewed the Medicare Health Risk Assessment in its entirety during the appointment. 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 Pt [...] appointment. Assessment & Plan (05/01/2017 11:23 AM DIRECTOR COMMUNITY HEALTH NURSING): Stable: Continue current medications, monitor closely and [...] nodule previously benign, new suspicious nodule identified. [facility] referral needed. - Refer to ict educator for thyroid nodule evaluation. Orders: Ambulatory referral to Endocrinology; Future Assessment & Plan (12/03/2019 9:36 AM CDT): The patient's benign nodule is stable. Continue to monitor. She will have a follow up thyroid ultrasound later this month. Assessment & Plan (12/10/2018 8:05 PM CDT): The patient's ultrasound reveals and unchanged nodule. Pathology was benign. Assessment & Plan (05/01/2017 11:22 AM DIRECTOR COMMUNITY HEALTH NURSING): Patient did not follow through with thyroid [...] crestor Assessment & Plan (04/13/2021 9:54 AM DIRECTOR COMMUNITY HEALTH NURSING): Well controlled on statin Assessment & Plan [...] supplementation. Assessment & Plan (03/13/2018 10:41 AM DIRECTOR COMMUNITY HEALTH NURSING): She is on vitamin D 50,000 international units weekly. Check 25-OH vitamin D. Assessment & Plan (05/01/2017 11:22 AM DIRECTOR COMMUNITY HEALTH NURSING): Stable: Patient is now taking 25117 units of vitamin-D monthly. Check vitamin-D level [...] provided. Assessment & Plan (04/24/2023 8:58 AM DIRECTOR COMMUNITY HEALTH NURSING): BMI Follow-up includes: nutrition counseling, exercise counseling, and education provided. Assessment & Plan (04/05/2023 12:03 PM DIRECTOR COMMUNITY HEALTH NURSING): BMI Follow-up includes: nutrition counseling, exercise counseling, [...] 04/28/2021 Assessment & Plan (04/28/2021 12:30 PM DIRECTOR COMMUNITY HEALTH NURSING): Pt has lashay in her femor since age 18. Also fell approximately 4 months ago. And reports odd sensation starting in left leg. Will obtain xrays and labs Illness 04/28/2021 07/21/2024 Assessment & Plan (05/10/2021 2:21 PM DIRECTOR COMMUNITY HEALTH NURSING): Labs reviewed. All normal. CRP normal. Pt reassured as there are not specific symptoms. Says she has been feeling better. Continues to have tingling on left LE that sometimes travels up. Assessment & Plan (04/28/2021 2:00 PM DIRECTOR COMMUNITY HEALTH NURSING): Vague symptoms. Will obtain labs. Acute pain of right shoulder 04/13/2021 07/21/2024 Assessment & Plan (04/24/2023 9:16 AM DIRECTOR COMMUNITY HEALTH NURSING): Under care of ortho Assessment & Plan (04/05/2023 12:37 PM DIRECTOR COMMUNITY HEALTH NURSING): 2 days ago was closing car door when she heard a pop in her right shoulder. Has been in significant pain since she has been unable to raise arm to eat. Assessment & Plan (04/13/2021 10:02 AM DIRECTOR COMMUNITY HEALTH NURSING): Since fall. Will obtain xrays for eval. Physical therapy Sprain of knee and leg 02/10/202107/21 Upper arm joint pain, right 02/10/2021 07/21/2024 Assessment & Plan (04/13/2021 9:58 AM DIRECTOR COMMUNITY HEALTH NURSING): Since fall. Pain and discomfort ongoing for months. Will obtain xrays . pain management--prescribed hydrocodone for severe pain Impaired fasting glucose 01/21/202010/2024 Assessment & Plan (07/22/2020 3:37 PM CDT): Recheck hga1c Dyspnea on exertion 05/01/2017 07/22/19 Assessment & Plan (01/17/2023 1:13 PM CDT): [...] stamina. Assessment & Plan (05/01/2017 11:37 AM DIRECTOR COMMUNITY HE[facility] NURSING): New complaint: Family history of premature coronary [...] Plan (12/06/2016 11:11 AM CDT): Managed per schedule clerk, Dr. Alvarez. Severe obesity (BMI 35.0-39. 9) with comorbidity 12/06/2016 04/11/2024 Assessment & Plan (09/12/2023 1:02 PM CDT): BMI Follow-up includes: nutrition counseling, exercise counseling, and education provided. Assessment & Plan (07/04/2022 11:15 AM CDT): BMI Follow-up includes: nutrition counseling, exercise counseling and education provided. Assessment & Plan (05/10/2021 2:09 PM DIRECTOR COMMUNITY HE[facility] NURSING): BMI Follow-up includes: nutrition counseling, exercise counseling and education provided. Assessment & Plan (04/28/2021 12:02 PM DIRECTOR COMMUNITY HEALTH NURSING): BMI Follow-up includes: nutrition counseling, exercise counseling [...] encouraged. Assessment & Plan (03/13/2018 10:25 AM DIRECTOR COMMUNITY HE[facility] NURSING): BMI Follow-up includes: nutrition counseling, exercise counseling and education provided. Assessment & Plan (05/01/2017 10:45 AM DIRECTOR COMMUNITY HEALTH NURSING): BMI Follow-up includes: nutrition counseling, exercise counseling and education provided. Assessment & Plan (12/06/2016 11:29 AM CDT): Reviewed BMI: appropriate education provided including, nutrition and exercise. Thyroid disorder 12/09/2015 04/13/2021 Encounters Date Type Department Care Team Description 07/28/2024 1:00 PM CDT Office Visit [facility] Cardiology [address] [place] [address] [place] [phone] Melly Charlton NP Hematuria, unspecified type (Primary Dx); Primary hypertension; Atrial flutter with rapid ventricular response (HCC) 07/28/2024 10:30 AM CDT Ancillary Procedure [facility] Cardiology [address] [place] [phone] Atrial flutter with rapid ventricular response (HCC) 07/28/2024 Orders Only [facility] Cardiology [address] [place] [address] [place] [phone] ProviderNidia MD 07/28/2024 Telephone [facility] Cardiology [address] [place] [address] [place] [phone] Melly Charlton NP 07/28/2024 Telephone [facility] Primary Care at [address] [place] [phone] Darius Lopez, DO Referral Request 07/23/2024 [facility] [address] [address] Sommer Matthew MA 07/23/2024 [facility] [address] [address] Sommer Matthew MA 07/22/2024 Results Follow-Up [facility] Primary Care at [address] [place] [phone] Darius Lopez DO 07/21/2024 6:54 PM CDT - 07/22/2024 12:28 AM CDT Emergency [facility] Emergency Department [address] [address] [address] Chronic tachycardia (Primary Dx) Discharge Disposition: Discharge to home or self care 07/21/2024 2:00 PM CDT Office Visit [facility] Primary Care at [address] [phone] Erasmofrankcarrie Darius Gaitan DO Encounter to establish care with new doctor (Primary Dx); Annual visit for general adult medical examination with abnormal findings; Atrial flutter with rapid ventricular response (HCC); Primary hypertension; Thyroid nodule; Prediabetes; Tachycardia; Acquired hypothyroidism; Mixed hyperlipidemia; Vitamin D deficiency; Chronic anticoagulation; Spinal stenosis of lumbar region with neurogenic claudication; Lumbar radiculopathy; History of DVT in adulthood; Postmenopausal; BMI 31.0-31.9,adult 07/15/2024 Orders Only [facility]iology [address] [facility] [address] [place] [phone] Yolanda Schaefer MD 07/09/2024 Telephone [facility] Primary Care at [address] [phone] Lianna Mar MD Appointment 07/07/2024 10:45 AM CDT Office Visit [facility] at [address] [phone] Harvinder Marie NP Tachycardia (Primary Dx); Pain and swelling of left lower leg 06/24/2024 4:20 PM CDT Ancillary Procedure [facility] Imaging at [address] [phone] Acute cough 06/24/2024 3:45 PM CDT Office Visit [facility] at [address] [phone] Jacque Helton NP Acute cough (Primary Dx) 06/24/2024 Results Follow-Up [facility] at [address] [phone] Jacque Helton NP 06/23/2024 Nurse Triage [facility] at [address] [place] [phone] Lianna Mar MD from Last 3 Months Immunizations Immunization [...] on file Legal Sex Female 3:47 AM DIRECTOR COMMUNITY HEALTH NURSING Gender Identity Not on file Sexual Orientation [...] 07/28/2024 1:01 PM CDT Plan of Treatment Health Maintenance Due Date Last Done Comments Hepatitis B Screening 10/01/1958 Zoster Vaccine (2 of 2) 03/13/2020 01/17/2020 Covid-19 Vaccine (2023-2 5 season) 2023 04/27/2021, 07/20/2020, 06/29/2020 Osteoporosis Screening-Bone Density Scan 07/14/2024 07/14/2022, 12/12/2019, 12/07/2017 Well Visit 65+ 10/29/2024 10/30/2023, 05/2 12/2023, 07/04/2022, Additional history exists Influenza Vaccine (Season Ended) 2024 01/17/2023, 01/14/2023, 01/14/2022, Additional history exists Depression Screening 07/21/2025 07/21/2024, 10/30/2023, 09/12/2023, Additional history exists Fall Risk Assessment 07/21/2025 07/21/2024, 10/30/2023, 09/12/2023, Additional history exists DTaP/Tdap/Td Vaccine (2 - [...] 3:43 PM CDT DIFFERENTIAL AUTO STAT 07/21/2024 3:43 PM CDT TROPONIN T HIGH-SENSITIVITY SERIES (BASELINE, [...] spent time documenting in the medical record. us Veronika Waters NP IN CLINIC/BEDSIDE ORDERABLES Severino silver Result * ECG 12-LEAD (07/21/2024 11:18 PM [...] Preliminary results were given by the tele-radiologist environmental remediation engineer Dr. Jama Dictated by: Parviz Sandoval MD [...] of a 1.0 cm subcarinal lymph node (/127). Nondistended thoracic esophagus. Small hiatal hernia. Partially [...] Preliminary results were given by the tele-radiologist environmental remediation engineer Dr. Jama Dictated by: Parviz Sandoval MD PHD The radiology attending physician has personally reviewed this study, and had reviewed and/or edited this written report and agrees with it. Electronically signed by: Reyes Garcia M.D. Veronika Waters PHOTOGRAPHER STILL IMG CT PROCEDURES Final Result * (ABNORMAL) D-dimer, [...] 68, VTE cut-off 680 ng/ml FEU. References; Schouten HT et al. Brit Med J. 2013;346:f2492. Krystle et al. Annals Int Med. 2015;163:701-11. Current interpretive data was last revised on 2019. Blood 07/21/2024 9:23 PM CDT 07/21/2024 9:25 PM CDT Veronika Waters NP LAB BLOOD ORDERABLES Final Resul t Performing Organization Address [facility] Co de Phone Number YUMIKO MONTEZCH [address] [facility] [place] [address] * Troponin T high-sensitivity 2-hour (07/21/2024 5:37 PM CDT) Trop T hs 12 <=14 ng/L Comment: Interpretive Data For further hscTnT resources including the diagnostic algorithm and an aid in interpretation, copy and paste this link: https://nrl.testcatalog.org/show/hsTrop Current Interpretive Data last revised 2020. Trop T hs delta 0 ng/L YUMIKO BJWCH Trop T hs interp Insignificant [facility] Blood 07/21/2024 5:37 PM CDT 07/21/2024 5:46 PM CDT Elier Sood MD LAB BLOOD ORDERABLES Edited R esult - Final Performing Organization Address [facility] Co de Phone Number YUMIKO SIMPSONCH [address] [facility] [place] [address] * Thyroid Function [place] (07/21/2024 5:37 PM CDT) TSH 1.29 0.30 - 4.20 mcIUnit/mL Blood 07/21/2024 5:37 PM CDT 07/21/2024 5:46 PM CDT Elier Sood MD LAB BLOOD ORDERABLES Final Re sult Performing Organization Address [facility] de Phone Number YUMIKO MONTEZCH [address] [facility] [place] [address] * XR Chest PA Lateral 2 Views [...] findings. Electronically signed by: Christiana Mccann M.D. Elier Sood MD IMG XR PROCEDURES Final Resul t * Troponin T high-sensitivity series (baseline, 2hr, 4hr, 6hr) (07/21/2024 3:43 PM CDT) Pathologist [facility] Trop T hs 12 <=14 ng/L Comment: Interpretive Data For further hscTnT resources including the diagnostic algorithm and an aid in interpretation, copy and paste this link: https://nrl.testcatalog.org/show/hsTrop Current Interpretive Data last revised 2020. Blood 07/21/2024 3:43 PM CDT 07/21/2024 3:45 PM CDT Elier Sood MD LAB BLOOD ORDERABLES Final Re sult YUMIKO BJWCH [address] [facility]. Department of [employer] [place], [place] [id number] * eGFR (07/21/2024 3:43 PM CDT) eGFR [...] LAB BLOOD ORDERABLES Final Re sult [facility] [address] [facility]. [place] [address] * Differential, auto (07/21/2024 3:43 PM CDT) Pathologist [facility] Neutrophil abs 5.34 1.50 - 6.50 K/cumm Imm gran abs 0.03 0.00 - 0.10 K/cumm CERNER W Lymphocyte abs 2.72 0.80 - 3.30 K/cumm [facility] Monocyte abs 0.64 0.20 - 0.80 K/cumm [facility] Eosinophil abs 0.13 0.00 - 0.50 K/cumm [facility] Basophil abs 0.04 0.00 - 0.10 K/cumm [facility] Neutrophil pct 60.0 % [facility] Comment: Interpretive Data Percent cell count reference ranges are not reported, since discordance with absolute values may lead to misinterpretation of CBC data. Current Interpretive Data was last revised on 2017. Imm gran pct 0.3 % YUMIKO WATKINS Comment: Interpretive Data Percent cell count reference ranges are not reported, since discordance with absolute values may lead to misinterpretation of CBC data. Current Interpretive Data was last revised on 2017. Lymphocyte pct 30.6 % YUMIKO WATKINS Comment: Interpretive Data Percent [...] LAB BLOOD ORDERABLES Final Re sult YUMIKO MONTEZCH [address] [facility]. Department [place] [address] * (ABNORMAL) Pro B-type natriuretic peptide (07/21/2024 [...] LAB BLOOD ORDERABLES Final Re sult [facility] [address] [facility]. Department [place] [address] * (ABNORMAL) CBC with auto differential (07/21/2024 3:43 PM CDT) Pathologist [facility] WBC 8.90 3.80 - 9.90 K/cumm Hgb 10.9(L) 11.9 - 15.5 g/dL YUMIKO W Hct 33.8(L) 35.6 - 45.5 % YUMIKO MONTEZW Plt 317 150 - 400 K/cumm YUMIKO [facility] MPV 9.8 9.1 - 12.3 fL YUMIKO [facility] RBC 3.73(L) 3.90 - 5.20 M/cumm CERNER [facility] MCV 90.6 81.3 - 96.4 fL [facility] MCH 29.2 27.1 - 33.3 pg [facility] MCHC 32.2(L) 32.3 - 35.7 g/dL [facility] RDW CV 14.6 11.1 - 14.9 % [facility] RDW SD 47.8 35.7 - 48.1 fL [facility] NRBC abs 0.00 0.00 - 0.01 K/cumm [facility] Blood Venous blood specimen / Unknown 07/21/2024 3:43 PM CDT 07/21/2024 3:45 PM CDT Elier Sood MD LAB BLOOD ORDERABLES Final Re sult [facility] [address] [facility] Department [place] [address] * (ABNORMAL) Comprehensive metabolic panel (07/21/2024 3:43 PM CDT) Sodium 141 135 - 145 mmol/L Potassium, pl 4.2 3.3 - 4.9 mmol/L [facility] Chloride 108 97 - 110 mmol/L [facility] CO2 17(L) 22 - 32 mmol/L [facility] Anion gap 16(H) 2 - 15 mmol/L [facility] BUN 13 6 - 25 mg/dL [facility] Creatinine 0.84 0.60 - 1.10 mg/dL [facility] Glucose 97 70 - 199 mg/dL [facility] Comment: Interpretive Data Fasting glucose >/= 126 [...] BLOOD ORDERABLES Final Re sult YUMIKO SIMPSON [address] [facility]. Department [place] [address] * (ABNORMAL) CBC with auto differential (07/21/2024 3:22 PM CDT) WBC 8.4 3.8 - 10.8 Thousand/u L [...] 140 - 400 Thousand/u L [facility] ele[facility] Garcia MPV 10.1 7.5 - 12.5 fL [facility] Neutrophils, abs 5,242 1,500 - 7,800 cells/uL [facility] Lymphocytes, abs 2,461 850 - 3,900 cells/uL [facility] Monocyte abs 580 200 - 950 cells/uL [facility] Eosinophils, abs 101 15 - 500 cells/uL [facility] Basophils, abs 17 0 - 200 cells/uL [facility] Neutrophils 62.4 % [facility] Lymphocyte pct 29.3 % [facility] Monocytes 6.9 % [facility] Eosinophils 1.2 % [facility] Basophils 0.2 % [facility] Blood 07/21/2024 3:22 PM CDT 07/21/2024 10:26 PM CDT Darius Lopez DO LAB BLOOD ORDERABLES Fin al Result [facility] [employer] [facility] [address] [place] [address] * Vitamin D 25 hydroxy (07/21/2024 3:22 PM CDT) Vitamin D 25-OH 98 30 - 100 ng/mL [facility] [facility] [facility] Comment: Vitamin D Status 25-OH Vitamin D: Deficiency: <20 ng/mL Insufficiency: 20 - 29 ng/mL Optimal: > or = 30 ng/mL For 25-OH Vitamin D testing on patients on D2-supplementation and patients for whom quantitation of D2 and D3 fractions is required, the QuestAssureD(TM) 25-OH VIT D, (D2,D3), LC/MS/MS is recommended: order code 22631 (patients >2yrs). See Note 1 Note 1 For additional information, please refer to http://education.ParkerVision/faq/XHU543 (This link is being provided for informational/ educational purposes only.) Blood 07/21/2024 3:22 PM CDT 07/21/2024 10:26 PM CDT Darius Lopez DO LAB BLOOD ORDERABLES Fin al Result Performing Organization Address [facility] de Phone Number [facility] [employer] [facility] [address] [place] [address] * (ABNORMAL) T3, free (07/21/2024 3:22 PM CDT) Free T3 2.1(L) 2.3 - 4.2 pg/mL [facility] Blood 07/21/2024 3:22 PM CDT 07/21/2024 10:26 PM CDT Darius Lopez DO LAB BLOOD ORDERABLES Fin al Result Performing Organization Address [facility] Phone Number [facility] [address] [place] [address] * TSH (07/21/2024 3:22 PM CDT) TSH 1.52 0.40 - 4.50 mIU/L [facility] Blood 07/21/2024 3:22 PM CDT 07/21/2024 10:26 PM CDT Darius Burgoscarrie DO LAB BLOOD ORDERABLES Fin al Result Performing Organization Address [facility] de Phone Number [facility] [address] [place] [address] * T4, free (07/21/2024 3:22 PM CDT) Free T4 1.1 0.8 - 1.8 ng/dL [facility] Blood 07/21/2024 3:22 PM CDT 07/21/2024 10:26 PM CDT Darius Villalobosn [employer] DO LAB BLOOD ORDERABLES Fin al Result Performing Organization Address [facility]/State/ZIP Co de Phone Number [facility] [address] [place] [address] * (ABNORMAL) Hemoglobin A1c (07/21/2024 3:22 PM CDT) Pathologist [facility] Hgb A1C 5.8(H) <5.7 % of total Hgb [employer] eleazar Garcia Comment: For someone without known [...] DO LAB BLOOD ORDERABLES Fin al Result [facility] [address] [place] [address] * Lipid panel (07/21/2024 3:22 PM CDT) [facility] Cholesterol 145 <200 mg/dL [facility] HDL 53 > OR = 50 mg/dL [facility] Triglycerides 90 <150 mg/dL [facility] LDL 75 mg/dL (calc) [employer] eleazar Garcia Comment: Reference range: <100 Desirable range <100 mg/dL for primary prevention; <70 mg/dL for patients with CHD or diabetic patients with > or = 2 CHD risk factors. LDL-C is now calculated using the Lissy calculation, which is a validated novel method providing better accuracy than the Friedewald equation in the estimation of LDL-C. Rip PARSON et al. JOSE M. 2013;310(19): 2863-5579 (http://education.[facility] [place].TopRealty/faq/YCU583) Chol/HDL ratio 2.7 <5.0 (calc) [facility] Non-HDL, (LDL+VLDL) 92 <130 mg/dL (calc) [employer] eleazar Jose Comment: For patients with diabetes plus 1 major ASCVD risk factor, treating to a non-HDL-C goal of <100 mg/dL (LDL-C of <70 mg/dL) is considered a therapeutic option. Blood 07/21/2024 3:22 PM CDT 07/21/2024 10:26 PM CDT us Darius Lopez DO LAB BLOOD ORDERABLES Fin al Result [facility] [address] [place] [address] * (ABNORMAL) Comprehensive metabolic panel (07/21/2024 3:22 PM CDT) Glucose 88 65 - 99 mg/dL [facility] Mess[facility]Angela bush Jose Comment: Fasting reference interval BUN 14 7 - 25 mg/dL [facility] Creatinine 0.97(H) 0.60 - 0.95 mg/dL [facility] eGFR 58(L) > OR = 60 mL/min/1.7 3m2 [facility] BUN/creat ratio 14 6 - 22 (calc) [facility] Sodium 142 135 - 146 mmol/L [facility] Potassium, pl 4.0 3.5 - 5.3 mmol/L [facility] Chloride 109 98 - 110 mmol/L [facility] CO2 20 20 - 32 mmol/L [facility] Calcium 8.3(L) 8.6 - 10.4 mg/dL [facility] Protein, sr 7.4 6.1 - 8.1 g/dL [facility] Albumin 4.3 3.6 - 5.1 g/dL [facility] GLOBULIN 3.1 1.9 - 3.7 g/dL (calc) [facility] [facility] Alb/glob ratio 1.4 1.0 - 2.5 (calc) [facility] Bilirubin, total 0.8 0.2 - 1.2 mg/dL [facility] Alk phos 52 37 - 153 U/L [facility] AST 21 10 - 35 U/L [facility] ALT (SGPT) 12 6 - 29 U/L [facility] Blood 07/21/2024 3:22 PM CDT 07/21/2024 10:26 PM CDT Darius Lopez DO LAB BLOOD ORDERABLES Fin al Result [facility] [id number] [place] [address] * Cardiology Document Scan (07/13/2024 3:03 PM [...] signed by Garry LEA T: Report ID: [id number] Reading Location: [id number] Procedure Note Garry Huddleston MD - 06/24/2024 [...] signed by Garry LEA T: Report ID: [id number] Reading Location: [id number] Jacque Helton NP IMG XR PROCEDURES Final [...] Recently Relevant to Health Maintenance Insurance MEDICARE [employer] O MEDICARE [facility] FEDERAL MEDICARE [facility] FEDERAL Care Teams Plate Maker Relationship Specialty Start Date End Date Darius Lopez DO [address] [facility] [address] [place] [address] PCP - General Family Medicine 07/21/24
[2024-07-28 18:30] LABS: Bacteria Urine 1+ /hpf; Need Manual Microscopic Reviewed; Non Pathogenic Casts 0-2; RBC Urine >100 /hpf (0-2); Squamous Epithelial Cell Urine Occasional /hpf (Few); WBC Urine >100 /hpf (0-3)
[2024-07-28 18:31] LABS: Add Urine Microscopic? YES; Appearance Urine Turbid (Clear); Bilirubin Urine 1+ (Negative); Blood Urine 3+ (Negative); Glucose Urine UA Negative (Negative); Ketones Urine Negative (Negative); Leukocyte Esterase Ur 2+ LEU/UL (Negative); Nitrate Urine Negative (Negative); Protein Urine 2+ mg/dL (Negative); Specific Grav Ur 1.021 (1.001-1.035); Urobilinogen Urine 0.2 mg/dL (<2.0); pH Urine 5.5 (5.0-9.0)
[2024-07-28 18:32] LABS: Color Urine Amber (Yellow)
== END 2024-07-28 14:00 | disposition home or self-care (01) ==
LOC: ANHLAB 14:03
PROVIDERS: Visit Provider Internal Medicine Cardiovascular Disease
DX: R31.9 Hematuria, unspecified (principal)
CPT/HCPCS: 81001; 87086; 87186

== ENCOUNTER 2025-02-18 01:38 | Day surgery (SDC) | payer MEDICARE, BC, SELFPAY ==
[2025-02-17 10:33] VITALS: BMI 31.6
--- NOTE | 2025-02-17 10:47 | PC.NURSE ---
This RN completed pre call w/ pt at this time and discussed that the only medicine pt needs to skip tomorrow is furosemide but otherwise pt can stick to normal medication regimen as long, with the understanding she doesn't skip any doses of eliquis.
[2025-02-18] VITALS (8 sets, daily range): BP systolic 113–139; BP diastolic 74–103; PULSE 51–118; RESP 11–20; TEMP 36.2; O2SAT 93–100; BMI 31.2
--- NOTE | 2025-02-18 07:00 | ECG_ITS ---
Test Date: 2025-02-18 07:29:42 Measurements Intervals [place] Rate: 115 P: 0 [place]: 0 QRS: -24 QRSD: 69 T: -7 QT: 316 QTc: 439 Interpretive Statements ATRIAL FIBRILLATION WITH RAPID VENTRICULAR RESPONSE INFERIOR MYOCARDIAL INFARCTION , OF INDETERMINATE AGE [40+ ms Q WAVE AND/OR ST/T ABNORMALITY IN II/aVF] Abnormal ECG Compared to ECG 07/18/2024 21:01:43 Atrial flutter no longer present T-wave abnormality no longer present Possible ischemia no longer present Myocardial infarct finding still present Electronically Signed On 02-18-2025 08:14:58 [employer]SP[employer] WORKER by Aly Ricardo M.D.
[2025-02-18] MEDS: SODIUM CHLORIDE 0.9% IV 500 ML 30 ML (08:28)
--- NOTE | 2025-02-18 08:30 | ECG_ITS ---
Test Date: 2025-02-18 09:12:41 Measurements Intervals [place] Rate: 49 P: 99 IA: 237 QRS: -14 QRSD: 71 T: 3 QT: 458 QTc: 416 Interpretive Statements SINUS BRADYCARDIA WITH FIRST DEGREE AV BLOCK WITH OCCASIONAL ECTOPIC PREMATURE COMPLEXES POSSIBLE INFERIOR MYOCARDIAL INFARCTION , PROBABLY OLD [30 ms Q WAVE IN II/aVF] ABNORMAL ECG Compared to ECG 02/18/2025 07:29:42 First degree AV block now present Atrial fibrillation no longer present Myocardial infarct finding still present Electronically Signed On 02-18-2025 14:39:57 RN NAVIGATOR by Aly Ricardo M.D.
--- NOTE | 2025-02-18 08:31 | PM.IMHP ---
H&P: HPI History of Present Illness Date/Time: 02/18/25 08:31 Chief Complaint: Atrial fibrillation Narrative: 84-year-old here today for outpatient elective cardioversion due to atrial fibrillation. She has symptomatic palpitations as well as dyspnea exertion. 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 Hypothyroidism Atrial fibrillation Spinal stenosis Arthritis of left knee BMI 37.0-37.9, adult Hypercholesteremia Postmenopausal Carpal tunnel syndrome Hypertension Surgical History Surgical History H/O hand surgery H/O partial thyroidectomy Femur fracture, left surgery with lashay insertion at age 18 History of shoulder surgery bilateral rotator cuff repair Hx of appendectomy History of carpal tunnel surgery Bilateral Family History Family History Father Cancer Mother , at age 81 Parkinson's disease Sibling Heart disease Son Heart disease Social History Social History Smoking status: Never smoker Second hand tobacco smoke exposure: No Alcohol intake: never Drinks per week: 1 Alcohol use details: occasional Substance use: never Substance use type: does not use Do You Feel Safe in your Home?: Yes Lack of Transportation: No Lack of Food: Never True Current Housing: I Have Housing Concerned About Future Housing: No Difficulty Paying Gas/Electric Bills: No Difficulty Paying for Meds: No Currently Unemployed: No Education: High School Diploma/GED Difficulty w/ Childcare or Family Care: No Living arrangements: with family Occupation/Education: retired Gender identity (if verbalized by the patient): Female Spiritual care concerns: No Meds Home Medications and Allergies Home Medications ?Medication ?Instructions ?Recorded ?Confirmed ?Type nifedipine 60 mg tablet,extended 60 mg PO DAILY 03/01/20 02/17/25 History release rosuvastatin 10 mg tablet 5 mg PO DAILY 03/01/20 02/17/25 History acetaminophen 325 mg tablet 650 mg (2 x 325 mg) PO Q4-6H PRN 03/20/20 02/17/25 Rx pain #90 tabs apixaban 5 mg tablet (Eliquis) 5 mg PO BID 07/07/24 02/17/25 History celecoxib 200 mg capsule 200 mg PO BID 07/07/24 02/17/25 History ergocalciferol (vitamin D2) 1,250 50,000 unit PO WEEKLY 07/07/24 02/17/25 History mcg (50,000 unit) capsule acetaminophen 500 mg capsule 1,000 mg (2 x 500 mg) PO Q6H PRN 07/19/24 02/17/25 Rx pain #30 caps metoprolol succinate 25 mg 100 mg PO DAILY 08/21/24 02/17/25 History tablet,extended release 24 hr furosemide 20 mg tablet 20 mg PO Q12H 02/17/25 02/17/25 History levothyroxine 112 mcg tablet 112 mcg PO DAILY@0630 02/17/25 02/18/25 History Allergies Allergy/AdvReac Type Severity Reaction Status Date / Time codeine AdvReac Unknown HEADACHE Verified 02/18/25 07:30 Vital Signs Vital Signs - 24 hr 02/18/25 07:32 Temperature 36.2 C L Pulse Rate 118 H Respiratory Rate 17 Blood Pressure 139/103 H Pulse Oximetry 98 Oxygen Delivery Room Air Exam Const: General: no acute distress HENMT: Face/Nose/Sinus: Normal nares present Eyes: Sclera: sclerae normal Neck: Neck: supple Resp: Effort & Inspection: normal respiratory effort Cardio: Rate: tachycardic Rhythm: abnormal rhythm irregularly irregular GI: GI Palp: Yes Soft to palpation Neuro: Speech: normal speech Psych: Mental Status: mental status grossly normal Assessment and Plan Assessment and plan (1) Atrial fibrillation with rapid ventricular response: Code(s): I48.91 - Unspecified atrial fibrillation Status: Acute Plan Outpatient electrocardioversion. Labs are pending.
--- NOTE | 2025-02-18 08:35 | WPDMODSED ---
Moderate Sedation Note-Pt Data Patient Data Diagnosis: Atrial fibrillation Present Complaint: Atrial fibrillation Procedure to be performed/Plan: 1. Electrical cardioversion 2. Moderate sedation Allergies Allergy/AdvReac Type Severity Reaction Status Date / Time codeine AdvReac Unknown HEADACHE Verified 02/18/25 07:30 Home Medications ?Medication ?Instructions ?Recorded ?Confirmed ?Type nifedipine 60 mg tablet,extended 60 mg PO DAILY 03/01/20 02/17/25 History release rosuvastatin 10 mg tablet 5 mg PO DAILY 03/01/20 02/17/25 History acetaminophen 325 mg tablet 650 mg (2 x 325 mg) PO Q4-6H PRN 03/20/20 02/17/25 Rx pain #90 tabs apixaban 5 mg tablet (Eliquis) 5 mg PO BID 07/07/24 02/17/25 History celecoxib 200 mg capsule 200 mg PO BID 07/07/24 02/17/25 History ergocalciferol (vitamin D2) 1,250 50,000 unit PO WEEKLY 07/07/24 02/17/25 History mcg (50,000 unit) capsule acetaminophen 500 mg capsule 1,000 mg (2 x 500 mg) PO Q6H PRN 07/19/24 02/17/25 Rx pain #30 caps metoprolol succinate 25 mg 100 mg PO DAILY 08/21/24 02/17/25 History tablet,extended release 24 hr furosemide 20 mg tablet 20 mg PO Q12H 02/17/25 02/17/25 History levothyroxine 112 mcg tablet 112 mcg PO DAILY@0630 02/17/25 02/18/25 History Sedation/Anesthesia: No previous sedation/anesthesia problems (including family history). 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 Hypothyroidism Atrial fibrillation Spinal stenosis Arthritis of left knee BMI 37.0-37.9, adult Hypercholesteremia Postmenopausal Carpal tunnel syndrome Hypertension Surgical History Surgical History H/O hand surgery H/O partial thyroidectomy Femur fracture, left surgery with lashay insertion at age 18 History of shoulder surgery bilateral rotator cuff repair Hx of appendectomy History of carpal tunnel surgery Bilateral Family History Family History Father Cancer Mother , at age 81 Parkinson's disease Sibling Heart disease Son Heart disease Social History Social History Smoking status: Never smoker Second hand tobacco smoke exposure: No Alcohol intake: never Drinks per week: 1 Alcohol use details: occasional Substance use: never Substance use type: does not use Do You Feel Safe in your Home?: Yes Lack of Transportation: No Lack of Food: Never True Current Housing: I Have Housing Concerned About Future Housing: No Difficulty Paying Gas/Electric Bills: No Difficulty Paying for Meds: No Currently Unemployed: No Education: High School Diploma/GED Difficulty w/ Childcare or Family Care: No Living arrangements: with family Occupation/Education: retired Gender identity (if verbalized by the patient): Female Spiritual care concerns: No Mod Sed Physical Exam Physical Exam Pre Procedural Exam: Normal: Appearance, Eyes, Ears, Nose, Neck, Throat, Airway, Lungs, Heart Size, Neuro Exam, Abdomen, Extremities and Skin and Variation: Heart Rate (Tachycardic) and Heart Rhythm (Irregular irregular) Hours since solid foods: 12 Hours since liquid intake: 12 Mallampati Classification: class II Internal Medicine - PN: Obj Da Vital Signs Vital Signs: Vital Signs - 24 hr 02/18/25 07:32 Temperature 36.2 C L Pulse Rate 118 H Respiratory Rate 17 Blood Pressure 139/103 H Pulse Oximetry 98 Oxygen Delivery Room Air Labs 02/18/25 07:39 ASA Classification/Sedation ASA Classification/Sedation ASA Class: II Emergent: No Risks: Risks, benefits and alternatives explained and patient/family accepted plan for sedation. Patient re-evaluated immediately prior to sedation.
[2025-02-18 09:00] LABS: Anion Gap 9 mmol/L (4-12); Blood Urea Nitrogen 20 mg/dL (7-17); Calcium 8.1 mg/dL (8.4-10.2); Carbon Dioxide 24 mmol/L (22-30); Chloride 107 mmol/L (98-107); Estimated CRCL calculation 41 ml/min; Estimated Glomerular Filt Rate 54; Glucose 86 mg/dL (65-110); Magnesium 2.0 mg/dL (1.6-2.3); Potassium 4.0 mmol/L (3.4-5.0); Sodium 140 mmol/L (137-145)
[2025-02-18] MEDS: MIDAZOLAM HCL (*CRX) 2 MG/2 ML VIAL 1 MG IV PUSH (09:03)
[2025-02-18] MEDS: fentaNYL CITRATE INJ (*CRX) 100 MCG/2 ML VIAL 25 MCG IV PUSH (09:03)
--- NOTE | 2025-02-18 09:16 | WPDCARDVER ---
Cardioversion Cardioversion Date of procedure: 02/18/25 Procedure: 1. Electrical cardioversion 2. Moderate sedation Pre-op diagnosis: Atrial fibrillation Post-op diagnosis: Same Indications: Atrial fibrillation Description of procedure: After discussing the risks, benefits alternative procedure patient agreeable via verbal and written informed consent. Risks discussed include shocking into a more problematic heart rhythm, adverse reaction to anesthesia, skin irritation or burn, stroke. After obtaining written informed consent and after establishing continuous telemetry monitoring, pulse oxygenation and serial blood pressure assessments, procedure was started. Procedure start time 9:03 a.m. Procedure stop time 9:08 a.m. Complications none Blood loss: None Sedation: A total of 1 mg of Versed and 25 mcg of fentanyl were given for moderate sedation Patient was monitored and medications were administered by Mariam Pro RN Findings: Successful hoahaoism to sinus rhythm/sinus bradycardia from atrial fibrillation using 200 joules of synchronized biphasic energy Conclusion: 1. Successful electrical cardioversion with hoahaoism of sinus rhythm/sinus bradycardia from atrial fibrillation using 200 joules of synchronized biphasic energy 2. Moderate sedation
== END 2025-02-18 10:21 | disposition home or self-care (01) ==
PROVIDERS: Visit Provider Internal Medicine Cardiovascular Disease
PROC: 5A2204Z Restoration of Cardiac Rhythm, Single (ICD-10-PCS; principal; 2025-02-18 08:30)
DX: I48.91 Unspecified atrial fibrillation (principal); I44.0 Atrioventricular block, first degree; I10 Essential (primary) hypertension; E03.9 Hypothyroidism, unspecified; E78.00 Pure hypercholesterolemia, unspecified; M17.12 Unilateral primary osteoarthritis, left knee; M48.00 Spinal stenosis, site unspecified; Z79.01 Long term (current) use of anticoagulants; Z79.1 Long term (current) use of non-steroidal anti-inflammatories (NSAID); Z98.890 Other specified postprocedural states; Z86.718 Personal history of other venous thrombosis and embolism; Z80.9 Family history of malignant neoplasm, unspecified; Z82.49 Family history of ischemic heart disease and other diseases of the circulatory system
CPT/HCPCS: 36415; 80048; 83735; 92960; J2250; J3010; J7040